=== PATIENT | female | born 1970 | race Two or more races ===

== ENCOUNTER → 2020-07-05 16:08 | Outpatient (BNVA) | payer OTHER, SELFPAY | PROVIDERS: PCP Internal Medicine; Visit Provider Internal Medicine | DX: I82.5Z1 Chronic embolism and thrombosis of unspecified deep veins of right distal lower extremity (principal); Z51.81 Encounter for therapeutic drug level monitoring; Z79.01 Long term (current) use of anticoagulants | CPT/HCPCS: 85610; 99211 ==

== ENCOUNTER 2020-07-12 09:15 | Outpatient (REF) | payer OTHER, SELFPAY ==
[2020-07-12 10:21] LABS: MANUAL DIFF FLAG NO
[2020-07-12 10:45] LABS: Basophils Percent Auto 0.7 % (0-2); Eosinophils Absolute Auto 0.1 X10*3/uL (0.0-0.4); Eosinophils Percent Auto 2.2 % (0-4); Hematocrit 40.8 % (37-47); Hemoglobin 12.6 g/dl (12.0-16.0); Imm Gran Abs Auto 0.02 X10*3/uL (0.00-0.03); Imm Gran Pct Auto 0.4 % (0.0-0.4); Lymphocytes Absolute Auto 1.4 X10*3/uL (1.2-4.9); Lymphocytes Percent Auto 25.9 % (20-40); Mean Corpuscular HGB Conc 30.9 g/dl (31.0-35.0); Mean Corpuscular Hemoglobin 27.6 pg (27.0-33.0); Mean Corpuscular Volume 89.5 fL (80-98); Mean Platelet Volume 11.5 fL (9.4-12.3); Monocytes Absolute Auto 0.4 X10*3/uL (0.1-1.2); Monocytes Percent Auto 7.2 % (2-11); Neutrophils Absolute Auto 3.4 X10*3/uL (2.0-8.3); Neutrophils Percent Auto 63.6 % (45-73); Platelet Count 271 X10*3/uL (160-400); Red Blood Count 4.56 X10*6/uL (4.20-5.50); Red Cell Distribution Width 14.9 % (11.0-16.0); White Blood Count 5.4 X10*3/uL (4.8-10.8)
[2020-07-12 11:23] LABS: Alanine Aminotransferase 45 U/L (0-31); Alkaline Phosphatase 71 U/L (39-117); Anion Gap 13 (12-20); Aspartate Amino Transferase 34 U/L (5-31); Bilirubin Total 0.3 mg/dL (0.0-1.0); Blood Urea Nitrogen 12 mg/dL (9-16); C Reactive Protein 1.51 mg/dL (< or = 0.50); Carbon Dioxide 24 mmol/L (22-29); Chloride 108 mmol/L (96-108); Estimated Glomerular Filt Rate > 60; Glucose Random 86 mg/dL (60-115); Sodium 141 mmol/L (135-145); Total Protein 7.3 g/dL (6.5-8.0)
== END 2020-07-12 09:16 | disposition home or self-care (01) ==
LOC: HO.10HDL 09:15
PROVIDERS: PCP Internal Medicine; Visit Provider Student in an Organized Health Care Education/Training Program
DX: Z79.899 Other long term (current) drug therapy (principal)
CPT/HCPCS: 36415; 80053; 85025; 86140

== ENCOUNTER → 2020-07-18 16:30 | Outpatient (BNVA) | payer OTHER, SELFPAY | PROVIDERS: PCP Internal Medicine; Referring Provider Internal Medicine; Visit Provider Student in an Organized Health Care Education/Training Program | DX: Z76.89 Persons encountering health services in other specified circumstances (principal) ==

== ENCOUNTER → 2020-07-25 13:13 | Outpatient (BNVA) | payer OTHER, SELFPAY | PROVIDERS: PCP Internal Medicine; Referring Provider Internal Medicine; Visit Provider Internal Medicine | DX: I82.501 Chronic embolism and thrombosis of unspecified deep veins of right lower extremity (principal); Z79.01 Long term (current) use of anticoagulants; Z51.81 Encounter for therapeutic drug level monitoring | CPT/HCPCS: 85610 ==

== ENCOUNTER 2020-07-26 08:16 | Outpatient (REF) | payer OTHER, SELFPAY ==
[2020-07-26 11:04] LABS: Free T4 (Free Thyroxine) 1.03 ng/dL (0.71-1.85); Thyroid Stimulating Hormone 1.13 mIU/mL (0.32-4.0)
== END 2020-07-26 08:17 | disposition home or self-care (01) ==
LOC: HO.10HDL 08:16
PROVIDERS: Visit Provider Internal Medicine Endocrinology, Diabetes & Metabolism
DX: E04.2 Nontoxic multinodular goiter (principal)
CPT/HCPCS: 84439; 84443

== ENCOUNTER → 2020-08-16 15:50 | Outpatient (BNVA) | payer OTHER, SELFPAY | PROVIDERS: PCP Internal Medicine; Visit Provider Internal Medicine | DX: I82.501 Chronic embolism and thrombosis of unspecified deep veins of right lower extremity (principal); Z51.81 Encounter for therapeutic drug level monitoring; Z79.01 Long term (current) use of anticoagulants | CPT/HCPCS: 85610; 99211 ==

== ENCOUNTER → 2020-08-21 08:03 | Outpatient (BNVA) | payer OTHER, SELFPAY | PROVIDERS: PCP Internal Medicine; Referring Provider Internal Medicine; Visit Provider Internal Medicine Endocrinology, Diabetes & Metabolism | DX: Z13.89 Encounter for screening for other disorder (principal) ==

== ENCOUNTER 2020-08-30 10:13 | Outpatient (REF) | payer OTHER, SELFPAY ==
--- NOTE | 2020-08-30 10:18 | US_ITS ---
EXAMINATION: US THYROID CLINICAL INFORMATION: Nontoxic multinodular goiter. COMPARISON: Thyroid ultrasound 06/21/2019. TECHNIQUE: Linear transducer patino-scale and color Doppler examination with attention to the region of the thyroid. FINDINGS: SIZE: Measurements of the thyroid lobes and nodules are given in sagittal, anteroposterior and transverse dimensions respectively. Right Thyroid Lobe: 5.2 x 2.0 x 1.8 cm, volume 10 mL. Previously 5.3 x 2.0 x 2.2 cm, volume 12.2 mL. Parenchyma: The gland echotexture is heterogeneous. Thyroid vascularity is normal. Left Thyroid Lobe: 5.1 x 1.4 x 1.9 cm, volume 6.9 mL. Previously 5.1 x 2.1 x 1.9 cm, volume 10.6 mL. Parenchyma: The gland echotexture is heterogeneous. Thyroid vascularity is normal. Isthmus: 0.8 cm in maximum AP dimension. Previously 0.6 cm. RIGHT THYROID LOBE: No nodules. ISTHMUS: No nodules. LEFT THYROID LOBE: There are 3 nodules seen. 1. Location: Lower pole. Size: 1.4 x 0.7 x 1.2 cm. Previous: 1.3 x 0.6 x 1.0 cm. Nodule characteristics: Hypoechoic, smoothly marginated with intranodular flow. 2. Location: Lower pole. Size: 0.4 x 0.3 x 0.3 cm. Previous: 0.4 x 0.3 x 0.4 cm. Nodule characteristics: Hypoechoic, smoothly marginated with no intranodular flow. 3. Location: Lower pole. Size: 0.8 x 0.4 x 0.7 cm. Previous: 0.6 x 0.4 x 0.6 cm. Nodule characteristics: Heterogeneous, smoothly marginated with no intranodular flow. NODES: No lymphadenopathy is seen in the tissue surrounding the thyroid gland. US/US thyroid IMPRESSION: Stable left thyroid nodules. Heterogeneous enlarged left lobe with vascularity appearing normal at this time. Consider one-year followup.
== END 2020-08-30 10:14 | disposition home or self-care (01) ==
LOC: HO.HMGCX 10:13
PROVIDERS: PCP Internal Medicine; Visit Provider Internal Medicine
DX: E04.2 Nontoxic multinodular goiter (principal)
CPT/HCPCS: 76536

== ENCOUNTER → 2020-09-06 16:14 | Outpatient (BNVA) | payer OTHER, SELFPAY | PROVIDERS: PCP Internal Medicine; Visit Provider Internal Medicine | DX: I82.501 Chronic embolism and thrombosis of unspecified deep veins of right lower extremity (principal); Z51.81 Encounter for therapeutic drug level monitoring; Z79.01 Long term (current) use of anticoagulants | CPT/HCPCS: 85610; 99211 ==

== ENCOUNTER 2020-09-11 08:18 | Outpatient (REF) | payer OTHER, SELFPAY ==
[2020-09-11 10:11] LABS: MANUAL DIFF FLAG NO
[2020-09-11 10:12] LABS: Basophils Percent Auto 0.2 % (0-2); Eosinophils Absolute Auto 0.1 X10*3/uL (0.0-0.4); Eosinophils Percent Auto 0.7 % (0-4); Hematocrit 41.1 % (37-47); Imm Gran Abs Auto 0.03 X10*3/uL (0.00-0.03); Imm Gran Pct Auto 0.4 % (0.0-0.4); Lymphocytes Absolute Auto 2.4 X10*3/uL (1.2-4.9); Lymphocytes Percent Auto 28.5 % (20-40); Mean Corpuscular HGB Conc 31.6 g/dl (31.0-35.0); Mean Corpuscular Hemoglobin 28.2 pg (27.0-33.0); Mean Corpuscular Volume 89.2 fL (80-98); Mean Platelet Volume 11.3 fL (9.4-12.3); Monocytes Absolute Auto 0.5 X10*3/uL (0.1-1.2); Monocytes Percent Auto 5.4 % (2-11); Neutrophils Absolute Auto 5.5 X10*3/uL (2.0-8.3); Neutrophils Percent Auto 64.8 % (45-73); Platelet Count 325 X10*3/uL (160-400); Red Blood Count 4.61 X10*6/uL (4.20-5.50); Red Cell Distribution Width 15.9 % (11.0-16.0); White Blood Count 8.5 X10*3/uL (4.8-10.8)
[2020-09-11 10:40] LABS: Alanine Aminotransferase 21 U/L (0-31); Alkaline Phosphatase 69 U/L (39-117); Anion Gap 12 (12-20); Aspartate Amino Transferase 18 U/L (5-31); Bilirubin Total 0.5 mg/dL (0.0-1.0); Blood Urea Nitrogen 20 mg/dL (9-16); C Reactive Protein 0.74 mg/dL (< or = 0.50); Carbon Dioxide 25 mmol/L (22-29); Chloride 109 mmol/L (96-108); Estimated Glomerular Filt Rate 58; Glucose Random 76 mg/dL (60-115); Potassium 3.7 mmol/l (3.3-5.1); Sodium 142 mmol/L (135-145); Total Protein 7.3 g/dL (6.5-8.0)
[2020-09-11 10:54] LABS: Free T4 (Free Thyroxine) 1.18 ng/dL (0.71-1.85); Thyroid Stimulating Hormone 1.55 uIU/mL (0.32-4.0); Vitamin D 25-OH Total 40.7 ng/mL (>30)
[2020-09-11 10:58] LABS: Erythrocyte Sedimentation Rate 12 MM/HR (0-20)
== END 2020-09-11 08:19 | disposition home or self-care (01) ==
LOC: HO.10HDL 08:18
PROVIDERS: Absent Provider Internal Medicine Endocrinology, Diabetes & Metabolism; PCP Internal Medicine; Visit Provider Student in an Organized Health Care Education/Training Program
DX: M05.9 Rheumatoid arthritis with rheumatoid factor, unspecified (principal); E04.2 Nontoxic multinodular goiter; E55.9 Vitamin D deficiency, unspecified; Z79.899 Other long term (current) drug therapy
CPT/HCPCS: 36415; 80053; 82306; 84439; 84443; 85025; 85652; 86140

== ENCOUNTER → 2020-10-05 08:32 | Outpatient (BNVA) | payer OTHER, SELFPAY | PROVIDERS: PCP Internal Medicine; Visit Provider Internal Medicine | DX: I82.501 Chronic embolism and thrombosis of unspecified deep veins of right lower extremity (principal); Z51.81 Encounter for therapeutic drug level monitoring; Z79.01 Long term (current) use of anticoagulants | CPT/HCPCS: 85610; 99211 ==

== ENCOUNTER → 2020-10-18 16:05 | Outpatient (BNVA) | payer OTHER, SELFPAY | PROVIDERS: PCP Internal Medicine; Referring Provider Internal Medicine; Visit Provider Student in an Organized Health Care Education/Training Program | DX: Z76.89 Persons encountering health services in other specified circumstances (principal) ==

== ENCOUNTER → 2020-11-02 15:51 | Outpatient (BNVA) | payer OTHER, SELFPAY | PROVIDERS: Visit Provider Internal Medicine | DX: I82.501 Chronic embolism and thrombosis of unspecified deep veins of right lower extremity (principal); Z51.81 Encounter for therapeutic drug level monitoring; Z79.01 Long term (current) use of anticoagulants | CPT/HCPCS: 85610; 99211 ==

== ENCOUNTER → 2020-11-30 16:08 | Outpatient (BNVA) | payer OTHER, SELFPAY | PROVIDERS: PCP Internal Medicine; Visit Provider Internal Medicine | DX: I82.501 Chronic embolism and thrombosis of unspecified deep veins of right lower extremity (principal); Z51.81 Encounter for therapeutic drug level monitoring; Z79.01 Long term (current) use of anticoagulants | CPT/HCPCS: 85610; 99211 ==

== ENCOUNTER 2020-12-06 16:17 | Outpatient (REF) | payer OTHER, SELFPAY ==
[2020-12-06 18:04] LABS: MANUAL DIFF FLAG NO
[2020-12-06 18:20] LABS: Basophils Absolute Auto 0.1 X10*3/uL (0.0-0.2); Basophils Percent Auto 0.7 % (0-2); Eosinophils Absolute Auto 0.2 X10*3/uL (0.0-0.4); Eosinophils Percent Auto 2.3 % (0-4); Hematocrit 40.8 % (37-47); Hemoglobin 12.8 g/dl (12.0-16.0); Imm Gran Abs Auto 0.05 X10*3/uL (0.00-0.03); Imm Gran Pct Auto 0.7 % (0.0-0.4); Lymphocytes Percent Auto 26.9 % (20-40); Mean Corpuscular HGB Conc 31.4 g/dl (31.0-35.0); Mean Corpuscular Volume 92.5 fL (80-98); Mean Platelet Volume 11.8 fL (9.4-12.3); Monocytes Absolute Auto 0.9 X10*3/uL (0.1-1.2); Monocytes Percent Auto 12.4 % (2-11); Neutrophils Absolute Auto 4.3 X10*3/uL (2.0-8.3); Platelet Count 335 X10*3/uL (160-400); Red Blood Count 4.41 X10*6/uL (4.20-5.50); Red Cell Distribution Width 15.7 % (11.0-16.0); White Blood Count 7.5 X10*3/uL (4.8-10.8)
[2020-12-06 19:06] LABS: Erythrocyte Sedimentation Rate 23 MM/HR (0-20)
[2020-12-06 19:40] LABS: Alanine Aminotransferase 31 U/L (0-31); Albumin Level 4.3 g/dL (3.5-5.0); Alkaline Phosphatase 88 U/L (39-117); Anion Gap 13 (12-20); Aspartate Amino Transferase 30 U/L (5-31); Bilirubin Total 0.3 mg/dL (0.0-1.0); Blood Urea Nitrogen 10 mg/dL (9-16); C Reactive Protein 1.82 mg/dL (< or = 0.50); Carbon Dioxide 26 mmol/L (22-29); Chloride 108 mmol/L (96-108); Cholesterol 212 mg/dL; Estimated Glomerular Filt Rate > 60; Glucose Random 73 mg/dL (60-115); HDL Cholesterol 50 mg/dL; LDL Cholesterol Calculated 136 mg/dl; Potassium 3.9 mmol/L (3.3-5.1); Sodium 143 mmol/L (135-145); Total Protein 7.5 g/dL (6.5-8.0); Triglycerides 131 mg/dL
[2020-12-06 23:05] LABS: Reflex LDLD? No
== END 2020-12-06 16:18 | disposition home or self-care (01) ==
LOC: HO.LAB 16:17
PROVIDERS: PCP Internal Medicine; Visit Provider Student in an Organized Health Care Education/Training Program
DX: M05.9 Rheumatoid arthritis with rheumatoid factor, unspecified (principal); M79.7 Fibromyalgia; Z79.899 Other long term (current) drug therapy
CPT/HCPCS: 36415; 80053; 80061; 85025; 85652; 86140

== ENCOUNTER → 2020-12-28 16:18 | Outpatient (BNVA) | payer OTHER, SELFPAY | PROVIDERS: PCP Internal Medicine; Visit Provider Internal Medicine | DX: I82.5Z1 Chronic embolism and thrombosis of unspecified deep veins of right distal lower extremity (principal); Z79.01 Long term (current) use of anticoagulants; Z51.81 Encounter for therapeutic drug level monitoring | CPT/HCPCS: 85610; 99211 ==

== ENCOUNTER 2021-01-04 13:57 | Outpatient (REF) | payer OTHER, SELFPAY ==
--- NOTE | ~2021-01-04 | US_ITS ---
EXAMINATION: US VENOUS ULTRASOUND WITH DOPPLER LOWER EXTREMITY, RIGHT CLINICAL INFORMATION: Right lower extremity pain. Assess for occult DVT COMPARISON: Right leg venous ultrasound with Doppler 06/25/2018. TECHNIQUE: Ultrasound of the deep veins is performed from the hip to the calf with compression sonography and color and pulse Doppler assessment. Spectral analysis with color-flow imaging is performed. FINDINGS: There is partially occluding thrombus involving the femoral vein beginning just superior to the popliteal vein and extending to the upper thigh just inferior to the common femoral vein. The vein is not dilated and there is echogenicity within the lumen which may suggest combination of chronic DVT upon acute DVT. Findings are new from prior venous ultrasound 06/25/2018. The common femoral vein, popliteal vein, and visualized calf veins are patent. There is no popliteal fossa cyst. Additional imaging of the left common femoral vein is unremarkable. Results are called and discussed with provider PEDRO Dubose at 1509 hours. US/US venous duplex LE RT IMPRESSION: 1. Positive for DVT right lower extremity involving the right femoral vein, beginning just superior to the popliteal vein and extending to the upper thigh. There is echogenicity within the lumen and the vein is not dilated which may suggest combination of chronic DVT upon acute DVT. 2. The popliteal vein and the common femoral vein are patent.
== END 2021-01-04 13:58 | disposition home or self-care (01) ==
LOC: HO.HMGCX 13:57
PROVIDERS: PCP Internal Medicine; Visit Provider Nurse Practitioner Family
DX: M79.651 Pain in right thigh (principal)
CPT/HCPCS: 93971

== ENCOUNTER → 2021-01-10 08:47 | Outpatient (BNVA) | payer OTHER, SELFPAY | PROVIDERS: PCP Internal Medicine; Visit Provider Internal Medicine | DX: I82.5Z1 Chronic embolism and thrombosis of unspecified deep veins of right distal lower extremity (principal); Z79.01 Long term (current) use of anticoagulants; Z51.81 Encounter for therapeutic drug level monitoring | CPT/HCPCS: 85610; 99211 ==

== ENCOUNTER → 2021-01-19 09:23 | Outpatient (BNVA) | payer OTHER, SELFPAY | PROVIDERS: PCP Internal Medicine; Visit Provider Internal Medicine | DX: I82.501 Chronic embolism and thrombosis of unspecified deep veins of right lower extremity (principal); Z51.81 Encounter for therapeutic drug level monitoring; Z79.01 Long term (current) use of anticoagulants | CPT/HCPCS: 85610; 99211 ==

== ENCOUNTER → 2021-01-22 08:15 | Outpatient (BNV) | payer OTHER, SELFPAY | PROVIDERS: PCP Internal Medicine; Referring Provider Internal Medicine; Visit Provider Internal Medicine Medical Oncology | DX: I82.409 Acute embolism and thrombosis of unspecified deep veins of unspecified lower extremity (principal) | CPT/HCPCS: 99204; 99213; 99214 ==

== ENCOUNTER 2021-01-22 11:59 | Outpatient (REF) | payer OTHER, SELFPAY ==
--- NOTE | ~2021-01-22 | US_ITS ---
EXAMINATION: US VENOUS ULTRASOUND WITH DOPPLER LOWER EXTREMITY, RIGHT CLINICAL INFORMATION: Follow-up DVT COMPARISON: Previous exam 01/04/2021 TECHNIQUE: Ultrasound of the deep veins is performed from the hip to the calf with compression sonography and color and pulse Doppler assessment. Spectral analysis with color-flow imaging is performed. FINDINGS: The right common femoral vein is patent. The greater saphenous vein in the upper thigh is patent. There is residual nonocclusive thrombus seen in the mid right superficial femoral vein. The remainder of the right superficial femoral vein is patent. The right popliteal vein is patent. The visualized posterior tibial and peroneal veins are patent. There is no Loyd's cyst. US/US venous duplex LE RT IMPRESSION: Residual nonocclusive thrombus in the right mid femoral vein. Clot burden appears decreased from 01/04/2021 exam.
== END 2021-01-22 12:00 | disposition home or self-care (01) ==
LOC: HO.US 11:59
PROVIDERS: PCP Internal Medicine; Visit Provider Internal Medicine Medical Oncology
DX: I82.401 Acute embolism and thrombosis of unspecified deep veins of right lower extremity (principal)
CPT/HCPCS: 93971

== ENCOUNTER → 2021-01-25 15:50 | Outpatient (BNVA) | payer OTHER, SELFPAY | PROVIDERS: PCP Internal Medicine; Visit Provider Internal Medicine | DX: I82.501 Chronic embolism and thrombosis of unspecified deep veins of right lower extremity (principal); Z79.01 Long term (current) use of anticoagulants; Z51.81 Encounter for therapeutic drug level monitoring | CPT/HCPCS: 85610; 99211 ==

== ENCOUNTER 2021-02-27 16:15 | Outpatient (REF) | payer OTHER, SELFPAY ==
--- NOTE | ~2021-02-27 | US_ITS ---
EXAMINATION: US THYROID CLINICAL INFORMATION: Nontoxic multinodular goiter. COMPARISON: Ultrasound soft tissue head/neck thyroid dated 08/30/2020 and 06/21/2019. TECHNIQUE: Linear transducer grayscale and color Doppler examination with attention to the region of the thyroid. FINDINGS: SIZE: Measurements of the thyroid lobes and nodules are given in sagittal, anteroposterior and transverse dimensions respectively. Right Thyroid Lobe: 5.2 x 1.9 x 1.9 cm, volume 9.8 mL. Previously 5.2 x 2.0 x 1.8 cm, volume 9.9 mL. Parenchyma: The gland echotexture is homogeneous. Thyroid vascularity is normal. Left Thyroid Lobe: 5.2 x 2.0 x 1.5 cm, volume 8.2 mL. Previously 5.1 x 1.4 x 1.9 cm, volume 6.9 mL. Parenchyma: The gland echotexture is homogeneous. Thyroid vascularity is normal. Isthmus: 0.8 cm in maximum AP dimension. Previously 0.8 cm. Estimated total number of nodules greater than or equal to 1 cm: 0. 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 Location: Left superior. Size: 0.7 x 0.4 x 0.6 cm, volume 0.09 mL. Previously: 0.8 x 0.4 x 0.7 cm, volume 0.11 mL. Nodule characteristics: Composition: Solid (2). Echogenicity: Isoechoic (1). Shape: Not taller than wide (0). Margins: Ill-defined (0). Echogenic Foci: None (0). ACR TI-RADS total points: 3 Previous: N/A ACR TI-RADS category: 3 Previous: N/A Significant change in size (>/= 20% in 2 dimensions and minimal increase of 2 mm or 50% or greater increase in volume): None. Change in features: None. Change in ACR TI-RADS risk category: N/A 2. Location: Left inferior. Size: 1.4 x 0.8 x 1.2 cm, volume 0.7 mL. Previously: 1.4 x 0.7 x 1.2 cm, volume 0.6 mL. Nodule characteristics: Composition: Cystic(0). ACR TI-RADS total points: 0 Previous: N/A ACR TI-RADS category: 1 Previous: N/A Significant change in size (>/= 20% in 2 dimensions and minimal increase of 2 mm or 50% or greater increase in volume): None. Change in features: None. Change in ACR TI-RADS risk category: N/A NODES: No lymphadenopathy is seen in the tissue surrounding the thyroid gland. US/US thyroid IMPRESSION: Stable left thyroid nodules. Both thyroid lobes have almost the same volume at this time. Recommend continued followup. ACR TI-RADS RECOMMENDATION REFERENCE: Ultrasound-guided fine-needle aspiration, followup ultrasound, no further follow up. * TR1 (0 point) and TR 2 (2 points): No FNA or follow up * TR3 (3 points): FNA if more than or equal to 2.5 cm in maximum dimension, followup ultrasound in 1, 3 and 5 years if 1.5 to 2.4 cm in maximum dimension. * TR4 (4-6 points): FNA if more than or equal to 1.5 cm in maximum dimension, followup ultrasound in 1, 2, 3 and 5 years if 1 to 1.4 cm in maximum dimension. * TR5 (more than or equal to 7 points): FNA if more than or equal to 1 cm in maximum dimension, followup ultrasound every year for 5 years if 0.5 to 0.9 cm in maximum dimension. * TR3, TR4 or TR5 nodules that are below the size threshold for follow up receive no follow up.
== END 2021-02-27 16:16 | disposition home or self-care (01) ==
LOC: HO.US 16:15
PROVIDERS: Visit Provider Internal Medicine Endocrinology, Diabetes & Metabolism
DX: E04.2 Nontoxic multinodular goiter (principal); E61.1 Iron deficiency
CPT/HCPCS: 76536

== ENCOUNTER 2021-03-09 09:20 | Outpatient (REF) | payer OTHER, SELFPAY ==
[2021-03-09 10:19] LABS: MANUAL DIFF FLAG NO
[2021-03-09 10:29] LABS: Basophils Percent Auto 0.7 % (0-2); Eosinophils Absolute Auto 0.1 X10*3/uL (0.0-0.4); Eosinophils Percent Auto 1.2 % (0-4); Hematocrit 41.8 % (37-47); Hemoglobin 13.1 g/dl (12.0-16.0); Imm Gran Abs Auto 0.03 X10*3/uL (0.00-0.03); Imm Gran Pct Auto 0.5 % (0.0-0.4); Lymphocytes Absolute Auto 1.8 X10*3/uL (1.2-4.9); Lymphocytes Percent Auto 31.1 % (20-40); Mean Corpuscular HGB Conc 31.3 g/dl (31.0-35.0); Mean Corpuscular Hemoglobin 28.1 pg (27.0-33.0); Mean Corpuscular Volume 89.7 fL (80-98); Mean Platelet Volume 11.7 fL (9.4-12.3); Monocytes Absolute Auto 0.3 X10*3/uL (0.1-1.2); Monocytes Percent Auto 5.8 % (2-11); Neutrophils Absolute Auto 3.5 X10*3/uL (2.0-8.3); Neutrophils Percent Auto 60.7 % (45-73); Platelet Count 324 X10*3/uL (160-400); Red Blood Count 4.66 X10*6/uL (4.20-5.50); Red Cell Distribution Width 14.1 % (11.0-16.0); White Blood Count 5.7 X10*3/uL (4.8-10.8)
[2021-03-09 10:52] LABS: Alanine Aminotransferase 24 U/L (0-31); Alkaline Phosphatase 82 U/L (39-117); Anion Gap 15 (12-20); Aspartate Amino Transferase 24 U/L (5-31); Bilirubin Total < 0.2 mg/dL (0.0-1.0); Blood Urea Nitrogen 13 mg/dL (9-16); C Reactive Protein 1.01 mg/dL (< or = 0.50); Calcium 8.9 mg/dL (8.4-10.2); Carbon Dioxide 20 mmol/L (22-29); Chloride 112 mmol/L (96-108); Estimated Glomerular Filt Rate 56; Glucose Random 107 mg/dL (60-115); Potassium 3.8 mmol/L (3.3-5.1); Sodium 143 mmol/L (135-145); Total Protein 7.1 g/dL (6.5-8.0)
[2021-03-09 11:06] LABS: Erythrocyte Sedimentation Rate 8 MM/HR (0-20)
[2021-03-09 13:43] LABS: MANUAL DIFF FLAG NO
== END 2021-03-09 09:21 | disposition home or self-care (01) ==
LOC: HO.10HDL 09:20
PROVIDERS: PCP Internal Medicine; Visit Provider Student in an Organized Health Care Education/Training Program
DX: M05.9 Rheumatoid arthritis with rheumatoid factor, unspecified (principal); Z79.899 Other long term (current) drug therapy
CPT/HCPCS: 36415; 80053; 85025; 85652; 86140

== ENCOUNTER → 2021-03-15 16:03 | Outpatient (BNVA) | payer OTHER, SELFPAY | PROVIDERS: Visit Provider Student in an Organized Health Care Education/Training Program ==

== ENCOUNTER 2021-05-17 08:56 | Outpatient (REF) | payer OTHER, SELFPAY ==
[2021-05-17 09:28] LABS: MANUAL DIFF FLAG NO
[2021-05-17 09:35] LABS: Basophils Absolute Auto 0.1 X10*3/uL (0.0-0.2); Basophils Percent Auto 0.9 % (0-2); Eosinophils Absolute Auto 0.2 X10*3/uL (0.0-0.4); Eosinophils Percent Auto 2.4 % (0-4); Hematocrit 41.2 % (37-47); Hemoglobin 12.8 g/dl (12.0-16.0); Imm Gran Abs Auto 0.02 X10*3/uL (0.00-0.03); Imm Gran Pct Auto 0.3 % (0.0-0.4); Lymphocytes Absolute Auto 2.3 X10*3/uL (1.2-4.9); Lymphocytes Percent Auto 34.6 % (20-40); Mean Corpuscular HGB Conc 31.1 g/dl (31.0-35.0); Mean Corpuscular Hemoglobin 27.2 pg (27.0-33.0); Mean Corpuscular Volume 87.7 fL (80-98); Mean Platelet Volume 11.6 fL (9.4-12.3); Monocytes Absolute Auto 0.4 X10*3/uL (0.1-1.2); Monocytes Percent Auto 6.5 % (2-11); Neutrophils Absolute Auto 3.7 X10*3/uL (2.0-8.3); Neutrophils Percent Auto 55.3 % (45-73); Platelet Count 281 X10*3/uL (160-400); Red Cell Distribution Width 13.6 % (11.0-16.0); White Blood Count 6.7 X10*3/uL (4.8-10.8)
[2021-05-17 09:53] LABS: Alanine Aminotransferase 22 U/L (0-31); Alkaline Phosphatase 73 U/L (39-117); Anion Gap 12 (12-20); Aspartate Amino Transferase 26 U/L (5-31); Bilirubin Total 0.6 mg/dL (0.0-1.0); Blood Urea Nitrogen 12 mg/dL (9-16); C Reactive Protein 1.11 mg/dL (< or = 0.50); Calcium 9.1 mg/dL (8.4-10.2); Carbon Dioxide 23 mmol/L (22-29); Chloride 112 mmol/L (96-108); Cholesterol 170 mg/dL; Estimated Glomerular Filt Rate 58; Glucose Random 96 mg/dL (60-115); HDL Cholesterol 46 mg/dL; LDL Cholesterol Calculated 107 mg/dl; Potassium 3.7 mmol/L (3.3-5.1); Sodium 143 mmol/L (135-145); Total Protein 7.3 g/dL (6.5-8.0); Triglycerides 89 mg/dL
[2021-05-17 10:12] LABS: Erythrocyte Sedimentation Rate 12 MM/HR (0-20)
[2021-05-17 10:26] LABS: Reflex LDLD? No
== END 2021-05-17 08:57 | disposition home or self-care (01) ==
LOC: HO.LAB 08:56
PROVIDERS: PCP Internal Medicine; Visit Provider Student in an Organized Health Care Education/Training Program
DX: M05.9 Rheumatoid arthritis with rheumatoid factor, unspecified (principal)
CPT/HCPCS: 36415; 80053; 80061; 85025; 85652; 86140

== ENCOUNTER → 2021-05-18 12:23 | Outpatient (BNVA) | payer OTHER, SELFPAY | PROVIDERS: PCP Internal Medicine; Visit Provider Student in an Organized Health Care Education/Training Program ==

== ENCOUNTER 2021-05-18 12:47 | Emergency (ER) | payer OTHER, SELFPAY ==
--- NOTE | ~2021-05-18 | CT_ITS ---
EXAMINATION: CT ANGIOGRAM OF THE CHEST WITH AND WITHOUT CONTRAST (CT PULMONARY ANGIOGRAM FOR PE) CLINICAL INFORMATION: Reason for Exam r/o PE, DVT proximal femoral vein COMPARISON: Chest x-ray May 18, 2021. CT of the chest January 23, 2008 TECHNIQUE: Prior to contrast administration, noncontrast localization images were obtained. Subsequently, multidetector volumetric imaging was performed from the thoracic inlet to below the diaphragms following the administration of 69 mL Omnipaque 350 intravenous contrast. No contrast reaction reported Sagittal, coronal, and MIP oblique sagittal reformatted images were obtained on the CT workstation, uploaded to PACS, and reviewed. This CT examination was performed using dose optimization techniques as appropriate, variously including the following: *Automated exposure control *Adjustment of mA and/or kV according to patient size (this includes techniques or standardized protocols for targeted exams where dose is matched to indication/reason for exam; i.e. extremities or head) *Use of iterative reconstruction technique Total exam dose-length product 358 mGy-cm FINDINGS: QUALITY OF STUDY/CONTRAST BOLUS: Satisfactory. PULMONARY ARTERIES: No central or segmental pulmonary emboli. THORACIC AORTA: No aneurysm or dissection. LUNG: No focal consolidation, nodules or masses. PLEURA: No pleural effusion or pneumothorax. MEDIASTINUM: Normal heart size. No pericardial effusion. No hilar or mediastinal lymphadenopathy. No evidence of septal bowing or right heart strain. CHEST WALL/AXILLA: No axillary or internal mammary lymphadenopathy. OSSEOUS STRUCTURES: No acute or suspicious osseous abnormality. UPPER ABDOMEN: Unremarkable. No reflux of contrast into the hepatic veins to suggest elevated right heart pressures. CT/CT angio chest PE protocol IMPRESSION: Normal CT chest. No evidence of pulmonary embolism. VTE: negative
--- NOTE | ~2021-05-18 | US_ITS ---
EXAMINATION: US VENOUS ULTRASOUND WITH DOPPLER LOWER EXTREMITY, RIGHT CLINICAL INFORMATION: History of DVT. Pain. COMPARISON: Previous ultrasound exams, most recent January 2021 TECHNIQUE: Ultrasound of the deep veins is performed from the hip to the calf with compression sonography and color and pulse Doppler assessment. Spectral analysis with color-flow imaging is performed. FINDINGS: The right common femoral, profunda and proximal superficial femoral veins are patent. The right superficial femoral vein is duplicated. There is occlusive thrombus seen in one of the mid and distal right superficial femoral veins. This appears increased from most recent exam January 2021. The popliteal and posterior tibial and peroneal veins are patent. There is no Loyd's cyst. US/US venous duplex LE RT IMPRESSION: Occlusive DVT in the right mid and distal superficial femoral vein. This appears increased from previous exams. Findings were communicated to [place] [facility] by telephone on 05/18/2021 at 4:34 PM.
--- NOTE | ~2021-05-18 | XR_ITS ---
EXAMINATION: XR CHEST CLINICAL INFORMATION: Cough COMPARISON: 06/05/2016 TECHNIQUE: 2 views of the chest were obtained. FINDINGS: No significant abnormality is noted involving the heart, lungs, mediastinum, bony thorax or soft tissues. XR/XR chest 2V IMPRESSION: No acute pulmonary disease.
[2021-05-18 13:50] VITALS: BP 143/86; PULSE 75; RESP 18; TEMP 36.7; O2SAT 97; BMI 33.6
--- NOTE | 2021-05-18 14:30 | ED.GENADULT ---
HPI - General Adult General Chief complaint: General Medical Stated complaint: rule out dvt Time Seen by Provider: 05/18/21 14:11 Source: patient Mode of arrival: wheelchair Limitations: no limitations History of Present Illness HPI narrative: 50-year-old female with a past medical history of DVT while being anticoagulated presents for right thigh pain from her primary care provider's office. Patient states she developed right thigh pain for 1 day, the pain is located in her right posterior thigh and runs down her right lateral thigh. This is the same pain she had with her last DVT which was also in her upper thigh, and which happened in December, while patient was on warfarin. Patient has been on Xarelto since December. Patient states her pain is 10/10 with walking, or any movement, even coughing. If she is not moving, there is no pain. Patient states she has a clotting disorder but does not know what it is. She is on 20 mg of Xarelto. She has no back pain, no chest pain, no shortness of breath. History of rheumatoid arthritis, fibromyalgia, obesity Onset (ago): day(s) (1) Location: lower extremity Radiation: non-radiation Severity: severe Severity scale (1-10): 10 Quality: aching Relieving factors: immobilization Exacerbating factors: movement Associated symptoms: denies other symptoms Treatments prior to arrival: none Related Data Home Medications Medication Instructions Recorded Confirmed erenumab-aooe 140 mg/mL 140 mg SUBCUT ONCE 07/18/20 05/18/21 subcutaneous auto-injector (Aimovig Autoinjector) frovatriptan 2.5 mg tablet See Rx Instructions PO .COMPLEX 07/18/20 05/18/21 topiramate 100 mg tablet 100 mg PO BEDTIME 07/18/20 05/18/21 famotidine 20 mg tablet 20 mg PO BID 08/21/20 05/18/21 omeprazole 20 mg capsule,delayed 20 mg PO DAILY 01/04/21 05/18/21 release topiramate 50 mg tablet 50 mg PO BID 01/25/21 05/18/21 Previous Rx's Medication Instructions Recorded cholecalciferol (vitamin D3) 50 50 mcg PO DAILY #30 cap 02/20/21 mcg (2,000 unit) capsule miscellaneous medical supply 1 ea MISCELLANEOUS DAILY #1 ea 03/15/21 certolizumab pegol (Cimzia Starter 400 mg SUBCUT Q2W #3 ea 03/20/21 Kit) certolizumab pegol (Cimzia) 400 mg SUBCUT Q4W #1 ea 03/20/21 amitriptyline 25 mg tablet 25 mg PO TID #270 tab 04/10/21 rivaroxaban 20 mg tablet (Xarelto) 20 mg PO DAILY #90 tab 04/26/21 enoxaparin 80 mg/0.8 mL 80 mg SUBCUT Q12H 5 Days #8 ml 05/18/21 subcutaneous syringe Allergies Allergy/AdvReac Type Severity Reaction Status Date / Time No Known Allergies Allergy Verified 05/18/21 12:29 [No Known Allergies*] Review of Systems Constitutional: Constitutional: Denies body ache(s), Denies chills, Denies fatigue, Denies fever(s), Denies headache(s) and Denies lethargy Eyes: Eyes: Denies change in vision ENT: Denies otalgia, Denies headache(s) and Denies sore throat Cardiovascular: Cardiovascular: Denies chest pain, Denies Epigastric Pain, Denies irregular heart rhythm, Denies leg ulcers, Denies leg edema, Denies lightheadedness, Denies radiating jaw, neck or arm pain, Denies dyspnea and Denies dyspnea on exertion Respiratory: Respiratory: Denies chest congestion, Denies cough, Denies pain on inspiration, Denies dyspnea and Denies dyspnea on exertion Gastrointestinal: Gastrointestinal: Denies abdominal pain, Denies constipation, Denies diarrhea, Denies nausea and Denies vomiting Genitourinary: Genitourinary: Reports no additional female genitourinary complaints Musculoskeletal: Musculoskeletal: Denies numbness and Denies tingling Comments: Right thigh pain Integumentary/Breasts: Skin/Breast: Denies erythema and Denies skin swelling Neurologic: Denies headache(s), Denies numbness, Denies Sensory deficit (Neuro), Denies tingling and Denies paresthesias Endocrine: Endocrine: Denies fatigue Hematologic/Lymphatic: Comments: History of clotting disorder [facility] Past Medical History Medical History History of fibromyalgia History of vitamin D deficiency Hx of carpal tunnel syndrome Hx of obesity Hx of rheumatoid arthritis Hx of thyroid nodule Non-toxic multinodular goiter Obesity Vitamin D deficiency Family History Family History Mother Fibromyalgia Osteoarthritis Diabetes Social History Social History Household Members: Spouse and Children Housing: House Alcohol intake: current Alcohol intake frequency: holidays/special occasions only Patient Tobacco Use Status: Never used Tobacco Advance Directives: No Advance Directives Information Provided: Yes Patient : No Physical Exam Vital Signs: Vital Signs: Last Vital Signs Temp 98.0 F 05/18/21 13:50 Pulse 75 05/18/21 13:50 Resp 18 05/18/21 13:50 BP 143/86 H 05/18/21 13:50 Pulse Ox 97 05/18/21 13:50 Body Mass Index 33.6 Const: General: cooperative, no acute distress, well developed, alert and awake Nutritional Appearance: well nourished Orientation/consciousness: patient oriented x3 Limitations: no limitations Eyes: Conjunctivae: conjunctivae normal Pupils: Equal, round and reactive pupils present EOM: EOMs intact bilaterally Neck: Neck: Yes full ROM, Yes no lymphadenopathy and Yes supple Resp: Effort & Inspection: normal respiratory effort and able to speak in complete sentences Auscultation: clear to auscultation bilaterally, no crackles, no rales, no rhonchi and no wheezes Cardio: Rate: regular rate Rhythm: regular rhythm Heart sounds: S1 normal heart sound present and S2 normal heart sound present Skin: Other: Lateral right thigh warm to touch, no increased redness or swelling General skin exam: no rashes or lesions noted Neuro: General: patient oriented x3, tone normal and moves all extremities Cranial nerves: Yes Equal, round and reactive pupils present Sensory Exam: No Sensory deficit (Neuro) Extrem: Right lower extremity: normal to inspection, full ROM, normal capillary refill, hip/thigh Details: tenderness Location: of the proximal upper leg Location: laterally, normal ROM and warmth (Lateral thigh); Negative for no swelling and lower leg Details: tenderness Location: of the posterior calf (Mild tenderness to palpation); No no edema Psych: Appearance: grossly normal Affect: normal affect Attitude: cooperative Thought process: Normal thought process present Course Course Course Narrative: 50-year-old female presents for right thigh pain that started yesterday. Patient has a history of DVTs. No chest pain or shortness of breath. Patient has pain with movement. On exam, patient has stable vitals, her right posterior calf is mildly tender to palpation, no right calf swelling or warmth. Her right lateral thigh is warm, but not red or swollen, exquisitely tender to palpation lateral thigh and anterior mid thigh. Will get coags, basic labs, ultrasound for DVT rule out. US right LE: Occlusive DVT in the right mid and distal superficial femoral vein. This appears increased from previous exams Patient had previous ultrasounds in December and January. Kaia JACK, from heme-onc, discussed case with me. Says she suggested we get a CTA to rule out PE. Suggested that of PE is negative, patient can be treated with Lovenox, 1 milligram/kilogram b.i.d. and to stop Xarelto. Repeat ultrasound in 1 month, follow up with her in 1 week. Kaia states from bone lytics are not an option due to patient's chronic anticoagulation. Patient states she started getting DVTs 20 years ago, and today this is her 5th blood clot CTA is negative for pulmonary embolism. Outpatient Lovenox comes in 80 and [address] syringes. [address]. Shavon Espinosa's if we could prescribe 80, patient needs 86 Lovenox at 1 milligram/kilogram. Dr. James said 80 Lovenox b.i.d. would be okay. Counseled patient to start her next Lovenox dose tomorrow morning, and to call Dr. Martins on Friday to be seen this week. Told patient to stop serosa Medical Decision Making Lab Data Result diagrams: 05/18/21 14:56 05/18/21 14:56 Labs: Lab Results 05/18/21 05/18/21 05/18/21 Range/Units 14:56 14:56 14:56 WBC 7.2 (4.8-10.8) X10*3/uL RBC 4.81 (4.20-5.50) X10*6/uL Hgb 13.3 (12.0-16.0) g/dl Hct 42.1 (37-47) % MCV 87.5 (80-98) fL MCH 27.7 (27.0-33.0) pg MCHC 31.6 (31.0-35.0) g/dl RDW 13.7 (11.0-16.0) % Plt Count 281 (160-400) X10*3/uL MPV 11.1 (9.4-12.3) fL Immature Gran % (Auto) 0.3 (0.0-0.4) % Neut % (Auto) 55.1 (45-73) % Lymph % (Auto) 34.3 (20-40) % [place] % (Auto) 6.9 (2-11) % Eos % (Auto) 2.6 (0-4) % Baso % (Auto) 0.8 (0-2) % Lymph # (Auto) 2.5 (1.2-4.9) X10*3/uL [place] # (Auto) 0.5 (0.1-1.2) X10*3/uL Eos # (Auto) 0.2 (0.0-0.4) X10*3/uL Baso # (Auto) 0.1 (0.0-0.2) X10*3/uL Abs Immat Gran (auto) 0.02 (0.00-0.03) X10*3/uL Absolute Neuts (auto) 4.0 (2.0-8.3) X10*3/uL Absolute Nucleated RBC 0.000 (0.0-0.012) X10*3/uL Nucleated RBC % (auto) 0.0 (0.0-0.2) /100WBC PT 14.5 H (9.9-13.0) SEC INR 1.3 H (0.9-1.1) APTT 49.7 H (24.1-38.0) SEC Sodium 142 (135-145) mmol/L Potassium 3.6 (3.3-5.1) mmol/L Chloride 112 H (96-108) mmol/L Carbon Dioxide 20 L (22-29) mmol/L Anion Gap 14 (12-20) BUN 11 (9-16) mg/dL Creatinine 0.89 (0.5-1.4) mg/dL Estim Creat Clear Calc 77.8 Estimated GFR > 60 Random Glucose 80 (60-115) mg/dL Calcium 9.0 (8.4-10.2) mg/dL Total Bilirubin 0.2 (0.0-1.0) mg/dL AST 25 (5-31) U/L ALT 23 (0-31) U/L Alkaline Phosphatase 80 (39-117) U/L Total Protein 7.9 (6.5-8.0) g/dL Albumin 4.2 (3.5-5.0) g/dL Discharge Plan Discharge Clinical Impression: Right leg DVT Qualifiers: Affected thrombotic vein of extremity: femoral Chronicity: acute Qualified Code(s): I82.411 - Acute embolism and thrombosis of right femoral vein Patient Disposition: Home, Self-Care Instructions: Deep Vein Thrombosis (ED), Deep Vein Thrombosis Prevention (ED) Additional Instructions: STOP XERALTO. PLease call Dr Martins for a follow up appointment on Friday, . You need to be seen by her before you run out of Lovenox Please to not work until you are seen by . Please fill your prescription for Lovenox. You need to get this shot twice a day. Please return to ER if you have shortness of breath, chest pain, worsening leg pain, or any other new or concerning symptoms Prescriptions: New enoxaparin 80 mg/0.8 mL syringe 80 mg subcut Q12H 5 Days Qty: 8 RF: 0 No Action cholecalciferol (vitamin D3) 50 mcg (2,000 unit) capsule 50 mcg PO DAILY Qty: 30 RF: 2 amitriptyline 25 mg tablet 25 mg PO TID Qty: 270 RF: 1 Xarelto 20 mg tablet 20 mg PO DAILY Qty: 90 RF: 4 omeprazole 20 mg capsule,delayed release(DR/EC) 20 mg PO DAILY RF: 0 topiramate 100 mg tablet 100 mg PO BEDTIME RF: 0 Aimovig Autoinjector 140 mg/mL auto-injector 140 mg subcut ONCE RF: 0 frovatriptan 2.5 mg tablet See Rx Instructions PO .COMPLEX RF: 0 miscellaneous medical supply Misc 1 ea miscellaneous DAILY Qty: 1 RF: 0 Cimzia Starter Kit 400 mg/2 mL (200 mg/mL x 2) syringe kit 400 mg subcut Q2W Qty: 3 RF: 0 Cimzia 400 mg/2 mL (200 mg/mL x 2) syringe kit 400 mg subcut Q4W Qty: 1 RF: 3 topiramate 50 mg tablet 50 mg PO BID RF: 0 famotidine 20 mg tablet 20 mg PO BID RF: 0 Referrals: Julisa Marti MD [Physician] - 2 days (DVT on anti-coagulation) Stand Alone Forms: Work/School Release
[2021-05-18 15:01] LABS: MANUAL DIFF FLAG NO
[2021-05-18 15:02] LABS: Basophils Absolute Auto 0.1 X10*3/uL (0.0-0.2); Basophils Percent Auto 0.8 % (0-2); Eosinophils Absolute Auto 0.2 X10*3/uL (0.0-0.4); Eosinophils Percent Auto 2.6 % (0-4); Hematocrit 42.1 % (37-47); Hemoglobin 13.3 g/dl (12.0-16.0); Imm Gran Abs Auto 0.02 X10*3/uL (0.00-0.03); Imm Gran Pct Auto 0.3 % (0.0-0.4); Lymphocytes Absolute Auto 2.5 X10*3/uL (1.2-4.9); Lymphocytes Percent Auto 34.3 % (20-40); Mean Corpuscular HGB Conc 31.6 g/dl (31.0-35.0); Mean Corpuscular Hemoglobin 27.7 pg (27.0-33.0); Mean Corpuscular Volume 87.5 fL (80-98); Mean Platelet Volume 11.1 fL (9.4-12.3); Monocytes Absolute Auto 0.5 X10*3/uL (0.1-1.2); Monocytes Percent Auto 6.9 % (2-11); Neutrophils Percent Auto 55.1 % (45-73); Platelet Count 281 X10*3/uL (160-400); Red Blood Count 4.81 X10*6/uL (4.20-5.50); Red Cell Distribution Width 13.7 % (11.0-16.0); White Blood Count 7.2 X10*3/uL (4.8-10.8)
[2021-05-18 15:12] LABS: INTERNATIONAL NORM RATIO 1.3 (0.9-1.1); Prothrombin Time 14.5 SEC (9.9-13.0)
[2021-05-18 15:15] LABS: Partial Thromboplastin Time 49.7 SEC (24.1-38.0)
[2021-05-18 15:29] LABS: Alanine Aminotransferase 23 U/L (0-31); Albumin Level 4.2 g/dL (3.5-5.0); Alkaline Phosphatase 80 U/L (39-117); Anion Gap 14 (12-20); Aspartate Amino Transferase 25 U/L (5-31); Bilirubin Total 0.2 mg/dL (0.0-1.0); Blood Urea Nitrogen 11 mg/dL (9-16); Carbon Dioxide 20 mmol/L (22-29); Chloride 112 mmol/L (96-108); Creatinine Clr Calc Pharmacy 77.8; Estimated Glomerular Filt Rate > 60; Glucose Random 80 mg/dL (60-115); Potassium 3.6 mmol/L (3.3-5.1); Sodium 142 mmol/L (135-145); Total Protein 7.9 g/dL (6.5-8.0)
[2021-05-18] MEDS: oxyCODONE HCl Immed Release 5 MG TABLET PO (15:31)
--- NOTE | 2021-05-18 17:47 | PC.NURSE ---
patient to CT at this time.
[2021-05-18] MEDS: iohexoL 350 MG/ML 100 ML INFUS..BTL IV (17:55)
[2021-05-18] MEDS: 0.9 % Sodium Chloride 1,000 ML 999 ML IV (18:26)
[2021-05-18 19:04] VITALS: BP 122/66; PULSE 60; RESP 16; O2SAT 98
[2021-05-18] MEDS: Enoxaparin Sodium 100 MG/ML SYRINGE 85 MG SUBCUT (19:04)
--- NOTE | 2021-05-18 19:16 | PC.NURSE ---
right lower extremity with positive csm, pedal pulse palpable
== END 2021-05-18 19:17 | disposition home or self-care (01) ==
PROVIDERS: Physician Assistant; Emergency Provider Emergency Medicine; PCP Internal Medicine
DX: I82.411 Acute embolism and thrombosis of right femoral vein (principal); M79.651 Pain in right thigh; Z86.718 Personal history of other venous thrombosis and embolism; Z79.01 Long term (current) use of anticoagulants
CPT/HCPCS: 36415; 71046; 71275; 80053; 85025; 85610; 85730; 93971; 96360; 99284; J1650; Q9967

== ENCOUNTER 2021-06-01 08:00 | Outpatient (RCR) | payer OTHER, SELFPAY ==
--- NOTE | 2021-03-22 08:49 | MHC.OT.OEV ---
[address] [phone] F: [phone] Occupational Therapy Evaluation Diagnosis: Right Wrist Pain Date of Onset: 03/22/21 Attending Provider: Dr Rodriguez Prescribed Treatment: Eval and Treat History of Current Condition: Pt reports right hand and wrist pain for a long time worsens with repetitive tasks and heavy use. She sees Dr Rodriguez for RA management and is now referred to OT for further assessment of hand and wrist pain. 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, computer, hand writing, phones (has head set) Enjoys baking Living Situation, Family and/or Social Support: Lives w/ and three children (21, 22 and 24) Current Level of Function and Occupation Self Care, Employment, Leisure: Pain w/ typing, writing for longer period of times Difficulty w/ hair drying, carrying heavy items (large water bottle) Sleep: Does not sleep well in general Driving: No issues Vision: Balance: Pain Assessment Pain Score: 6 Pain Scale Used: Numeric (0 - 10) Pain Location and Description: Tenderness to palpate right volar wrist over carpal tunnel and at thenar eminance, volar D3 MCP Pain/tenderness to palpate mid dorsal carpus and tenderness and shooting pain over radial wrist w/ deviation Pt reports triggering in right middle finger w/ heavy or sustained gripping, able to actively correct Aggravating Factors: Repetitive tasks, heavy carrying Alleviating Factors: none known to this point Skin and Soft Tissue Assessment Skin and Soft Tissue: Swelling Comments: Right palm edema Nerve assessment Ulnar Nerve: WFL Median Nerve: WFL Radial Nerve: WFL Comments: Sensory Assessment Temperature: Light Touch: WNL Proprioception: Vibration: Comments: [place] Rand 2.83 throughout Edema Assessment Upper Extremity: Lower Extremity: Comments: Figure 8 42 cm both hand, both has for visual focal edema in right palm/thenar area Dexterity Assessment Dexterity: Comments: Difficulty due to long nails Special Tests Comments: (+) Finklestein's right (-) Phalen's (-) Park's AROM(PROM) Strength Cervical Cervical Flexion: Cervical Extension: Cervical Lateral Flexion: Cervical Rotation: Comments: WFL Shoulder Flexion: Extension: Abduction: Internal Rotation: External Rotation: Comments: End range stiffness Flexion: Extension: Abduction: Internal Rotation: External Rotation: Comments: Elbow Flexion: Extension: Pronation: Supination: Comments: WFL Flexion: Extension: Pronation: Supination: Comments: Wrist Flexion: Extension: Ulnar Deviation: Radial Deviation: Comments: WFL Flexion: Extension: Ulnar Deviation: Radial Deviation: Comments: Thumb Thumb CMC Flexion: Thumb MCP Flexion: Thumb IP Flexion: Radial Abduction: Palmar Abduction: [place] (Kapandji 0-10): Comments: WFL Digits Index MCP: PIP: DIP: Long MCP: PIP: DIP: Ring MCP: PIP: DIP: Small MCP: PIP: DIP: Comments: Limited full composite flexion due to long nails Pt w/ swan neck deformities all digits Gross Grasp: R 40lb L 53lb Lateral Pinch: Two-Point Pinch: Three-Jaw Eduard: Comments: Patient Education Primary Language: Georgian Advice Clerk Required: No Current Knowledge: Understands information with skills for self-management Teaching Method: Demonstration Handouts Verbal Education Needs Identified on Evaluation: ADL's Disease Information Equipment Use Exercise Pain Safety How did patient/family demonstrate learning? Patient demonstrates Patient verbalizes Barriers to Learning: None Readiness for Learning: Accepting Who was educated? Patient Comments: Joint Protection Plan of Care Assessment: 50 yo right hand dominant female w/ hx of fibromyalgia and rheumatoid arthritis, presents w/ persistant pain in right hand and wrist, worsening w/ heavy use. She has signs and symptoms consistent with De Quervain's tendinitis and grade 2 MF trigger finger. She will benefit from cont'd therapy services for progression of therapy w/ focus on joint protection and activity modification. STG Duration: 2 weeks Short Term Goals: Pt to report trigger free since initiating use of Oval 8 PIP block to MF Pt to demo good joint protection of right wrist w/ daily activities 3/10 resting pain right wrist and hand LTG Duration: 4 weeks Retirement Goals: Pain free radial wrist w/ moderate daily activities Right gross grasp 50lb Good follow through w/ self management of pain through heat/cold modalities Frequency and Duration: The patient will be seen 2x/wk for 4 weeks Treatment Plan: Therapeutic Exercise Therapeutic Activity Home Exercise Program Splinting Patient Education Desensitization/Sensory Re-ed Edema Control ADL Training Ultrasound Iontophoresis Paraffin Fluidotherapy MHP Cold Packs Soft Tissue Mobilization Kinesiotaping Electronically Signed By: Leyda Grijalva OTR/L Reviewed/agree with student documentation: N/A Therapist: Please sign and return to therapist, Thank you for your referral.
--- NOTE | 2021-07-18 15:05 | MHC.OT.DC ---
[address] [phone] F: [phone] Occupational Therapy Discharge Note Provider: Dr Rodriguez Diagnosis: Right Wrist Pain Date of Surgery: Date of Evaluation: 03/22/21 Date of Discharge: 07/18/21 Treatments to Date: 10 Cancellations to Date: No Shows to Date: Discharge Status: Patient Elected to Stop Discharge Summary: Zeynep was seen in OT for right wrist pain, symptoms consistent w/ De Quervain's tendinitis. Over the course of therapy, she reported no significant change, still w/ moderate pain in wrist, exacerbated w/ activity and use of dominant right hand. She has not been seen in OT for over a month, we will be discharging at this time. Electronically Signed By: Leyda Grijalva OTR/L Reviewed/agree with student documentation: N/A Therapist: Please Sign and return to therapist, thank you for your referral.
== END 2021-07-18 15:05 | disposition home or self-care (01) ==
LOC: HO.OT 08:00
PROVIDERS: PCP Internal Medicine; Visit Provider Student in an Organized Health Care Education/Training Program
DX: M65.4 Radial styloid tenosynovitis [de Quervain] (principal)
CPT/HCPCS: 29125; 97033; 97035; 97110; 97140; 97166; 97760

== ENCOUNTER 2021-06-04 07:38 | Emergency (ER) | payer OTHER, SELFPAY ==
--- NOTE | 2021-06-04 | ECG_ITS ---
Test Reason : CP Blood Pressure : / mmHG Vent. Rate : 083 BPM Atrial Rate : 083 BPM P-R Int : 152 ms QRS Dur : 076 ms QT Int : 376 ms P-R-T Axes : 047 005 038 degrees QTc Int : 441 ms Normal sinus rhythm Normal ECG When compared with ECG of 05-JUN-2016 10:32, No significant change was found Referred By: Shavon James Electronically Signed By:VICKI BUSH
--- NOTE | ~2021-06-04 | XR_ITS ---
EXAMINATION: XR CHEST CLINICAL INFORMATION: Chest pain COMPARISON: None TECHNIQUE: Frontal view of the chest was obtained. FINDINGS: No significant abnormality is noted involving the heart, lungs, mediastinum, bony thorax or soft tissues. XR/XR chest 1V IMPRESSION: Unremarkable chest examination.
[2021-06-04 08:59] VITALS: BP 134/86; PULSE 90; RESP 18; TEMP 36.6; O2SAT 95; BMI 33.6
[2021-06-04 14:21] LABS: MANUAL DIFF FLAG NO
[2021-06-04 14:24] LABS: Basophils Absolute Auto 0.1 X10*3/uL (0.0-0.2); Basophils Percent Auto 0.7 % (0-2); Eosinophils Absolute Auto 0.2 X10*3/uL (0.0-0.4); Eosinophils Percent Auto 3.1 % (0-4); Hematocrit 44.4 % (37-47); Hemoglobin 13.9 g/dl (12.0-16.0); Imm Gran Abs Auto 0.05 X10*3/uL (0.00-0.03); Imm Gran Pct Auto 0.7 % (0.0-0.4); Lymphocytes Absolute Auto 3.2 X10*3/uL (1.2-4.9); Lymphocytes Percent Auto 43.4 % (20-40); Mean Corpuscular HGB Conc 31.3 g/dl (31.0-35.0); Mean Corpuscular Hemoglobin 27.5 pg (27.0-33.0); Mean Corpuscular Volume 87.9 fL (80-98); Mean Platelet Volume 11.3 fL (9.4-12.3); Monocytes Absolute Auto 0.5 X10*3/uL (0.1-1.2); Monocytes Percent Auto 6.9 % (2-11); Neutrophils Absolute Auto 3.3 X10*3/uL (2.0-8.3); Neutrophils Percent Auto 45.2 % (45-73); Platelet Count 301 X10*3/uL (160-400); Red Blood Count 5.05 X10*6/uL (4.20-5.50); Red Cell Distribution Width 13.6 % (11.0-16.0); White Blood Count 7.4 X10*3/uL (4.8-10.8)
[2021-06-04 14:38] LABS: Anion Gap 12 (12-20); Blood Urea Nitrogen 14 mg/dL (9-16); Calcium 10.1 mg/dL (8.4-10.2); Carbon Dioxide 25 mmol/L (22-29); Chloride 109 mmol/L (96-108); Creatinine Clr Calc Pharmacy 69.9; Estimated Glomerular Filt Rate 59; Glucose Random 126 mg/dL (60-115); Sodium 142 mmol/L (135-145)
[2021-06-04 14:44] LABS: Troponin-I High Sensitivity < 3.5 ng/L (<3.5-17.0)
[2021-06-04 15:24] LABS: Prothrombin Time 11.5 SEC (9.9-13.0)
--- NOTE | 2021-06-04 16:22 | ED.CHESTPAIN ---
HPI - Chest Pain General Chief Complaint: Chest Pain Stated Complaint: CHEST PAIN Time Seen by Provider: 06/04/21 14:16 Source: patient Mode of arrival: ambulatory Limitations: no limitations History of Present Illness HPI narrative: Pt presented c/o chest pain since Friday continue no radiation t the back arm no diaphoresis complaint: chest pain Onset (ago): day(s) (2) Timing of current episode: constant Prior episodes: No Onset: during rest Pain location: substernal Pain radiation: none Severity: mild Quality: aching Relieving factors: nothing Risk Factors Coronary artery disease risk factors: none Thoracic aortic dissection risk factors: none Related Data Home Medications Medication Instructions Recorded Confirmed erenumab-aooe 140 mg/mL 140 mg SUBCUT ONCE 07/18/20 05/31/21 subcutaneous auto-injector (Aimovig Autoinjector) frovatriptan 2.5 mg tablet See Rx Instructions PO .COMPLEX 07/18/20 05/31/21 topiramate 100 mg tablet 100 mg PO BEDTIME 07/18/20 05/31/21 famotidine 20 mg tablet 20 mg PO BID 08/21/20 05/31/21 omeprazole 20 mg capsule,delayed 20 mg PO DAILY 01/04/21 05/31/21 release topiramate 50 mg tablet 50 mg PO BID 01/25/21 05/31/21 Previous Rx's Medication Instructions Recorded cholecalciferol (vitamin D3) 50 50 mcg PO DAILY #30 cap 02/20/21 mcg (2,000 unit) capsule miscellaneous medical supply 1 ea MISCELLANEOUS DAILY #1 ea 03/15/21 certolizumab pegol (Cimzia) 400 mg SUBCUT Q4W #1 ea 03/20/21 amitriptyline 25 mg tablet 25 mg PO TID #270 tab 04/10/21 rivaroxaban 20 mg tablet (Xarelto) 20 mg PO DAILY #90 tab 04/26/21 enoxaparin 100 mg/mL subcutaneous 90 mg SUBCUT Q12H #60 ml 05/21/21 syringe (Lovenox) Allergies Allergy/AdvReac Type Severity Reaction Status Date / Time No Known Allergies Allergy Verified 05/23/21 15:59 [No Known Allergies*] Review of Systems Review of Systems: Yes all other systems are reviewed and are negative Constitutional: Constitutional: Reports no additional constitutional complaints Cardiovascular: Cardiovascular: Reports no additional cardiovascular complaints Respiratory: Respiratory: Denies cough, Denies hemoptysis, Denies excessive phlegm production and Denies pain on inspiration Gastrointestinal: Gastrointestinal: Denies no additional gastrointestinal complaints Genitourinary: Genitourinary: Reports no additional female genitourinary complaints Musculoskeletal: Musculoskeletal: Reports no additional musculoskeletal complaints Neurologic: Reports system reviewed and no additional complaints, except as documented [facility] Past Medical History Medical History History of fibromyalgia History of vitamin D deficiency Hx of carpal tunnel syndrome Hx of obesity Hx of rheumatoid arthritis Hx of thyroid nodule Non-toxic multinodular goiter Obesity Vitamin D deficiency Family History Family History Mother Fibromyalgia Osteoarthritis Diabetes Social History Social History Household Members: Spouse and Children Housing: House Alcohol intake: current Alcohol intake frequency: holidays/special occasions only Patient Tobacco Use Status: Never used Tobacco Advance Directives: Yes Advance Directives Information Provided: No Advance Directives on File: No Patient : No Physical Exam Vital Signs: Vital Signs: Last Vital Signs Temp 97.9 F 06/04/21 08:59 Pulse 78 06/04/21 16:53 Resp 18 06/04/21 16:53 BP 136/80 06/04/21 16:53 Pulse Ox 97 06/04/21 16:53 Body Mass Index 33.6 Const: General: cooperative, healthy appearing, comfortable, no acute distress, well developed, alert, awake and Physically active Orientation/consciousness: oriented to person, oriented to place, oriented to time and patient oriented x3 HENMT: Head: Yes normal to inspection and Yes No palpable skull fracture present Face and sinus: Yes normal facial exam Mouth: Normal oral and palatal mucosa present Neck: Neck: Yes normal visual inspection and Yes full ROM Chest: Chest palpation & inspection: normal inspection of the chest and normal palpation of entire chest wall Resp: Effort & Inspection: normal respiratory effort and able to speak in complete sentences Auscultation: clear to auscultation bilaterally Cardio: Jugular venous distension: no JVD Rate: regular rate Rhythm: regular rhythm GI: Inspection: Yes normal to inspection Palpation (GI): Soft to palpation, not firm and nontender Skin: General skin exam: no rashes or lesions noted, elasticity normal and turgor normal Lesions: no lesions Rashes: no rashes Neuro: General: oriented to person, oriented to place, oriented to time, patient oriented x3 and gait normal Cranial nerves: Yes CN's II-XII intact bilaterally MDM - Chest Pain MDM Narrative Medical decision making narrative: 50 yo comes with continue pain X 2 days high sensitivity tropi negative,pt does not need a second tropi because continue pain X 2 days, I do not think she has PE she is on lovenox no tachycardia,Oxygenating well,no SOB,bed side echo nl rt ventricle. I performed bed side echo Normal venricle no pericardial effusion,normal rt ventricle,good EF no wall motion abnormalities. Blood pressur normal both arms unlikely dissection Lab Data Result diagrams: 06/04/21 14:11 06/04/21 14:11 Labs: Lab Results 06/04/21 06/04/21 06/04/21 Range/Units 14:11 14:11 14:11 WBC 7.4 (4.8-10.8) X10*3/uL RBC 5.05 (4.20-5.50) X10*6/uL Hgb 13.9 (12.0-16.0) g/dl Hct 44.4 (37-47) % MCV 87.9 (80-98) fL MCH 27.5 (27.0-33.0) pg MCHC 31.3 (31.0-35.0) g/dl RDW 13.6 (11.0-16.0) % Plt Count 301 (160-400) X10*3/uL MPV 11.3 (9.4-12.3) fL Immature Gran % (Auto) 0.7 H (0.0-0.4) % Neut % (Auto) 45.2 (45-73) % Lymph % (Auto) 43.4 H (20-40) % [place] % (Auto) 6.9 (2-11) % Eos % (Auto) 3.1 (0-4) % Baso % (Auto) 0.7 (0-2) % Lymph # (Auto) 3.2 (1.2-4.9) X10*3/uL [place] # (Auto) 0.5 (0.1-1.2) X10*3/uL Eos # (Auto) 0.2 (0.0-0.4) X10*3/uL Baso # (Auto) 0.1 (0.0-0.2) X10*3/uL Abs Immat Gran (auto) 0.05 H (0.00-0.03) X10*3/uL Absolute Neuts (auto) 3.3 (2.0-8.3) X10*3/uL Absolute Nucleated RBC 0.000 (0.0-0.012) X10*3/uL Nucleated RBC % (auto) 0.0 (0.0-0.2) /100WBC PT (9.9-13.0) SEC INR (0.9-1.1) Sodium 142 (135-145) mmol/L Potassium 4.0 (3.3-5.1) mmol/L Chloride 109 H (96-108) mmol/L Carbon Dioxide 25 (22-29) mmol/L Anion Gap 12 (12-20) BUN 14 (9-16) mg/dL Creatinine 0.99 (0.5-1.4) mg/dL Estim Creat Clear Calc 69.9 Estimated GFR 59 Random Glucose 126 H (60-115) mg/dL Calcium 10.1 D (8.4-10.2) mg/dL Troponin I High Sens < 3.5 (<3.5-17.0) ng/L 06/04/21 Range/Units 15:11 WBC (4.8-10.8) X10*3/uL RBC (4.20-5.50) X10*6/uL Hgb (12.0-16.0) g/dl Hct (37-47) % MCV (80-98) fL MCH (27.0-33.0) pg MCHC (31.0-35.0) g/dl RDW (11.0-16.0) % Plt Count (160-400) X10*3/uL MPV (9.4-12.3) fL Immature Gran % (Auto) (0.0-0.4) % Neut % (Auto) (45-73) % Lymph % (Auto) (20-40) % [place] % (Auto) (2-11) % Eos % (Auto) (0-4) % Baso % (Auto) (0-2) % Lymph # (Auto) (1.2-4.9) X10*3/uL [place] # (Auto) (0.1-1.2) X10*3/uL Eos # (Auto) (0.0-0.4) X10*3/uL Baso # (Auto) (0.0-0.2) X10*3/uL Abs Immat Gran (auto) (0.00-0.03) X10*3/uL Absolute Neuts (auto) (2.0-8.3) X10*3/uL Absolute Nucleated RBC (0.0-0.012) X10*3/uL Nucleated RBC % (auto) (0.0-0.2) /100WBC PT 11.5 D (9.9-13.0) SEC INR 1.0 (0.9-1.1) Sodium (135-145) mmol/L Potassium (3.3-5.1) mmol/L Chloride (96-108) mmol/L Carbon Dioxide (22-29) mmol/L Anion Gap (12-20) BUN (9-16) mg/dL Creatinine (0.5-1.4) mg/dL Estim Creat Clear Calc Estimated GFR Random Glucose (60-115) mg/dL Calcium (8.4-10.2) mg/dL Troponin I High Sens (<3.5-17.0) ng/L Imaging Data Chest x-ray: Radiologist's impression: NOrmal ECG Data ECG #1: Attestation: I personally reviewed and interpreted this ECG as follows: ECG interpretation date: 06/04/21 Pacemaker model: NSR [address]-t changes no ischemia Discharge Plan Discharge Clinical Impression: Chest pain Patient Disposition: Home, Self-Care Instructions: Chest Pain (ED) Additional Instructions: follow up with Primary Care Doctor in [place] return if worse,any concern Prescriptions: No Action cholecalciferol (vitamin D3) 50 mcg (2,000 unit) capsule 50 mcg PO DAILY Qty: 30 RF: 2 amitriptyline 25 mg tablet 25 mg PO TID Qty: 270 RF: 1 Xarelto 20 mg tablet 20 mg PO DAILY Qty: 90 RF: 4 enoxaparin [Lovenox] 100 mg/mL Syringe 90 mg SUBCUT Q12H Qty: 60 RF: 5 omeprazole 20 mg capsule,delayed release(DR/EC) 20 mg PO DAILY RF: 0 topiramate 100 mg tablet 100 mg PO BEDTIME RF: 0 Aimovig Autoinjector 140 mg/mL auto-injector 140 mg subcut ONCE RF: 0 frovatriptan 2.5 mg tablet See Rx Instructions PO .COMPLEX RF: 0 miscellaneous medical supply Misc 1 ea miscellaneous DAILY Qty: 1 RF: 0 Cimzia 400 mg/2 mL (200 mg/mL x 2) syringe kit 400 mg subcut Q4W Qty: 1 RF: 3 topiramate 50 mg tablet 50 mg PO BID RF: 0 famotidine 20 mg tablet 20 mg PO BID RF: 0 Referrals: Priscilla Gonsalves MD [Primary Care Provider] - 2 days Interventions: ED Discharge Assessment Last Done: 06/04/21 16:53 Discharge Date/Time: 06/04/21 16:55
[2021-06-04 16:53] VITALS: BP 136/80; PULSE 78; RESP 18; O2SAT 97
[2021-06-04 16:56] VITALS: BP 135/72
== END 2021-06-04 16:55 | disposition home or self-care (01) ==
PROVIDERS: Physician Assistant Medical; Emergency Provider Emergency Medicine; PCP Internal Medicine
DX: R07.9 Chest pain, unspecified (principal); Z79.899 Other long term (current) drug therapy
CPT/HCPCS: 36415; 71045; 80048; 84484; 85025; 85610; 93005; 99283

== ENCOUNTER 2021-06-13 09:20 | Outpatient (REF) | payer OTHER, SELFPAY ==
--- NOTE | ~2021-06-13 | US_ITS ---
EXAMINATION: US VENOUS ULTRASOUND WITH DOPPLER LOWER EXTREMITY, RIGHT CLINICAL INFORMATION: Pain right leg. COMPARISON: Ultrasound right lower leg 05/18/2021, 02/08/2021 TECHNIQUE: Ultrasound of the deep veins is performed from the hip to the calf with compression sonography and color and pulse Doppler assessment. Spectral analysis with color-flow imaging is performed. FINDINGS: There is thrombus visualized in the mid and distal femur noncompressible with no color or spectral flow. Patient has a known chronic clot since 01/04/2021 and has been on Lovenox. The right common femoral, greater saphenous and proximal superficial femoral vein is patent. The popliteal vein is patent as well. The calf veins are patent as well. US/US venous duplex LE RT IMPRESSION: There is known thrombus seen in the mid and distal superficial femoral vein and is occlusive. It was visualized on previous ultrasound exam 01/04/2021 and 02/08/2021.
== END 2021-06-13 09:21 | disposition home or self-care (01) ==
LOC: HO.US 09:20
PROVIDERS: PCP Internal Medicine; Visit Provider Internal Medicine
DX: I82.401 Acute embolism and thrombosis of unspecified deep veins of right lower extremity (principal); M79.604 Pain in right leg
CPT/HCPCS: 93971

== ENCOUNTER 2021-07-04 11:27 | Outpatient (REF) | payer OTHER, SELFPAY ==
--- NOTE | ~2021-07-04 | XR_ITS ---
EXAMINATION: XR HAND, RIGHT CLINICAL INFORMATION: Rheumatoid arthritis. COMPARISON: None TECHNIQUE: PA, lateral, and oblique views of the right hand. FINDINGS: The bones and soft tissues are normal. No fracture. Alignment is anatomic. Joint spaces are maintained. No erosions or soft tissue calcifications. XR/XR hand RT min 3V IMPRESSION: Unremarkable right hand.
--- NOTE | ~2021-07-04 | XR_ITS ---
EXAMINATION: XR LUMBOSACRAL SPINE CLINICAL INFORMATION: Low back pain. COMPARISON: None TECHNIQUE: Three views of the lumbosacral spine. FINDINGS: The vertebral bodies and posterior elements are normal. The disc spaces are preserved and the vertebral alignment is normal. The paraspinal soft tissues are normal. XR/XR lumbar spine 2-3V IMPRESSION: Unremarkable examination.
[2021-07-04 12:46] LABS: MANUAL DIFF FLAG NO
[2021-07-04 13:04] LABS: Basophils Absolute Auto 0.1 X10*3/uL (0.0-0.2); Basophils Percent Auto 0.9 % (0-2); Eosinophils Absolute Auto 0.2 X10*3/uL (0.0-0.4); Eosinophils Percent Auto 2.1 % (0-4); Hematocrit 41.7 % (37-47); Hemoglobin 13.3 g/dl (12.0-16.0); Imm Gran Abs Auto 0.05 X10*3/uL (0.00-0.03); Imm Gran Pct Auto 0.7 % (0.0-0.4); Lymphocytes Absolute Auto 2.3 X10*3/uL (1.2-4.9); Lymphocytes Percent Auto 30.8 % (20-40); Mean Corpuscular HGB Conc 31.9 g/dl (31.0-35.0); Mean Corpuscular Hemoglobin 27.5 pg (27.0-33.0); Mean Corpuscular Volume 86.2 fL (80-98); Mean Platelet Volume 11.4 fL (9.4-12.3); Monocytes Absolute Auto 0.6 X10*3/uL (0.1-1.2); Neutrophils Absolute Auto 4.3 X10*3/uL (2.0-8.3); Neutrophils Percent Auto 57.5 % (45-73); Platelet Count 310 X10*3/uL (160-400); Red Blood Count 4.84 X10*6/uL (4.20-5.50); Red Cell Distribution Width 13.3 % (11.0-16.0); White Blood Count 7.5 X10*3/uL (4.8-10.8)
[2021-07-04 13:28] LABS: Alanine Aminotransferase 31 U/L (0-31); Alkaline Phosphatase 80 U/L (39-117); Anion Gap 12 (12-20); Aspartate Amino Transferase 31 U/L (5-31); Bilirubin Total 0.2 mg/dL (0.0-1.0); Blood Urea Nitrogen 10 mg/dL (9-16); C Reactive Protein 1.52 mg/dL (< or = 0.50); Calcium 9.8 mg/dL (8.4-10.2); Carbon Dioxide 25 mmol/L (22-29); Chloride 107 mmol/L (96-108); Estimated Glomerular Filt Rate > 60; Glucose Random 78 mg/dL (60-115); Potassium 4.3 mmol/L (3.3-5.1); Sodium 140 mmol/L (135-145); Total Protein 7.3 g/dL (6.5-8.0)
[2021-07-04 13:55] LABS: Erythrocyte Sedimentation Rate 12 MM/HR (0-20)
== END 2021-07-04 11:28 | disposition home or self-care (01) ==
LOC: HO.LAB 11:27
PROVIDERS: Absent Provider Student in an Organized Health Care Education/Training Program; PCP Internal Medicine; Visit Provider Nurse Practitioner Family
DX: M05.9 Rheumatoid arthritis with rheumatoid factor, unspecified (principal); M54.50 Low back pain, unspecified; M79.7 Fibromyalgia
CPT/HCPCS: 36415; 72100; 73130; 80053; 85025; 85652; 86140

== ENCOUNTER 2021-07-06 08:17 | Outpatient (REF) | payer OTHER, SELFPAY ==
[2021-07-06 10:59] LABS: HBS Num1 118.65 mIU/mL (0-7.99); HBsAGNum1 0.21 S/CO (0.00-0.99); Hepatitis B Surface Antigen Negative (Negative); ~HepC Num1 0.11 S/CO (0.00-0.79); ~Hepatitis B Surface Antibody REACTIVE (Nonreactive); ~Hepatitis C Antibody Nonreactive (Nonreactive)
[2021-07-06 11:23] LABS: HBc Num1 0.08 S/CO (0.00-0.79); Hepatitis A Antibody IgM 0.13 Index (0-0.79); Hepatitis B Core Antibody Nonreactive (Nonreactive); ~Hepatitis A Antibody IgM Nonreactive (Nonreactive)
== END 2021-07-06 08:18 | disposition home or self-care (01) ==
LOC: HO.10HDL 08:17
PROVIDERS: Visit Provider Nurse Practitioner Family
DX: M05.9 Rheumatoid arthritis with rheumatoid factor, unspecified (principal)
CPT/HCPCS: 36415; 86481; 86704; 86706; 86709; 86803; 87340

== ENCOUNTER 2021-07-11 08:44 | Outpatient (REF) | payer OTHER, SELFPAY ==
[2021-07-14 13:20] LABS: TS Negative Control Passed; TS Panel A 0; TS Panel B 0; TS Positive Control Passed; TSpotTB Negative (SeeBelow)
== END 2021-07-11 08:45 | disposition home or self-care (01) ==
LOC: HO.LAB 08:44
PROVIDERS: PCP Internal Medicine; Visit Provider Nurse Practitioner Family
DX: M05.9 Rheumatoid arthritis with rheumatoid factor, unspecified (principal)
CPT/HCPCS: 36415; 86481

== ENCOUNTER 2021-08-08 12:34 | Inpatient (IN) | payer OTHER, SELFPAY ==
--- NOTE | 2021-08-08 | ECG_ITS ---
Test Reason : DIZZINESS Blood Pressure : / mmHG Vent. Rate : 071 BPM Atrial Rate : 071 BPM P-R Int : 158 ms QRS Dur : 074 ms QT Int : 404 ms P-R-T Axes : 029 003 018 degrees QTc Int : 439 ms Normal sinus rhythm with sinus arrhythmia Normal ECG When compared with ECG of 04-JUN-2021 07:44, ST less depressed in Lateral leads Referred By: Francisco Mcwilliams Electronically Signed By:EMI CARLISLE MD
--- NOTE | ~2021-08-08 | CT_ITS ---
EXAMINATION: CT HEAD WITHOUT CONTRAST (STROKE PROTOCOL) CLINICAL INFORMATION: Stroke protocol. Left-sided weakness. COMPARISON: None TECHNIQUE: Contiguous axial imaging was performed from the skull base to vertex without intravenous administration of contrast. This CT examination was performed using dose optimization techniques as appropriate, variously including the following: *Automated exposure control *Adjustment of mA and/or kV according to patient size (this includes techniques or standardized protocols for targeted exams where dose is matched to indication/reason for exam; i.e. extremities or head) *Use of iterative reconstruction technique DLP: 623 mGy-cm FINDINGS: There is no intracranial hemorrhage, hematoma, or extra-axial fluid collection. The ventricles are normal in size. There is no hydrocephalus, edema, or mass effect. The patino-white matter differentiation appears symmetric. There is hypodensity in the left inferior frontal lobe suspicious for acute infarction in evolution. There is no hemorrhage in this region. The calvarium appears intact. There is no pneumocephalus or orbital emphysema. The visualized sinuses and middle ears and mastoid air cells show no significant mucosal thickening. There are no air-fluid levels. CT/CT head for stroke IMPRESSION: Suspect acute infarct left inferior occipital lobe. There is no evidence of hemorrhage. This critical result was discussed with Dr. Mcwilliams at 2:20 PM on 08/08/2021. It was ascertained that the content and urgency of the report was understood at the time of direct communication.
--- NOTE | ~2021-08-08 | CT_ITS ---
EXAMINATION: CT angio head neck stroke CLINICAL INFORMATION: Left upper extremity numbness. Prothrombin clotting disorder. COMPARISON: CT scan of the head 08/08/2021. TECHNIQUE: Beveling Machine Operator images were obtained. A CT angiogram of the head and neck was performed in the arterial phase after the intravenous administration of 70 mL Omnipaque 350. Pre and delayed postcontrast images of the head were also obtained. MIP reconstructions were generated in multiple orientations at the acquisition workstation. Multiple three-dimensional surface rendered images and maximum intensity projection images were generated on a dedicated 3-D lab workstation. Arterial stenoses are measured in accordance with NASCET criteria or similar method if applicable. This CT examination was performed using dose optimization techniques as appropriate, including one or more of the following: Automated exposure control, iterative reconstruction, and adjustment of technique factors (mA and/or kVp) according to patient size (this includes techniques or standardized protocols for targeted exams where dose is matched to indication/reason for exam). Total exam dose-length product 623 mGy-cm FINDINGS: Head: Delayed postcontrast images reveal no abnormal mass or enhancement within the intracranial compartment. No intracranial mass effect or midline shift. Lateral and third ventricles are normal. No hydrocephalus. Eduardo-white matter differentiation is preserved and there is no evidence of acute territorial infarct. The calvarium and skull base are intact. Mastoid air cells and middle ear cavities are well-aerated. No active paranasal sinus disease. CT angiogram neck: The aortic arch apex is normal. Origins of the major aortic branches are widely patent. Common carotid arteries and carotid bifurcations are normal. No stenosis of the extracranial internal carotid arteries. The V1 and proximal V2 segments of the left vertebral artery are obscured by high density intravenous contrast material refluxing into the vertebral venous plexus. Vertebral arteries are otherwise patent. CT angiogram head: Intracranial internal carotid arteries are patent. The intradural vertebral artery segments and basilar artery are patent. Anterior, middle, and posterior cerebral artery complexes are normal. No intracranial large vessel occlusion. The timing of the contrast injection provides adequate opacification of the dural venous sinuses which are patent. Other: Soft tissues of the neck including the thyroid gland are normal. Grossly no pathologically enlarged cervical lymph nodes. Visualized lung apices are clear. There is no acute osseous finding. Specifically no worrisome lytic or blastic osseous lesion. CT/CT angio head neck stroke IMPRESSION: Unremarkable CT angiogram of the head and neck. No stenosis of the cervical carotid or vertebral arteries. No intracranial large vessel occlusion. Postcontrast images reveal no abnormal mass or enhancement within the intracranial compartment. Grossly no evidence of acute territorial infarct or hemorrhage. This critical result was discussed with Francisco Mcwilliams at 2:40 PM on 08/08/2021 and it was ascertained that the content and urgency of the report was understood at the time of direct communication.
--- NOTE | ~2021-08-08 | MR_ITS ---
MRI OF THE BRAIN WITHOUT IV CONTRAST INDICATION: Evaluate for possible stroke. Left arm numbness described on prior CT studies. COMPARISON: Head CT and CTA head and neck 08/08/2021 TECHNIQUE: Multiplanar multisequence MR imaging of the brain was obtained without IV contrast. FINDINGS: There is no hydrocephalus, extra-axial surface collection, or herniation. There is mild chronic microangiopathy. The major flow voids at the skull base are preserved. There is no acute infarct on diffusion-weighted imaging. There is no intracranial hemorrhage on the gradient recalled echo acquisition. The midline structures are normal. The cerebellar tonsils are normally positioned. The cerebellum and brainstem are normal. The craniocervical junction is normal. Osseous marrow signal intensity is homogenous. The visualized soft tissues are unremarkable. MR/MR head/brain wo con IMPRESSION: There are no acute intracranial findings. There are no acute infarcts. Mild chronic microangiopathy.
--- NOTE | ~2021-08-08 | XR_ITS ---
EXAMINATION: XR CHEST CLINICAL INFORMATION: Shortness of breath COMPARISON: Chest radiographs 06/04/2021, 05/18/2021 TECHNIQUE: Portable upright AP view of the chest was obtained. FINDINGS: There is some mild coarsening of the bronchiolar markings which may related to asthma/bronchitis. There is no overt hyperinflation. Lungs are clear and there is no airspace consolidation or groundglass opacity or effusion. The heart is normal in size. The vascularity is normal. The hilar and mediastinal contours and visualized bony structures are unremarkable. XR/XR chest 1V IMPRESSION: Mild coarsening bronchiolar markings. Otherwise lungs clear. No hyperinflation, infiltrate, or effusion.
[2021-08-08 13:02] VITALS: BP 142/66; PULSE 83; RESP 20; TEMP 36.9; O2SAT 98; BMI 34.7
--- NOTE | 2021-08-08 13:46 | ED_ITS ---
HPI - Dizziness General Chief Complaint: Dizziness Stated Complaint: dizziness Time Seen by Provider: 08/08/21 13:46 Source: patient Mode of arrival: ambulatory Limitations: no limitations History of Present Illness HPI Narrative: symptoms started at 11:30. Patient initially had dizziness followed by numbness to head and left arm. Patient had vertigo many years ago, this felt different. Patient still has the symptoms. Patient states she has a history of migraines. Patient currently on fondaparinux for DVT in right thigh and history of prothrombin clotting disorder MD elicited complaint: dizziness Onset (ago): hour(s) Timing: sudden onset Severity: mild Description: lightheadedness Associated neuro symptoms: limb numbness Related Data Home Medications Medication Instructions Recorded Confirmed frovatriptan 2.5 mg tablet See Rx Instructions PO .COMPLEX 07/18/20 08/08/21 omeprazole 20 mg capsule,delayed 20 mg PO BEDTIME 01/04/21 08/08/21 release topiramate 50 mg tablet 50 mg PO BID 01/25/21 08/08/21 cholecalciferol (vitamin D3) 50 50 mcg PO BEDTIME 08/08/21 08/08/21 mcg (2,000 unit) capsule folic acid 1 mg tablet 1 tab PO BEDTIME 08/08/21 08/08/21 Previous Rx's Medication Instructions Recorded amitriptyline 25 mg tablet 25 mg PO TID #270 tab 04/10/21 fondaparinux 7.5 mg/0.6 mL 7.5 mg (0.6 mL) SUBCUT Q24H #90 ml 06/14/21 subcutaneous solution syringe Allergies Allergy/AdvReac Type Severity Reaction Status Date / Time No Known Allergies Allergy Verified 07/04/21 11:33 [No Known Allergies*] Review of Systems Constitutional: Constitutional: Reports no additional constitutional compl aints Eyes: Eyes: Reports no additional eye complaints ENT: Denies dizziness Cardiovascular: Cardiovascular: Reports no additional cardiovascular complaints Respiratory: Respiratory: Reports as per HPI Gastrointestinal: Gastrointestinal: Reports no additional gastrointestinal complaints Genitourinary: Genitourinary: Reports no additional female genitourinary complaints Musculoskeletal: Musculoskeletal: Reports no additional musculoskeletal co mplaints Integumentary/Breasts: Skin/Breast: Denies rash Neurologic: Reports system reviewed and no additional complaints, except as documented, Denies dizziness and Denies Sensory deficit (Neuro) Psychiatric: Psychiatric: Denies anxiety PMFSH Past Medical History Medical History History of fibromyalgia History of vitamin D deficiency Hx of carpal tunnel syndrome Hx of obesity Hx of rheumatoid arthritis Hx of thyroid nodule Non-toxic multinodular goiter Obesity Vitamin D deficiency Family History Family History Mother Fibromyalgia Osteoarthritis Diabetes Social History Social History Household Members: Spouse and Children Housing: House Alcohol intake: current Alcohol intake frequency: holidays/special occasions only Patient Tobacco Use Status: Never used Tobacco Advance Directives: No Advance Directives Information Provided: Yes Physical Exam Vital Signs: Vital Signs: Last Vital Signs Temp 98.4 F 08/08/21 13:02 Pulse 83 08/08/21 13:02 Resp 20 08/08/21 13:02 BP 142/66 H 08/08/21 13:02 Pulse Ox 98 08/08/21 13:02 Body Mass Index 34.7 Const: General: healthy appearing Nutritional Appearance: average body padgett bitus Orientation/consciousness: oriented to person and patient oriented x3 Limitations: no limitations HENMT: Head: Yes normal to inspection Ears: external ears normal General nose exam: Normal external nose present Mouth: Normal oral and palatal mucosa present and oropharynx normal Throat: Yes posterior oropharynx normal Eyes: General: appearance normal, both eyes and all related structures Neck: Other: supple Neck: Yes normal visual inspection Chest: Chest palpation & inspection: normal inspection of the chest Resp: Auscultation: clear to auscultation bilaterally Cardio: Jugular venous distension: no JVD Rate: regular rate Rhythm: regular rhythm Heart sounds: S1 normal heart sound present and S2 normal heart sound present GI: Inspection: Yes normal to inspection Palpation (GI): Soft to palpation, nontender and No hepatosplenomegaly present Auscultation: normal bowel sounds : General: Yes no CVA tenderness Back/Spine/Pelvis: Back: no CVA tenderness Skin: General skin exam: no rashes or lesions noted Neuro: General: oriented to person and patient oriented x3 Cranial nerves: Yes CN's II-XII intact bilaterally Motor exam (neuro): 5/5 motor strength present throughout Sensory Exam: No Sensory deficit (Neuro) Extrem: General: Yes normal to inspection Psych: Appearance: grossly normal NIH Stroke Scale Time: 13:50 Level of Consciousness: Alert Level of Consciousness Questions: Answers both questions correctly Level of Consciousness Commands: Performs both tasks correctly Best Gaze: Normal Visual: No visual loss Facial Palsy: Normal Motor Arm (Right): No drift Motor Arm (Left): No drift Motor Leg (Right): No drift Motor Leg (Left): No drift Limb Ataxia: Absent Sensory: Normal Best Language: No aphasia Dysarthia: Normal Extinction and Inattention: No abnormality Score: 0 Course Reevaluation(s) Reevaluation #1: Patient with hypercoagulation disorder with clot in her leg and question of paradoxical clot. She continues with left arm numbness. CT shows question of occipital stroke although CT angio is negative. Will admit to [facility] and the hospitalist Time: 14:59 MDM - Dizziness Lab Data Result diagrams: 08/08/21 14:05 08/08/21 14:05 Labs: Lab Results 08/08/21 08/08/21 08/08/21 Range/Units 14:05 14:05 14:05 WBC 6.4 (4.8-10.8) X10*3/uL RBC 4.96 (4.20-5.50) X10*6/uL Hgb 13.4 (12.0-16.0) g/dl Hct 42.6 (37.0-47.0) % MCV 85.9 (80.0-98.0) fL MCH 27.0 (27.0-33.0) pg MCHC 31.5 (31.0-35.0) g/dl RDW 13.7 (11.0-16.0) % Plt Count 294 (160-400) X10*3/uL MPV 11.3 (9.4-12.3) fL Immature Gran % (Auto) 0.3 (0.0-0.4) % Neut % (Auto) 50.2 (45-73) % Lymph % (Auto) 36.0 (20-40) % [place] % (Auto) 9.6 (2-11) % Eos % (Auto) 3.1 (0-4) % Baso % (Auto) 0.8 (0-2) % Lymph # (Auto) 2.3 (1.2-4.9) X10*3/uL [place] # (Auto) 0.6 (0.1-1.2) X10*3/uL Eos # (Auto) 0.2 (0.0-0.4) X10*3/uL Baso # (Auto) 0.1 (0.0-0.2) X10*3/uL Abs Immat Gran (auto) 0.02 (0.00-0.03) X10*3/uL Absolute Neuts (auto) 3.2 (2.0-8.3) x10*3/uL Absolute Nucleated RBC 0.000 (0.0-0.012) X10*3/uL Nucleated RBC % (auto) 0.0 (0.0-0.2) /100WBC PT 11.9 (9.9-13.0) SEC Whole Blood PT (11.1-13.5) sec INR 1.0 (0.9-1.1) Whole Blood INR (0.9-1.1) Sodium 140 (135-145) mmol/L Potassium 4.0 (3.3-5.1) mmol/L Chloride 109 H (96-108) mmol/L Carbon Dioxide 24 (22-29) mmol/L Anion Gap 11 L (12-20) BUN 12 (9-16) mg/dL Creatinine 0.95 (0.5-1.4) mg/dL Estim Creat Clear Calc 71.3 Estimated GFR > 60 Random Glucose 93 (60-115) mg/dL Calcium 9.1 (8.4-10.2) mg/dL Troponin I High Sens (<3.5-17.0) ng/L Hold Red Top 08/08/21 08/08/21 08/08/21 Range/Units 14:05 14:05 14:12 WBC (4.8-10.8) X10*3/uL RBC (4.20-5.50) X10*6/uL Hgb (12.0-16.0) g/dl Hct (37.0-47.0) % MCV (80.0-98.0) fL MCH (27.0-33.0) pg MCHC (31.0-35.0) g/dl RDW (11.0-16.0) % Plt Count (160-400) X10*3/uL MPV (9.4-12.3) fL Immature Gran % (Auto) (0.0-0.4) % Neut % (Auto) (45-73) % Lymph % (Auto) (20-40) % [place] % (Auto) (2-11) % Eos % (Auto) (0-4) % Baso % (Auto) (0-2) % Lymph # (Auto) (1.2-4.9) X10*3/uL [place] # (Auto) (0.1-1.2) X10*3/uL Eos # (Auto) (0.0-0.4) X10*3/uL Baso # (Auto) (0.0-0.2) X10*3/uL Abs Immat Gran (auto) (0.00-0.03) X10*3/uL Absolute Neuts (auto) (2.0-8.3) x10*3/uL Absolute Nucleated RBC (0.0-0.012) X10*3/uL Nucleated RBC % (auto) (0.0-0.2) /100WBC PT (9.9-13.0) SEC Whole Blood PT 12.1 (11.1-13.5) sec INR (0.9-1.1) Whole Blood INR 1.0 (0.9-1.1) Sodium (135-145) mmol/L Potassium (3.3-5.1) mmol/L Chloride (96-108) mmol/L Carbon Dioxide (22-29) mmol/L Anion Gap (12-20) BUN (9-16) mg/dL Creatinine (0.5-1.4) mg/dL Estim Creat Clear Calc Estimated GFR Random Glucose (60-115) mg/dL Calcium (8.4-10.2) mg/dL Troponin I High Sens < 3.5 (<3.5-17.0) ng/L Hold Red Top See Note ECG Data Attestation: I personally reviewed and interpreted this ECG as follows: Interpretation: sinus rate 70, no st or twave changes Critical Care Time Critical Care Time Attestation: I spent 40 minutes of critical care, with interventions, assessments, speaking to patient, consultants, and family. Discharge Plan Discharge Clinical Impression: Transient ischemic attack (TIA) Patient Disposition: Admitted As Inpatient Prescriptions: No Action amitriptyline 25 mg tablet 25 mg PO TID Qty: 270 RF: 1 fondaparinux 7.5 mg/0.6 mL Syringe 7.5 mg SUBCUT Q24H Qty: 90 RF: 4 folic acid 1 mg tablet 1 tab PO BEDTIME RF: 0 cholecalciferol (vitamin D3) 50 mcg (2,000 unit) capsule 50 mcg PO BEDTIME RF: 0 omeprazole 20 mg capsule,delayed release(DR/EC) 20 mg PO BEDTIME RF: 0 frovatriptan 2.5 mg tablet See Rx Instructions PO .COMPLEX RF: 0 topiramate 50 mg tablet 50 mg PO BID RF: 0
[2021-08-08 14:15] LABS: Basophils Absolute Auto 0.1 X10*3/uL (0.0-0.2); Basophils Percent Auto 0.8 % (0-2); Eosinophils Absolute Auto 0.2 X10*3/uL (0.0-0.4); Eosinophils Percent Auto 3.1 % (0-4); Hematocrit 42.6 % (37.0-47.0); Hemoglobin 13.4 g/dl (12.0-16.0); Imm Gran Abs Auto 0.02 X10*3/uL (0.00-0.03); Imm Gran Pct Auto 0.3 % (0.0-0.4); Lymphocytes Absolute Auto 2.3 X10*3/uL (1.2-4.9); MANUAL DIFF FLAG NO; Mean Corpuscular HGB Conc 31.5 g/dl (31.0-35.0); Mean Corpuscular Volume 85.9 fL (80.0-98.0); Mean Platelet Volume 11.3 fL (9.4-12.3); Monocytes Absolute Auto 0.6 X10*3/uL (0.1-1.2); Monocytes Percent Auto 9.6 % (2-11); Neutrophils Absolute Auto 3.2 x10*3/uL (2.0-8.3); Neutrophils Percent Auto 50.2 % (45-73); Platelet Count 294 X10*3/uL (160-400); Red Blood Count 4.96 X10*6/uL (4.20-5.50); Red Cell Distribution Width 13.7 % (11.0-16.0); White Blood Count 6.4 X10*3/uL (4.8-10.8)
[2021-08-08 14:17] LABS: Prothrombin Time Whole Bld POC 12.1 sec (11.1-13.5)
[2021-08-08 14:27] LABS: Prothrombin Time 11.9 SEC (9.9-13.0); Stroke Lab Use COMPLETE
[2021-08-08 14:28] LABS: Anion Gap 11 (12-20); Blood Urea Nitrogen 12 mg/dL (9-16); Calcium 9.1 mg/dL (8.4-10.2); Carbon Dioxide 24 mmol/L (22-29); Chloride 109 mmol/L (96-108); Creatinine Clr Calc Pharmacy 71.3; Estimated Glomerular Filt Rate > 60; Glucose Random 93 mg/dL (60-115); Sodium 140 mmol/L (135-145)
[2021-08-08 14:34] LABS: Troponin-I High Sensitivity < 3.5 ng/L (<3.5-17.0)
[2021-08-08] MEDS: iohexoL 350 MG/ML 100 ML INFUS..BTL IV (14:40)
--- NOTE | 2021-08-08 14:43 | PHA.MEDREC ---
Pharmacy Consult ? Medication Reconciliation Pharmacy has completed the medication reconciliation. There are no remarkable issues. Patient is on fondaparinux prescribed by Dr. Larsen. She has previously been on lovenox (possible allergy), warfarin and xarelto. Waleska Franklin, PharmD
--- NOTE | 2021-08-08 15:42 | MHC.STROKE ---
Addendum entered by Valentine Danielle RN 08/09/21 14:52: I MET WITH THE PATIENT AND HER DAUGHTER, WE REVIEWED THE MRI RESULT AFTER SPEAKING WITH DR ARELLANO. I ANSWERED HER QUESTIONS. PATIENT WILL BE DISCHARGED. I DID RELAY THIS TO THE RN RUSTY. Original Note: [address] APONTE THAT HE WAS ACTIVATING THE STROKE PROTOCOL, STAT CTH AND CTA H/N DONE FOR C/O DIZZINESS, NUMBNESS OF LEFT ARM AND LEANING TO THE LEFT WHEN WALKING THAT BEGAN AT 1130 WHILE WORKING. SHE WORKS AT [employer] [facility] [place] [facility] [place] [facility]. THE CT HAD A ?HYPODENSITY LEFT OCCIPITAL LOBE WHICH DOES NOT CORRELATE WITH HER SYMPTOMS. I DID EXAMINE HER AND THERE WAS NO VISUAL FIELD CUT ON EITHER SIDE. I ALSO WALKED HER AND HER GAIT WAS STEADY ALTHOUGH SHE SAID SHE DOES NOT FEEL LIKE HERSELF. SHE IS ON AN ANTICOAGULANT FONDAPARINUX (ARIXTRA) 7.5 SQ DAILY FOR RECURRENT DVT, SHE INJECTS THAT HERSELF. SHE SEES DR BAÑUELOS FOR HYPERCOAGULABLE ISSUES. SHE HAS HAD MULTIPLE DVT'S AND TRIED MANY ANTICOAGULANTS INCLUDING PILL FORM AND STILL DEVELOPS DVT'S. SHE HAS NOT HAD AN ECHO WITH BUBBLE AND THAT IS A RECOMMENDATION BUT CAN BE DONE AN OUTPATIENT. SHE DOES NOT HAVE ANY PALPITATIONS, SHE HAS A HISTORY OF MIGRAINES AND SEES [facility] FOR THAT. SHE HAS NOT EVER HAD AN MRI. DR ARELLANO WAS NOTIFIED OF THE STROKE PROTOCOL AND HE WAS RECOMMENDING A MRI W/O CONTRAST, THAT COULD BE DONE ONCE SHE WAS ADMITTED. SHE PASSED THE SWALLOW SCREEN. PATIENT WAS UPDATED ON THE RESULTS OF HER SCANS.
--- NOTE | 2021-08-08 15:56 | P.HPHOSP_ITS ---
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 The patient denied having any headache, double vision but reported that was she was walking near the hospital she felt unsteady turning to her left side with feeling of left upper extremity heaviness and numbness but she was able to move it still. In the emergency a CT scan of the head was concerning for possible stroke but CTA was negative. The patient's symptoms improved during waiting in the emergency. Evaluated by stroke team who recommended no intervention needed. The patient was admitted for further evaluation and treatment. Review of Systems Review of Systems: No fever, chills or weakness No chest pain, palpitation No shortness of breath or coughing No abdominal pain, nausea or vomiting No urinary symptoms No any rash or wounds Left upper extremity heaviness and mild numbness PMFSH Medical History History of fibromyalgia History of vitamin D deficiency Hx of carpal tunnel syndrome Hx of obesity Hx of rheumatoid arthritis Hx of thyroid nodule Non-toxic multinodular goiter Obesity Vitamin D deficiency Family History Mother Fibromyalgia Osteoarthritis Diabetes Social History Household Members: Spouse and Children Housing: House Alcohol intake: current Alcohol intake frequency: holidays/special occasions only Patient Tobacco Use Status: Never used Tobacco Advance Directives: No Advance Directives Information Provided: Yes Meds Allergies Allergy/AdvReac Type Severity Reaction Status Date / Time No Known Allergies Allergy Verified 07/04/21 11:33 [No Known Allergies*] Home Medications Medication Instructions Recorded Confirmed Last Taken Type frovatriptan 2.5 mg tablet See Rx Instructions PO .COMPLEX 07/18/20 08/08/21 Unknown History omeprazole 20 mg capsule,delayed 20 mg PO BEDTIME 01/04/21 08/08/21 08/07/21 History release topiramate 50 mg tablet 50 mg PO BID 01/25/21 08/08/21 08/07/21 History cholecalciferol (vitamin D3) 50 50 mcg PO BEDTIME 08/08/21 08/08/21 08/07/21 History mcg (2,000 unit) capsule folic acid 1 mg tablet 1 tab PO BEDTIME 08/08/21 08/08/21 08/07/21 History Physical Exam Vital Signs and Narrative: Vital Signs: Last Vital Signs Temp 98.4 F 08/08/21 13:02 Pulse 83 08/08/21 13:02 Resp 20 08/08/21 13:02 BP 142/66 H 08/08/21 13:02 Pulse Ox 98 08/08/21 13:02 Body Mass Index 34.7 Const: Other: Constitutional : Alert, oriented, not in distress Neck : Normal inspection, Supple Cardiovascular : RRR, S1 S2, no lower extremity edema Respiratory : Good bilateral air entry, no crackles, wheezes or rhonchi Gastrointestinal: soft, lax, Normal bowel sounds, Non tender Skin : Warm, Dry Neurological : Alert & oriented x3, No focal deficit, left upper extremity mild numbness around triceps, cranial nerves within normal Results Labs CBC and Chem 7: 08/08/21 14:05 08/08/21 14:05 Labs: Laboratory Results - last 24 hr 08/08/21 08/08/21 08/08/21 14:05 14:05 14:05 MCV 85.9 MCH 27.0 MCHC 31.5 RDW 13.7 Plt Count 294 MPV 11.3 Immature Gran % (Auto) 0.3 Neut % (Auto) 50.2 Lymph % (Auto) 36.0 [place] % (Auto) 9.6 Eos % (Auto) 3.1 Baso % (Auto) 0.8 Lymph # (Auto) 2.3 [place] # (Auto) 0.6 Eos # (Auto) 0.2 Baso # (Auto) 0.1 Abs Immat Gran (auto) 0.02 Absolute Neuts (auto) 3.2 Absolute Nucleated RBC 0.000 Nucleated RBC % (auto) 0.0 PT 11.9 Whole Blood PT INR 1.0 Whole Blood INR Anion Gap 11 L Estim Creat Clear Calc 71.3 Estimated GFR > 60 Random Glucose 93 Calcium 9.1 Troponin I High Sens Hold Red Top 08/08/21 08/08/21 08/08/21 14:05 14:05 14:12 MCV MCH MCHC RDW Plt Count MPV Immature Gran % (Auto) Neut % (Auto) Lymph % (Auto) [place] % (Auto) Eos % (Auto) Baso % (Auto) Lymph # (Auto) [place] # (Auto) Eos # (Auto) Baso # (Auto) Abs Immat Gran (auto) Absolute Neuts (auto) Absolute Nucleated RBC Nucleated RBC % (auto) PT Whole Blood PT 12.1 INR Whole Blood INR 1.0 Anion Gap Estim Creat Clear Calc Estimated GFR Random Glucose Calcium Troponin I High Sens < 3.5 Hold Red Top See Note Imaging Radiologist's Impressions: Impressions Chest X-Ray 08/08/21 13:53 IMPRESSION: Mild coarsening bronchiolar markings. Otherwise lungs clear. No hyperinflation, infiltrate, or effusion. Head CT 08/08/21 13:53 IMPRESSION: Suspect acute infarct left inferior occipital lobe. There is no evidence of hemorrhage. This critical result was discussed with Dr. Mcwilliams at 2:20 PM on 08/08/2021. It was ascertained that the content and urgency of the report was understood at the time of direct communication. Head/Neck CTA 08/08/21 13:56 IMPRESSION: Unremarkable CT angiogram of the head and neck. No stenosis of the cervical carotid or vertebral arteries. No intracranial large vessel occlusion. Postcontrast images reveal no abnormal mass or enhancement within the intracranial compartment. Grossly no evidence of acute territorial infarct or hemorrhage. This critical result was discussed with Francisco Mcwilliams at 2:40 PM on 08/08/2021 and it was ascertained that the content and urgency of the report was understood at the time of direct communication. 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 Dizziness Heaviness of upper extremity Suspected TIA picture CT head suspicious for acute left inferior occipital lobe infarct CTA done showing of acute infarct Neurochecks To get neuro evaluation for further need of possible MRI Thrombophilia Continue fondaparinux DVT PPX Fondaparinux Quality Stroke Does the patient have a stroke diagnosis?: No VTE Prior VTE?: Yes VTE Risk Level:: Medical - moderate - high VTE Device Contraindication: Treatment Not Indicated VTE Drug Contraindication: N/A - Med Ordered
[2021-08-08 17:16] VITALS: BP 129/78; PULSE 76; RESP 16; O2SAT 97
[2021-08-08 18:58] LABS: COVID-19 Test Negative (Negative); IDNOW Serial# 9DD0AD1C
--- NOTE | 2021-08-08 19:26 | MHC.CM.PN ---
CM met with admitted patient with bed assignment pending. A&Ox3. DYER reviewed and signed per protocol 08/08/2021@1900. No HCP on file. HCP reviewed, completed and signed. Copies given and uploaded into [facility] and [facility] [employer]. HCP/Immanuel Pantoja ([phone]). Fully vaccinated with Pfizer and the booster. [employer] [facility] [employer] employee. Lives with and family. Uses no DME or services. D/C plan is home without services. to provide transportation home. CM to follow for d/c needs.
[2021-08-08 19:48] VITALS: BP 120/52; PULSE 74; RESP 18; O2SAT 97
[2021-08-08 20:09] VITALS: BP 126/68; PULSE 74; RESP 18; TEMP 36.6; O2SAT 95
[2021-08-08] MEDS: Amitriptyline HCl 25 MG TABLET PO (20:42)
[2021-08-08] MEDS: Topiramate 25 MG TABLET 50 MG PO (20:42)
[2021-08-08] MEDS: Folic Acid 1 MG TABLET PO (20:42)
[2021-08-08] MEDS: Omeprazole 20 MG CAPSULE.DR PO (20:42)
[2021-08-08] MEDS: Cholecalciferol (Vitamin D3) 25 MCG TABLET 50 MCG PO (20:42)
[2021-08-08] MEDS: Acetaminophen 325 MG TABLET 650 MG PO (20:43)
[2021-08-08] MEDS: 0.9 % Sodium Chloride Flush 3 ML SYRINGE IVFLUSH (20:43)
[2021-08-08 23:12] VITALS: BP 111/56; PULSE 75; RESP 17; TEMP 36.7; O2SAT 93
[2021-08-09 03:30] VITALS: BP 108/59; PULSE 67; RESP 18; TEMP 36.4; O2SAT 92
[2021-08-09 07:13] LABS: Anion Gap 12 (12-20); Blood Urea Nitrogen 11 mg/dL (9-16); Calcium 9.2 mg/dL (8.4-10.2); Carbon Dioxide 23 mmol/L (22-29); Chloride 110 mmol/L (96-108); Cholesterol 165 mg/dL; Creatinine Clr Calc Pharmacy 76.2; Estimated Glomerular Filt Rate > 60; Glucose Random 83 mg/dL (60-115); HDL Cholesterol 39 mg/dL; LDL Cholesterol Calculated 108 mg/dl; Potassium 3.9 mmol/L (3.3-5.1); Sodium 141 mmol/L (135-145); Triglycerides 91 mg/dL
[2021-08-09 07:27] VITALS: BP 122/68; PULSE 76; RESP 18; TEMP 36.7; O2SAT 95
--- NOTE | 2021-08-09 08:59 | PC.NURSE ---
Skin assessment completed today. At this time, patient has no skin issues or open areas.
[2021-08-09] MEDS: Topiramate 25 MG TABLET 50 MG PO (09:11)
[2021-08-09] MEDS: Amitriptyline HCl 25 MG TABLET PO ×2 (09:11→15:02)
[2021-08-09] MEDS: Fondaparinux Sodium 7.5 MG/0.6 ML SYRINGE SUBCUT (09:12)
[2021-08-09] MEDS: 0.9 % Sodium Chloride Flush 3 ML SYRINGE IVFLUSH (09:14)
[2021-08-09 11:28] VITALS: BP 122/60; PULSE 86; RESP 18; TEMP 36.7; O2SAT 99
--- NOTE | 2021-08-09 11:50 | P.CNNE_ITS ---
History of Present Illness Data of Consult Service Date: 08/09/21 Primary Care Provider: Priscilla Gonsalves MD HPI Reason for consult: Possible stroke 50 years old woman with underlying history of DVT probably related to some hypercoagulable dysfunction maintained on anticoagulation and migraine headaches. I used to see her until few years ago and now she was seeing [facility] Neurology. She used to have couple of headaches in a month each 1 lasting for few days. She has been taking Aimovig for couple of years and headaches have declined to about 2 a month or for 2 days in a month. This time she was in usual state of health when she noted that she was leaning to 1 side when walking. She also complained of being were 10 Amy and seeing double and having mild headache. In emergency room she was considered to have possible ischemic infarct but her initial imaging was negative and she was on anticoagulation and with that information and lack of any large vessel disease she was not acutely treated. Review of Systems Review of Systems: No recent cold or flu-like illness. [facility] Past Medical History Medical History History of fibromyalgia History of vitamin D deficiency Hx of carpal tunnel syndrome Hx of obesity Hx of rheumatoid arthritis Hx of thyroid nodule Non-toxic multinodular goiter Obesity Vitamin D deficiency Family History Family History Mother Fibromyalgia Osteoarthritis Diabetes Social History Social History Household Members: Spouse and Children Housing: House Alcohol intake: current Alcohol intake frequency: holidays/special occasions only Patient Tobacco Use Status: Never used Tobacco Advance Directives: No Advance Directives Information Provided: Yes service: No Current occupational status: employed Meds Allergies Allergy/AdvReac Type Severity Reaction Status Date / Time No Known Allergies Allergy Verified 07/04/21 11:33 [No Known Allergies*] Active Medications: Current Medications Acetaminophen (Acetaminophen 325 Mg Tablet) 650 mg PO Q6H PRN PRN Reason: Pain, Mild (Pain Scale 1-3) Last Admin: 08/08/21 20:43 Dose: 650 mg Documented by: Amitriptyline HCl (Amitriptyline Hcl 25 Mg Tablet) 25 mg PO TID [facility] Last Admin: 08/09/21 09:11 Dose: 25 mg Documented by: Folic Acid (Folic Acid 1 Mg Tablet) 1 mg PO BEDTIME [facility] Last Admin: 08/08/21 20:42 Dose: 1 mg Documented by: Fondaparinux (Fondaparinux Sodium 7.5 Mg/0.6 Ml Syringe) 7.5 mg SUBCUT Q24H [facility] Last Admin: 08/09/21 09:12 Dose: 7.5 mg Documented by: Omeprazole (Omeprazole 20 Mg Capsule.) 20 mg PO BEDTIME [facility] Last Admin: 08/08/21 20:42 Dose: 20 mg Documented by: Ondansetron HCl (Ondansetron Hcl 4 Mg/2 Ml Vial) 4 mg IVPUSH Q8H PRN PRN Reason: Nausea and Vomiting Sodium Chloride (0.9 % Sodium Chloride Flush 3 Ml Syringe) 3 ml IVFLUSH QSHIFT [facility] Last Admin: 08/09/21 09:14 Dose: 3 ml Documented by: Topiramate (Topiramate 25 Mg Tablet) 50 mg PO BID [facility] Last Admin: 08/09/21 09:11 Dose: 50 mg Documented by: Vitamin D (Cholecalciferol (Vitamin D3) 25 Mcg Tablet) 50 mcg PO BEDTIME [facility] Last Admin: 08/08/21 20:42 Dose: 50 mcg Documented by: Home Medications Medication Instructions Recorded Confirmed Last Taken Type frovatriptan 2.5 mg tablet See Rx Instructions PO .COMPLEX 07/18/20 08/08/21 Unknown History omeprazole 20 mg capsule,delayed 20 mg PO BEDTIME 01/04/21 08/08/21 08/07/21 History release topiramate 50 mg tablet 50 mg PO BID 01/25/21 08/08/21 08/07/21 History cholecalciferol (vitamin D3) 50 50 mcg PO BEDTIME 08/08/21 08/08/21 08/07/21 History mcg (2,000 unit) capsule folic acid 1 mg tablet 1 tab PO BEDTIME 08/08/21 08/08/21 08/07/21 History Physical Exam Vital Signs: Vital Signs: Last Vital Signs Temp 98.1 F 08/09/21 11:28 Pulse 86 08/09/21 11:28 Resp 18 08/09/21 11:28 BP 122/60 08/09/21 11:28 Pulse Ox 99 08/09/21 11:28 Body Mass Index 34.7 Neuro: Other: She was alert and awake with normal spontaneity of speech fluency comprehension and affect. Pupils were round reactive to light. Face was symmetrical. There was no pronator drift. Deep tendon reflexes were trace to absent with flexor plantars. Results Labs CBC & Chem 7: 08/08/21 14:05 08/09/21 05:43 Labs: Short CBC 08/08/21 Range/Units 14:05 WBC 6.4 (4.8-10.8) X10*3/uL Hgb 13.4 (12.0-16.0) g/dl Hct 42.6 (37.0-47.0) % Plt Count 294 (160-400) X10*3/uL BMP 08/08/21 08/09/21 14:05 05:43 Sodium 140 141 Potassium 4.0 3.9 Chloride 109 H 110 H Carbon Dioxide 24 23 BUN 12 11 Creatinine 0.95 0.89 Calcium 9.1 9[address] and CTA of brain and neck did not reveal any significant pathology. Assessment and Plan (1) Transient ischemic attack (TIA): Status: Acute 50 years old woman with complex underlying history including tendency for blood clots and migraine headaches treated Aimovig. She came to emergency room with new onset of unsteadiness of gait, vertigo and double vision with mild headache. At this time she felt better. Initial head CT did not reveal any significant abnormality. Differential diagnosis included migraine or brainstem migraine but she never had similar episode before and the presence of double vision and vertigo implied that we should consider a fixed stroke. I would recommend obtaining an MRI of brain without contrast to help it. Otherwise her baseline medicines with continue. Procedures Date of Service Date of Service: 08/09/21
--- NOTE | 2021-08-09 14:39 | PM.DS ---
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 The patient denied having any headache, double vision but reported that was she was walking near the hospital she felt unsteady turning to her left side with feeling of left upper extremity heaviness and numbness but she was able to move it still. In the emergency a CT scan of the head was concerning for possible stroke but CTA was negative.? The patient's symptoms improved during waiting in the emergency.? Evaluated by stroke team who recommended no intervention needed. The patient was admitted for further evaluation and treatment. Hospital course The patient was admitted to the hospital for evaluation of dizziness and arm heaviness. Images in the emergency including CT scan was suspicious for possible stroke while CTA was negative for any acute findings. The patient was monitored with no abnormality noted or recurrent of dizziness episodes. She was evaluated by Neurology team who recommended MRI image which came back negative for any acute findings. Plan to discharge home to continue her current medication and to follow-up as outpatient with PCP. Time Spent with Patient Time attestation: Total time spent providing and/or coordinating discharge services: Discharge coordination time: Greater than 30 minutes Quality: Stroke Does the patient have a stroke diagnosis?: No Physical Exam Vital Signs: Vital Signs: Last Vital Signs Temp 98.1 F 08/09/21 11:28 Pulse 86 08/09/21 11:28 Resp 18 08/09/21 11:28 BP 122/60 08/09/21 11:28 Pulse Ox 99 08/09/21 11:28 Body Mass Index 34.7 Const: Other: Constitutional : Alert, oriented, not in distress Neck : Normal inspection, Supple Cardiovascular : RRR, S1 S2, no lower extremity edema Respiratory : Good bilateral air entry, no crackles, wheezes or rhonchi Gastrointestinal: soft, lax, Normal bowel sounds, Non tender Skin : Warm, Dry Neurological : Alert & oriented x3, No focal deficit DS: Data Data Completed and Pending Labs on day of discharge: Laboratory Results - last 24 hr 08/08/21 08/09/21 18:27 05:43 Sodium 141 Potassium 3.9 Chloride 110 H Carbon Dioxide 23 Anion Gap 12 BUN 11 Creatinine 0.89 Estim Creat Clear Calc 76.2 Estimated GFR > 60 Random Glucose 83 Calcium 9.2 Triglycerides 91 Cholesterol 165 LDL Cholesterol, Calc 108 HDL Cholesterol 39 COVID-19 (BUDDY) Negative COVID-19 Clin Com See Note Discharge Plan Discharge Patient Disposition: Home, Self-Care Discharge Diagnosis: Dizziness Arm heaviness Referrals: Priscilla Gonsalves MD [Primary Care Provider] - 1 Week Discharge Medications: Continued amitriptyline 25 mg tablet 25 mg PO TID Qty: 270 RF: 1 fondaparinux 7.5 mg/0.6 mL Syringe 7.5 mg SUBCUT Q24H Qty: 90 RF: 4 folic acid 1 mg tablet 1 tab PO BEDTIME RF: 0 cholecalciferol (vitamin D3) 50 mcg (2,000 unit) capsule 50 mcg PO BEDTIME RF: 0 omeprazole 20 mg capsule,delayed release(DR/EC) 20 mg PO BEDTIME RF: 0 frovatriptan 2.5 mg tablet See Rx Instructions PO .COMPLEX RF: 0 topiramate 50 mg tablet 50 mg PO BID RF: 0 Discharge Orders: Discharge Order (Routine); Ordered 08/09/21 Ordered By: Maxi Pandey Diet: advance to usual diet Activity on Discharge: As tolerated Stand Alone Forms: Patient Portal Discharge page Care Plan Goals: Read below Health Concerns: Read below Plan of Treatment: Read below Assessment: You were admitted to the hospital for evaluation of episode of dizziness and left arm heaviness. Images for your brain including CT scan and MRI were negative for any acute stroke. You were evaluated by neurologist who recommended MRI image. To be discharged home on your home medications and to follow-up with your PCP as scheduled.
== END 2021-08-09 15:30 | disposition home or self-care (01) | DRG 47 ==
LOC: HO.ED 15:00 → HO.EDOVER 16:24 → HO.IMC 19:22
PROVIDERS: Admitting Provider Student in an Organized Health Care Education/Training Program; Emergency Provider Emergency Medicine; PCP Internal Medicine; Visit Provider Student in an Organized Health Care Education/Training Program
DX: G45.9 Transient cerebral ischemic attack, unspecified (principal); G43.909 Migraine, unspecified, not intractable, without status migrainosus; M06.9 Rheumatoid arthritis, unspecified; Z20.822 Contact with and (suspected) exposure to COVID-19; Z86.718 Personal history of other venous thrombosis and embolism; Z79.899 Other long term (current) drug therapy
CPT/HCPCS: 36415; 70450; 70496; 70498; 70551; 71045; 80048; 80061; 84484; 85025; 85610; 87635; 93005; 99285; J1652; Q9967

== ENCOUNTER 2021-09-03 12:54 | Outpatient (REF) | payer OTHER, SELFPAY ==
--- NOTE | ~2021-09-03 | XR_ITS ---
EXAMINATION: XR KNEE, LEFT CLINICAL INFORMATION: Left knee pain COMPARISON: None TECHNIQUE: Four views of the left knee. FINDINGS: There is no evidence of acute fracture or dislocation of the left knee. Left knee joint spaces are maintained. No destructive bony lesions identified. XR/XR knee LT 4V IMPRESSION: No bony abnormality of the left knee identified. No left knee effusion.
== END 2021-09-03 12:55 | disposition home or self-care (01) ==
LOC: HO.XRAY 12:54
PROVIDERS: PCP Internal Medicine; Visit Provider Internal Medicine
DX: M25.562 Pain in left knee (principal)
CPT/HCPCS: 73564

== ENCOUNTER 2021-10-01 11:48 | Outpatient (REF) | payer OTHER, SELFPAY ==
[2021-10-01 14:08] LABS: MANUAL DIFF FLAG NO
[2021-10-01 14:14] LABS: Basophils Absolute Auto 0.1 X10*3/uL (0.0-0.2); Basophils Percent Auto 0.8 % (0-2); Eosinophils Absolute Auto 0.1 X10*3/uL (0.0-0.4); Eosinophils Percent Auto 2.1 % (0-4); Hemoglobin 13.4 g/dl (12.0-16.0); Imm Gran Abs Auto 0.03 X10*3/uL (0.00-0.03); Imm Gran Pct Auto 0.5 % (0.0-0.4); Lymphocytes Absolute Auto 2.2 X10*3/uL (1.2-4.9); Lymphocytes Percent Auto 33.3 % (20-40); Mean Corpuscular HGB Conc 31.2 g/dl (31.0-35.0); Mean Corpuscular Hemoglobin 26.3 pg (27.0-33.0); Mean Corpuscular Volume 84.5 fL (80.0-98.0); Mean Platelet Volume 12.2 fL (9.4-12.3); Monocytes Absolute Auto 0.5 X10*3/uL (0.1-1.2); Monocytes Percent Auto 7.4 % (2-11); Neutrophils Absolute Auto 3.7 x10*3/uL (2.0-8.3); Neutrophils Percent Auto 55.9 % (45-73); Platelet Count 291 X10*3/uL (160-400); Red Blood Count 5.09 X10*6/uL (4.20-5.50); Red Cell Distribution Width 13.9 % (11.0-16.0); White Blood Count 6.7 X10*3/uL (4.8-10.8)
[2021-10-01 14:30] LABS: Alanine Aminotransferase 36 U/L (0-31); Albumin Level 3.9 g/dL (3.5-5.0); Alkaline Phosphatase 80 U/L (39-117); Anion Gap 11 (12-20); Aspartate Amino Transferase 32 U/L (5-31); Bilirubin Total 0.2 mg/dL (0.0-1.0); Blood Urea Nitrogen 13 mg/dL (9-16); C Reactive Protein 1.28 mg/dL (< or = 0.50); Calcium 9.6 mg/dL (8.4-10.2); Carbon Dioxide 27 mmol/L (22-29); Chloride 108 mmol/L (96-108); Estimated Glomerular Filt Rate 57; Glucose Random 105 mg/dL (60-115); Potassium 3.9 mmol/L (3.3-5.1); Sodium 142 mmol/L (135-145); Total Protein 7.7 g/dL (6.5-8.0)
[2021-10-01 14:53] LABS: Erythrocyte Sedimentation Rate 11 MM/HR (0-20)
== END 2021-10-01 11:49 | disposition home or self-care (01) ==
LOC: HO.10HDL 11:48
PROVIDERS: Visit Provider Nurse Practitioner Family
DX: M05.9 Rheumatoid arthritis with rheumatoid factor, unspecified (principal)
CPT/HCPCS: 36415; 80053; 85025; 85652; 86140

== ENCOUNTER 2021-10-01 16:32 | Emergency (ER) | payer OTHER, SELFPAY ==
[2021-10-01 16:46] VITALS: BP 135/80; PULSE 102; RESP 20; TEMP 36.1; O2SAT 100; BMI 33.6
[2021-10-01 19:43] LABS: MANUAL DIFF FLAG NO
[2021-10-01 19:44] LABS: Basophils Absolute Auto 0.1 X10*3/uL (0.0-0.2); Basophils Percent Auto 0.6 % (0-2); Eosinophils Absolute Auto 0.2 X10*3/uL (0.0-0.4); Eosinophils Percent Auto 1.9 % (0-4); Hematocrit 43.4 % (37.0-47.0); Hemoglobin 13.7 g/dl (12.0-16.0); Imm Gran Abs Auto 0.03 X10*3/uL (0.00-0.03); Imm Gran Pct Auto 0.4 % (0.0-0.4); Lymphocytes Absolute Auto 2.7 X10*3/uL (1.2-4.9); Lymphocytes Percent Auto 34.3 % (20-40); Mean Corpuscular HGB Conc 31.6 g/dl (31.0-35.0); Mean Corpuscular Hemoglobin 26.9 pg (27.0-33.0); Mean Corpuscular Volume 85.3 fL (80.0-98.0); Mean Platelet Volume 11.1 fL (9.4-12.3); Monocytes Absolute Auto 0.6 X10*3/uL (0.1-1.2); Monocytes Percent Auto 7.4 % (2-11); Neutrophils Absolute Auto 4.3 x10*3/uL (2.0-8.3); Neutrophils Percent Auto 55.4 % (45-73); Platelet Count 289 X10*3/uL (160-400); Red Blood Count 5.09 X10*6/uL (4.20-5.50); Red Cell Distribution Width 14.1 % (11.0-16.0); White Blood Count 7.7 X10*3/uL (4.8-10.8)
[2021-10-01 19:50] LABS: INTERNATIONAL NORM RATIO 1.1 (0.9-1.1); Prothrombin Time 12.3 SEC (9.9-13.0)
[2021-10-01 20:00] LABS: Alanine Aminotransferase 39 U/L (0-31); Albumin Level 4.2 g/dL (3.5-5.0); Alkaline Phosphatase 85 U/L (39-117); Anion Gap 10 (12-20); Aspartate Amino Transferase 33 U/L (5-31); Bilirubin Total 0.2 mg/dL (0.0-1.0); Blood Urea Nitrogen 12 mg/dL (9-16); Calcium 9.7 mg/dL (8.4-10.2); Carbon Dioxide 27 mmol/L (22-29); Chloride 108 mmol/L (96-108); Creatinine Clr Calc Pharmacy 71.3; Estimated Glomerular Filt Rate > 60; Glucose Random 95 mg/dL (60-115); Potassium 3.7 mmol/L (3.3-5.1); Sodium 141 mmol/L (135-145); Total Protein 8.2 g/dL (6.5-8.0)
[2021-10-01] MEDS: Oxymetazoline HCl 0.05 % Nasal 15 ML SPRAY 2 SPRAY NOSTRIL-B (22:48)
[2021-10-01 22:52] VITALS: BP 145/80; PULSE 87; RESP 16; TEMP 36.8
--- NOTE | 2021-10-01 22:56 | ED_ITS ---
HPI - General Adult General Chief complaint: General Medical Stated complaint: nose bleed on blood thinners Time Seen by Provider: 10/01/21 20:29 Source: patient Mode of arrival: ambulatory Limitations: no limitations History of Present Illness HPI narrative: This is a 50-year-old female with a history of DVTs on injectable daily fondaparinux here with left-sided epistaxis since 16:00. No reports of injury or trauma. No previous history of nose bleeds. Related Data Home Medications Medication Instructions Recorded Confirmed frovatriptan 2.5 mg tablet See Rx Instructions PO .COMPLEX 07/18/20 08/08/21 omeprazole 20 mg capsule,delayed 20 mg PO BEDTIME 01/04/21 08/08/21 release topiramate 50 mg tablet 50 mg PO BID 01/25/21 08/08/21 cholecalciferol (vitamin D3) 50 50 mcg PO BEDTIME 08/08/21 08/08/21 mcg (2,000 unit) capsule Previous Rx's Medication Instructions Recorded amitriptyline 25 mg tablet 25 mg PO TID #270 tab 04/10/21 fondaparinux 7.5 mg/0.6 mL 7.5 mg (0.6 mL) SUBCUT Q24H #90 ml 06/14/21 subcutaneous solution syringe diclofenac epolamine 1.3 % 1 patch TRANSDERMAL DAILY #30 ea 09/06/21 transdermal 24 hour patch etanercept 50 mg/mL (1 mL) 50 mg SUBCUT QWEEK #4 ml 09/28/21 subcutaneous pen injector (Enbrel SureClick) Allergies Allergy/AdvReac Type Severity Reaction Status Date / Time adalimumab [From Humira] Allergy hairloss Verified 08/28/21 14:14 Review of Systems Review of Systems: Yes all other systems are reviewed and are negative Constitutional: Constitutional: Reports no additional constitutional complaints, Denies body ache(s), Denies chills, Denies fever(s), Denies headache(s) and Denies weakness Eyes: Eyes: Reports no additional eye complaints and Denies change in vision ENT: Reports system reviewed and no additional complaints, except as documented, Denies dizziness, Denies headache(s), Reports epistaxis, Denies nasal congestion, Denies nasal discharge and Denies neck pain Cardiovascular: Cardiovascular: Reports no additional cardiovascular complaints, Denies chest pain, Denies leg edema and Denies dyspnea Respiratory: Respiratory: Reports no additional respiratory complaints, Denies cough and Denies dyspnea Gastrointestinal: Gastrointestinal: Reports no additional gastrointestinal complaints, Denies abdominal pain, Denies diarrhea, Denies nausea and Denies vomiting Genitourinary: Genitourinary: Reports no additional female genitourinary complaints and Denies urinary incontinence Musculoskeletal: Musculoskeletal: Reports no additional musculoskeletal complaints, Denies back pain, Denies arthralgias, Denies joint swelling, Denies neck pain, Denies numbness and Denies tingling Integumentary/Breasts: Skin/Breast: Reports system reviewed and no additional complaints, except as docu and Denies rash Neurologic: Reports system reviewed and no additional complaints, except as documented, Denies Abnormal speech present, Denies dizziness, Denies headache(s), Denies numbness, Denies tingling and Denies weakness PMFSH Past Medical History Attestation statement: The following information was validated with the patient. Source: old records reviewed and nursing notes reviewed Medical History History of fibromyalgia History of vitamin D deficiency Hx of carpal tunnel syndrome Hx of obesity Hx of rheumatoid arthritis Hx of thyroid nodule Left knee pain Non-toxic multinodular goiter Obesity Vitamin D deficiency Family History Family History Mother Fibromyalgia Osteoarthritis Diabetes Social History Social History Household Members: Spouse and Children Housing: House Alcohol intake: current Alcohol intake frequency: holidays/special occasions only Patient Tobacco Use Status: Never used Tobacco Advance Directives: No Advance Directives Information Provided: Yes service: No Current occupational status: employed Physical Exam Vital Signs: Vital Signs: Last Vital Signs Temp 98.3 F 10/01/21 22:52 Pulse 87 10/01/21 22:52 Resp 16 10/01/21 22:52 BP 145/80 H 10/01/21 22:52 Pulse Ox 100 10/01/21 16:46 BMI result Body Mass Index 33.6 Const: General: cooperative, healthy appearing, comfortable and no acute distress Orientation/consciousness: patient oriented x3 Limitations: no limitations HENMT: Head: Yes normal to inspection Ears: hearing grossly normal bilaterally and TM's normal bilaterally General nose exam: Normal external nose present and Epistaxis present (To the left nare are there is a large blood clot. ) Face and sinus: Yes normal facial exam Mouth: Normal oral and palatal mucosa present Throat: Yes posterior oropharynx normal Eyes: General: appearance normal, both eyes and all related structures Pupils: Equal, round and reactive pupils present Neck: Neck: Yes normal visual inspection Chest: Chest palpation & inspection: normal inspection of the chest Resp: Effort & Inspection: normal respiratory effort Auscultation: clear to auscultation bilaterally Cardio: Rate: regular rate Rhythm: regular rhythm Peripheral pulses: Peripheral pulses 2+ throughout GI: Inspection: Yes normal to inspection Palpation (GI): Soft to palpation and nontender Auscultation: normal bowel sounds Back/Spine/Pelvis: Thoracic/Lumbar Spine: thoracic and lumbar spine normal to inspection Skin: General skin exam: no rashes or lesions noted Neuro: General: patient oriented x3, no focal motor deficits and normal sensation to monofilament Cranial nerves: Yes Equal, round and reactive pupils present Cognition (Neuro): normal cognition Speech: No Abnormal speech present Gait exam (Neuro): Normal gait present Motor exam (neuro): 5/5 motor strength present throughout Extrem: General: Yes normal to inspection Course Course Course Narrative: 50-year-old female with a history of DVTs on anticoagulation here with reports of left epistaxis since 16:00 which did not resolve with direct pressure. On exam the patient has a large blood clot in the left naris that was evacuated with suction and the patient blowing her nose. After this the nasal turbinates were noted to be erythematic and inflamed but I am unable to visualize a direct area of bleeding. The nose was sprayed with 2 sprays of Afrin. Will monitor the patient for 1 hour. 0000-Patient monitored for 1 hr with no additional bleeding. Recommended discussing AC therapy with her senior interior designer Dr Larsen. Reviewed worrisome signs and symptoms of when to return to the emergency department. Comfortable discharge home. Medical Decision Making Medical Records Medical records reviewed: Yes I reviewed the patient's medical records. Lab Data Lab results reviewed: Yes I reviewed the patient's lab results. Result diagrams: 10/01/21 19:39 10/01/21 19:39 Labs: Lab Results 10/01/21 10/01/21 10/01/21 Range/Units 19:39 19:39 19:39 WBC 7.7 (4.8-10.8) X10*3/uL RBC 5.09 (4.20-5.50) X10*6/uL Hgb 13.7 (12.0-16.0) g/dl Hct 43.4 (37.0-47.0) % MCV 85.3 (80.0-98.0) fL MCH 26.9 L (27.0-33.0) pg MCHC 31.6 (31.0-35.0) g/dl RDW 14.1 (11.0-16.0) % Plt Count 289 (160-400) X10*3/uL MPV 11.1 (9.4-12.3) fL Immature Gran % (Auto) 0.4 (0.0-0.4) % Neut % (Auto) 55.4 (45-73) % Lymph % (Auto) 34.3 (20-40) % Pickett % (Auto) 7.4 (2-11) % Eos % (Auto) 1.9 (0-4) % Baso % (Auto) 0.6 (0-2) % Lymph # (Auto) 2.7 (1.2-4.9) X10*3/uL Pickett # (Auto) 0.6 (0.1-1.2) X10*3/uL Eos # (Auto) 0.2 (0.0-0.4) X10*3/uL Baso # (Auto) 0.1 (0.0-0.2) X10*3/uL Abs Immat Gran (auto) 0.03 (0.00-0.03) X10*3/uL Absolute Neuts (auto) 4.3 (2.0-8.3) x10*3/uL Absolute Nucleated RBC 0.000 (0.0-0.012) X10*3/uL Nucleated RBC % (auto) 0.0 (0.0-0.2) /100WBC PT 12.3 (9.9-13.0) SEC INR 1.1 (0.9-1.1) Sodium 141 (135-145) mmol/L Potassium 3.7 (3.3-5.1) mmol/L Chloride 108 (96-108) mmol/L Carbon Dioxide 27 (22-29) mmol/L Anion Gap 10 L (12-20) BUN 12 (9-16) mg/dL Creatinine 0.97 (0.5-1.4) mg/dL Estim Creat Clear Calc 71.3 Estimated GFR > 60 Random Glucose 95 (60-115) mg/dL Calcium 9.7 (8.4-10.2) mg/dL Total Bilirubin 0.2 (0.0-1.0) mg/dL AST 33 H (5-31) U/L ALT 39 H (0-31) U/L Alkaline Phosphatase 85 (39-117) U/L Total Protein 8.2 H (6.5-8.0) g/dL Albumin 4.2 (3.5-5.0) g/dL Discharge Plan Discharge Clinical Impression: Acute anterior epistaxis Patient Disposition: Home, Self-Care Instructions: Nosebleed (ED) Additional Instructions: Your INR was 1.1. Speak to Dr. Larsen tomorrow about your anticoagulation If you have a slight nose bleed he may use 2 sprays of Afrin at home. Do not exceed more than 2 sprays in 24 hours. Return for severe nose bleed as discussed Keep the nose lubricated with Vaseline. Use a humidifier in the bedroom Prescriptions: No Action amitriptyline 25 mg tablet 25 mg PO TID Qty: 270 RF: 1 diclofenac epolamine 1.3 % patch 24 hour 1 patch transdermal DAILY Qty: 30 RF: 0 Enbrel SureClick 50 mg/mL (1 mL) pen injector 50 mg subcut QWEEK Qty: 4 RF: 0 fondaparinux 7.5 mg/0.6 mL Syringe 7.5 mg SUBCUT Q24H Qty: 90 RF: 4 cholecalciferol (vitamin D3) 50 mcg (2,000 unit) capsule 50 mcg PO BEDTIME RF: 0 omeprazole 20 mg capsule,delayed release(DR/EC) 20 mg PO BEDTIME RF: 0 frovatriptan 2.5 mg tablet See Rx Instructions PO .COMPLEX RF: 0 topiramate 50 mg tablet 50 mg PO BID RF: 0 Referrals: Priscilla Gonsalves MD [Primary Care Provider] - 1 week (as needed) Interventions: ED Discharge Assessment Last Done: 10/02/21 00:07
== END 2021-10-02 00:14 | disposition home or self-care (01) ==
PROVIDERS: Emergency Provider Internal Medicine; PCP Internal Medicine
DX: R04.0 Epistaxis (principal); Z86.718 Personal history of other venous thrombosis and embolism; Z79.01 Long term (current) use of anticoagulants
CPT/HCPCS: 30901; 36415; 80053; 85025; 85610; 99283; 99284

== ENCOUNTER → 2021-10-05 10:21 | Outpatient (BNVA) | payer OTHER, SELFPAY | PROVIDERS: PCP Internal Medicine; Visit Provider Nurse Practitioner Family ==

== ENCOUNTER 2021-11-01 12:39 | Outpatient (REF) | payer OTHER, SELFPAY ==
--- NOTE | ~2021-11-01 | US_ITS ---
EXAMINATION: US VENOUS ULTRASOUND WITH DOPPLER LOWER EXTREMITY, LEFT CLINICAL INFORMATION: Left leg pain. Previous right lower extremity DVT. COMPARISON: None TECHNIQUE: Ultrasound of the deep veins is performed from the hip to the calf with compression sonography and color and pulse Doppler assessment. Spectral analysis with color-flow imaging is performed. FINDINGS: There is normal venous compression and respiratory variation and augmented flow. The visualized common femoral vein, superficial femoral vein, profunda femoral vein, popliteal vein, and the trifurcation region shows no evidence of deep venous thrombosis. There is no significant popliteal fossa cyst. No popliteal artery aneurysm. US/US venous duplex LE LT IMPRESSION: No acute DVT demonstrated in the left lower extremity.
== END 2021-11-01 12:40 | disposition home or self-care (01) ==
LOC: HO.US 12:39
PROVIDERS: PCP Internal Medicine; Visit Provider Internal Medicine Medical Oncology
DX: I82.401 Acute embolism and thrombosis of unspecified deep veins of right lower extremity (principal)
CPT/HCPCS: 93971

== ENCOUNTER 2021-11-14 16:35 | Outpatient (REF) | payer OTHER, SELFPAY ==
--- NOTE | ~2021-11-14 | MR_ITS ---
EXAMINATION: MR KNEE WITHOUT CONTRAST, LEFT CLINICAL INFORMATION: Left knee pain. COMPARISON: Left knee radiographs dated 09/03/2021. TECHNIQUE: MRI of the knee without contrast was performed using routine sequences on a high-field scanner. FINDINGS: MENISCI: Medial Meniscus: Mild abnormal intrasubstance signal within the meniscal body without definite articular surface tearing. Lateral Meniscus: Intact LIGAMENTS: Cruciate: Intact Collateral: There is edema adjacent to the medial collateral ligament consistent with a grade 1 sprain. No measurable defect. Intact fibular collateral ligament. EXTENSOR MECHANISM: Intact. ARTICULAR CARTILAGE/BONE: Patellofemoral Compartment: Normal. Medial Compartment: Weightbearing medial femoral condyle articular cartilage signal heterogeneity and surface irregularity. Tiny marginal osteophytes. Marrow edema within the medial aspect of the medial femoral condyle, consistent with an osseous contusion. No associated fracture line. Mild adjacent soft tissue edema. Lateral Compartment: Normal. JOINT FLUID AND BURSAE: Trace joint effusion. MR/MR knee LT wo con IMPRESSION: 1. Grade 1 sprain of the medial collateral ligament. 2. Osseous contusion within the medial aspect of the medial femoral condyle. No associated fracture line. 3. Mild degenerative intrasubstance signal within the medial meniscal body without articular surface meniscal tearing. 4. Mild medial compartment arthrosis. Trace joint effusion.
== END 2021-11-14 16:36 | disposition home or self-care (01) ==
LOC: HO.MRI 16:35
PROVIDERS: PCP Internal Medicine; Visit Provider Nurse Practitioner Family
DX: M25.562 Pain in left knee (principal)
CPT/HCPCS: 73721

== ENCOUNTER → 2021-11-26 13:49 | Outpatient (BNVA) | payer OTHER, SELFPAY | PROVIDERS: PCP Internal Medicine; Visit Provider Physician Assistant ==

== ENCOUNTER 2021-11-30 12:37 | Outpatient (REF) | payer OTHER, SELFPAY ==
[2021-11-30 13:43] LABS: MANUAL DIFF FLAG NO
[2021-11-30 13:52] LABS: Basophils Percent Auto 0.6 % (0-2); Eosinophils Absolute Auto 0.2 X10*3/uL (0.0-0.4); Eosinophils Percent Auto 2.3 % (0-4); Hematocrit 45.2 % (37.0-47.0); Hemoglobin 13.8 g/dl (12.0-16.0); Imm Gran Abs Auto 0.02 X10*3/uL (0.00-0.03); Imm Gran Pct Auto 0.3 % (0.0-0.4); Lymphocytes Absolute Auto 2.1 X10*3/uL (1.2-4.9); Lymphocytes Percent Auto 31.8 % (20-40); Mean Corpuscular HGB Conc 30.5 g/dl (31.0-35.0); Mean Corpuscular Hemoglobin 26.4 pg (27.0-33.0); Mean Corpuscular Volume 86.4 fL (80.0-98.0); Mean Platelet Volume 11.8 fL (9.4-12.3); Monocytes Absolute Auto 0.6 X10*3/uL (0.1-1.2); Monocytes Percent Auto 9.8 % (2-11); Neutrophils Absolute Auto 3.6 x10*3/uL (2.0-8.3); Neutrophils Percent Auto 55.2 % (45-73); Platelet Count 271 X10*3/uL (160-400); Red Blood Count 5.23 X10*6/uL (4.20-5.50); Red Cell Distribution Width 14.7 % (11.0-16.0); White Blood Count 6.4 X10*3/uL (4.8-10.8)
[2021-11-30 14:13] LABS: Cholesterol 204 mg/dL; HDL Cholesterol 46 mg/dL; LDL Cholesterol Calculated 135 mg/dl; Triglycerides 117 mg/dL
[2021-11-30 14:15] LABS: Alanine Aminotransferase 25 U/L (0-31); Albumin Level 4.1 g/dL (3.5-5.0); Alkaline Phosphatase 77 U/L (39-117); Anion Gap 9 (12-20); Aspartate Amino Transferase 23 U/L (5-31); Bilirubin Total 0.3 mg/dL (0.0-1.0); Blood Urea Nitrogen 12 mg/dL (9-16); C Reactive Protein 1.61 mg/dL (< or = 0.50); Calcium 9.4 mg/dL (8.4-10.2); Carbon Dioxide 28 mmol/L (22-29); Chloride 108 mmol/L (96-108); Estimated Glomerular Filt Rate > 60; Glucose Random 69 mg/dL (60-115); Potassium 4.3 mmol/L (3.3-5.1); Sodium 141 mmol/L (135-145); Total Protein 7.6 g/dL (6.5-8.0)
[2021-11-30 14:35] LABS: Erythrocyte Sedimentation Rate 4 MM/HR (0-20)
[2021-11-30 16:25] LABS: Reflex LDLD? No
== END 2021-11-30 12:38 | disposition home or self-care (01) ==
LOC: HO.10HDL 12:37
PROVIDERS: Absent Provider Internal Medicine Medical Oncology; Visit Provider Nurse Practitioner Family
DX: I82.401 Acute embolism and thrombosis of unspecified deep veins of right lower extremity (principal); M05.9 Rheumatoid arthritis with rheumatoid factor, unspecified
CPT/HCPCS: 36415; 80053; 80061; 85025; 85652; 86140

== ENCOUNTER 2021-12-07 09:29 | Day surgery (SDC) | payer OTHER, SELFPAY ==
--- NOTE | 2021-12-05 14:43 | P.CONAN_ITS ---
Documented by User: Rea Mathew NP 12/05/21 14:45 HPI - Anesthesia Eval Consult details Narrative: 51yo F for Upper Endoscopy and Colonoscopy Immunologics for RA PMFSH Active Problems Active Problems: All Active Problems (Updated 11/26/21 @ 15:25 by Tracey Bhardwaj PA-C) Sprain of medial collateral ligament of left knee (Acute) Left knee pain (Acute) Low back pain (Acute) De Quervain's tenosynovitis (Acute) Right leg DVT (Acute) Acute thigh pain (Acute) Obesity (Acute) Vitamin D deficiency (Acute) Non-toxic multinodular goiter (Acute) Seropositive rheumatoid arthritis (Acute) Fibromyalgia (Acute) 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) Current use of anticoagulant therapy (Acute) Past Medical History Medical History History of fibromyalgia History of vitamin D deficiency Hx of carpal tunnel syndrome Hx of obesity Hx of rheumatoid arthritis Hx of thyroid nodule Left knee pain Non-toxic multinodular goiter Obesity Vitamin D deficiency Family History Family History Mother Diabetes Fibromyalgia Osteoarthritis Maternal Grandfather Leukemia Maternal Aunt Breast cancer Social History Social History Household Members: Spouse and Children Housing: House Are you a primary school child care attendant to a significant other at home: No Do you presently have visiting nurse or other home services: No Alcohol intake: current Alcohol intake frequency: does not drink Patient Tobacco Use Status: Never used Tobacco Use of substances other than those prescribed or required for medical reasons: No Are you DNR?: No Advance Directives: No Advance Directives Information Provided: Yes Recently lost weight without trying: No service: No Current occupational status: employed 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 Allergies Allergy/AdvReac Type Severity Reaction Status Date / Time adalimumab [From Humira] Allergy hairloss Verified 11/26/21 13:55 enoxaparin [From Lovenox] Allergy Rash Verified 12/05/21 08:44 etanercept [Enbrel] Allergy Injection Verified 11/26/21 13:55 site reaction sarilumab [From Kevzara] Allergy injection Verified 11/26/21 13:55 site reaction Home Medications Medication Instructions Recorded Confirmed Last Taken Type omeprazole 20 mg capsule,delayed 20 mg PO BEDTIME 01/04/21 11/01/21 08/07/21 History release topiramate 50 mg tablet 50 mg PO BID 01/25/21 11/01/21 08/07/21 History cholecalciferol (vitamin D3) 50 50 mcg PO BEDTIME 08/08/21 11/01/21 08/07/21 History mcg (2,000 unit) capsule erenumab-aooe 140 mg/mL 140 mg SUBCUT QMONTH 11/01/21 11/01/21 Unknown History subcutaneous auto-injector (Aimovig Autoinjector) Exam Exam Date and Time: December 05, 2021 1443 Pertinent Lab Results Pertinent Lab Results: Laboratory Tests 11/30/21 11/30/21 12:40 12:40 WBC 6.4 Hgb 13.8 Hct 45.2 Plt Count 271 Sodium 141 Potassium 4.3 Chloride 108 Carbon Dioxide 28 BUN 12 Creatinine 0.91 Narrative Narrative: EKG 07/2021 Vent. Rate : 071 BPM ? ? Atrial Rate : 071 BPM ?? P-R Int : 158 ms? QRS Dur : 074 ms ? ? QT Int : 404 ms ? ? ? P-R-T Axes : 029 003 018 degrees ?? QTc Int : 439 ms ? Normal sinus rhythm with sinus arrhythmia Normal ECG When compared with ECG of 04-JUN-2021 07:44, ST less depressed in Lateral leads Assessment and Plan Assessment Anesthesia Assessment: Chart Reviewed Documented by User: Rama Chatman MD 12/07/21 10:23 [facility] Past Medical History Medical History History of fibromyalgia History of vitamin D deficiency Hx of carpal tunnel syndrome Hx of obesity Hx of rheumatoid arthritis Hx of thyroid nodule Left knee pain Non-toxic multinodular goiter Obesity Vitamin D deficiency Family History Family History Mother Diabetes Fibromyalgia Osteoarthritis Maternal Grandfather Leukemia Maternal Aunt Breast cancer Family history of problems with anesthesia: No Surgical History History of Problems with Anesthesia: No Social History Social History Household Members: Spouse and Children Housing: House Are you a primary school child care attendant to a significant other at home: No Do you presently have visiting nurse or other home services: No Alcohol intake: current Alcohol intake frequency: does not drink Patient Tobacco Use Status: Never used Tobacco Use of substances other than those prescribed or required for medical reasons: No Are you DNR?: No Advance Directives: No Advance Directives Information Provided: Yes Recently lost weight without trying: No service: No Current occupational status: employed 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-[employer] Meds Allergies Allergy/AdvReac Type Severity Reaction Status Date / Time adalimumab [From Humira] Allergy hairloss Verified 11/26/21 13:55 enoxaparin [From Lovenox] Allergy Rash Verified 12/05/21 08:44 etanercept [Enbrel] Allergy Injection Verified 11/26/21 13:55 site reaction sarilumab [From Kevzara] Allergy injection Verified 11/26/21 13:55 site reaction Home Medications Medication Instructions Recorded Confirmed Last Taken Type omeprazole 20 mg capsule,delayed 20 mg PO BEDTIME 01/04/21 11/01/21 08/07/21 History release topiramate 50 mg tablet 50 mg PO BID 01/25/21 11/01/21 08/07/21 History cholecalciferol (vitamin D3) 50 50 mcg PO BEDTIME 08/08/21 11/01/21 08/07/21 History mcg (2,000 unit) capsule erenumab-aooe 140 mg/mL 140 mg SUBCUT QMONTH 11/01/21 11/01/21 Unknown History subcutaneous auto-injector (Aimovig Autoinjector) Exam Airway Mallampati Class: II TM Dist: >3cm Neck ROM: Full Heart: rrr Lungs: cts Assessment and Plan Assessment Anesthesia Assessment: Anesthesia Plan Discussed and Chart Reviewed Final Anesthetic Review Family History of Problems with Anesthesia: No History of Problems with Anesthesia: No NPO: Yes ASA Class: II Final Preanesthetic Review: No Changes in Pt Med Stat, Meds/Allgs Chart Reviewed and Consent Obtained/Reviewed Patient Risk: Intermediate Procedure Risk: Intermediate Anesthetic Plan Anesthetic Plan: MAC: Disposition: Standard PACU
[2021-12-07 09:35] VITALS: BMI 33.6
[2021-12-07 09:49] VITALS: BP 132/75; PULSE 95; RESP 16; TEMP 37.4; O2SAT 98
[2021-12-07 09:53] LABS: INTERNATIONAL NORM RATIO 1.1 (0.9-1.1)
[2021-12-07] MEDS: Lactated Ringers 1,000 ML 100 ML IVCONT (09:56)
[2021-12-07 11:39] VITALS: BP 103/67; PULSE 94; RESP 16; TEMP 37.3; O2SAT 97
--- NOTE | 2021-12-07 11:47 | P.BOP_ITS ---
Brief Operative Note Date of Service: 12/07/21 Pre-op diagnosis: GERD, Screening Post-op diagnosis: other (Hiatal hernia, Polyps) Procedure: EGD, Colonoscopy to the cecum with hot snare polypectomy and placement of 2 Resolution clips on rectal polyp, and bx/removal of ascending colon polyp Surgeon: Jean Gomez Anesthesia: MAC Was an Guest Relations Receptionist used for this Procedure?: No Estimated blood loss (mL): 2.0 Pathology: other (A. Ascending colon polyp B. Rectal polyp) Condition: stable Disposition: PACU
[2021-12-07 11:54] VITALS: BP 122/63; PULSE 81; RESP 16; TEMP 36.6; O2SAT 99
--- NOTE | 2021-12-07 13:23 | OP_ITS ---
SURGEON: Jean Gomez MD INDICATIONS: The patient presents for evaluation of gastroesophageal reflux and colorectal cancer screening. Full consent was obtained from her for both procedures, including risks of bleeding and perforation. PREOPERATIVE DIAGNOSIS: POSTOPERATIVE DIAGNOSIS: PROCEDURE PERFORMED: Esophagogastroduodenoscopy, and colonoscopy to the cecum with biopsy and removal of polyp, and hot snare polypectomy with placement of 2 Resolution Clips. ESTIMATED BLOOD LOSS: COMPLICATIONS: ANESTHESIA: Monitored anesthesia care. ASSISTANTS: SPECIMENS: PREOPERATIVE DIAGNOSES: Gastroesophageal reflux and colorectal cancer screening. POSTOPERATIVE DIAGNOSES: Gastroesophageal reflux, colorectal cancer screening, hiatal hernia, colon polyps, diverticulosis, and small internal hemorrhoids. DESCRIPTION OF PROCEDURE: The patient was placed in the left lateral decubitus position. The Olympus video gastroscope was passed into the posterior oropharynx and upper esophagus under direct vision. The scope was passed slowly to the distal esophagus. The gastroesophageal junction appeared normal at 34 cm. There was no sign of any esophagitis nor Sun esophagus. The scope entered into the stomach. There was a small to moderate-sized hiatal hernia. The scope was advanced to the pylorus and the duodenum was cannulated to the descending portion. The duodenum including the bulb was carefully inspected and appeared normal without mass or ulceration. The scope was withdrawn back to the stomach. The gastric antrum and body appeared normal with good peristalsis. The scope was retroflexed visualizing the proximal stomach carefully, which appeared normal, without any sign of mass or ulceration. The scope was straightened and withdrawn back to the esophagus. The esophageal mucosa appeared normal. The scope was withdrawn from the patient. She was turned around for colonoscopy. The digital rectal exam revealed no abnormalities. The Olympus video pediatric colonoscope was entered into the rectum and advanced easily to the cecum. Once in the cecum, I did identify normal-appearing cecal pouch with appendiceal orifice and a normal-appearing ileocecal valve. The entire cecum and ileocecal valve appeared normal. There was transillumination of light deep in the right lower quadrant. The scope was slowly withdrawn assessing all mucosal surfaces carefully. Preparation was excellent. In the ascending colon was an approximately 2 or 3 mm polyp, which was biopsied and completely removed with cold biopsy forceps in a single bite . In the proximal rectum was an approximately 5 or 6 mm polyp, which was removed with a hot snare polypectomy and recovered by suction. The polypectomy site appeared clean, without any sign of residual polyp nor bleeding. Two Resolution Clips were applied with good deployment and hemostasis, given that she has to go back on her blood thinner. I did not visualize any other polyps, colitis, or angiodysplasia. There was a mild amount of sigmoid diverticulosis. In the rectum, the scope was retroflexed visualizing some small internal hemorrhoids, but no other pathology. The rectal mucosa appeared normal. The scope was straightened and withdrawn from the patient. She tolerated both procedures well and was returned to the recovery area in stable condition. IMPRESSION: 1. Small to moderate-sized hiatal hernia, otherwise normal upper endoscopy. 2. Small colon polyps. 3. Mild sigmoid diverticulosis. 4. Small internal hemorrhoids. PLAN: The results of the pathology will be checked. If either of the polyps are a tubular adenoma, I would recommend a followup coloscopy in 5 years. If they are only hyperplastic, I would recommend a followup colonoscopy in 10 years. She was advised to continue her daily omeprazole. She was advised to resume her blood thinner tomorrow. She will stay off all aspirin and NSAIDs as well since she is on the blood thinner. She will otherwise see me on a p.r.n. basis. MD PEDRO Mora/MED / [id number] HARRIET
== END 2021-12-07 12:37 | disposition home or self-care (01) ==
PROVIDERS: PCP Internal Medicine; Visit Provider Internal Medicine
PROC: (CPT 45385; principal; 2021-12-07 10:30)
DX: Z12.11 Encounter for screening for malignant neoplasm of colon (principal); D12.2 Benign neoplasm of ascending colon; K62.1 Rectal polyp; K57.30 Diverticulosis of large intestine without perforation or abscess without bleeding; K64.8 Other hemorrhoids; R14.0 Abdominal distension (gaseous); K21.9 Gastro-esophageal reflux disease without esophagitis; K44.9 Diaphragmatic hernia without obstruction or gangrene; M79.7 Fibromyalgia; I82.501 Chronic embolism and thrombosis of unspecified deep veins of right lower extremity; M25.562 Pain in left knee; E55.9 Vitamin D deficiency, unspecified; E04.2 Nontoxic multinodular goiter; E66.9 Obesity, unspecified; Z68.34 Body mass index [BMI] 34.0-34.9, adult; Z79.01 Long term (current) use of anticoagulants; Z79.899 Other long term (current) drug therapy; Z88.8 Allergy status to other drugs, medicaments and biological substances
CPT/HCPCS: 45385; 45380; 43235; 36415; 85610; 88305

== ENCOUNTER 2021-12-17 16:54 | Observation (INO) | payer OTHER, SELFPAY ==
[2021-12-17 17:22] VITALS: BP 150/85; PULSE 90; RESP 18; TEMP 37; O2SAT 95; BMI 33.6
[2021-12-17 18:17] LABS: MANUAL DIFF FLAG NO
[2021-12-17 18:24] LABS: Basophils Absolute Auto 0.1 X10*3/uL (0.0-0.2); Basophils Percent Auto 0.9 % (0-2); Eosinophils Absolute Auto 0.2 X10*3/uL (0.0-0.4); Eosinophils Percent Auto 3.3 % (0-4); Hematocrit 44.8 % (37.0-47.0); Hemoglobin 14.1 g/dl (12.0-16.0); Imm Gran Abs Auto 0.04 X10*3/uL (0.00-0.03); Imm Gran Pct Auto 0.6 % (0.0-0.4); Lymphocytes Absolute Auto 2.6 X10*3/uL (1.2-4.9); Lymphocytes Percent Auto 37.6 % (20-40); Mean Corpuscular HGB Conc 31.5 g/dl (31.0-35.0); Mean Corpuscular Hemoglobin 27.3 pg (27.0-33.0); Mean Corpuscular Volume 86.8 fL (80.0-98.0); Mean Platelet Volume 11.3 fL (9.4-12.3); Monocytes Absolute Auto 0.5 X10*3/uL (0.1-1.2); Monocytes Percent Auto 7.3 % (2-11); Neutrophils Absolute Auto 3.5 x10*3/uL (2.0-8.3); Neutrophils Percent Auto 50.3 % (45-73); Platelet Count 259 X10*3/uL (160-400); Prothrombin Time 11.8 SEC (9.9-13.0); Red Blood Count 5.16 X10*6/uL (4.20-5.50); Red Cell Distribution Width 14.7 % (11.0-16.0)
[2021-12-17 18:34] LABS: Anion Gap 9 (12-20); Blood Urea Nitrogen 13 mg/dL (9-16); Calcium 9.2 mg/dL (8.4-10.2); Carbon Dioxide 27 mmol/L (22-29); Chloride 110 mmol/L (96-108); Creatinine Clr Calc Pharmacy 61.1; Estimated Glomerular Filt Rate 51; Glucose Random 93 mg/dL (60-115); Potassium 3.7 mmol/L (3.3-5.1); Sodium 142 mmol/L (135-145)
[2021-12-17 22:40] VITALS: BP 139/88; PULSE 87; RESP 18; TEMP 36.8; O2SAT 96
--- NOTE | 2021-12-18 02:58 | ED_ITS ---
HPI - General Adult General Chief complaint: General Medical Stated complaint: rectal bleeding colonoscopy on 12/07 Time Seen by Provider: 12/18/21 02:58 Source: patient Mode of arrival: ambulatory Limitations: no limitations History of Present Illness HPI narrative: Patient had a routine colonoscopy on 12/07 with removal of a few polyps. Patient told it was not cancer. Patient had 2 clips placed. Patient is on fondaparinox daily for a long history of DVT. 2 days after colonoscopy patient had a BM with bleeding. The bleeding continued for a few day, she contacted Dr. Gomez. Was told to stop the blood thinner for a day and the bleeding stopped. The bleeding started this afternoon since 4pm and is bleeding with 6 episodes since waiting to be seen. Onset (ago): hour(s) Severity: moderate Exacerbating factors: none Associated symptoms: denies other symptoms Related Data Home Medications Medication Instructions Recorded Confirmed omeprazole 20 mg capsule,delayed 20 mg PO BEDTIME 01/04/21 11/01/21 release topiramate 50 mg tablet 50 mg PO BID 01/25/21 11/01/21 cholecalciferol (vitamin D3) 50 50 mcg PO BEDTIME 08/08/21 11/01/21 mcg (2,000 unit) capsule erenumab-aooe 140 mg/mL 140 mg SUBCUT QMONTH 11/01/21 11/01/21 subcutaneous auto-injector (Aimovig Autoinjector) Previous Rx's Medication Instructions Recorded fondaparinux 7.5 mg/0.6 mL 7.5 mg (0.6 mL) SUBCUT Q24H #90 ml 06/14/21 subcutaneous solution syringe amitriptyline 25 mg tablet 25 mg PO TID #270 tab 11/09/21 tocilizumab 162 mg/0.9 mL 162 mg (0.9 mL) SUBCUT Q2W #1.8 ml 11/20/21 subcutaneous pen injector (Actemra ACTPen) Allergies Allergy/AdvReac Type Severity Reaction Status Date / Time adalimumab [From Humira] Allergy hairloss Verified 11/26/21 13:55 enoxaparin [From Lovenox] Allergy Rash Verified 12/05/21 08:44 etanercept [Enbrel] Allergy Injection Verified 11/26/21 13:55 site reaction sarilumab [From Kevzara] Allergy injection Verified 11/26/21 13:55 site reaction Review of Systems Constitutional: Constitutional: Reports no additional constitutional complaints Eyes: Eyes: Reports no additional eye complaints ENT: Denies dizziness Cardiovascular: Cardiovascular: Reports no additional cardiovascular complaints Respiratory: Respiratory: Reports as per HPI Gastrointestinal: Gastrointestinal: Reports no additional gastrointestinal complaints Genitourinary: Genitourinary: Reports no additional female genitourinary complaints Musculoskeletal: Musculoskeletal: Reports no additional musculoskeletal complaints Integumentary/Breasts: Skin/Breast: Denies rash Neurologic: Reports system reviewed and no additional complaints, except as documented, Denies dizziness and Denies Sensory deficit (Neuro) Psychiatric: Psychiatric: Denies anxiety [facility] Past Medical History Medical History History of fibromyalgia History of vitamin D deficiency Hx of carpal tunnel syndrome Hx of obesity Hx of rheumatoid arthritis Hx of thyroid nodule Left knee pain Non-toxic multinodular goiter Obesity Vitamin D deficiency Family History Family History Mother Diabetes Fibromyalgia Osteoarthritis Maternal Grandfather Leukemia Maternal Aunt Breast cancer Social History Social History Household Members: Spouse and Children Housing: House Are you a primary home care assistant to a significant other at home: No Do you presently have visiting nurse or other home services: No Alcohol intake: current Alcohol intake frequency: does not drink Patient Tobacco Use Status: Never used Tobacco Advance Directives: No Advance Directives Information Provided: No service: No Current occupational status: employed 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[employer] [place] Physical Exam ED Vital Signs: Vital Signs - 24 hr 12/17/21 17:22 12/17/21 22:40 12/18/21 03:09 Temperature 98.6 F 98.3 F Pulse Rate 90 87 69 Respiratory Rate 18 18 14 Blood Pressure 150/85 H 139/88 136/73 Pulse Oximetry 95 96 97 BMI result Body Mass Index 33.6 Const General: healthy appearing Nutritional Appearance: average body habitus Orientation/consciousness: oriented to person and patient oriented x3 Limitations: no limitations HENMT Head: Yes normal to inspection Ears: external ears normal General nose exam: Normal external nose present Mouth: Normal oral and palatal mucosa present and oropharynx normal Throat: Yes posterior oropharynx normal Eyes General: appearance normal, both eyes and all related structures Neck Neck: Yes normal visual inspection Chest Chest palpation & inspection: normal inspection of the chest Resp Auscultation: clear to auscultation bilaterally Cardio Jugular venous distension: no JVD Rate: regular rate Rhythm: regular rhythm Heart sounds: S1 normal heart sound present and S2 normal heart sound present GI Inspection: Yes normal to inspection Palpation (GI): Soft to palpation, nontender and No hepatosplenomegaly present Auscultation: normal bowel sounds Other: rectal with non bleeding hemorrhoids, blood on rectal exam General: Yes no CVA tenderness Back/Spine/Pelvis Back: no CVA tenderness Skin General skin exam: no rashes or lesions noted Neuro General: oriented to person and patient oriented x3 Cranial nerves: Yes CN's II-XII intact bilaterally Motor exam (neuro): 5/5 motor strength present throughout Sensory Exam: No Sensory deficit (Neuro) Extrem General: Yes normal to inspection Psych Appearance: grossly normal Course Reevaluation(s) Reevaluation #1: Discussed with Dr. Pierce, he wants the patient admitted with bowel prep Time: 06:38 Reevaluation #2: spoke to Dr. Pandey who will admit the patient Time: 07:21 Medical Decision Making Lab Data Result diagrams: 12/18/21 04:17 12/17/21 18:13 Labs: Lab Results 12/17/21 12/17/21 12/17/21 Range/Units 18:13 18:13 18:13 WBC 7.0 (4.8-10.8) X10*3/uL RBC 5.16 (4.20-5.50) X10*6/uL Hgb 14.1 (12.0-16.0) g/dl Hct 44.8 (37.0-47.0) % MCV 86.8 (80.0-98.0) fL MCH 27.3 (27.0-33.0) pg MCHC 31.5 (31.0-35.0) g/dl RDW 14.7 (11.0-16.0) % Plt Count 259 (160-400) X10*3/uL MPV 11.3 (9.4-12.3) fL Immature Gran % (Auto) 0.6 H (0.0-0.4) % Neut % (Auto) 50.3 (45-73) % Lymph % (Auto) 37.6 (20-40) % Irwin % (Auto) 7.3 (2-11) % Eos % (Auto) 3.3 (0-4) % Baso % (Auto) 0.9 (0-2) % Lymph # (Auto) 2.6 (1.2-4.9) X10*3/uL Irwin # (Auto) 0.5 (0.1-1.2) X10*3/uL Eos # (Auto) 0.2 (0.0-0.4) X10*3/uL Baso # (Auto) 0.1 (0.0-0.2) X10*3/uL Abs Immat Gran (auto) 0.04 H (0.00-0.03) X10*3/uL Absolute Neuts (auto) 3.5 (2.0-8.3) x10*3/uL Absolute Nucleated RBC 0.000 (0.0-0.012) X10*3/uL Nucleated RBC % (auto) 0.0 (0.0-0.2) /100WBC PT 11.8 (9.9-13.0) SEC INR 1.0 (0.9-1.1) Sodium 142 (135-145) mmol/L Potassium 3.7 (3.3-5.1) mmol/L Chloride 110 H (96-108) mmol/L Carbon Dioxide 27 (22-29) mmol/L Anion Gap 9 L (12-20) BUN 13 (9-16) mg/dL Creatinine 1.12 (0.5-1.4) mg/dL Estim Creat Clear Calc 61.1 Estimated GFR 51 Random Glucose 93 (60-115) mg/dL Calcium 9.2 (8.4-10.2) mg/dL COVID-19 (BUDDY) (Negative) COVID-19 Clin Com 12/18/21 12/18/21 Range/Units 04:17 06:56 WBC 5.7 (4.8-10.8) X10*3/uL RBC 4.69 (4.20-5.50) X10*6/uL Hgb 12.7 (12.0-16.0) g/dl Hct 40.2 (37.0-47.0) % MCV 85.7 (80.0-98.0) fL MCH 27.1 (27.0-33.0) pg MCHC 31.6 (31.0-35.0) g/dl RDW 14.7 (11.0-16.0) % Plt Count 230 (160-400) X10*3/uL MPV 11.4 (9.4-12.3) fL Immature Gran % (Auto) 0.5 H (0.0-0.4) % Neut % (Auto) 44.1 L (45-73) % Lymph % (Auto) 41.9 H (20-40) % Irwin % (Auto) 7.8 (2-11) % Eos % (Auto) 4.8 H (0-4) % Baso % (Auto) 0.9 (0-2) % Lymph # (Auto) 2.4 (1.2-4.9) X10*3/uL Irwin # (Auto) 0.4 (0.1-1.2) X10*3/uL Eos # (Auto) 0.3 (0.0-0.4) X10*3/uL Baso # (Auto) 0.1 (0.0-0.2) X10*3/uL Abs Immat Gran (auto) 0.03 (0.00-0.03) X10*3/uL Absolute Neuts (auto) 2.5 (2.0-8.3) x10*3/uL Absolute Nucleated RBC 0.000 (0.0-0.012) X10*3/uL Nucleated RBC % (auto) 0.0 (0.0-0.2) /100WBC PT (9.9-13.0) SEC INR (0.9-1.1) Sodium (135-145) mmol/L Potassium (3.3-5.1) mmol/L Chloride (96-108) mmol/L Carbon Dioxide (22-29) mmol/L Anion Gap (12-20) BUN (9-16) mg/dL Creatinine (0.5-1.4) mg/dL Estim Creat Clear Calc Estimated GFR Random Glucose (60-115) mg/dL Calcium (8.4-10.2) mg/dL COVID-19 (BUDDY) Negative (Negative) COVID-19 Clin Com See Note Discharge Plan Discharge Clinical Impression: Acute lower GI bleeding Patient Disposition: Admitted As Inpatient
[2021-12-18 03:09] VITALS: BP 136/73; PULSE 69; RESP 14; O2SAT 97
[2021-12-18 04:22] LABS: Basophils Absolute Auto 0.1 X10*3/uL (0.0-0.2); Basophils Percent Auto 0.9 % (0-2); Eosinophils Absolute Auto 0.3 X10*3/uL (0.0-0.4); Eosinophils Percent Auto 4.8 % (0-4); Hematocrit 40.2 % (37.0-47.0); Hemoglobin 12.7 g/dl (12.0-16.0); Imm Gran Abs Auto 0.03 X10*3/uL (0.00-0.03); Imm Gran Pct Auto 0.5 % (0.0-0.4); Lymphocytes Absolute Auto 2.4 X10*3/uL (1.2-4.9); Lymphocytes Percent Auto 41.9 % (20-40); MANUAL DIFF FLAG NO; Mean Corpuscular HGB Conc 31.6 g/dl (31.0-35.0); Mean Corpuscular Hemoglobin 27.1 pg (27.0-33.0); Mean Corpuscular Volume 85.7 fL (80.0-98.0); Mean Platelet Volume 11.4 fL (9.4-12.3); Monocytes Absolute Auto 0.4 X10*3/uL (0.1-1.2); Monocytes Percent Auto 7.8 % (2-11); Neutrophils Absolute Auto 2.5 x10*3/uL (2.0-8.3); Neutrophils Percent Auto 44.1 % (45-73); Platelet Count 230 X10*3/uL (160-400); Red Blood Count 4.69 X10*6/uL (4.20-5.50); Red Cell Distribution Width 14.7 % (11.0-16.0); White Blood Count 5.7 X10*3/uL (4.8-10.8)
[2021-12-18 07:18] LABS: COVID-19 Test Negative (Negative)
[2021-12-18 08:40] VITALS: BP 131/76; PULSE 81; RESP 14; O2SAT 96
--- NOTE | 2021-12-18 08:56 | PM.EVENT ---
Event Note Date of Service: 12/18/21 Event Note: GI Consult-Full note dictated Imp: Rectal bleeding s/p colonoscopy on 12/07/2021 with rectal hot snare polypectom(hyperplastic polyp) with placement of 2 clips and an ascending colon biopsy and removal of a polyp(tubular adenoma). Her last dose of her Fondaparinux was yesterday AM. She does continue to pass red blood but has been hemodynamically stable and blood count has not changed much. Rec: Bowel prep today and then colonoscopy either later today or by tomorrow. Full consent obtained from her for this, including risks of bleeding and perforation. Follow Hgb. Will discuss with Hematology regarding how long she can stay off her blood thinner. D/W patient in detail and she is comfortable with this plan. Thanks
--- NOTE | 2021-12-18 09:07 | PHA.MEDREC ---
Pharmacy Consult ? Medication Reconciliation Pharmacy has completed the medication reconciliation. No remarkable issues. Rosenda Mcintosh, LenoreD
--- NOTE | 2021-12-18 09:10 | MHC.SHP ---
Pre-Procedural Eval Section A Date of Service: 12/18/21 The patient is an INPATIENT: Yes The History & Physical has been completed within 30 days and I have reviewed it.: Yes Section B Chief Complaint: rectal bleeding colonoscopy on 12/07 Allergies: Allergies Allergy/AdvReac Type Severity Reaction Status Date / Time adalimumab [From Humira] Allergy hairloss Verified 11/26/21 13:55 enoxaparin [From Lovenox] Allergy Rash Verified 12/05/21 08:44 etanercept [Enbrel] Allergy Injection Verified 11/26/21 13:55 site reaction sarilumab [From Kevzara] Allergy injection Verified 11/26/21 13:55 site reaction Plan I have reviewed the history and physical and performed a pertinent physical examination on my patient. No changes have occurred unless specified.
--- NOTE | 2021-12-18 09:41 | P.HPHOSP_ITS ---
History of Present Illness Date of Service: 12/18/21 Chief Complaint: rectal bleeding This is a 51 yo F with a PMH of DVT (multiple, first one diagnosed in her 30s) on fondaparinux, RA, Migranes who underwent screening colonoscopy with snare polypectomy with placement of 2 clips in the rectum, and 1 polyp removal in the ascending colon on 12/07/21 who presents to the hospital with a 1 day duration of frequent bright red blood per rectum. The patient reports that she is on fondaparinux for her known DVT. This was discontinued 2 days before and day of her original scope. She restarted it the day after and had some bleeding which stopped after holding her anticoagulation for 1 day. SHe resumed her anticaogulation and her bleeding restarted on the day prior to arrival. She reports dizziness but denies sob or cp. She denies abdominal pain, nausea, vomiting. She denies decreased oral intake. She denies any fevers or chills. In the ED, her h/h and vitals were stable. She continues to have active lower GI bleeding. She has been evaluated by GI and will be started on bowel prep, with plans to scope her today vs tomorrow. Review of Systems Review of Systems: negative except HPI [facility] Medical History History of fibromyalgia History of vitamin D deficiency Hx of carpal tunnel syndrome Hx of obesity Hx of rheumatoid arthritis Hx of thyroid nodule Left knee pain Non-toxic multinodular goiter Obesity Vitamin D deficiency Family History Mother Diabetes Fibromyalgia Osteoarthritis Maternal Grandfather Leukemia Maternal Aunt Breast cancer Surgical History (Updated 12/18/21 @ 09:45 by Dennis Bennett MD) S/P colonoscopic polypectomy Social History Household Members: Spouse and Children Housing: House Are you a primary primary care nurse practitioner to a significant other at home: No Do you presently have visiting nurse or other home services: No Alcohol intake: current Alcohol intake frequency: does not drink Patient Tobacco Use Status: Never used Tobacco Advance Directives: No Advance Directives Information Provided: No service: No Current occupational status: employed 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[employer] Meds Allergies Allergy/AdvReac Type Severity Reaction Status Date / Time adalimumab [From Humira] Allergy hairloss Verified 11/26/21 13:55 enoxaparin [From Lovenox] Allergy Rash Verified 12/05/21 08:44 etanercept [Enbrel] Allergy Injection Verified 11/26/21 13:55 site reaction sarilumab [From Kevzara] Allergy injection Verified 11/26/21 13:55 site reaction Active Medications: Current Medications Acetaminophen (Acetaminophen 325 Mg Tablet) 650 mg PO Q6H PRN PRN Reason: Pain, Mild (Pain Scale 1-3) Sodium Chloride (Ns) 1,000 mls @ 125 mls/hr IVCONT .Q8H [facility] Last Admin: 12/18/21 04:25 Dose: Not Given Documented by: Dextrose/Sodium Chloride (D51/2ns) 1,000 mls @ 80 mls/hr IVCONT .[id number] [facility] Stop: 12/18/21 22:14 Ondansetron HCl (Ondansetron Hcl 4 Mg/2 Ml Vial) 4 mg IVPUSH Q8H PRN PRN Reason: Nausea and Vomiting Pharmacy Consult (Consult Rx Perform Med Rec) 1 each MISCELLANE ONCE PRN PRN Reason: Consult order Sodium Chloride (0.9 % Sodium Chloride Flush 3 Ml Syringe) 3 ml IVFLUSH QSHIFT [facility] Home Medications Medication Instructions Recorded Confirmed Last Taken Type omeprazole 20 mg capsule,delayed 20 mg PO BEDTIME 01/04/21 12/18/21 12/16/21 History release topiramate 50 mg tablet 50 mg PO BID 01/25/21 12/18/21 12/16/21 History cholecalciferol (vitamin D3) 50 50 mcg PO BEDTIME 08/08/21 12/18/21 12/16/21 History mcg (2,000 unit) capsule erenumab-aooe 140 mg/mL 140 mg SUBCUT QMONTH 11/01/21 12/18/21 Unknown History subcutaneous auto-injector (Aimovig Autoinjector) multivitamin 1 tab PO DAILY 12/18/21 12/18/21 12/16/21 History Physical Exam Vital Signs and Narrative: Vital Signs: Last Vital Signs Temp 98.3 F 12/17/21 22:40 Pulse 81 12/18/21 08:40 Resp 14 12/18/21 08:40 BP 131/76 12/18/21 08:40 Pulse Ox 96 12/18/21 08:40 BMI result Body Mass Index 33.6 Const: Other: Constitutional - Awake and Alert, No apparent distress Eyes - PERRLA, EOMI Cardiovascular - S1S2, RRR, No edema Respiratory - Normal lung expansion, Normal respiratory effort, No respiratory distress, CTA bilaterally Gastrointestinal - NT / ND; +BS; No rebound or guarding - No CVA tenderness Extremities - no calf tenderness bilaterally, no swelling Musculoskeletal - Normal inspection, normal ROM Skin - Warm/Dry Neurological - Alert & oriented x3, No focal deficit Psychological - Appropriate affect Results Labs CBC and Chem 7: 12/18/21 04:17 12/17/21 18:13 Labs: Laboratory Results - last 24 hr 12/17/21 12/17/21 12/17/21 18:13 18:13 18:13 MCV 86.8 MCH 27.3 MCHC 31.5 RDW 14.7 Plt Count 259 MPV 11.3 Immature Gran % (Auto) 0.6 H Neut % (Auto) 50.3 Lymph % (Auto) 37.6 Roane % (Auto) 7.3 Eos % (Auto) 3.3 Baso % (Auto) 0.9 Lymph # (Auto) 2.6 Roane # (Auto) 0.5 Eos # (Auto) 0.2 Baso # (Auto) 0.1 Abs Immat Gran (auto) 0.04 H Absolute Neuts (auto) 3.5 Absolute Nucleated RBC 0.000 Nucleated RBC % (auto) 0.0 PT 11.8 INR 1.0 Anion Gap 9 L Estim Creat Clear Calc 61.1 Estimated GFR 51 Random Glucose 93 Calcium 9.2 COVID-19 ([facility]DY) COVID-19 Clin Com 12/18/21 12/18/21 04:17 06:56 MCV 85.7 MCH 27.1 MCHC 31.6 RDW 14.7 Plt Count 230 MPV 11.4 Immature Gran % (Auto) 0.5 H Neut % (Auto) 44.1 L Lymph % (Auto) 41.9 H Roane % (Auto) 7.8 Eos % (Auto) 4.8 H Baso % (Auto) 0.9 Lymph # (Auto) 2.4 Roane # (Auto) 0.4 Eos # (Auto) 0.3 Baso # (Auto) 0.1 Abs Immat Gran (auto) 0.03 Absolute Neuts (auto) 2.5 Absolute Nucleated RBC 0.000 Nucleated RBC % (auto) 0.0 PT INR Anion Gap Estim Creat Clear Calc Estimated GFR Random Glucose Calcium COVID-19 ([facility]UDDY) Negative COVID-19 Clin Com See Note Assessment and Plan (1) Acute lower GI bleeding: Status: Acute Plan This is a 51 yo F with a PMH of DVT (multiple, first one diagnosed in her 30s) on fondaparinux, RA, Migranes who underwent screening colonoscopy with snare polypectomy with placement of 2 clips in the rectum, and 1 polyp removal in the ascending colon on 12/07/21 who presents to the hospital with a 1 day duration of frequent bright red blood per rectum. She will be admitted for further management. 1. Acute blood loss (not anemic as of yet) 1a. Suspected acute lower GI bleed -- secondary to recent polypectomy + being on anticoagulation h/h q6 hours; transfuse if symptomatic or below 8 Gi input appreciated -- bowel prep followed by scope Hold anticoagulation obviously 2. 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 can be held monitor h/h as above 3. Chronic RA on biologics as outpatient; continue as appropriate 4. Chronic Migranes continue her outpatient therapy upon discharge Full Code DVT pptx, mechanical Quality Stroke Does the patient have a stroke diagnosis?: No VTE Prior VTE?: No VTE Risk Level:: Medical - moderate - high VTE Device Contraindication: N/A - Device Ordered VTE Drug Contraindication: Treatment Not Indicated
--- NOTE | 2021-12-18 09:43 | PC.NURSE ---
Pt A&Ox4, MEZA of 03/31 at this time, + blood in stool at this time. Plan for colonscopy in the near future, pt last took blood thinner yesterday morning. Call moore within reach. Will continue to monitor.
[2021-12-18 10:08] LABS: Hematocrit 39.1 % (37.0-47.0); Hemoglobin 12.3 g/dl (12.0-16.0)
[2021-12-18] MEDS: Acetaminophen 325 MG TABLET 650 MG PO (11:19)
[2021-12-18] MEDS: Dextrose 5 % and 0.45 % NaCl 1,000 ML 80 ML IVCONT (11:20)
--- NOTE | 2021-12-18 13:56 | PM.HEMONCCN ---
Subjective - Subjective Chief complaint: Bleeding per rectum Patient: known to practice within the last 3 years Consult date: 12/18/21 Requesting Physician: Dr. Gomez Primary Care Provider: Priscilla Gonsalves MD Medical Summary: diagnosis: Recurrent right lower extremity DVT HPI - Consult Narrative Reason for consult: Rectal bleeding, history of recurrent DVT Narrative: Zeynep Edgar is a 51 year old female his admitted for rectal bleeding. She has a history of recurrent right lower extremity DVT and has been on fondaparinux. She underwent colonoscopy and polypectomy on 12/07/2021. She held fondaparinux 2 days before surgery and resumed it the same day as the procedure. She started to have rectal bleeding couple of days later and has been going on and off until she came to the emergency department yesterday. She last took her dose of fondaparinux yesterday morning. No fever, chills, abdominal pain or diarrhea. No nausea or emesis. Review of Systems - Constitutional Reports as per HPI, Reports no additional constitutional complaints - Neurologic Reports no additional neurologic complaints, Denies dizziness, Denies sensory deficit [facility] Medical History: Medical History (Last Reviewed 12/18/21 @ 09:45 by Dennis Bennett MD) History of fibromyalgia History of vitamin D deficiency Hx of carpal tunnel syndrome Hx of obesity Hx of rheumatoid arthritis Hx of thyroid nodule Left knee pain Non-toxic multinodular goiter Obesity Vitamin D deficiency Family History: Family History (Last Reviewed 12/18/21 @ 09:45 by Dennis Bennett MD) Mother Diabetes Fibromyalgia Osteoarthritis Maternal Grandfather Leukemia Maternal Aunt Breast cancer Surgical History: Surgical History (Last Updated 12/18/21 @ 09:45 by Dennis Bennett MD) S/P colonoscopic polypectomy Social History: Social History (Last Reviewed 12/18/21 @ 09:45 by Dennis Bennett MD) Living Situation History: Household Members: Spouse Household Members: Children Housing: House Are you a primary emergency care tech to a significant other at home: No Do you presently have visiting nurse or other home services: No Tobacco History: Patient Tobacco Use Status: Never used Tobacco Advance Directives: Advance Directives: No Advance Directives Information Provided: No Occupation Assessmet: service: No Current occupational status: employed 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[employer] Home Medications and Allergies Current Medications: Current Medications Acetaminophen (Acetaminophen 325 Mg Tablet) 650 mg PO Q6H PRN PRN Reason: Pain, Mild (Pain Scale 1-3) Last Admin: 12/18/21 11:19 Dose: 650 mg Documented by: Amitriptyline HCl (Amitriptyline Hcl 25 Mg Tablet) 25 mg PO TID [facility] Dextrose/Sodium Chloride (D51/2ns) 1,000 mls @ 80 mls/hr IVCONT .[id number] [facility] Stop: 12/18/21 22:14 Last Admin: 12/18/21 11:20 Dose: 80 mls/hr Documented by: Multivitamins/Vitamin C (Multivitamin Tablet) 1 tab PO DAILY [facility] Omeprazole (Omeprazole 20 Mg Capsule.Dr) 20 mg PO BEDTIME [facility] Ondansetron HCl (Ondansetron Hcl 4 Mg/2 Ml Vial) 4 mg IVPUSH Q8H PRN PRN Reason: Nausea and Vomiting Pharmacy Consult (Consult Rx Perform Med Rec) 1 each MISCELLANE ONCE PRN PRN Reason: Consult order Sodium Chloride (0.9 % Sodium Chloride Flush 3 Ml Syringe) 3 ml IVFLUSH QSHIFT [facility] Topiramate (Topiramate 25 Mg Tablet) 50 mg PO BID [facility] Vitamin D (Cholecalciferol (Vitamin D3) 25 Mcg Tablet) 50 mcg PO BEDTIME [facility] Home Medications Medication Instructions Recorded Confirmed Type omeprazole 20 mg capsule,delayed 20 mg PO BEDTIME 01/04/21 12/18/21 History release topiramate 50 mg tablet 50 mg PO BID 01/25/21 12/18/21 History cholecalciferol (vitamin D3) 50 50 mcg PO BEDTIME 08/08/21 12/18/21 History mcg (2,000 unit) capsule erenumab-aooe 140 mg/mL 140 mg SUBCUT QMONTH 11/01/21 12/18/21 History subcutaneous auto-injector (Aimovig Autoinjector) multivitamin 1 tab PO DAILY 12/18/21 12/18/21 History Allergies Allergy/AdvReac Type Severity Reaction Status Date / Time adalimumab [From Humira] Allergy hairloss Verified 11/26/21 13:55 enoxaparin [From Lovenox] Allergy Rash Verified 12/05/21 08:44 etanercept [Enbrel] Allergy Injection Verified 11/26/21 13:55 site reaction sarilumab [From Kevzara] Allergy injection Verified 11/26/21 13:55 site reaction Physical Exam Vital signs: Vital Signs Temp 98.3 F 12/17/21 22:40 Pulse 81 12/18/21 08:40 Resp 14 12/18/21 08:40 BP 131/76 12/18/21 08:40 Pulse Ox 96 12/18/21 08:40 Intake & Output 12/17/21 12/18/21 12/18/21 18:59 06:59 18:59 Other: Weight 86.183 kg Weight 86.183 kg - Constitutional Present: no acute distress - Routine HEENT Exam Head: Present: normal inspection Eye: Present: EOMI - Routine Neck Exam Absent: swelling - Routine Respiratory Exam Absent: accessory muscle use - Routine Cardiovascular Exam Cardiovascular: Present: S1, S2 Hem/Onc Consult Result - Labs CBC & Chem 7: 12/18/21 09:58 12/17/21 18:13 Labs: Short CBC 12/17/21 12/18/21 12/18/21 Range/Units 18:13 04:17 09:58 WBC 7.0 5.7 (4.8-10.8) X10*3/uL Hgb 14.1 12.7 12.3 (12.0-16.0) g/dl Hct 44.8 40.2 39.1 (37.0-47.0) % Plt Count 259 230 (160-400) X10*3/uL BMP 12/17/21 18:13 Sodium 142 Potassium 3.7 Chloride 110 H Carbon Dioxide 27 BUN 13 Creatinine 1.12 Calcium 9.2 Assessment and Plan Patient Active problem list reviewed?: Yes (1) Right leg DVT Status: Chronic Assessment and plan: 1. This is a 51-year-old woman with heterozygous positivity for prothrombin gene mutation and recurrent chronic right lower extremity DVT. She has been on fondaparinux since May 2021. Before that she was on Lovenox and warfarin. She underwent colonoscopy on 12/07/21, had polypectomy with placement of 2 clips and ascending colon biopsy and removal of polyp, tubular adenoma. She stopped fondaparinux 48 hours before procedure and resumed it the same day as procedure. It is possible that she did not heal from the surgical intervention /polypectomies and she started to bleed soon after she started fondaparinux postoperatively. She continued taking the anticoagulant and remained on it until yesterday. She called the hematology office and was asked to discontinue fondaparinux and go to the emergency department. I recommend holding fondaparinux for 48 hours before repeat surgical intervention. There is a slight drop in H&H but it is stable. She is hemodynamically stable. She may have to hold anticoagulation for a few days after procedure until bleeding stops completely. I thank you for this consultation. - Time Spent With Patient Time Spent with Patient (in minutes): 15
[2021-12-18] MEDS: PEG 3350/Na Sulf,Bicarb,Cl/KCL 4,000 ML SOLN.RECON 4000 ML PO (15:07)
[2021-12-18] MEDS: Amitriptyline HCl 25 MG TABLET PO ×2 (15:15→21:04)
--- NOTE | 2021-12-18 15:40 | PC.NURSE ---
Pt unable to tolerate PO bowel prep, Dr. Gomez made aware and will order miralax prep for later today, plan for colonoscopy tomorrow. Call moore within reach, awaiting bed assignment. Will continue to monitor.
[2021-12-18 15:41] LABS: MANUAL DIFF FLAG NO
[2021-12-18 16:08] LABS: Basophils Absolute Auto 0.1 X10*3/uL (0.0-0.2); Basophils Percent Auto 1.1 % (0-2); Eosinophils Absolute Auto 0.2 X10*3/uL (0.0-0.4); Hematocrit 36.5 % (37.0-47.0); Hemoglobin 11.5 g/dl (12.0-16.0); Imm Gran Abs Auto 0.02 X10*3/uL (0.00-0.03); Imm Gran Pct Auto 0.4 % (0.0-0.4); Lymphocytes Absolute Auto 1.5 X10*3/uL (1.2-4.9); Mean Corpuscular HGB Conc 31.5 g/dl (31.0-35.0); Mean Corpuscular Hemoglobin 27.2 pg (27.0-33.0); Mean Corpuscular Volume 86.3 fL (80.0-98.0); Mean Platelet Volume 11.7 fL (9.4-12.3); Monocytes Absolute Auto 0.3 X10*3/uL (0.1-1.2); Monocytes Percent Auto 7.2 % (2-11); Neutrophils Absolute Auto 2.6 x10*3/uL (2.0-8.3); Neutrophils Percent Auto 55.3 % (45-73); Platelet Count 231 X10*3/uL (160-400); Red Blood Count 4.23 X10*6/uL (4.20-5.50); Red Cell Distribution Width 14.7 % (11.0-16.0); White Blood Count 4.8 X10*3/uL (4.8-10.8)
[2021-12-18 16:50] VITALS: BP 122/64; PULSE 88; RESP 16; TEMP 36.7; O2SAT 97
[2021-12-18] MEDS: polyethylene glycoL 3350 17 GM POWD.PACK PO ×14 (19:11→21:31)
[2021-12-18 19:18] LABS: Hematocrit 38.1 % (37.0-47.0)
[2021-12-18 20:05] VITALS: BP 112/77; PULSE 91; RESP 16; O2SAT 100
--- NOTE | 2021-12-18 20:31 | CONS_ITS ---
DATE OF SERVICE: 12/18/2021 REASON FOR CONSULTATION: Rectal bleeding. HISTORY OF PRESENT ILLNESS: The patient is a 51-year-old female, well known to me, who underwent a recent colonoscopy on December 07 for evaluation of colorectal cancer screening. She also had an upper endoscopy on the same day for evaluation of reflux. The upper endoscopy revealed only a hiatal hernia, but no evidence of any esophagitis nor Sun esophagus. Her colonoscopy revealed 2 polyps. One was a 2 or 3 mm polyp in the ascending colon, which was removed by a cold biopsy forceps and shown to be a tubular adenoma. The other polyp was an approximately 5 or 6 mm polyp in the proximal rectum, which was removed with a hot snare polypectomy. Two Resolution Clips were applied at that time with good hemostasis as she had to go back on her blood thinner. She was advised to resume her injectable blood thinner, the fondaparinux, on the following day after the procedure. I spoke to her on December 12 as she developed the onset of some rectal bleeding earlier that same day. At that time, she felt well and the plan had been to hold her blood thinner for 24 hours and she then resumed on December 14. However, she developed recurrent bleeding on December 17 and subsequently came to the ER. She does continue to put out what appears to be fresh blood from the rectum, but without blood clots nor any sign of melena. She has had no nausea nor vomiting. She has had no abdominal pain. She does not use any NSAIDs nor aspirin. Over the course the day in the ER she has continued to put out fresh blood per rectum. Her hemoglobin has gone from the level of 13.8 on November 30, to 14.1 last evening, to 12.7 this morning and 11.5 this afternoon. Her platelet count and PT with INR have been normal. She was seen by Dr. Marti from hematology, who recommended waiting a complete 48 hours off the blood thinner before attempting colonoscopy for any therapeutic treatment of the bleeding area. Her last use of the blood thinner was yesterday morning. There is no readily available medication to reverse the blood thinner that she uses, the fondaparinux, and any attempts at reversing it might also lead to some hypercoagulability and increase her risk for another blood clot. CURRENT MEDICATIONS: Her medications here in the hospital include amitriptyline, vitamin D, vitamins, omeprazole, Zofran, and Topamax. PAST MEDICAL HISTORY: Recurrent DVTs that were refractory to Coumadin and Lovenox. History of fatty liver on imaging studies, although normal LFTs. Rheumatoid arthritis. Migraines. Reflux. PAST SURGICAL HISTORY: She denies any surgeries. SOCIAL HISTORY: She works in the [employer]. She does not smoke. She does not use any alcohol. She is . FAMILY HISTORY: Noncontributory. REVIEW OF SYSTEMS: CONSTITUTIONAL: She has been feeling well with good energy and good appetite. CARDIAC: No chest pain. PULMONARY: No coughing. No hemoptysis. GI: As above. GENITOURINARY: No dysuria. No hematuria. PHYSICAL EXAMINATION: GENERAL: The patient is a pleasant, alert, comfortable-appearing female. SKIN: Warm and dry. Anicteric sclerae. NECK: Supple. ABDOMEN: Soft, nondistended, nontender without mass. EXTREMITIES: Without edema. LABORATORY DATA: As above. Normal electrolytes. BUN 13, creatinine 1.1. IMPRESSION: Given the patient's clinical history, she is obviously having bleeding after her colonoscopy, most likely in relation to the polypectomy site in the rectum. At this point, she appears clinically stable, but does appear to have continued ongoing bleeding. As such, plans will be made for a repeat colonoscopy to attempt to try to stop the bleeding either with further placement of clips or other modalities such as epinephrine, cauterization, or Hemospray. As mentioned above, the plan will be to wait for a full 48 hours after her last dose of the blood thinner to allow for it to hopefully maximally wear off and allow better success at stopping the bleeding. We can certainly proceed earlier if she develops any increased bleeding with hemodynamic compromise. She will have a bowel prep with MiraLAX as she did not tolerate the other prep from the pharmacy earlier today. She will most likely need to stay off the blood thinner for another 48 hours after the procedure to hopefully allow for healing and further minimize risk of recurrent bleeding. Full consent has been obtained from her for the repeat colonoscopy, including risks of bleeding and perforation. This has been discussed with the patient in detail. MD PEDRO Mora/MED / [phone] HARRIET
[2021-12-18] MEDS: Omeprazole 20 MG CAPSULE.DR PO (21:04)
[2021-12-18] MEDS: Cholecalciferol (Vitamin D3) 25 MCG TABLET 50 MCG PO (21:04)
[2021-12-18] MEDS: Topiramate 25 MG TABLET 50 MG PO (21:23)
[2021-12-18 23:05] LABS: Hematocrit 37.1 % (37.0-47.0); Hemoglobin 11.7 g/dl (12.0-16.0)
[2021-12-19] VITALS (10 sets, daily range): BP systolic 91–128; BP diastolic 42–72; PULSE 64–100; RESP 16–20; TEMP 36.4–37.2; O2SAT 95–99
--- NOTE | 2021-12-19 04:18 | PC.NURSE ---
This RN assumed care at 2300. Patient NPO for procedure, kept NPO and slept throughout the night. Will continue to monitor
[2021-12-19 06:45] LABS: MANUAL DIFF FLAG NO
[2021-12-19 06:50] LABS: Basophils Percent Auto 0.7 % (0-2); Eosinophils Absolute Auto 0.3 X10*3/uL (0.0-0.4); Eosinophils Percent Auto 4.4 % (0-4); Hematocrit 37.9 % (37.0-47.0); Imm Gran Abs Auto 0.03 X10*3/uL (0.00-0.03); Imm Gran Pct Auto 0.5 % (0.0-0.4); Lymphocytes Absolute Auto 2.9 X10*3/uL (1.2-4.9); Lymphocytes Percent Auto 46.6 % (20-40); Mean Corpuscular HGB Conc 31.7 g/dl (31.0-35.0); Mean Corpuscular Hemoglobin 27.5 pg (27.0-33.0); Mean Corpuscular Volume 86.9 fL (80.0-98.0); Mean Platelet Volume 11.7 fL (9.4-12.3); Monocytes Absolute Auto 0.4 X10*3/uL (0.1-1.2); Monocytes Percent Auto 6.7 % (2-11); Neutrophils Absolute Auto 2.5 x10*3/uL (2.0-8.3); Neutrophils Percent Auto 41.1 % (45-73); Platelet Count 243 X10*3/uL (160-400); Red Blood Count 4.36 X10*6/uL (4.20-5.50); Red Cell Distribution Width 14.7 % (11.0-16.0); White Blood Count 6.1 X10*3/uL (4.8-10.8)
[2021-12-19 07:02] LABS: Anion Gap 11 (12-20); Blood Urea Nitrogen 9 mg/dL (9-16); Calcium 9.2 mg/dL (8.4-10.2); Carbon Dioxide 24 mmol/L (22-29); Chloride 108 mmol/L (96-108); Creatinine Clr Calc Pharmacy 72.8; Estimated Glomerular Filt Rate > 60; Glucose Fasting 113 mg/dL (60-99); Potassium 3.9 mmol/L (3.3-5.1); Sodium 139 mmol/L (135-145)
--- NOTE | 2021-12-19 08:36 | MHC.CM.PN ---
PT LIVES AT HOME WITH HER S/O AND IS FULLY INDEPENDENT WITH CARE PT HAS NO SERVICES AND NO DME PRODUCTION FLOATER: GRZEGORZ ESPANA COVID-19 VACCINATION STATUS: PFIZER X 3 HCP: ON FILE (NAIF LARA [phone]) OBSERVATION NOTICE DELIVERED, COPY SENT TO [facility] CURRENT DC PLAN, HOME NO SERVICES PT TO ARRANGE TRANSPORT
[2021-12-19] MEDS: Amitriptyline HCl 25 MG TABLET PO ×3 (09:14→20:19)
[2021-12-19] MEDS: Multivitamin TABLET 1 TAB PO (09:14)
[2021-12-19] MEDS: Topiramate 25 MG TABLET 50 MG PO ×2 (09:14→20:19)
--- NOTE | 2021-12-19 11:32 | PC.NURSE ---
Pt resting in hospital bed. Pt is a/o and independent in the unit. Pt medicated per nov. OKay per Maya Lozano. Report given to sameday RN. pt to head down to get scoped around 1130 this AM. Awaiting transport at this time. Call moore within reach. pt offering no other complaints at this time
--- NOTE | 2021-12-19 12:09 | HO.PM.IMPN ---
Subjective Subjective Date of Service: 12/19/21 Review of Systems Follow up GI Bleed No bleeding at this time no pain sitting up in bed Physical Exam Vital Signs: Vital Signs: Last Vital Signs Temp 99.0 F 12/19/21 12:00 Pulse 96 12/19/21 12:00 Resp 16 12/19/21 12:00 BP 128/65 12/19/21 12:00 Pulse Ox 96 12/19/21 12:00 BMI result Body Mass Index 33.6 Appearing in no acute distress lung sounds are clear to auscultation heart regular rate rhythm, clear S1, S2 positive bowel sounds, abdomen is soft, nontender neuro patient is alert x3, no focal deficits Objective Data Active Medications Acetaminophen (Acetaminophen 325 Mg Tablet) 650 mg PO Q6H PRN PRN Reason: Pain, Mild (Pain Scale 1-3) Last Admin: 12/18/21 11:19 Dose: 650 mg Documented by: CATY Amitriptyline HCl (Amitriptyline Hcl 25 Mg Tablet) 25 mg PO TID [facility] Last Admin: 12/19/21 09:14 Dose: 25 mg Documented by: YANET Multivitamins/Vitamin C (Multivitamin Tablet) 1 tab PO DAILY [facility] Last Admin: 12/19/21 09:14 Dose: 1 tab Documented by: YANET Omeprazole (Omeprazole 20 Mg Capsule.Dr) 20 mg PO BEDTIME [facility] Last Admin: 12/18/21 21:04 Dose: 20 mg Documented by: VERA Ondansetron HCl (Ondansetron Hcl 4 Mg/2 Ml Vial) 4 mg IVPUSH Q8H PRN PRN Reason: Nausea and Vomiting Pharmacy Consult (Consult Rx Perform Med Rec) 1 each MISCELLANE ONCE PRN PRN Reason: Consult order Polyethylene Glycol (Polyethylene Glycol 3350 17 Gm Powd.Pack) 17 gm PO ONCE [facility] Stop: 12/31/21 17:01 Last Admin: 12/18/21 21:31 Dose: 17 gm Documented by: VERA Sodium Chloride (0.9 % Sodium Chloride Flush 3 Ml Syringe) 3 ml IVFLUSH QSHIFT [facility] Last Admin: 12/19/21 09:14 Dose: Not Given Documented by: YANET Non-Admin Reason: Med Not Available Topiramate (Topiramate 25 Mg Tablet) 50 mg PO BID [facility] Last Admin: 12/19/21 09:14 Dose: 50 mg Documented by: YANET Vitamin D (Cholecalciferol (Vitamin D3) 25 Mcg Tablet) 50 mcg PO BEDTIME [facility] Last Admin: 12/18/21 21:04 Dose: 50 mcg Documented by: VERA Labs CBC & Chem 7: 12/19/21 06:12 12/19/21 06:12 Labs: Laboratory Results - last 24 hr 12/18/21 12/19/21 12/19/21 15:22 06:12 06:12 MCV 86.3 86.9 MCH 27.2 27.5 MCHC 31.5 31.7 RDW 14.7 14.7 Plt Count 231 243 MPV 11.7 11.7 Immature Gran % (Auto) 0.4 0.5 H Neut % (Auto) 55.3 41.1 L Lymph % (Auto) 32.0 46.6 H [place] % (Auto) 7.2 6.7 Eos % (Auto) 4.0 4.4 H Baso % (Auto) 1.1 0.7 Lymph # (Auto) 1.5 2.9 [place] # (Auto) 0.3 0.4 Eos # (Auto) 0.2 0.3 Baso # (Auto) 0.1 0.0 Abs Immat Gran (auto) 0.02 0.03 Absolute Neuts (auto) 2.6 2.5 Absolute Nucleated RBC 0.000 0.000 Nucleated RBC % (auto) 0.0 0.0 Anion Gap 11 L Estim Creat Clear Calc 72.8 Estimated GFR > 60 Fasting Glucose 113 H Calcium 9.2 Assessment and Plan (1) Acute lower GI bleeding: Status: Acute Plan This is a 51 yo F with a PMH of DVT (multiple, first one diagnosed in her 30s) on fondaparinux, RA, Migranes who underwent screening colonoscopy with snare polypectomy with placement of 2 clips in the rectum, and 1 polyp removal in the ascending colon on 12/07/21 who presents to the hospital with a 1 day duration of frequent bright red blood per rectum. She will be admitted for further management. 1. Acute blood loss (not anemic as of yet) 1a. Suspected acute lower GI bleed -- secondary to recent polypectomy? + being on anticoagulation Gi input appreciated, colonoscopy today Hold anticoagulation No further bleeding noted 2. 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 can be held monitor h/h as above 3. Chronic RA on biologics as outpatient; continue as appropriate 4. Chronic Migranes continue her outpatient therapy upon discharge Full Code DVT pptx, mechanical Attending Dr. Bennett Patient requires continued hospitalization for colonoscopy today to assess for areas acute bleeding, she also requires frequent monitoring of her hemoglobin and hematocrit. Quality Stroke Does the patient have a stroke diagnosis?: No VTE Prior VTE?: No VTE Risk Level:: Medical - moderate - high VTE Device Contraindication: N/A - Device Ordered VTE Drug Contraindication: Treatment Not Indicated
--- NOTE | 2021-12-19 12:27 | HO.ANESPROP2 ---
[facility] Active Problems Active Problems: All Active Problems (Updated 12/18/21 @ 14:22 by Julisa Marti MD) Acute lower GI bleeding (Acute) Sprain of medial collateral ligament of left knee (Acute) Left knee pain (Acute) Low back pain (Acute) De Quervain's tenosynovitis (Acute) Right leg DVT (Chronic) Acute thigh pain (Acute) Obesity (Acute) Vitamin D deficiency (Acute) Non-toxic multinodular goiter (Acute) Seropositive rheumatoid arthritis (Acute) Fibromyalgia (Acute) prison methotrexate user (Acute) Current use of anticoagulant therapy (Acute) Past Medical History Medical History (Updated 12/18/21 @ 14:22 by Julisa Marti MD) History of fibromyalgia History of vitamin D deficiency Hx of carpal tunnel syndrome Hx of obesity Hx of rheumatoid arthritis Hx of thyroid nodule Left knee pain Non-toxic multinodular goiter Obesity Vitamin D deficiency Family History Family History Mother Diabetes Fibromyalgia Osteoarthritis Maternal Grandfather Leukemia Maternal Aunt Breast cancer Family history of problems with anesthesia: No Surgical History Surgical History (Updated 12/18/21 @ 14:22 by Julisa Marti MD) S/P colonoscopic polypectomy History of Problems with Anesthesia: No Social History Social History Household Members: Spouse and Children Housing: House Are you a primary personal care assistant to a significant other at home: No Do you presently have visiting nurse or other home services: No Alcohol intake: current Alcohol intake frequency: does not drink Patient Tobacco Use Status: Never used Tobacco Use of substances other than those prescribed or required for medical reasons: No Are you DNR?: No Advance Directives: No Advance Directives Information Provided: No service: No Current occupational status: employed 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[employer] Meds Allergies Allergy/AdvReac Type Severity Reaction Status Date / Time adalimumab [From Humira] Allergy hairloss Verified 11/26/21 13:55 enoxaparin [From Lovenox] Allergy Rash Verified 12/05/21 08:44 etanercept [Enbrel] Allergy Injection Verified 11/26/21 13:55 site reaction sarilumab [From Kevzara] Allergy injection Verified 11/26/21 13:55 site reaction Active Medications: Current Medications Acetaminophen (Acetaminophen 325 Mg Tablet) 650 mg PO Q6H PRN PRN Reason: Pain, Mild (Pain Scale 1-3) Last Admin: 12/18/21 11:19 Dose: 650 mg Documented by: Amitriptyline HCl (Amitriptyline Hcl 25 Mg Tablet) 25 mg PO TID [facility] Last Admin: 12/19/21 09:14 Dose: 25 mg Documented by: Multivitamins/Vitamin C (Multivitamin Tablet) 1 tab PO DAILY [facility] Last Admin: 12/19/21 09:14 Dose: 1 tab Documented by: Omeprazole (Omeprazole 20 Mg Capsule.) 20 mg PO BEDTIME [facility] Last Admin: 12/18/21 21:04 Dose: 20 mg Documented by: Ondansetron HCl (Ondansetron Hcl 4 Mg/2 Ml Vial) 4 mg IVPUSH Q8H PRN PRN Reason: Nausea and Vomiting Pharmacy Consult (Consult Rx Perform Med Rec) 1 each MISCELLANE ONCE PRN PRN Reason: Consult order Polyethylene Glycol (Polyethylene Glycol 3350 17 Gm Powd.Pack) 17 gm PO ONCE [facility] Stop: 12/31/21 17:01 Last Admin: 12/18/21 21:31 Dose: 17 gm Documented by: Sodium Chloride (0.9 % Sodium Chloride Flush 3 Ml Syringe) 3 [facility] Last Admin: 12/19/21 09:14 Dose: Not Given Documented by: Topiramate (Topiramate 25 Mg Tablet) 50 mg PO BID [facility] Last Admin: 12/19/21 09:14 Dose: 50 mg Documented by: Vitamin D (Cholecalciferol (Vitamin D3) 25 Mcg Tablet) 50 mcg PO BEDTIME [facility] Last Admin: 12/18/21 21:04 Dose: 50 mcg Documented by: Home Medications Medication Instructions Recorded Confirmed Last Taken Type omeprazole 20 mg capsule,delayed 20 mg PO BEDTIME 01/04/21 12/18/21 12/16/21 History release topiramate 50 mg tablet 50 mg PO BID 01/25/21 12/18/21 12/16/21 History cholecalciferol (vitamin D3) 50 50 mcg PO BEDTIME 08/08/21 12/18/21 12/16/21 History mcg (2,000 unit) capsule erenumab-aooe 140 mg/mL 140 mg SUBCUT QMONTH 11/01/21 12/18/21 Unknown History subcutaneous auto-injector (Aimovig Autoinjector) multivitamin 1 tab PO DAILY 12/18/21 12/18/21 12/16/21 History Exam Exam Date and Time: December 19, 2021 1227 Height,Weight and Vital Signs: Height 5 ft 3 in Weight 86.183 kg Last Vital Signs Temp 99.0 F 12/19/21 12:00 Pulse 96 12/19/21 12:00 Resp 16 12/19/21 12:00 BP 128/65 12/19/21 12:00 Pulse Ox 96 12/19/21 12:00 Pertinent Lab Results Pertinent Lab Results: Laboratory Tests 12/17/21 12/17/21 12/17/21 18:13 18:13 18:13 WBC 7.0 RBC 5.16 Hgb 14.1 Hct 44.8 MCV 86.8 MCH 27.3 MCHC 31.5 RDW 14.7 Plt Count 259 MPV 11.3 Immature Gran % (Auto) 0.6 H Neut % (Auto) 50.3 Lymph % (Auto) 37.6 [place] % (Auto) 7.3 Eos % (Auto) 3.3 Baso % (Auto) 0.9 Lymph # (Auto) 2.6 [place] # (Auto) 0.5 Eos # (Auto) 0.2 Baso # (Auto) 0.1 Abs Immat Gran (auto) 0.04 H Absolute Neuts (auto) 3.5 Absolute Nucleated RBC 0.000 Nucleated RBC % (auto) 0.0 PT 11.8 INR 1.0 Sodium 142 Potassium 3.7 Chloride 110 H Carbon Dioxide 27 Anion Gap 9 L BUN 13 Creatinine 1.12 Estim Creat Clear Calc 61.1 Estimated GFR 51 Random Glucose 93 Fasting Glucose Calcium 9.2 COVID-19 (BUDDY) COVID-19 Clin Com Blood Type Antibody Screen 12/18/21 12/18/21 12/18/21 04:17 06:56 09:58 WBC 5.7 RBC 4.69 Hgb 12.7 12.3 Hct 40.2 39.1 MCV 85.7 MCH 27.1 MCHC 31.6 RDW 14.7 Plt Count 230 MPV 11.4 Immature Gran % (Auto) 0.5 H Neut % (Auto) 44.1 L Lymph % (Auto) 41.9 H [place] % (Auto) 7.8 Eos % (Auto) 4.8 H Baso % (Auto) 0.9 Lymph # (Auto) 2.4 [place] # (Auto) 0.4 Eos # (Auto) 0.3 Baso # (Auto) 0.1 Abs Immat Gran (auto) 0.03 Absolute Neuts (auto) 2.5 Absolute Nucleated RBC 0.000 Nucleated RBC % (auto) 0.0 PT INR Sodium Potassium Chloride Carbon Dioxide Anion Gap BUN Creatinine Estim Creat Clear Calc Estimated GFR Random Glucose Fasting Glucose Calcium COVID-19 (BUDDY) Negative COVID-19 Clin Com See Note Blood Type Antibody Screen 12/18/21 12/18/21 12/18/21 09:58 15:22 19:05 WBC 4.8 RBC 4.23 Hgb 11.5 L 12.0 Hct 36.5 L 38.1 MCV 86.3 MCH 27.2 MCHC 31.5 RDW 14.7 Plt Count 231 MPV 11.7 Immature Gran % (Auto) 0.4 Neut % (Auto) 55.3 Lymph % (Auto) 32.0 [place] % (Auto) 7.2 Eos % (Auto) 4.0 Baso % (Auto) 1.1 Lymph # (Auto) 1.5 [place] # (Auto) 0.3 Eos # (Auto) 0.2 Baso # (Auto) 0.1 Abs Immat Gran (auto) 0.02 Absolute Neuts (auto) 2.6 Absolute Nucleated RBC 0.000 Nucleated RBC % (auto) 0.0 PT INR Sodium Potassium Chloride Carbon Dioxide Anion Gap BUN Creatinine Estim Creat Clear Calc Estimated GFR Random Glucose Fasting Glucose Calcium COVID-19 (BUDDY) COVID-19 Clin Com Blood Type O Positive Antibody Screen NEGATIVE 12/18/21 12/19/21 12/19/21 22:54 06:12 06:12 WBC 6.1 RBC 4.36 Hgb 11.7 L 12.0 Hct 37.1 37.9 MCV 86.9 MCH 27.5 MCHC 31.7 RDW 14.7 Plt Count 243 MPV 11.7 Immature Gran % (Auto) 0.5 H Neut % (Auto) 41.1 L Lymph % (Auto) 46.6 H [place] % (Auto) 6.7 Eos % (Auto) 4.4 H Baso % (Auto) 0.7 Lymph # (Auto) 2.9 [place] # (Auto) 0.4 Eos # (Auto) 0.3 Baso # (Auto) 0.0 Abs Immat Gran (auto) 0.03 Absolute Neuts (auto) 2.5 Absolute Nucleated RBC 0.000 Nucleated RBC % (auto) 0.0 PT INR Sodium 139 Potassium 3.9 Chloride 108 Carbon Dioxide 24 Anion Gap 11 L BUN 9 Creatinine 0.94 Estim Creat Clear Calc 72.8 Estimated GFR > 60 Random Glucose Fasting Glucose 113 H Calcium 9.2 COVID-19 (BUDDY) COVID-19 Clin Com Blood Type Antibody Screen Airway Mallampati Class: II TM Dist: >3cm Neck ROM: Full Assessment and Plan Assessment Anesthesia Assessment: Anesthesia Plan Discussed and Chart Reviewed Final Anesthetic Review Family History of Problems with Anesthesia: No History of Problems with Anesthesia: No NPO: Yes ASA Class: II Final Preanesthetic Review: No Changes in Pt Med Stat, Meds/Allgs Chart Reviewed, Consent Obtained/Reviewed and Anes Risks/Benef Reviewed Patient Risk: Intermediate Procedure Risk: Low Anesthetic Plan Anesthetic Plan: MAC: Disposition: Standard PACU
--- NOTE | 2021-12-19 13:20 | P.BOP_ITS ---
Brief Operative Note Date of Service: 12/19/21 Pre-op diagnosis: Rectal bleeding Post-op diagnosis: other (Postpolypectomy bleed) Procedure: Limited colonoscopy to 15cm with placement of 2 Resolution clips Surgeon: Jean Gomez Anesthesia: MAC Was an Director Of Product Design used for this Procedure?: No Estimated blood loss (mL): 2.0 Pathology: none sent Condition: stable Disposition: PACU
--- NOTE | 2021-12-19 13:22 | PM.EVENT ---
Event Note Date of Service: 12/19/21 Event Note: GI-Limited colonoscopy-Full note dictated Findings: 1. Polypectomy site in proximal rectum with 2 clips still attached. The tissue was a little friable with a minimal area of ulceration and oozing. 2. Two more clips were applied with good deployment and good hemostasis. 3. Attempts at applying Hemospray were unsuccessful 4. Area irrigated and observed---no bleeding noted Rec: Full liquids today. Stool softener. F/U Hgb. If stable, her diet can be advanced to soft diet for the AM and she can be discharged. She can resume her Fondaparinux injections on 12/24/2021. D/W Dr. Marti. Thanks
--- NOTE | 2021-12-19 14:44 | OP_ITS ---
SURGEON: Jean Gomez MD INDICATIONS: The patient presents for evaluation of rectal bleeding, status post colonoscopy on December 07. Full consent has been obtained from her for this, including risks of bleeding and perforation. PREOPERATIVE DIAGNOSIS: Rectal bleeding, status post colonoscopy on December 07. POSTOPERATIVE DIAGNOSIS: PROCEDURE PERFORMED: Limited colonoscopy with deployment of 2 Resolution Clips. ESTIMATED BLOOD LOSS: COMPLICATIONS: ANESTHESIA: Monitored anesthesia care. ASSISTANTS: SPECIMENS: POSTOPERATIVE DIAGNOSES: Rectal bleeding, status post colonoscopy on December 07; bleeding from site of previous polypectomy; status post placement of 2 more Resolution Clips. DESCRIPTION OF PROCEDURE: The patient was placed in the left lateral decubitus position. The digital rectal exam revealed no abnormalities and no blood. The Olympus video pediatric colonoscope was entered into the rectum. In the proximal rectum was the site of the previous polypectomy with the 2 previously placed clips still attached. The mucosa past this area and in the rectum otherwise appeared normal, both in the forward viewing and retroflexed positions. There was no sign of any active bleeding. However, alongside 1 of the areas of the clips was some minimal ulceration, friability, and some oozing. Therefore, 2 more clips were placed on that area with good deployment and good hemostasis. I did not think the area had to be cauterized nor injected with epi. However, I did attempt to apply Hemospray, but this was not successful due to some malfunctioning of the Hemospray application device. However, in any event, the site of the polypectomy appeared to be free of any sign of bleeding. All 4 clips were well attached and there was no sign of any bleeding from the polypectomy site. The area was irrigated and observed for at least 5 minutes. Of note, given her clinical history and today's findings, I opted not to perform a complete colonoscopy and decided not to proceed beyond the very distal sigmoid colon. At that point, the scope was withdrawn from the patient. She tolerated the procedure well and was returned to recovery area in stable condition. IMPRESSION: Bleeding from area of previous polypectomy, status post placement of 2 more Resolution Clips. PLAN: The patient will be observed overnight on a full liquid diet. If stable, her diet could be advanced to a soft diet for the morning. If stable, she could be discharged tomorrow. She will resume her blood thinner, Fondaparinux injections, on October 26. This has been discussed with Dr. Marti in that regard. The patient knows to stay off all aspirin and NSAIDs long-term. She will contact me once she is discharged if problems arise. This has been discussed with her as well. MD PEDRO Mora/MED / [phone] MTDD
[2021-12-19] MEDS: Omeprazole 20 MG CAPSULE.DR PO (20:19)
[2021-12-19] MEDS: Cholecalciferol (Vitamin D3) 25 MCG TABLET 50 MCG PO (20:19)
[2021-12-19] MEDS: Acetaminophen 325 MG TABLET 650 MG PO (20:22)
[2021-12-19] MEDS: 0.9 % Sodium Chloride Flush 3 ML SYRINGE IVFLUSH (20:28)
[2021-12-20 04:25] VITALS: BP 107/57; PULSE 93; RESP 18; TEMP 36.5; O2SAT 98
[2021-12-20 08:08] VITALS: BP 105/55; PULSE 84; RESP 16; O2SAT 96
[2021-12-20] MEDS: 0.9 % Sodium Chloride Flush 3 ML SYRINGE IVFLUSH (08:46)
[2021-12-20] MEDS: Topiramate 25 MG TABLET 50 MG PO (08:46)
[2021-12-20] MEDS: Multivitamin TABLET 1 TAB PO (08:46)
[2021-12-20] MEDS: Amitriptyline HCl 25 MG TABLET PO (08:46)
[2021-12-20 09:30] LABS: Hematocrit 33.1 % (37.0-47.0); Hematocrit 33.5 % (37.0-47.0); Hemoglobin 10.5 g/dl (12.0-16.0); Mean Corpuscular HGB Conc 31.3 g/dl (31.0-35.0); Mean Corpuscular Hemoglobin 27.1 pg (27.0-33.0); Mean Corpuscular Volume 86.3 fL (80.0-98.0); Mean Platelet Volume 11.3 fL (9.4-12.3); Platelet Count 220 X10*3/uL (160-400); Red Blood Count 3.88 X10*6/uL (4.20-5.50); Red Cell Distribution Width 14.8 % (11.0-16.0); White Blood Count 3.9 X10*3/uL (4.8-10.8)
--- NOTE | 2021-12-20 10:07 | P.DS_ITS ---
DS: Providers Provider Date of Service: 12/20/21 Date of admission: 12/18/21 09:38 Date of discharge: 12/20/21 Primary care physician: Priscilla Gonsalves MD Consults: 12/18/21 09:05 Consult to Hematology / Oncology Routine Consulting Provider: Irma Larsen Reason for consultation: Postcolonoscopy rectal bleeding, please advise re: Fondaparinux Has provider been notified: No 12/18/21 09:39 Consult to Gastroenterology Routine Consulting Provider: Jean Gomez Reason for consultation: Gi bleed Has provider been notified: Yes Attending physician on discharge: Dennis Bennett Discharging clinician: Gillian Grant DS: Diagnosis Discharge Diagnosis (1) Acute lower GI bleeding: Status: Acute DS: Summary Hospital Course Hospital Course: From H&P on day of admission This is a 51 yo F with a PMH of DVT (multiple, first one diagnosed in her 30s) on fondaparinux, RA, Migranes who underwent screening colonoscopy with snare polypectomy with placement of 2 clips in the rectum, and 1 polyp removal in the ascending colon on 12/07/21 who presents to the hospital with a 1 day duration of frequent bright red blood per rectum. The patient reports that she is on fondaparinux for her known DVT. This was discontinued 2 days before and day of her original scope. She restarted it the day after and had some bleeding which stopped after holding her anticoagulation for 1 day. SHe resumed her anticaogulation and her bleeding restarted on the day prior to arrival. She reports dizziness but denies sob or cp. She denies abdominal pain, nausea, vomiting. She denies decreased oral intake. She denies any fevers or chills. In the ED, her h/h and vitals were stable. She continues to have active lower GI bleeding. She has been evaluated by GI and will be started on bowel prep, with plans to scope her today vs tomorrow. Acute blood loss anemia secondary to acute GI bleeding. Underwent colonoscopy with polypectomy, ascending colon biopsy and removal of tubular adenoma on 12/07. She presented to the ED with rectal bleeding. Patient was seen in consultation by GI, underwent colonoscopy. Previous polypectomy site had some oozing. Two more clips were applied with good hemostasis. Patient H/H with slight drop overnight. No further bleeding noted. Diet advanced and patient now stable for discharge home. She is encouraged to monitor for any recurrent bleeding. She should resume her Fondaparinux on Friday as long as there is no bleeding. This was discussed with Oncology who was in agreement with this plan. She should follow up with hematology as needed. She is encouraged to return to the emergency department if she has any recurrent rectal bleeding. Time Spent with Patient Time attestation: Total time spent providing and/or coordinating discharge services: Discharge coordination time: Greater than 30 minutes Quality: Stroke Does the patient have a stroke diagnosis?: No Physical Exam Vital Signs: Vital Signs: Last Vital Signs Temp 97.7 F 12/20/21 04:25 Pulse 84 12/20/21 08:08 Resp 16 12/20/21 08:08 BP 105/55 L 12/20/21 08:08 Pulse Ox 96 12/20/21 08:08 BMI result Body Mass Index 33.6 Const: General: cooperative, no acute distress, well developed, alert and awake Nutritional Appearance: average body habitus Orientatio n/consciousness: patient oriented x3 Resp: Effort & Inspection: normal respiratory effort and able to speak in complete sentences Cardio: Rate: regular rate Heart sounds: S1 normal heart sound present and S2 normal heart sound present GI: Inspection: No distended Palpation (GI): nontender Neuro: General: patient oriented x3 Extrem: Other: no leg edema DS: Data Data Completed and Pending Labs on day of discharge: Laboratory Results - last 24 hr 12/20/21 12/20/21 09:17 09:17 WBC 3.9 L RBC 3.88 L Hgb 10.5 L 10.5 L Hct 33.5 L 33.1 L MCV 86.3 MCH 27.1 MCHC 31.3 RDW 14.8 Plt Count 220 MPV 11.3 Absolute Nucleated RBC 0.000 Nucleated RBC % (auto) 0.0 Discharge Plan Discharge Patient Disposition: Home, Self-Care Discharge Diagnosis: GI Bleeding Referrals: Priscilla Gonsalves MD [Primary Care Provider] - 1 Week Discharge Medications: New docusate sodium [Colace] 100 mg capsule 100 mg PO BEDTIME 30 Days Qty: 30 0RF polyethylene glycol 3350 [Miralax] 17 gram/dose powder 17 g PO DAILY 30 Days Qty: 510 0RF Continued amitriptyline 25 mg tablet 25 mg PO TID Qty: 270 1RF Actemra ACTPen 162 mg/0.9 mL pen injector 162 mg subcut Q2W Qty: 1.8 1RF Aimovig Autoinjector 140 mg/mL auto-injector 140 mg subcut QMONTH 0RF cholecalciferol (vitamin D3) 50 mcg (2,000 unit) capsule 50 mcg PO BEDTIME 0RF multivitamin Tablet 1 tab PO DAILY 0RF omeprazole 20 mg capsule,delayed release(DR/EC) 20 mg PO BEDTIME 0RF topiramate 50 mg tablet 50 mg PO BID 0RF Held fondaparinux 7.5 mg/0.6 mL Syringe 7.5 mg SUBCUT Q24H Qty: 90 4RF Hold Instructions: Resume on 12/24/21. Discharge Orders: Discharge Order (Routine); Ordered 12/20/21 Ordered By: Gillian Grant Activity on Discharge: As tolerated Stand Alone Forms: Patient Portal Discharge page Care Plan Goals: see below Health Concerns: GI bleeding Plan of Treatment: Hold blood thinner (fondaparinux) until Sunday 12/24 and then resume if no bleeding. Monitor for signs of bleeding, if any recurrent bleeding return to the ED GI has recommended the use of stool softeners which have been prescribed Call to schedule follow up with hematology as needed Assessment: see discharge summary Discharge Date/Time: 12/20/21 14:51
--- NOTE | 2021-12-20 13:47 | HO.POSTANES ---
Post Anesthesia Evaluation Post Anesthesia Evaluation Vital Signs: Vital Signs Temp Pulse Resp BP Pulse Ox 12/20/21 08:08 84 16 105/55 L 96 12/20/21 04:25 97.7 F 93 18 107/57 L 98 Anesthesia: Monitored Mental Status: Awake Pain Control: Satisfactory Nausea/Vomiting: None Hydration: Adequate Anesthesia-Related Issues: No Anes. Related Issues
--- NOTE | 2021-12-20 14:39 | MHC.CM.PN ---
PT WILL DC HOME TODAY WITH NO SERVICES PT TO ARRANGE TRANSPORT
== END 2021-12-20 14:51 | disposition home or self-care (01) ==
LOC: HO.ED 12-18 06:41 → HO.OBSV 12-18 09:55 → HO.EDOVER 12-18 14:08
PROVIDERS: Internal Medicine; Nurse Practitioner Acute Care; Admitting Provider Family Medicine; Emergency Provider Emergency Medicine; PCP Internal Medicine; Visit Provider Physician Assistant Medical
PROC: 0DJD8ZZ Inspection of Lower Intestinal Tract, Via Natural or Artificial Opening Endoscopic (ICD-10-PCS; CPT 45378; principal; 2021-12-19 12:10)
DX: K92.2 Gastrointestinal hemorrhage, unspecified (principal); K91.840 Postprocedural hemorrhage of a digestive system organ or structure following a digestive system procedure; D62 Acute posthemorrhagic anemia; D12.2 Benign neoplasm of ascending colon; K62.1 Rectal polyp; M06.9 Rheumatoid arthritis, unspecified; M79.7 Fibromyalgia; G43.909 Migraine, unspecified, not intractable, without status migrainosus; E04.2 Nontoxic multinodular goiter; E55.9 Vitamin D deficiency, unspecified; Z86.718 Personal history of other venous thrombosis and embolism; Z20.822 Contact with and (suspected) exposure to COVID-19; Z88.8 Allergy status to other drugs, medicaments and biological substances; Z79.01 Long term (current) use of anticoagulants; Z79.899 Other long term (current) drug therapy
CPT/HCPCS: 45382; 36415; 80048; 85014; 85018; 85025; 85027; 85610; 86850; 86900; 86901; 87635; 96360; 96361; 99218; 99285

== ENCOUNTER 2021-12-27 06:42 | Outpatient (REF) | payer OTHER, SELFPAY | END 2021-12-27 06:43 | disposition home or self-care (01) | LOC: HO.HOSX 06:42 | PROVIDERS: Visit Provider Physician Assistant | DX: Z13.89 Encounter for screening for other disorder (principal) ==

== ENCOUNTER → 2022-01-15 09:06 | Outpatient (BNVA) | payer OTHER, SELFPAY | PROVIDERS: PCP Internal Medicine; Visit Provider Nurse Practitioner Family | DX: Z13.89 Encounter for screening for other disorder (principal) ==

== ENCOUNTER 2022-01-16 08:51 | Outpatient (REF) | payer OTHER, SELFPAY ==
[2022-01-16 10:39] LABS: MANUAL DIFF FLAG NO
[2022-01-16 10:43] LABS: Basophils Absolute Auto 0.1 X10*3/uL (0.0-0.2); Basophils Percent Auto 1.3 % (0-2); Eosinophils Absolute Auto 0.3 X10*3/uL (0.0-0.4); Eosinophils Percent Auto 6.1 % (0-4); Hematocrit 35.1 % (37.0-47.0); Hemoglobin 10.8 g/dl (12.0-16.0); Imm Gran Abs Auto 0.02 X10*3/uL (0.00-0.03); Imm Gran Pct Auto 0.4 % (0.0-0.4); Lymphocytes Absolute Auto 1.7 X10*3/uL (1.2-4.9); Lymphocytes Percent Auto 31.6 % (20-40); Mean Corpuscular HGB Conc 30.8 g/dl (31.0-35.0); Mean Corpuscular Hemoglobin 26.2 pg (27.0-33.0); Mean Platelet Volume 11.9 fL (9.4-12.3); Monocytes Absolute Auto 0.4 X10*3/uL (0.1-1.2); Monocytes Percent Auto 7.1 % (2-11); Neutrophils Absolute Auto 2.9 x10*3/uL (2.0-8.3); Neutrophils Percent Auto 53.5 % (45-73); Platelet Count 336 X10*3/uL (160-400); Red Blood Count 4.13 X10*6/uL (4.20-5.50); Red Cell Distribution Width 14.3 % (11.0-16.0); White Blood Count 5.4 X10*3/uL (4.8-10.8)
[2022-01-16 10:54] LABS: Alanine Aminotransferase 21 U/L (0-31); Alkaline Phosphatase 65 U/L (39-117); Anion Gap 10 (12-20); Aspartate Amino Transferase 22 U/L (5-31); Bilirubin Total 0.2 mg/dL (0.0-1.0); Blood Urea Nitrogen 11 mg/dL (9-16); C Reactive Protein 0.06 mg/dL (< or = 0.50); Calcium 9.2 mg/dL (8.4-10.2); Carbon Dioxide 24 mmol/L (22-29); Chloride 111 mmol/L (96-108); Cholesterol 201 mg/dL; Estimated Glomerular Filt Rate 52; Glucose Random 101 mg/dL (60-115); HDL Cholesterol 52 mg/dL; LDL Cholesterol Calculated 139 mg/dl; Potassium 4.3 mmol/L (3.3-5.1); Sodium 141 mmol/L (135-145); Total Protein 7.2 g/dL (6.5-8.0); Triglycerides 52 mg/dL
[2022-01-16 11:14] LABS: Free T4 (Free Thyroxine) 0.97 ng/dL (0.71-1.85); Thyroid Stimulating Hormone 0.92 uIU/mL (0.32-4.0)
[2022-01-16 11:27] LABS: Erythrocyte Sedimentation Rate 7 MM/HR (0-20)
[2022-01-16 13:52] LABS: Reflex LDLD? No
== END 2022-01-16 08:52 | disposition home or self-care (01) ==
LOC: HO.10HDL 08:51
PROVIDERS: Nurse Practitioner Family; Visit Provider Internal Medicine Endocrinology, Diabetes & Metabolism
DX: E04.2 Nontoxic multinodular goiter (principal); M05.9 Rheumatoid arthritis with rheumatoid factor, unspecified
CPT/HCPCS: 36415; 80053; 80061; 84439; 84443; 85025; 85652; 86140

== ENCOUNTER 2022-02-01 08:00 | Outpatient (RCR) | payer OTHER, SELFPAY ==
--- NOTE | 2022-01-04 08:40 | MHC.PT.EP ---
[facility] [place] Office [place] Office [place] Office [address] [phone] F: [phone] F: [phone] F: [phone] F: [phone] Physical Therapy Plan of Care Date of Evaluation: Date of Surgery: N/A Diagnosis: sprain of medial collateral ligament of left knee Assessment: pt presents to physical therapy w/ MRI evidence of MCL sprain. pt presents to physical therapy with pain, decreased range of motion, decreased strength, impaired functional mobility, impaired postural awareness, and gait deviations. pt is a good candidate for skilled PT due to age, potential remediation of impairments, typical disease/condition progression and prognosis, comorbidities, and motivation. pt would benefit from tailored strengthening and stretching exercise program, functional training, gait training, postural re-training, neuromuscular re-education, modalities as needed for pain, equipment safety demonstration. Frequency and Duration: The patient will be seen 2x/wk for 4 wks Short Term Goals: pt will be I w/ HEP to promote self-management of condition. pt will improve L knee flexion by 10 degrees to promote ease in car/tub transfers. Skilled Nursing Goals: pt will report a statistically significant improvement in self-reported outcome measure, LEFI, to promote return to PLOF. pt will improve L quad strength to 5/5 to promote ease in ascending stairs to access bedroom/bathroom. Treatment Plan: Modalities to reduce pain, spasms and effusion. Manual therapy to restore motion and function. Therapeutic exercise to improve strength and flexibility. Neuromuscular re-education for posture and balance. Therapeutic activities to return to functional activities of daily living. Electronically signed by: Rama Briceño PT, DPT Please sign and return to therapist. Thank you for your referral.
--- NOTE | 2022-02-06 15:00 | MHC.PT.DC ---
[facility] [place] Office [place] Office [place] Office [address] Sujatha Murray 140 [facility] [phone] F: [phone] F: [phone] F: [phone] F: [phone] Physical Therapy Discharge Report Diagnosis: sprain of medial collateral ligament of left knee (RC) Date of Surgery: N/A Date of Evaluation: 01/04/22 Date of Discharge: 02/06/22 Treatments to Date: 5 Cancellations to Date: 0 No Shows to Date: 0 Discharge Status: Improved Function Independent with HEP Patient Elected to Stop Discharge Summary: The patient called to discharge herself from physical therapy as she is feeling better. She is discharged from this physical therapy plan of care per her request. Electronically signed by: Rama Briceño PT, DPT Please sign and return to therapist. Thank you for your referral.
== END 2022-02-06 15:00 | disposition home or self-care (01) ==
LOC: HO.PT 08:00
PROVIDERS: PCP Internal Medicine; Visit Provider Physician Assistant
DX: S83.412D Sprain of medial collateral ligament of left knee, subsequent encounter (principal)
CPT/HCPCS: 97110; 97112; 97161

== ENCOUNTER → 2022-02-07 13:48 | Outpatient (BNVA) | payer OTHER, SELFPAY | PROVIDERS: PCP Internal Medicine; Visit Provider Physician Assistant | DX: Z13.89 Encounter for screening for other disorder (principal) ==

== ENCOUNTER 2022-02-25 08:20 | Outpatient (REF) | payer OTHER, SELFPAY ==
--- NOTE | ~2022-02-25 | US_ITS ---
EXAMINATION: US THYROID CLINICAL INFORMATION: Nontoxic multinodular goiter. COMPARISON: US thyroid 02/27/2021 and 08/30/2020. TECHNIQUE: Linear transducer grayscale and color Doppler examination with attention to the region of the thyroid. FINDINGS: SIZE: Measurements of the thyroid lobes and nodules are given in sagittal, anteroposterior and transverse dimensions respectively. Right Thyroid Lobe: 5.2 x 1.8 x 2.1 cm, volume 10.3 mL. Previously 5.2 x 1.9 x 1.9 cm, volume 9.8 mL. Parenchyma: The gland echotexture is homogeneous. Thyroid vascularity is mildly increased. Left Thyroid Lobe: 5.5 x 2.1 x 1.8 cm, volume 10.9 mL. Previously 5.2 x 2.0 x 1.5 cm, volume 8.2 mL. Parenchyma: The gland echotexture is homogeneous. Thyroid vascularity is increased. Isthmus: 0.6 cm in maximum AP dimension. Previously 0.8 cm. Estimated total number of nodules greater than or equal to 1 cm: 1. Corporate Auditor nodules are described as follows: 1. Location: Left superior. Size: 0.9 x 0.5 x 0.7 cm, volume 0.17 mL. Previously: 0.7 x 0.4 x 0.6 cm, volume 0.09 mL. Nodule characteristics: Composition: Solid (2). Echogenicity: Isoechoic (1). Shape: Not taller than wide (0). Margins: Ill-defined (0). Echogenic Foci: None (0). ACR TI-RADS total points: 3 Previous: 3. ACR TI-RADS category: 3 Previous: 3. Significant change in size (>/= 20% in 2 dimensions and minimal increase of 2 mm or 50% or greater increase in volume): Yes. Change in features: None. Change in ACR TI-RADS risk category: None. 2. Location: Left mid/lateral. Size: 0.5 x 0.4 x 0.4 cm, volume 0.04 mL. Previously: New since the previous study. Nodule characteristics: Composition: Cystic(0). ACR TI-RADS total points: 0. ACR TI-RADS category: 1. 3. Location: Left inferior. Size: 1.6 x 0.8 x 1.5 cm, volume 1.01 mL. Previously: 1.4 x 0.8 x 1.2 cm, volume 0.7 mL. Nodule characteristics: Composition: Mixed cystic and solid (1). Echogenicity: Cannot be determined (1). Shape: Not taller than wide (0). Margins: Smooth (0). Echogenic Foci: None (0). ACR TI-RADS total points: 2 Previous: 0. ACR TI-RADS category: 2 Previous: 1. Significant change in size (>/= 20% in 2 dimensions and minimal increase of 2 mm or 50% or greater increase in volume): None. Change in features: None. Change in ACR TI-RADS risk category: None. NODES: Right level 3 neck lymph node measures 1.7 x 0.5 x 1.7 cm. Level 2 lymph node measures 1.2 x 0.7 x 1.5 cm. Left level 2 lymph node measures 1.7 x 1.4 x 0.7 cm. US/US thyroid IMPRESSION: Small nonsuspicious thyroid nodules. The thyroid gland is otherwise unremarkable. ACR TI-RADS RECOMMENDATION REFERENCE: Ultrasound-guided fine-needle aspiration, followup ultrasound, no further follow up. * TR1 (0 point) and TR 2 (2 points): No FNA or follow up * TR3 (3 points): FNA if more than or equal to 2.5 cm in maximum dimension, followup ultrasound in 1, 3 and 5 years if 1.5 to 2.4 cm in maximum dimension. * TR4 (4-6 points): FNA if more than or equal to 1.5 cm in maximum dimension, followup ultrasound in 1, 2, 3 and 5 years if 1 to 1.4 cm in maximum dimension. * TR5 (more than or equal to 7 points): FNA if more than or equal to 1 cm in maximum dimension, followup ultrasound every year for 5 years if 0.5 to 0.9 cm in maximum dimension. * TR3, TR4 or TR5 nodules that are below the size threshold for follow up receive no follow up.
== END 2022-02-25 08:21 | disposition home or self-care (01) ==
LOC: HO.HMGCX 08:20
PROVIDERS: PCP Internal Medicine; Visit Provider Internal Medicine Endocrinology, Diabetes & Metabolism
DX: E04.2 Nontoxic multinodular goiter (principal)
CPT/HCPCS: 76536

== ENCOUNTER 2022-03-04 08:35 | Outpatient (REF) | payer OTHER, SELFPAY ==
[2022-03-04 11:20] LABS: MANUAL DIFF FLAG NO
[2022-03-04 11:24] LABS: Basophils Absolute Auto 0.1 X10*3/uL (0.0-0.2); Basophils Percent Auto 1.6 % (0-2); Eosinophils Absolute Auto 0.2 X10*3/uL (0.0-0.4); Eosinophils Percent Auto 4.3 % (0-4); Hemoglobin 11.3 g/dl (12.0-16.0); Imm Gran Abs Auto 0.01 X10*3/uL (0.00-0.03); Imm Gran Pct Auto 0.2 % (0.0-0.4); Lymphocytes Absolute Auto 1.7 X10*3/uL (1.2-4.9); Lymphocytes Percent Auto 37.7 % (20-40); Mean Corpuscular HGB Conc 30.5 g/dl (31.0-35.0); Mean Corpuscular Hemoglobin 24.8 pg (27.0-33.0); Mean Corpuscular Volume 81.1 fL (80.0-98.0); Mean Platelet Volume 11.6 fL (9.4-12.3); Monocytes Absolute Auto 0.4 X10*3/uL (0.1-1.2); Monocytes Percent Auto 8.2 % (2-11); Neutrophils Absolute Auto 2.1 x10*3/uL (2.0-8.3); Platelet Count 335 X10*3/uL (160-400); Red Blood Count 4.56 X10*6/uL (4.20-5.50); Red Cell Distribution Width 14.9 % (11.0-16.0); White Blood Count 4.4 X10*3/uL (4.8-10.8)
[2022-03-04 12:02] LABS: Alanine Aminotransferase 24 U/L (0-31); Albumin Level 4.1 g/dL (3.5-5.0); Alkaline Phosphatase 62 U/L (39-117); Anion Gap 9 (12-20); Aspartate Amino Transferase 25 U/L (5-31); Bilirubin Total 0.4 mg/dL (0.0-1.0); Blood Urea Nitrogen 11 mg/dL (9-16); C Reactive Protein 0.06 mg/dL (< or = 0.50); Calcium 9.2 mg/dL (8.4-10.2); Carbon Dioxide 26 mmol/L (22-29); Chloride 111 mmol/L (96-108); Estimated Glomerular Filt Rate 55; Glucose Random 96 mg/dL (60-115); Sodium 142 mmol/L (135-145); Total Protein 7.3 g/dL (6.5-8.0)
== END 2022-03-04 08:36 | disposition home or self-care (01) ==
LOC: HO.10HDL 08:35
PROVIDERS: Visit Provider Nurse Practitioner Family
DX: M05.9 Rheumatoid arthritis with rheumatoid factor, unspecified (principal)
CPT/HCPCS: 36415; 80053; 85025; 86140

== ENCOUNTER 2022-05-09 10:22 | Outpatient (REF) | payer OTHER, SELFPAY ==
--- NOTE | 2022-05-09 11:03 | PM.OP ---
Brief Operative Note Date of Service: 05/09/22 Pre-op diagnosis: Multinodular Thyroid Procedure: EXAMINATION: US THYROID CLINICAL INFORMATION: Multinodular Thyroid COMPARISON: Prior TECHNIQUE: Linear transducer patino-scale and color Doppler examination with attention to the region of the thyroid. FINDINGS: SIZE: Measurements of the thyroid lobes and nodules are given in sagittal, anteroposterior and transverse dimensions respectively. Right Thyroid Lobe: 4.9 x 1.9 x 2.3 cm, volume 11.2 mL. Parenchyma: The gland echotexture is heterogenous. Thyroid vascularity is mildly increased. Left Thyroid Lobe: 4.8 x 1.7 x 2.0 cm, volume 8.5 mL. Parenchyma: The gland echotexture is diffusely heterogenous. Thyroid vascularity is mildly increased. Isthmus: 0.7 cm in maximum AP dimension. RIGHT THYROID LOBE: There are no nodules. LEFT THYROID LOBE: There is 1 nodule. There is a 1.5 x 0.8 x 1.3 cm spongiform nodule. NODES: No lymph nodes were assessed during today's exam. 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 1.5 cm spongiform nodule within the LMP that does not meet indication for FNA biopsy. Surgeon: Susan Orozco, DO Was an Recruiting Operations Consultant used for this Procedure?: No Estimated blood loss (mL): 0
[2022-05-09] MEDS: Lidocaine HCl 1 % MPF 5 ML VIAL SUBCUT (13:56)
== END 2022-05-09 10:23 | disposition home or self-care (01) ==
LOC: HO.US 10:22
PROVIDERS: Visit Provider Internal Medicine Endocrinology, Diabetes & Metabolism
DX: E04.2 Nontoxic multinodular goiter (principal)
CPT/HCPCS: 10005

== ENCOUNTER 2022-05-16 08:37 | Outpatient (REF) | payer OTHER, SELFPAY ==
--- NOTE | 2022-05-16 08:41 | EMG_ITS ---
Bilateral median and ulnar motor and sensory studies were performed, bilateral radial sensory studies were performed, and paraspinal muscles were tested. IMPRESSION: This is an unremarkable study with no evidence of entrapment neuropathy or radiculopathy. MD YULISSA Hassan/MED / [id number]
== END 2022-05-16 08:38 | disposition home or self-care (01) ==
LOC: HO.NEURO 08:37
PROVIDERS: Visit Provider Physician Assistant
DX: G56.03 Carpal tunnel syndrome, bilateral upper limbs (principal)
CPT/HCPCS: 95886; 95911

== ENCOUNTER 2022-06-12 09:56 | Outpatient (REF) | payer OTHER, SELFPAY ==
--- NOTE | ~2022-06-12 | US_ITS ---
EXAMINATION: US VENOUS ULTRASOUND WITH DOPPLER LOWER EXTREMITY, BILATERAL CLINICAL INFORMATION: Bilateral lower extremity pain. Patient on blood thinners. COMPARISON: Ultrasound venous duplex left leg 11/01/2021 TECHNIQUE: Ultrasound of the deep veins is performed from the hip to the calf with compression sonography and color and pulse Doppler assessment. Spectral analysis with color-flow imaging is performed. FINDINGS: RIGHT: There is a chronic echogenic clot in the right superficial mid and distal femoral vein. There is normal flow visualized in right common femoral, right greater saphenous, popliteal, posterior tibial and peroneal veins. The soft tissues are normal. There is no significant popliteal fossa cyst. LEFT: There is normal venous compression and respiratory variation and augmented flow. The visualized common femoral vein, superficial femoral vein, profunda femoral vein, popliteal vein, and the trifurcation region shows no evidence of deep venous thrombosis. There is no significant popliteal fossa cyst. If the patient's symptoms persist, followup ultrasound in 5 days 7 days might be of value to exclude proximal propagation from a non-visualized calf vein. US/US venous duplex LE BI IMPRESSION: No DVT demonstrated in the left lower extremity. There is chronic clot in the right mid and distal superficial femoral veins. Rest of the right lower leg veins are patent.
== END 2022-06-12 09:57 | disposition home or self-care (01) ==
LOC: HO.US 09:56
PROVIDERS: Visit Provider Nurse Practitioner Family
DX: M79.604 Pain in right leg (principal); M79.605 Pain in left leg; Z86.718 Personal history of other venous thrombosis and embolism
CPT/HCPCS: 93970

== ENCOUNTER 2022-06-18 10:58 | Outpatient (REF) | payer OTHER, SELFPAY ==
[2022-06-18 13:42] LABS: MANUAL DIFF FLAG NO
[2022-06-18 13:50] LABS: Basophils Absolute Auto 0.1 X10*3/uL (0.0-0.2); Eosinophils Absolute Auto 0.1 X10*3/uL (0.0-0.4); Eosinophils Percent Auto 2.6 % (0-4); Hemoglobin 13.7 g/dl (12.0-16.0); Imm Gran Abs Auto 0.01 X10*3/uL (0.00-0.03); Imm Gran Pct Auto 0.2 % (0.0-0.4); Lymphocytes Absolute Auto 1.7 X10*3/uL (1.2-4.9); Lymphocytes Percent Auto 33.6 % (20-40); Mean Corpuscular HGB Conc 30.4 g/dl (31.0-35.0); Mean Corpuscular Hemoglobin 25.8 pg (27.0-33.0); Mean Corpuscular Volume 84.9 fL (80.0-98.0); Mean Platelet Volume 11.7 fL (9.4-12.3); Monocytes Absolute Auto 0.3 X10*3/uL (0.1-1.2); Monocytes Percent Auto 5.6 % (2-11); Neutrophils Absolute Auto 2.9 x10*3/uL (2.0-8.3); Platelet Count 282 X10*3/uL (160-400); Red Cell Distribution Width 18.8 % (11.0-16.0)
[2022-06-18 14:07] LABS: Aspartate Amino Transferase 25 U/L (5-31); C Reactive Protein 0.03 mg/dL (< or = 0.50); Estimated Glomerular Filt Rate 52
[2022-06-18 15:12] LABS: Erythrocyte Sedimentation Rate 2 MM/HR (0-20)
== END 2022-06-18 10:59 | disposition home or self-care (01) ==
LOC: HO.10HDL 10:58
PROVIDERS: Visit Provider Nurse Practitioner Family
DX: M05.9 Rheumatoid arthritis with rheumatoid factor, unspecified (principal); Z79.899 Other long term (current) drug therapy
CPT/HCPCS: 36415; 82565; 84450; 85025; 85652; 86140

== ENCOUNTER 2022-07-05 11:39 | Outpatient (REF) | payer OTHER, SELFPAY ==
--- NOTE | ~2022-07-05 | XR_ITS ---
EXAMINATION: XR BILATERAL HIPS WITH AP PELVIS CLINICAL INFORMATION: Spondylosis without myelopathy. COMPARISON: None TECHNIQUE: AP and frog-leg lateral views of each hip and an AP view of the pelvis. FINDINGS: No fracture or dislocation. The hips are well aligned. Joint spaces are maintained. The pelvic rim is intact. The sacroiliac joints and pubic symphysis are intact. An IUD is noted. Normal bowel gas pattern. XR/XR hip BI w PEL1V IMPRESSION: Normal pelvis and hips.
== END 2022-07-05 11:40 | disposition home or self-care (01) ==
LOC: HO.XRAY 11:39
PROVIDERS: PCP Internal Medicine; Visit Provider Nurse Practitioner Family
DX: M47.817 Spondylosis without myelopathy or radiculopathy, lumbosacral region (principal); M79.604 Pain in right leg; M79.605 Pain in left leg
CPT/HCPCS: 73521

== ENCOUNTER 2022-07-31 18:47 | Outpatient (REF) | payer OTHER, SELFPAY ==
--- NOTE | ~2022-07-31 | MR_ITS ---
EXAMINATION: MR LUMBAR SPINE WITHOUT CONTRAST CLINICAL INFORMATION: Spondylosis without myelopathy. Lumbosacral pain. COMPARISON: Lumbar spine radiographs from 07/04/2021. TECHNIQUE: MRI of the lumbar spine was obtained using routine sequences without contrast. FINDINGS: Normal anatomic alignment. Normal, homogeneous marrow signal throughout. The vertebral body heights are maintained. Mild degenerative disc disease from T11-L3 and at L4-L5. The conus medullaris terminates at the level of L1-L2. The distal spinal cord is normal in appearance. No significant abnormalities of the paraspinal musculature. Limited evaluation of the intra-abdominal structures without significant abnormalities. The abdominal aorta is of normal contour and caliber. AXIAL SPINAL LEVELS: L1-L2: Shallow diffuse disc bulge. There is mild bilateral facet joint arthropathy. There is no neural foraminal stenosis. There is no spinal canal stenosis. L2-L3: Shallow diffuse disc bulge. There is mild bilateral facet joint arthropathy. There is no neural foraminal stenosis. There is no spinal canal stenosis. L3-L4: Mild diffuse disc bulge. There is mild bilateral facet joint arthropathy. There is no neural foraminal stenosis. There is no spinal canal stenosis. L4-L5: Mild diffuse disc bulge. There is moderate left and mild right facet joint arthropathy. There is mild bilateral neural foraminal stenosis. There is narrowing of the subarticular zones with no overt spinal canal stenosis centrally. L5-S1: Shallow diffuse disc bulge. There is mild bilateral facet joint arthropathy. There is no neural foraminal stenosis. There is no spinal canal stenosis. MR/MR lumbar spine wo con IMPRESSION: Mild multilevel degenerative spondyloarthropathy of the lumbar spine as described in detail above. There are narrowings of the subarticular zones at L4-L5. No additional overt spinal canal stenosis or nerve root compression.
== END 2022-07-31 18:48 | disposition home or self-care (01) ==
LOC: HO.MRI 18:47
PROVIDERS: Visit Provider Nurse Practitioner Family
DX: M47.817 Spondylosis without myelopathy or radiculopathy, lumbosacral region (principal); M54.16 Radiculopathy, lumbar region; M79.604 Pain in right leg; M79.605 Pain in left leg; M62.838 Other muscle spasm; F40.240 Claustrophobia
CPT/HCPCS: 72148

== ENCOUNTER → 2022-10-17 12:00 | Outpatient (BNVA) | payer OTHER, SELFPAY | PROVIDERS: PCP Internal Medicine; Visit Provider Nurse Practitioner | DX: Z13.89 Encounter for screening for other disorder (principal) ==

== ENCOUNTER → 2022-10-22 13:21 | Outpatient (BNVA) | payer OTHER, SELFPAY | PROVIDERS: PCP Internal Medicine; Visit Provider Nurse Practitioner Family | DX: M05.9 Rheumatoid arthritis with rheumatoid factor, unspecified (principal); M79.7 Fibromyalgia ==

== ENCOUNTER 2022-10-30 11:49 | Outpatient (REF) | payer OTHER, SELFPAY ==
[2022-10-30 13:42] LABS: MANUAL DIFF FLAG NO
[2022-10-30 13:52] LABS: Basophils Percent Auto 0.7 % (0-2); Eosinophils Absolute Auto 0.1 X10*3/uL (0.0-0.4); Eosinophils Percent Auto 1.9 % (0-4); Hematocrit 44.7 % (37.0-47.0); Hemoglobin 14.5 g/dl (12.0-16.0); Imm Gran Abs Auto 0.02 X10*3/uL (0.00-0.03); Imm Gran Pct Auto 0.3 % (0.0-0.4); Lymphocytes Percent Auto 33.6 % (20-40); Mean Corpuscular HGB Conc 32.4 g/dl (31.0-35.0); Mean Corpuscular Hemoglobin 28.3 pg (27.0-33.0); Mean Corpuscular Volume 87.1 fL (80.0-98.0); Monocytes Absolute Auto 0.6 X10*3/uL (0.1-1.2); Monocytes Percent Auto 9.6 % (2-11); Neutrophils Absolute Auto 3.2 x10*3/uL (2.0-8.3); Neutrophils Percent Auto 53.9 % (45-73); Platelet Count 270 X10*3/uL (160-400); Red Blood Count 5.13 X10*6/uL (4.20-5.50); Red Cell Distribution Width 13.2 % (11.0-16.0); White Blood Count 5.9 X10*3/uL (4.8-10.8)
[2022-10-30 14:22] LABS: Alanine Aminotransferase 32 U/L (0-31); Albumin Level 4.3 g/dL (3.5-5.0); Alkaline Phosphatase 62 U/L (39-117); Anion Gap 17 (12-20); Aspartate Amino Transferase 30 U/L (5-31); Bilirubin Total 0.6 mg/dL (0.0-1.0); Blood Urea Nitrogen 13 mg/dL (9-16); Calcium 9.5 mg/dL (8.4-10.2); Carbon Dioxide 24 mmol/L (22-29); Chloride 107 mmol/L (96-108); Estimated Glomerular Filt Rate 54; Glucose Random 82 mg/dL (60-115); Potassium 3.8 mmol/L (3.3-5.1); Sodium 144 mmol/L (135-145); Total Protein 7.4 g/dL (6.5-8.0)
[2022-10-30 14:33] LABS: Erythrocyte Sedimentation Rate 2 MM/HR (0-20)
== END 2022-10-30 11:50 | disposition home or self-care (01) ==
LOC: HO.10HDL 11:49
PROVIDERS: Visit Provider Nurse Practitioner Family
DX: M05.9 Rheumatoid arthritis with rheumatoid factor, unspecified (principal)
CPT/HCPCS: 36415; 80053; 85025; 85652; 86140

== ENCOUNTER 2022-11-14 14:55 | Outpatient (REF) | payer OTHER, SELFPAY ==
--- NOTE | ~2022-11-14 | US_ITS ---
EXAMINATION: US VENOUS ULTRASOUND WITH DOPPLER LOWER EXTREMITY, RIGHT CLINICAL INFORMATION: Right leg DVT. Patient still on anticoagulants. COMPARISON: June 12, 2022 and November 01, 2021 and studies dating back to May 18, 2021 TECHNIQUE: Ultrasound of the deep veins is performed from the hip to the calf with compression sonography and color and pulse Doppler assessment. Spectral analysis with color-flow imaging is performed. FINDINGS: There is still noted to be echogenic occlusive thrombus within the mid and distal superficial femoral vein similar to previous studies. There is no evidence of recanalization. The right and left common femoral veins are patent and compressible. The right popliteal and proximal calf vessels are patent and compressible. There is no significant popliteal fossa cyst. No popliteal artery aneurysm identified. US/US venous duplex LE RT IMPRESSION: Chronic occlusive deep venous thrombosis of the mid and distal superficial femoral vein without evidence of recanalization. No significant change in appearance.
== END 2022-11-14 14:56 | disposition home or self-care (01) ==
LOC: HO.US 14:55
PROVIDERS: PCP Internal Medicine; Visit Provider Internal Medicine Medical Oncology
DX: Z86.718 Personal history of other venous thrombosis and embolism (principal)
CPT/HCPCS: 93971

== ENCOUNTER 2022-11-28 07:42 | Outpatient (REF) | payer OTHER, SELFPAY ==
--- NOTE | ~2022-11-28 | US_ITS ---
EXAMINATION: US ABDOMEN COMPLETE CLINICAL INFORMATION: Gastroesophageal reflux disease without esophagitis. COMPARISON: CT abdomen and pelvis without contrast 01/13/2015. TECHNIQUE: Real-time imaging of the abdominal viscera. FINDINGS: PANCREAS: Normal. ABDOMINAL AORTA: The proximal, mid, and distal segments are normal in caliber. INFERIOR VENA CAVA: Visualized portions are normal. LIVER: The liver is normal in size. The liver contour is normal. There is diffuse increased liver parenchymal echogenicity, consistent with hepatic steatosis. No focal hepatic lesion. There is no intrahepatic biliary duct dilatation seen. GALLBLADDER: Normal. The gallbladder is physiologically distended without evidence of stones, sludge, polyps, wall thickening or pericholecystic fluid. COMMON BILE DUCT: Normal in caliber measuring 0.4 cm in diameter. RIGHT KIDNEY: Normal. No hydronephrosis. No renal calculi or focal parenchymal lesions. The kidney measures 11.7 cm in maximum dimension. LEFT KIDNEY: Normal. No hydronephrosis. No renal calculi or focal parenchymal lesions. The kidney measures 12.1 cm in maximum dimension. SPLEEN: Normal. The spleen measures 9.2 cm in maximum dimension. FREE FLUID: None. US/US abdomen complete IMPRESSION: Hepatic steatosis.
== END 2022-11-28 07:43 | disposition home or self-care (01) ==
LOC: HO.US 07:42
PROVIDERS: Visit Provider Nurse Practitioner
DX: E66.01 Morbid (severe) obesity due to excess calories (principal); K21.9 Gastro-esophageal reflux disease without esophagitis
CPT/HCPCS: 76700

== ENCOUNTER 2022-12-16 08:04 | Outpatient (REF) | payer OTHER, SELFPAY ==
--- NOTE | ~2022-12-16 | FL_ITS ---
PROCEDURE: XR UPPER GI SERIES WITH SMALL BOWEL CLINICAL INFORMATION: Gastroesophageal reflux disease without esophagitis. COMPARISON: None available. TECHNIQUE: Routine upper GI air-contrast study followed by small bowel follow-through was performed. FINDINGS: Nuclear Logging Engineer view of the abdomen reveals moderate gas and stool. No organomegaly. No bony abnormality. Following oral administration of thick barium and effervescent granules there is normal propagation of bolus from the oral cavity through the pharynx, esophagus into stomach without any evidence of obstruction, narrowing or stricture. On placing patient supine and prone the course, caliber and peristalsis of the stomach is normal. There is mild gastroesophageal reflux without hiatal hernia. The mucosal pattern of the stomach and the duodenal bulb is normal. Sequential images obtained of small bowel reveal normal course, caliber and mucosal pattern of the small bowel loops. The small bowel transit time is 30 minutes. Spot images of ileocecal junction reveal normal terminal ileum and cecum. Appendix is not seen. FLUOROSCOPY TIME: 2.9 minutes DOSE AREA PRODUCT: 71.476 uGy-m2 (microgray-meter squared) FL/FL upper GI small bowel IMPRESSION: Mild gastroesophageal reflux without hiatal hernia. Normal small bowel follow-through exam. Appendix is not seen.
== END 2022-12-16 08:05 | disposition home or self-care (01) ==
LOC: HO.XRAY 08:04
PROVIDERS: Visit Provider Nurse Practitioner
DX: K21.9 Gastro-esophageal reflux disease without esophagitis (principal); E66.01 Morbid (severe) obesity due to excess calories
CPT/HCPCS: 74240; 74248

== ENCOUNTER → 2022-12-31 11:42 | Outpatient (BNVA) | payer OTHER, SELFPAY | PROVIDERS: PCP Internal Medicine; Visit Provider Nurse Practitioner | DX: Z13.89 Encounter for screening for other disorder (principal) ==

== ENCOUNTER → 2023-02-13 15:46 | Outpatient (BNVA) | payer OTHER, SELFPAY | PROVIDERS: PCP Internal Medicine; Visit Provider Nurse Practitioner Family ==

== ENCOUNTER 2023-02-20 09:00 | Outpatient (REF) | payer OTHER, SELFPAY ==
[2023-02-20 11:08] LABS: C Reactive Protein < 0.10 mg/dL (< or = 0.50)
[2023-02-20 11:55] LABS: Erythrocyte Sedimentation Rate 2 MM/HR (0-20)
[2023-02-21 03:03] LABS: HBS Num1 56.42 mIU/mL (0-7.99); HBc Num1 0.11 S/CO (0.00-0.79); HBsAGNum1 0.34 S/CO (0.00-0.99); Hepatitis A Antibody IgM 0.27 Index (0-0.79); Hepatitis B Core Antibody Nonreactive (Nonreactive); Hepatitis B Surface Antigen Negative (Negative); ~HepC Num1 0.21 S/CO (0.00-0.79); ~Hepatitis A Antibody IgM Nonreactive (Nonreactive); ~Hepatitis B Surface Antibody REACTIVE (Nonreactive); ~Hepatitis C Antibody Nonreactive (Nonreactive)
[2023-02-22 22:33] LABS: TS Negative Control Passed; TS Panel A 1; TS Panel B 1; TS Positive Control Passed; TSpotTB Negative (Negative)
== END 2023-02-20 09:01 | disposition home or self-care (01) ==
LOC: HO.10HDL 09:00
PROVIDERS: Visit Provider Nurse Practitioner Family
DX: M05.9 Rheumatoid arthritis with rheumatoid factor, unspecified (principal)
CPT/HCPCS: 36415; 85652; 86140; 86481; 86704; 86706; 86709; 86803; 87340

== ENCOUNTER 2023-03-05 12:45 | Outpatient (REF) | payer OTHER, SELFPAY ==
--- NOTE | ~2023-03-05 | XR_ITS ---
EXAMINATION: XR WRIST, RIGHT CLINICAL INFORMATION: Right wrist pain COMPARISON: 07/04/2021 TECHNIQUE: PA, lateral, and oblique views of the right wrist. FINDINGS: The bones and soft tissues are normal. No fracture. Alignment is anatomic with normal joint spaces. No erosions or abnormal soft tissue calcifications. XR/XR wrist RT min 3V IMPRESSION: Normal right wrist.
== END 2023-03-05 12:46 | disposition home or self-care (01) ==
LOC: HO.XRAY 12:45
PROVIDERS: Visit Provider Registered Nurse Emergency
DX: M25.531 Pain in right wrist (principal)
CPT/HCPCS: 73110

== ENCOUNTER 2023-04-04 10:56 | Outpatient (AMB) | payer OTHER, SELFPAY ==
--- NOTE | 2023-04-04 11:06 | A.OFFVIS_ITS ---
Intake Intake Visit Reasons: TPI Allergies adalimumab [From Humira] Allergy (Verified 02/13/23 17:11) hairloss enoxaparin [From Lovenox] Allergy (Verified 02/13/23 17:11) Rash etanercept [Enbrel] Allergy (Verified 02/13/23 17:11) Injection site reaction sarilumab [From Kevzara] Allergy (Verified 02/13/23 17:11) injection site reaction HPI TPI HPI Details 52-year-old female presenting today for trigger point injections. Patient presents for scheduled procedure. Denies any recent cough, cold, infection, fever or other significant changes in medical history since last office visit. [facility] Medical History History of fibromyalgia History of vitamin D deficiency Hx of carpal tunnel syndrome Hx of obesity Hx of rheumatoid arthritis Hx of thyroid nodule Left knee pain Non-toxic multinodular goiter Obesity Right leg DVT Vitamin D deficiency Surgical History H/O colonoscopy History of esophagogastroduodenoscopy (EGD) S/P colonoscopic polypectomy Family History Mother Diabetes Fibromyalgia Osteoarthritis Maternal Grandfather Leukemia Maternal Aunt Breast cancer Unknown Cancer Stomach cancer Social History Household Members: Spouse and Children Housing: House Are you a primary nonfarm animal caretaker to a significant other at home: No Do you presently have visiting nurse or other home services: No Alcohol intake: current Alcohol intake frequency: does not drink Patient Tobacco Use Status: Never used Tobacco service: No Current occupational status: employed 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 Alert and oriented. Mood and affect appropriate. Follows and participates in conversation appropriately. Respiratory effort is unlabored. Able to transition from sit to stand unassisted. Ambulates with bilaterally normal heel strike and toe off. Office Procedures Injection Trigger Point Multi Pre-procedure diagnosis: Myofascial pain Post-procedure diagnosis: Myofascial pain Site and number of trigger points: Occipitalis, bilateral Trapezius, bilateral Solution: Total volume administered 10 ml (lidocaine 0.5% plus bupivacaine 0.25%) The procedure, its benefits, and its risks were explained to the patient and all questions were answered. Prior to the start of the procedure, a ?time out? was performed to confirm correct patient, procedure, and laterality. Trigger points were identified by manual palpation and marked. The skin was cleaned with Chloraprep. A 1.5 inch 25 G needle was used. Each of t he trigger points were approximated and elevated in the direction away from the body. Dry needling then took place for five seconds. Approximately 0.5 ml to 1 ml of injectate was delivered to the trigger point followed by dry needling for five seconds. This process was repeated at each trigger point site. The patient tolerated the procedure well. Post-procedure, breath sounds were equal at both sides of the chest. The patient tolerated the procedure well, without complication. The patient denied any numbness, paresthesias, or weakness. Post-procedure vitals were recorded as part of the nursing discharge note in electronic medical record. Following a period of observation, the patient was discharged in stable condition with written discharge instructions. Trigger Point Multiple: 55824- Trigger point injection =/>3 Results Reviewed Results Reviewed: No imaging is available for review. Assessment & Plan Assessment & Plan (1) Muscle spasm: Code(s): M62.838 - Other muscle spasm (2) Myofascial pain: Code(s): M79.18 - Myalgia, other site Plan Patient is status post trigger point injections today. Patient tolerated procedure well and was discharged home in stable condition with discharge instructions. All questions were answered. We will follow-up to assess response to therapy and repeat as needed. Scribed for Dr. Baltazar by Sam Mancilla, medical clerical assistant, on 04/04/2023. I, Dr. Baltazar, have personally reviewed and agree with the information entered by the scribe. Coding Level of Care Code Procedure Only Diagnoses Muscle spasm M62.838 Myofascial pain M79.18 CPT Codes Details - Trigger Point Multiple: 32128- Trigger point injection =/>3 ([id number])
== END 2023-04-04 11:14 | disposition home or self-care (01) ==
PROVIDERS: PCP Internal Medicine; Visit Provider Internal Medicine
DX: M62.838 Other muscle spasm (principal)
CPT/HCPCS: 20553

== ENCOUNTER → 2023-04-04 10:56 | Outpatient (BNVA) | payer OTHER, SELFPAY | PROVIDERS: PCP Internal Medicine; Visit Provider Internal Medicine | DX: M79.18 Myalgia, other site (principal) | CPT/HCPCS: 20553; J2795 ==

== ENCOUNTER 2023-04-15 12:54 | Outpatient (AMB) | payer OTHER, SELFPAY ==
--- NOTE | 2023-04-15 13:09 | MHC.OFFVIS ---
Intake Vital Signs 04/15/23 13:10 Height 5 ft 3 in Weight 190 lb BMI 33.7 Intake Visit Reasons: ov- right wrist lump Intake Note: Zeynep 52 yr old female presents today for a new problem visit for her right wrist volar lump. States she noticed lump about 2 months. States it has increase in size. This lump limits her ROM and causes pain with flexion of wrist. Denies numbness, tingling or injury. Patient also has noticed about 2 weeks ago she has a lump on her left wrist as well. EMG done. Allergies adalimumab [From Humira] Allergy (Verified 04/15/23 13:14) hairloss enoxaparin [From Lovenox] Allergy (Verified 04/15/23 13:14) Rash etanercept [Enbrel] Allergy (Verified 04/15/23 13:14) Injection site reaction sarilumab [From Kevzara] Allergy (Verified 04/15/23 13:14) injection site reaction HPI ov- right wrist lump HPI Details Zeynep is a 52 year old right hand dominant woman who presents with complaints of a lump on the volar aspect of her right wrist, onset ~2 months ago. She says this lump is on the volar aspect of her wrist, and is limiting the use of her hand. She denies any numbness, or tingling. She says she has some pain with wrist flexion and has been increasing in size She also says she noticed a smaller lump on her left wrist as well, ~2 weeks ago. She has a hx of Fibromyalgia and Rheumatoid arthritis. She is currently taking Actemra for this. She is on Eliquis due to a Hx of DVT. [facility] Medical History History of fibromyalgia History of vitamin D deficiency Hx of carpal tunnel syndrome Hx of obesity Hx of rheumatoid arthritis Hx of thyroid nodule Left knee pain Non-toxic multinodular goiter Obesity Right leg DVT Vitamin D deficiency Surgical History H/O colonoscopy History of esophagogastroduodenoscopy (EGD) S/P colonoscopic polypectomy Family History Mother Diabetes Fibromyalgia Osteoarthritis Maternal Grandfather Leukemia Maternal Aunt Breast cancer Unknown Cancer Stomach cancer Social History Household Members: Spouse and Children Housing: House Are you a primary pharmacy care coordinator to a significant other at home: No Do you presently have visiting nurse or other home services: No Alcohol intake: current Alcohol intake frequency: does not drink Patient Tobacco Use Status: Never used Tobacco service: No Current occupational status: employed 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[employer] [place] Review of Systems Const All systems reviewed & are unremarkable except as noted in HPI and below Physical Exam Vital Signs: BMI result Body Mass Index 33.7 Const General: cooperative, healthy appearing and no acute distress Orientation/consciousness: patient oriented x3 HEENT Head: Yes normocephalic and Yes atraumatic Eyes EOM: EOMs intact bilaterally Resp Effort & Inspection: normal respiratory effort and able to speak in complete sentences Cardio Jugular venous distension: no JVD Skin General skin exam: turgor normal Rashes: no rashes Neuro General: patient oriented x3 Extrem Other: Evaluation of Right Upper Extremity: The patient is alert, oriented, and in no acute distress Neuro: Median, Ulnar, Radial nerves motor and sensory intact and sensation is normal to the tips of all digits Vascular: Cap refill brisk ROM: She can make a fist and extend all her digits Skin: No lacerations or abrasions. General: No Ecchymosis. No Erythema or evidence of infection. Visible volar branch of the radial artery that was passing just below the scaphoid tubercle over the distal wrist crease. This was somewhat visible and a palpable pulse No evidence of a ganglion cyst No evidence of tenosynovitis No swelling or warmth about the wrist Similarly she has a palpable volar branch of the radial artery in the same area of the left wrist. Palpable pulse No evidence of a ganglion cyst or of tenosynovitis Radiographs: 3 views of the right wrist from 03/05/23 were reviewed by me today in clinic. They show no fractures or dislocations Psych Appearance: grossly normal Affect: normal affect Attitude: cooperative Assessment & Plan Assessment & Plan (1) Mass of both wrists: Code(s): R22.33 - Localized swelling, mass and lump, upper limb, bilateral Plan Assessment & Plan: 1. Patient concerned about possible right volar wrist mass No ganglion found Somewhat prominent branch of the volar branch of the radial artery were a passes over the distal wrist crease I educated her anatomy. No operative indications or limitations Follow-up p.r.n. Scribed for Heydi Stanley MD by Immanuel Gupta, medical administrative specialist, on 04/15/23 at 1:55 PM, EST. Coding Level of Care Code New Pt Level 3 (44775) Diagnoses Mass of both wrists R22.33
[2023-04-15 13:10] VITALS: BMI 33.7
== END 2023-04-15 13:53 | disposition home or self-care (01) ==
PROVIDERS: PCP Internal Medicine; Visit Provider Orthopaedic Surgery
DX: R22.31 Localized swelling, mass and lump, right upper limb (principal)
CPT/HCPCS: 99213

== ENCOUNTER → 2023-04-15 12:54 | Outpatient (BNVA) | payer OTHER, SELFPAY | PROVIDERS: PCP Internal Medicine; Visit Provider Orthopaedic Surgery ==

== ENCOUNTER 2023-05-22 10:13 | Outpatient (AMB) | payer OTHER, SELFPAY ==
[2023-05-22 10:17] VITALS: BP 118/64; PULSE 83; TEMP 36.8; O2SAT 96; BMI 33.8
--- NOTE | 2023-05-22 10:17 | MHC.OFFVIS ---
Intake Vital Signs 05/22/23 10:17 Height 5 ft 3 in Weight 190 lb 11.198 oz BMI 33.8 BP 118/64 Blood Pressure Location Rt brachial Position Sitting Pulse 83 Pulse Source Pulse Oximeter Temp 98.2 F Temp Source Skin Pulse Oximetry (%) 96 Intake Visit Reasons: Rheumatoid Arthritis Intake Note: Pt seen today for RA follow up. 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 Accompanied by: Self / Same As Patient Allergies adalimumab [From Humira] Allergy (Verified 05/22/23 10:19) hairloss enoxaparin [From Lovenox] Allergy (Verified 05/22/23 10:19) Rash etanercept [Enbrel] Allergy (Verified 05/22/23 10:19) Injection site reaction sarilumab [From Kevzara] Allergy (Verified 05/22/23 10:19) injection site reaction Medication List - Last Reconciled 05/22/23 by Marya Sung MD amitriptyline 25 mg PO TID apixaban (Eliquis) 5 mg PO BID cholecalciferol (vitamin D3) 50 mcg PO BEDTIME ferrous sulfate 325 mg PO BID frovatriptan 2.5 mg PO Q2-4H PRN galcanezumab-gnlm (Emgality Pen) 120 mg subcut DAILY multivitamin 1 tab PO DAILY pantoprazole (Protonix) 40 mg PO DAILY 30 days riboflavin (vitamin B2) 400 mg PO DAILY 30 days rimegepant (Nurtec ODT) 75 mg PO Q OTHER DAY PRN 30 days tizanidine 4 mg PO Q8H PRN 30 days tocilizumab (Actemra ACTPen) 162 mg (0.9 mL) subcut Q2W topiramate 50 mg PO BID HPI HPI Comments History of Present Illness Details This is a 52-year-old female with seropositive RA returns for follow-up. She was last evaluated by Heydi Alex 01/2023. She is on Actemra every other week well tolerated. Patient states that she is having worsening bilateral hand and wrist pain. She also has diffuse pain everywhere. She has been taking tizanidine nightly which helps her sleep. COUNT INCLUDES THE [facility] Medical History History of fibromyalgia History of vitamin D deficiency Hx of carpal tunnel syndrome Hx of obesity Hx of rheumatoid arthritis Hx of thyroid nodule Left knee pain Non-toxic multinodular goiter Obesity Right leg DVT Vitamin D deficiency Surgical History H/O colonoscopy History of esophagogastroduodenoscopy (EGD) S/P colonoscopic polypectomy Family History Mother Diabetes Fibromyalgia Osteoarthritis Maternal Grandfather Leukemia Maternal Aunt Breast cancer Unknown Cancer Stomach cancer Social History Household Members: Spouse and Children Housing: House Are you a primary critical care rn to a significant other at home: No Do you presently have visiting nurse or other home services: No Alcohol intake: current Alcohol intake frequency: does not drink Patient Tobacco Use Status: Never used Tobacco service: No Current occupational status: employed 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[employer] [place] Review of Systems Const Reports fatigue Musc Reports back pain, Reports myalgias, Reports arthralgias and Reports stiffness Endo Reports fatigue Physical Exam Vital Signs: Last Vital Signs Temp 98.2 F 05/22/23 10:17 Pulse 83 05/22/23 10:17 BP 118/64 05/22/23 10:17 Pulse Ox 96 05/22/23 10:17 BMI result Body Mass Index 33.8 Const General: cooperative, healthy appearing and comfortable Nutritional Appearance: obese Orientation/consciousness: patient oriented x3 Limitations: no limitations HEENT Head: Yes normocephalic and Yes atraumatic Mouth: moist mucous membranes Resp Effort & Inspection: normal respiratory effort and able to speak in complete sentences Auscultation: clear to auscultation bilaterally Cardio Rate: regular rate Rhythm: regular rhythm Heart sounds: S1 normal heart sound present GI Palpation (GI): Soft to palpation Neuro General: patient oriented x3 Extrem Other: Bilateral tender wrists and pain with full flexion and extension without swelling Bilateral diffuse MCP and PIP tenderness Right hand diffuse D IP tenderness without swelling Diffuse fibromyalgia tender points Assessment & Plan Assessment & Plan (1) Seropositive rheumatoid arthritis: Comment: +RF -ve CCP dx around 2018 Methotrexate 05/2019 Enbrel 04/2020 with methotrexate. Patient stop both accidentally. Triple therapy 05/2020-06/2020 ineffective Xeljanz ineffective Cimzia Ineffective DC 06/2021 Methotrexate discontinued 11/2020 due to elevated liver enzymes. Rinvoq 12/2020 -02/2021 ineffective Humira 06/2021-08/2021 discontinued due to hair loss. Enbrel 09/11 stopped 09/2021 due to injection site reaction Kevzara 10/2021 discontinued due to injection site reaction Actemra 11/2021- present effective Code(s): M05.9 - Rheumatoid arthritis with rheumatoid factor, unspecified Plan: This is a 52-year-old female with seropositive RA who presents for follow-up. On Actemra 162 mg subcutaneously every other week. RA well controlled. Patient's pain is likely due to fibromyalgia. Infectious screening : Hepatitis panel and T spot -ve 2022 Labs and hand x-rays before next visit in 4 months (2) Fibromyalgia: Comment: Previously failed Cymbalta, gabapentin, Lyrica (headaches) Code(s): M79.7 - Fibromyalgia Plan: Discussed management of fibromyalgia with patient. Is a noninflammatory, non-autoimmune central afferent processing disorder leading to a diffuse pain syndrome. I suggested that patient try to address her underlying psychiatric issues, anxiety/depression. I suggested evaluation by a therapist and/or a psychiatrist. Per patient, she had a sleep study last year and there was no evidence of obstructive sleep apnea. Try to follow sleep hygiene practices. Patient does Emily exercises for 1 hour 3 times a week advised patient to continue to exercise She is currently on amitriptyline 25 mg daily and takes tizanidine at night. She can continue with this Plan I spent 30 minutes reviewing patient's chart, evaluating patient, ordering diagnostic workup, counseling patient and documenting in the chart Orders: Orders Comprehensive Met. Panel 4 Months M05.9 - Rheumatoid arthritis with rheumatoid factor, unspecified C Reactive Protein 4 Months M05.9 - Rheumatoid arthritis with rheumatoid factor, unspecified Complete Blood Count Auto Diff 4 Months M05.9 - Rheumatoid arthritis with rheumatoid factor, unspecified Erythrocyte Sedimentation Rate 4 Months M05.9 - Rheumatoid arthritis with rheumatoid factor, unspecified Coding Level of Care Code Est Pt Level 4 (90105) Diagnoses Seropositive rheumatoid arthritis M05.9 Fibromyalgia M79.7
== END 2023-05-22 10:49 | disposition home or self-care (01) ==
PROVIDERS: PCP Internal Medicine; Visit Provider Student in an Organized Health Care Education/Training Program
DX: M05.79 Rheumatoid arthritis with rheumatoid factor of multiple sites without organ or systems involvement (principal); M79.7 Fibromyalgia
CPT/HCPCS: 99214

== ENCOUNTER → 2023-05-22 10:13 | Outpatient (BNVA) | payer OTHER, SELFPAY | PROVIDERS: PCP Internal Medicine; Visit Provider Student in an Organized Health Care Education/Training Program ==

== ENCOUNTER 2023-06-23 09:35 | Outpatient (AMB) | payer OTHER, SELFPAY ==
--- NOTE | 2023-06-23 09:34 | A.OFFVIS_ITS ---
Intake Intake Visit Reasons: RIGHT SIDE EAR THROBBING Allergies adalimumab [From Humira] Allergy (Verified 06/23/23 09:34) hairloss enoxaparin [From Lovenox] Allergy (Verified 06/23/23 09:34) Rash etanercept [Enbrel] Allergy (Verified 06/23/23 09:34) Injection site reaction sarilumab [From Kevzara] Allergy (Verified 06/23/23 09:34) injection site reaction Medication List - Last Reconciled 06/23/23 by Mindy Comer LPN amitriptyline 25 mg PO TID apixaban (Eliquis) 5 mg PO BID cholecalciferol (vitamin D3) 50 mcg PO BEDTIME ferrous sulfate 325 mg PO BID frovatriptan 2.5 mg PO Q2-4H PRN galcanezumab-gnlm (Emgality Pen) 120 mg subcut DAILY multivitamin 1 tab PO DAILY pantoprazole (Protonix) 40 mg PO DAILY 30 days riboflavin (vitamin B2) 400 mg PO DAILY 30 days rimegepant (Nurtec ODT) 75 mg PO Q OTHER DAY PRN 30 days tizanidine 4 mg PO Q8H PRN 30 days tocilizumab (Actemra ACTPen) 162 mg (0.9 mL) subcut Q2W topiramate 50 mg PO BID HPI RIGHT SIDE EAR THROBBING HPI Details Patient is a 52-year-old female returning for follow-up for various pain complaints. At this time she is most concerned about a ringing sensation in her right ear that started last week. Her history is notable for blood clots even while being on anticoagulants. She denies any other neurologic symptoms or weakness in her extremities. [facility] Medical History History of fibromyalgia History of vitamin D deficiency Hx of carpal tunnel syndrome Hx of obesity Hx of rheumatoid arthritis Hx of thyroid nodule Left knee pain Non-toxic multinodular goiter Obesity Right leg DVT Vitamin D deficiency Surgical History H/O colonoscopy History of esophagogastroduodenoscopy (EGD) S/P colonoscopic polypectomy Family History Mother Diabetes Fibromyalgia Osteoarthritis Maternal Grandfather Leukemia Maternal Aunt Breast cancer Unknown Cancer Stomach cancer Social History Household Members: Spouse and Children Housing: House Are you a primary childbirth and infant care teacher to a significant other at home: No Do you presently have visiting nurse or other home services: No Alcohol intake: current Alcohol intake frequency: does not drink Patient Tobacco Use Status: Never used Tobacco service: No Current occupational status: employed 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 Alert and oriented. Mood and affect appropriate. Follows and participates in conversation appropriately. Respiratory effort is unlabored. Able to transition from sit to stand unassisted. Ambulates with bilaterally normal heel strike and toe off. Able to stand and walk on toes and heels. Assessment & Plan Assessment & Plan (1) Tinnitus of right ear: Code(s): H93.11 - Tinnitus, right ear Plan 52-year-old female with a past history notable for thrombotic episodes despite being on anticoagulation on returning with 1 week history of right-sided whooshing sounds in her year. I will send her for MR angiography of the head and neck and MRI of the head to rule out thrombus/vascular as well as compressive source of her tinnitus. We can consider referral to Neurology and/or ENT based on the findings. Orders: Orders MR head/brain wo con 06/23/23 H93.11 - Tinnitus, right ear MR angio head wo con 06/23/23 H93.11 - Tinnitus, right ear MR angio neck wo con 06/23/23 H93.11 - Tinnitus, right ear Coding Level of Care Code Est Pt Level 3 (20139) Diagnoses Tinnitus of right ear H93.11
== END 2023-06-23 09:43 | disposition home or self-care (01) ==
LOC: HO.PMC 09:35
PROVIDERS: PCP Internal Medicine; Visit Provider Internal Medicine
DX: H93.11 Tinnitus, right ear (principal)
CPT/HCPCS: 99213

== ENCOUNTER → 2023-06-23 09:35 | Outpatient (BNVA) | payer OTHER, SELFPAY | PROVIDERS: PCP Internal Medicine; Visit Provider Internal Medicine ==

== ENCOUNTER 2023-07-09 09:19 | Outpatient (REF) | payer OTHER, SELFPAY ==
--- NOTE | ~2023-07-09 | MR_ITS ---
EXAMINATION: MR BRAIN WITHOUT AND WITH CONTRAST CLINICAL INFORMATION: Tinnitus, right ear. COMPARISON: MRI scan of the brain 08/09/2021. CTA of the head and neck 08/08/2021. TECHNIQUE: Multiplanar, multisequence MRI of the brain was obtained before and after the intravenous administration of 9 mL Gadavist. FINDINGS: The 7th and 8th cranial nerve complexes are normal in course and caliber. No signal abnormality is seen in the inner ear structures on the precontrast axial T1-weighted sequence. Fluid signal is preserved within the cochleae, semicircular canals, and vestibules on the high-resolution axial FIESTA sequence. No cerebellopontine angle lesion is noted. There is no abnormal labyrinthine or intracanalicular enhancement on postcontrast imaging. No diffusion abnormalities are identified to suggest an acute or subacute infarct. No mass effect or midline shift is seen. The ventricles and sulci are normal in size. There are a few scattered foci of hyperintense FLAIR signal in the periventricular subcortical white matter, which are most consistent with mild chronic microvascular ischemic changes. No extra-axial fluid collections are seen. The brainstem appears normal. On postcontrast imaging, there is no abnormal parenchymal or leptomeningeal enhancement; there is likely a small developmental venous anomaly in the left basal ganglia. No pathologic magnetic susceptibility artifact is identified on the gradient refocused acquisition. The cerebellar tonsils have normal contour and position, and the craniocervical junction appears normal. Marrow signal and midline structures are normal. The major intracranial flow-voids at the level of the [place] are preserved. The dural venous sinus flow-voids are maintained. The mastoid air cells and paranasal sinuses are well-aerated; the frontal sinuses are hypoplastic. MR/MR head/brain wo/w con IMPRESSION: 1. There are no acute bleeds or infarcts. There are no masses or areas of abnormal enhancement. 2. The internal auditory canals and CP angles appear normal bilaterally. 3. There are mild chronic microvascular ischemic changes.
[2023-07-09] MEDS: gadobutroL 10 ML VIAL IVPUSH (10:45)
== END 2023-07-09 09:20 | disposition home or self-care (01) ==
LOC: HO.MRI 09:19
PROVIDERS: PCP Internal Medicine; Visit Provider Internal Medicine
DX: H93.11 Tinnitus, right ear (principal)
CPT/HCPCS: 70553; A9585

== ENCOUNTER 2023-09-04 08:22 | Outpatient (REF) | payer OTHER, SELFPAY ==
[2023-09-04 10:22] LABS: MANUAL DIFF FLAG NO
[2023-09-04 10:26] LABS: Basophils Absolute Auto 0.1 X10*3/uL (0.0-0.2); Basophils Percent Auto 1.2 % (0-2); Eosinophils Absolute Auto 0.1 X10*3/uL (0.0-0.4); Eosinophils Percent Auto 3.1 % (0-4); Hemoglobin 14.3 g/dl (12.0-16.0); Imm Gran Abs Auto 0.01 X10*3/uL (0.00-0.03); Imm Gran Pct Auto 0.2 % (0.0-0.4); Lymphocytes Absolute Auto 1.4 X10*3/uL (1.2-4.9); Lymphocytes Percent Auto 32.5 % (20-40); Mean Corpuscular HGB Conc 31.8 g/dl (31.0-35.0); Mean Corpuscular Hemoglobin 27.5 pg (27.0-33.0); Mean Corpuscular Volume 86.5 fL (80.0-98.0); Mean Platelet Volume 11.3 fL (9.4-12.3); Monocytes Absolute Auto 0.3 X10*3/uL (0.1-1.2); Monocytes Percent Auto 7.3 % (2-11); Neutrophils Absolute Auto 2.4 x10*3/uL (2.0-8.3); Neutrophils Percent Auto 55.7 % (45-73); Platelet Count 234 X10*3/uL (160-400); Red Cell Distribution Width 13.4 % (11.0-16.0); White Blood Count 4.2 X10*3/uL (4.8-10.8)
[2023-09-04 10:38] LABS: Alanine Aminotransferase 28 U/L (0-31); Albumin Level 4.1 g/dL (3.5-5.0); Alkaline Phosphatase 70 U/L (39-117); Anion Gap 13 (12-20); Aspartate Amino Transferase 28 U/L (5-31); Bilirubin Total 0.3 mg/dL (0.0-1.0); Blood Urea Nitrogen 13 mg/dL (9-16); C Reactive Protein < 0.10 mg/dL (< or = 0.50); Calcium 9.3 mg/dL (8.4-10.2); Carbon Dioxide 26 mmol/L (22-29); Chloride 107 mmol/L (96-108); Estimated Glomerular Filt Rate 49; Glucose Random 94 mg/dL (60-115); Potassium 3.6 mmol/L (3.3-5.1); Sodium 142 mmol/L (135-145); Total Protein 7.5 g/dL (6.5-8.0)
[2023-09-04 11:11] LABS: Erythrocyte Sedimentation Rate 2 MM/HR (0-20)
== END 2023-09-04 08:23 | disposition home or self-care (01) ==
LOC: HO.10HDL 08:22
PROVIDERS: Visit Provider Student in an Organized Health Care Education/Training Program
DX: M05.9 Rheumatoid arthritis with rheumatoid factor, unspecified (principal)
CPT/HCPCS: 36415; 80053; 85025; 85652; 86140

== ENCOUNTER 2023-09-18 09:05 | Outpatient (AMB) | payer OTHER, SELFPAY ==
[2023-09-18 09:15] VITALS: BP 114/78; PULSE 88; RESP 15; TEMP 36.9; BMI 35.3
--- NOTE | 2023-09-18 09:15 | A.OFFVIS_ITS ---
Intake Vital Signs 09/18/23 09:15 Height 5 ft 2 in Weight 193 lb 1.999 oz BMI 35.3 BP 114/78 Blood Pressure Location Rt brachial Position Sitting Respiration 15 Pulse 88 Pulse Source Pulse Oximeter Temp 98.4 F Temp Source Tympanic Intake Visit Reasons: RA Allergies adalimumab [From Humira] Allergy (Verified 09/18/23 09:19) hairloss enoxaparin [From Lovenox] Allergy (Verified 09/18/23 09:19) Rash etanercept [Enbrel] Allergy (Verified 09/18/23 09:19) Injection site reaction sarilumab [From Kevzara] Allergy (Verified 09/18/23 09:19) injection site reaction Medication List - Last Reconciled 09/18/23 by Marya Sung MD Actemra ACTPen (tocilizumab) 162 mg (0.9 mL) subcut Q2W NS amitriptyline 25 mg PO TID apixaban (Eliquis) 5 mg PO BID apixaban (Eliquis) 5 mg PO BID cholecalciferol (vitamin D3) 50 mcg PO BEDTIME ferrous sulfate 325 mg PO BID frovatriptan 2.5 mg PO Q2-4H PRN galcanezumab-gnlm (Emgality Pen) 120 mg subcut DAILY multivitamin 1 tab PO DAILY pantoprazole 40 mg PO DAILY riboflavin (vitamin B2) 400 mg PO DAILY 30 days rimegepant (Nurtec ODT) 75 mg PO Q OTHER DAY PRN 30 days tizanidine 4 mg PO Q8H PRN 30 days topiramate 50 mg PO BID HPI HPI Comments History of Present Illness Details This is a 52-year-old female with seropositive RA returns for follow- up. Last seen 04/2023 She is on Actemra every other week well tolerated. Patient states that she feels about the same overall. She continues to have pain in her hands, upper back, neck. Her pain is a little worse as the weather gets colder and before it rains. She also has bilateral lateral hip pain, worse when she lies on her side [facility] Medical History Left knee pain Right leg DVT Obesity Vitamin D deficiency Non-toxic multinodular goiter Hx of rheumatoid arthritis Hx of thyroid nodule History of vitamin D deficiency Hx of obesity Hx of carpal tunnel syndrome History of fibromyalgia Surgical History History of esophagogastroduodenoscopy (EGD) H/O colonoscopy S/P colonoscopic polypectomy Family History Mother Diabetes Fibromyalgia Osteoarthritis Maternal Grandfather Leukemia Maternal Aunt Breast cancer Unknown Cancer Stomach cancer Social History Household Members: Spouse and Children Housing: House Are you a primary human services care specialist to a significant other at home: No Do you presently have visiting nurse or other home services: No Alcohol intake: current Alcohol intake frequency: does not drink Patient Tobacco Use Status: Never used Tobacco service: No Current occupational status: employed 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[employer] [place] Review of Systems Const Reports fatigue Musc Reports back pain, Reports myalgias, Reports arthralgias and Reports stiffness Endo Reports fatigue Physical Exam Vital Signs: Last Vital Signs Temp 98.4 F 09/18/23 09:15 Pulse 88 09/18/23 09:15 Resp 15 09/18/23 09:15 BP 114/78 09/18/23 09:15 BMI result Body Mass Index 35.3 Const General: cooperative, healthy appearing and comfortable Nutritional Appearance: obese Orientation/consciousness: patient oriented x3 Limitations: no limitations HEENT Head: Yes normocephalic and Yes atraumatic Mouth: moist mucous membranes Resp Effort & Inspection: normal respiratory effort and able to speak in complete sentences Auscultation: clear to auscultation bilaterally Cardio Rate: regular rate Rhythm: regular rhythm Heart sounds: S1 normal heart sound present GI Palpation (GI): Soft to palpation Neuro General: patient oriented x3 Extrem Other: Few MCP and PIP tenderness without swelling Right hand diffuse DIP tenderness without swelling Diffuse fibromyalgia tender points Bilateral trochanteric bursa area tenderness with negative Scarlett's test Assessment & Plan Assessment & Plan (1) Seropositive rheumatoid arthritis: Comment: +RF -ve CCP dx around 2019 Methotrexate 05/2019 Enbrel 04/2020 with methotrexate. Patient stop both accidentally. Triple therapy 05/2020-06/2020 ineffective Xeljanz ineffective Cimzia Ineffective DC 06/2021 Methotrexate discontinued 11/2020 due to elevated liver enzymes. Rinvoq 12/2020 -02/2021 ineffective Humira 06/2021-08/2021 discontinued due to hair loss. Enbrel 09/11 stopped 09/2021 due to injection site reaction Kevzara 10/2021 discontinued due to injection site reaction Actemra 11/2021- present effective Code(s): M05.9 - Rheumatoid arthritis with rheumatoid factor, unspecified Plan: This is a 52-year-old female with seropositive RA who presents for follow-up. On Actemra 162 mg subcutaneously every other week. RA well controlled. Patient's pain is likely due to fibromyalgia bilateral hand osteoarthritis. Discussed with patient. Continue with Actemra every other week Infectious screening : Hepatitis panel and T spot -ve 2022 Labs next visit in 4 months (2) Fibromyalgia: Comment: Previously failed Cymbalta, gabapentin, Lyrica (headaches) Code(s): M79.7 - Fibromyalgia Plan: Symptoms stable on amitriptyline. (3) Greater trochanteric pain syndrome of both lower extremities: Code(s): M25.551 - Pain in right hip; M25.552 - Pain in left hip Plan: I provided patient with a print out of home exercises Plan I spent 30 minutes reviewing patient's chart, evaluating patient, ordering diagnostic workup, counseling patient and documenting in the chart Orders: Orders Complete Blood Count Auto Diff 4 Months M05.9 - Rheumatoid arthritis with rheumatoid factor, unspecified C Reactive Protein 4 Months M05.9 - Rheumatoid arthritis with rheumatoid factor, unspecified Erythrocyte Sedimentation Rate 4 Months M05.9 - Rheumatoid arthritis with rheumatoid factor, unspecified Comprehensive Met. Panel 4 Months M05.9 - Rheumatoid arthritis with rheumatoid factor, unspecified Coding Level of Care Code Est Pt Level 4 (25956) Diagnoses Seropositive rheumatoid arthritis M05.9 Fibromyalgia M79.7 Greater trochanteric pain syndrome of both lower extremities M25.551; M25.552
== END 2023-09-18 09:32 | disposition home or self-care (01) ==
PROVIDERS: PCP Internal Medicine; Visit Provider Student in an Organized Health Care Education/Training Program
DX: M05.79 Rheumatoid arthritis with rheumatoid factor of multiple sites without organ or systems involvement (principal); M79.7 Fibromyalgia; M25.551 Pain in right hip; M25.552 Pain in left hip
CPT/HCPCS: 99214

== ENCOUNTER → 2023-09-18 09:05 | Outpatient (BNVA) | payer OTHER, SELFPAY | PROVIDERS: PCP Internal Medicine; Visit Provider Student in an Organized Health Care Education/Training Program ==

== ENCOUNTER 2023-10-16 06:23 | Emergency (ER) | payer OTHER, SELFPAY ==
--- NOTE | ~2023-10-16 | US_ITS ---
EXAMINATION: US ABDOMEN LIMITED CLINICAL INFORMATION: Pain of right upper quadrant. COMPARISON: CT abdomen/pelvis from 10/16/2023 TECHNIQUE: Real-time imaging of the right upper quadrant abdominal viscera. FINDINGS: PANCREAS: Normal. LIVER: Liver is diffusely hyperechoic from steatosis. Small areas of relative spinal fat sparing adjacent to the gallbladder fossa. No suspicious liver lesion or intrahepatic ductal dilatation. GALLBLADDER: Normal. The gallbladder is physiologically distended without evidence of stones, sludge, polyps, wall thickening or pericholecystic fluid. COMMON BILE DUCT: Common duct is not well seen on this ultrasound examination. A structure that might represent the proximal segment of the duct is 0.7 cm diameter. The common duct is more clearly visualized and measures up to 0.5 cm diameter on the recent abdominal CT images from 10/16/2023 RIGHT KIDNEY: A small echogenic stone of 3-4 mm size is present in the lower pole. Otherwise, the kidney is normal. No hydronephrosis. No focal parenchymal lesions. The kidney measures 11.9 cm in maximum dimension. FREE FLUID: None. US/US abdomen limited IMPRESSION: * No acute sonographic abnormalities in the right upper quadrant. * Diffuse hepatic steatosis. * No evidence of cholelithiasis or cholecystitis. * Small nonobstructing stone is present in the lower pole of the right kidney.
--- NOTE | ~2023-10-16 | CT_ITS ---
EXAMINATION: CT ABDOMEN AND PELVIS WITHOUT CONTRAST CLINICAL INFORMATION: Right flank pain. COMPARISON: CT abdomen/pelvis from 01/13/2015. Ultrasound exam from 11/28/2022. TECHNIQUE: Multidetector volumetric imaging was performed from the superior aspect of the liver through the pubic symphysis. Sagittal and coronal reformatted images were obtained on the technologist's workstation. This CT examination was performed using dose optimization techniques as appropriate, variously including the following: *Automated exposure control *Adjustment of mA and/or kV according to patient size (this includes techniques or standardized protocols for targeted exams where dose is matched to indication/reason for exam; i.e. extremities or head) *Use of iterative reconstruction technique DLP: 624 mGy-cm FINDINGS: LUNG BASES: No pulmonary consolidation or pleural effusion. Minimal hazy opacity of atelectasis in lower lobes. HEPATOBILIARY: Liver has normal size and contour. Diffuse hepatic steatosis. Gallbladder has a normal appearance. No radiopaque stones, wall thickening or pericholecystic fluid. No dilated bile ducts. PANCREAS: No edema, pancreatic ductal dilatation or mass. SPLEEN: Normal. ADRENAL GLANDS: Normal. KIDNEYS AND URETERS: Kidneys are normal in size. 0.3 cm calyceal stone in the right lower pole. No large calculi or hydronephrosis. The ureters are unremarkable. No perinephric edema or perinephric fluid collection. BLADDER: Normal. BOWEL AND PERITONEUM: Stomach is unremarkable. No dilated loops of bowel. The appendix is normal. Mild diverticulosis of the colon without evidence of diverticulitis. No overt bowel wall thickening or mesenteric fat stranding. No free fluid or pneumoperitoneum. ABDOMINAL WALL: Unremarkable. VASCULATURE: Unremarkable. LYMPH NODES: No pathologic sized lymph nodes in the abdomen or pelvis. No inguinal lymphadenopathy. PELVIC VISCERA: Unremarkable. No evidence of uterine or adnexal mass. MUSCULOSKELETAL: No acute or suspicious osseous abnormality. There is mild anterior osteophyte formation and degenerative subarticular sclerosis at sacroiliac joints. CT/CT abdomen pelvis wo IV con IMPRESSION: * No acute imaging abnormalities. * Diffuse hepatic steatosis. * Small 0.3 cm stone in the lower pole of the right kidney. No evidence of ureteral stones or hydroureteronephrosis. * Diverticula of the colon without evidence of diverticulitis.
[2023-10-16 06:26] VITALS: BP 131/84; PULSE 95; RESP 16; TEMP 37.1; O2SAT 96; BMI 35.6
[2023-10-16 07:00] LABS: Hematocrit 49.4 % (37.0-47.0); Hemoglobin 15.7 g/dl (12.0-16.0); Mean Corpuscular HGB Conc 31.8 g/dl (31.0-35.0); Mean Corpuscular Hemoglobin 27.5 pg (27.0-33.0); Mean Corpuscular Volume 86.7 fL (80.0-98.0); Mean Platelet Volume 11.1 fL (9.4-12.3); Platelet Count 241 X10*3/uL (160-400); Red Cell Distribution Width 13.8 % (11.0-16.0); White Blood Count 4.7 X10*3/uL (4.8-10.8)
[2023-10-16 07:08] LABS: Alanine Aminotransferase 33 U/L (0-31); Albumin Level 4.4 g/dL (3.5-5.0); Alkaline Phosphatase 76 U/L (39-117); Anion Gap 16 (12-20); Aspartate Amino Transferase 28 U/L (5-31); Bilirubin Total 0.3 mg/dL (0.0-1.0); Blood Urea Nitrogen 10 mg/dL (9-16); Calcium 9.4 mg/dL (8.4-10.2); Carbon Dioxide 23 mmol/L (22-29); Chloride 111 mmol/L (96-108); Creatinine Clr Calc Pharmacy 50.4; Estimated Glomerular Filt Rate 42; Glucose Random 106 mg/dL (60-115); Potassium 3.5 mmol/L (3.3-5.1); Sodium 146 mmol/L (135-145); Total Protein 8.1 g/dL (6.5-8.0)
--- NOTE | 2023-10-16 07:23 | ED.GENADULT ---
HPI - General Adult General Chief complaint: General Medical Stated complaint: back pain Time Seen by Provider: 10/16/23 07:17 Source: patient Mode of arrival: ambulatory Limitations: no limitations History of Present Illness HPI narrative: 52 year female hx of GERD, tubular adenoma of the colon, hx of DVT on eliquis presents w/ complaints of R sided flank pain w/ radiation to RLQ that started last night and since then has been costant and severe 10/10 pain. No hx of kidney stones. Denies urinary sx. Denies cp, sob, nausea, vomiting, headache, vision changes, dizziness, weakness, fevers and chills Related Data Home Medications Medication Instructions Recorded Confirmed topiramate 50 mg tablet 50 mg PO BID 01/25/21 09/18/23 cholecalciferol (vitamin D3) 50 50 mcg PO BEDTIME 08/08/21 09/18/23 mcg (2,000 unit) capsule multivitamin 1 tab PO DAILY 12/18/21 09/18/23 frovatriptan 2.5 mg tablet 2.5 mg PO Q2-4H PRN Headache 01/15/22 09/18/23 galcanezumab-gnlm 120 mg/mL 120 mg subcut DAILY 12/31/22 09/18/23 subcutaneous pen injector (Emgality Pen) Previous Rx's Medication Instructions Recorded ferrous sulfate 325 mg (65 mg 325 mg PO BID #60 tabs 04/25/22 iron) tablet riboflavin (vitamin B2) 400 mg 400 mg PO DAILY migraines 30 days 06/03/22 tablet #30 tabs tizanidine 4 mg tablet 4 mg PO Q8H PRN muscle spasticity 06/28/22 30 days #90 tabs apixaban 5 mg tablet (Eliquis) 5 mg PO BID #120 tabs 06/27/23 pantoprazole 40 mg tablet,delayed 40 mg PO DAILY #90 tabs 07/25/23 release apixaban 5 mg tablet (Eliquis) 5 mg PO BID #120 tabs 08/26/23 amitriptyline 25 mg tablet 25 mg PO TID #270 ea 09/02/23 Actemra ACTPen 162 mg/0.9 mL 162 mg (0.9 mL) subcut Q2W #1.8 ea 09/24/23 subcutaneous pen injector (tocilizumab) rimegepant 75 mg disintegrating 75 mg PO Q OTHER DAY PRN migraine 09/25/23 tablet (Nurtec ODT) headache 30 days #16 tabs cefuroxime axetil 250 mg tablet 250 mg PO BID 7 days #14 tabs 10/16/23 Allergies Allergy/AdvReac Type Severity Reaction Status Date / Time adalimumab [From Humira] Allergy hairloss Verified 10/16/23 06:26 enoxaparin [From Lovenox] Allergy Rash Verified 10/16/23 06:26 etanercept [Enbrel] Allergy Injection Verified 10/16/23 06:26 site reaction sarilumab [From Kevzara] Allergy injection Verified 10/16/23 06:26 site reaction Review of Systems Review of Systems: Yes all other systems are reviewed and are negative [facility] Past Medical History Attestation statement: The following information was validated with the patient. Source: old records reviewed and nursing notes reviewed Medical History Left knee pain Right leg DVT Obesity Vitamin D deficiency Non-toxic multinodular goiter Hx of rheumatoid arthritis Hx of thyroid nodule History of vitamin D deficiency Hx of obesity Hx of carpal tunnel syndrome History of fibromyalgia Surgical History History of esophagogastroduodenoscopy (EGD) H/O colonoscopy S/P colonoscopic polypectomy Family History Family History Mother Diabetes Fibromyalgia Osteoarthritis Maternal Grandfather Leukemia Maternal Aunt Breast cancer Unknown Cancer Stomach cancer Social History Social History Household Members: Spouse and Children Housing: House Are you a primary care director rn to a significant other at home: No Do you presently have visiting nurse or other home services: No Alcohol intake: current Alcohol intake frequency: does not drink Patient Tobacco Use Status: Never used Tobacco Smoked in Last 30 Days: No Use of substances other than those prescribed or required for medical reasons: No Advance Directives: Yes Advance Directives on File: Yes Advance Directives Date on File: 11/21/21 Patient : No service: No Current occupational status: employed 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 Oriented X3.? Appears uncomfortable. Head: Normocephalic, atraumatic, no step-offs or deformities Eyes: Pupils equal, round and reactive to light.? ENT: Pharynx normal.? Neck: Normal inspection.? Neck supple.? CVS: Normal heart rate and rhythm.? Pulses normal.? Respiratory: No respiratory distress.? Breath sounds normal.? Abdomen: Soft and nontender.? Skin: Skin warm and dry.? Normal skin color.? Normal skin turgor.? Extremities: No lower extremity edema.? No calf ttp. 5/5 strength to bilateral upper and lower extremities Back: No midline tenderness, no C-spine tenderness, full range of motion, no CVA tenderness bilaterally Neuro: Oriented X 3.? No motor deficit.? No sensory deficit. CN 2-12 intact Course Reevaluation(s) Reevaluation #1: CBC with baseline leukopenia and elevated white blood cell count. No acute findings and CBC. Chemistry with slightly elevated sodium however no acute findings that require intervention. Lipase normal. UA with moderate leukocyte esterases and 3+ bacteria there is squamous epithelial cells patient is having right-sided flank pain will still however treat for urinary tract infection. Negative test. CT abdomen pelvis no acute imaging abnormalities. Diffuse hepatic steatosis. Small 0.3 cm stone in lower pole of the right kidney unlikely contributing to patient's pain at this time. No evidence of ureteral stone or hydroureteronephrosis. Diverticula of the colon without acute diverticulitis. It is possible that patient has been passing stones. She has no history of kidney stones in the past to her knowledge. Gave morphine for additional pain control. Will re-evaluate. Time: 09:47 Reevaluation #2: Ultrasound abdomen limited no acute sonographic abnormalities in the right upper quadrant diffuse hepatic steatosis. No evidence of cholelithiasis or cholecystitis. Small nonobstructing stone is present in the lower pole the right kidney as seen on CT. Patient to be discharged with treatment for urinary tract infection. Will have her follow-up with PCP. Educated patient on diagnosis and treatment plan, answered all question, patient verbalizes understanding. At this time patient will be discharged home, advised to return with new or worsening symptoms. Educated on worrisome signs and symptoms and when to return. At this time I feel comfortable discharge home. Time: 11:15 Medications Administered Discontinued Medications Generic Name Dose Route Start Last Admin Trade Name Kari PRN Reason Stop Dose Admin Sodium Chloride 1,000 mls @ 999 mls/hr 10/16/23 07:30 10/16/23 08:38 Ns IV 10/16/23 08:30 999 mls/hr .Q1H1M CORAL Administration Ketorolac Tromethamine 30 mg 10/16/23 07:30 10/16/23 08:39 Ketorolac Tromethamine 30 Mg/Ml Vial IVPUSH 10/16/23 07:31 30 mg ONCE ONE Administration Lidocaine 1 patch 10/16/23 09:45 10/16/23 10:12 Lidocaine 4 % Patch Adh..Patch TRANSDERMA 10/16/23 09:46 1 patch ONCE ONE Administration Protocol Morphine Sulfate 4 mg 10/16/23 09:32 10/16/23 09:43 Morphine Sulfate 4 Mg/Ml Cartridge IVPUSH 10/16/23 09:33 4 mg ONCE ONE Administration Protocol Medical Decision Making Medical Decision Making [facility] Narrative: 52-year-old female presents for evaluation of right-sided flank pain with radiation to right lower quadrant started last night. Denies urinary symptoms. Physical exam appears uncomfortable. Concerns kidney stone versus musculoskeletal pain. Based off history and physical exam less likely appendicitis, acute abdomen, pyelonephritis, obstructing uropathy. Will rule out metabolic derangements, UTI and cystitis. Plan at this time labs, imaging, urine. Differential Diagnosis Differential Diagnoses: The differential diagnosis associated with the presentation includes Concerns kidney stone versus musculoskeletal pain. Based off history and physical exam less likely appendicitis, acute abdomen, pyelonephritis, obstructing uropathy. Will rule out metabolic derangements, UTI and cystitis. Admission/Observation Consideration of admission/observation: Escalation of care including admission/observation considered Lab Data [facility] Lab Attestation statement: I reviewed the patient's lab results. 10/16/23 06:44 10/16/23 06:44 Labs: Lab Results 10/16/23 10/16/23 Range/Units 06:44 08:59 WBC 4.7 L (4.8-10.8) X10*3/uL RBC 5.70 H (4.20-5.50) X10*6/uL Hgb 15.7 (12.0-16.0) g/dl Hct 49.4 H (37.0-47.0) % MCV 86.7 (80.0-98.0) fL MCH 27.5 (27.0-33.0) pg MCHC 31.8 (31.0-35.0) g/dl RDW 13.8 (11.0-16.0) % Plt Count 241 (160-400) X10*3/uL MPV 11.1 (9.4-12.3) fL Absolute Nucleated RBC 0.000 (0.0-0.012) X10*3/uL Nucleated RBC % (auto) 0.0 (0.0-0.2) /100WBC Sodium 146 H (135-145) mmol/L Potassium 3.5 (3.3-5.1) mmol/L Chloride 111 H (96-108) mmol/L Carbon Dioxide 23 (22-29) mmol/L Anion Gap 16 (12-20) BUN 10 (9-16) mg/dL Creatinine 1.33 (0.5-1.4) mg/dL Estim Creat Clear Calc 50.4 Estimated GFR 42 Random Glucose 106 (60-115) mg/dL Calcium 9.4 (8.4-10.2) mg/dL Total Bilirubin 0.3 (0.0-1.0) mg/dL AST 28 (5-31) U/L ALT 33 H (0-31) U/L Alkaline Phosphatase 76 (39-117) U/L Total Protein 8.1 H (6.5-8.0) g/dL Albumin 4.4 (3.5-5.0) g/dL Lipase 27 (8-78) U/L Urine Color Yellow Urine Appearance Cloudy Urine pH 6.0 (5.0-9.0) Ur Specific [place] 1.020 (1.005-1.025) Urine Protein Trace (Neg-Trace) mg/dL Urine Glucose (UA) Negative (Negative) mg/dL Urine Ketones Negative (Negative) mg/dL Urine Blood Negative (Negative) Urine Nitrite Negative (Negative) Ur Leukocyte Esterase Moderate (2+) H (Negative) Urine RBC 0-2 (0-2) /HPF Urine WBC 11-20 (0-5) /HPF Ur Squamous Epith Cells 11-20 (0-2) /HPF Urine Bacteria 3+ (None Seen) Hyaline Casts 0-2 (0-2) /LPF Urine Test NEGATIVE (NEGATIVE) Independent Interpretation I performed an independent interpretation of an: Ultrasound (US/US abdomen limited IMPRESSION: * No acute sonographic abnormalities in the right upper quadrant. * Diffuse hepatic steatosis. * No evidence of cholelithiasis or cholecystitis. * Small nonobstructing stone is present in the lower pole of the right kidney.) and CT Scan (CT/CT abdomen pelvis wo IV con IMPRESSION: * No acute imaging abnormalities. * Diffuse hepatic steatosis. * Small 0.3 cm stone in the lower pole of the right kidney. No evidence of ureteral stones or hydroureteronephrosis. * Diverticula of the colon without evidence of diverticulitis. ) Radiology Impression Discussion of test interpretation with radiology: I have reviewed the radiologist's reading. External Record Review External record reviewed: Inpatient record, Office record, Outpatient record, Prior outpatient labs, Prior outpatient radiology, Primary care record and Outside ED record Prescription Management I considered prescription management with: Antibiotic Chronic Conditions Patient?s care impacted by: Other (GERD) Discharge Plan Discharge Clinical Impression: UTI (urinary tract infection), Kidney calculi Patient Disposition: Home, Self-Care Instructions: Urinary Tract Infection in Women (DC), Renal Colic (ED) Additional Instructions: Take your medications as prescribed. If you were prescribed antibiotics today, it is important that you take your medication to their entirety, do not skip any doses, do not finish them early. Follow-up with your primary care provider this week. Return to the emergency department with new or worsening symptoms. Such as fevers, chills, chest pain, shortness of breath, nausea, vomiting, dizziness, headache, vision changes, lethargy In case of emergency call 911 CT/CT abdomen pelvis wo IV con IMPRESSION: * No acute imaging abnormalities. * Diffuse hepatic steatosis. * Small 0.3 cm stone in the lower pole of the right kidney. No evidence of ureteral stones or hydroureteronephrosis. * Diverticula of the colon without evidence of diverticulitis. US/US abdomen limited IMPRESSION: * No acute sonographic abnormalities in the right upper quadrant. * Diffuse hepatic steatosis. * No evidence of cholelithiasis or cholecystitis. * Small nonobstructing stone is present in the lower pole of the right kidney. Prescriptions: New cefuroxime axetil 250 mg tablet 250 mg PO BID 7 Days Qty: 14 0RF No Action riboflavin (vitamin B2) 400 mg tablet 400 mg PO DAILY 30 Days Qty: 30 6RF pantoprazole 40 mg tablet,delayed release (DR/EC) 40 mg PO DAILY Qty: 90 3RF Eliquis 5 mg Tablet 5 mg PO BID Qty: 120 4RF amitriptyline 25 mg tablet 25 mg PO TID Qty: 270 0RF Actemra ACTPen 162 mg/0.9 mL pen injector 162 mg subcut Q2W Qty: 1.8 2RF Nurtec ODT 75 mg tablet,disintegrating 75 mg PO Q OTHER DAY PRN (Reason: migraine headache) 30 Days Qty: 16 3RF ferrous sulfate 325 mg (65 mg iron) Tablet 325 mg PO BID Qty: 60 2RF Eliquis 5 mg Tablet 5 mg PO BID Qty: 120 0RF cholecalciferol (vitamin D3) 50 mcg (2,000 unit) capsule 50 mcg PO BEDTIME multivitamin Tablet 1 tab PO DAILY topiramate 50 mg tablet 50 mg PO BID Emgality Pen 120 mg/mL pen injector 120 mg subcut DAILY frovatriptan 2.5 mg tablet 2.5 mg PO Q2-4H PRN (Reason: Headache) Rx Instructions: do not exceed 3 doses per 24 hrs tizanidine 4 mg tablet 4 mg PO Q8H PRN (Reason: muscle spasticity) 30 Days Qty: 90 0RF Referrals: Priscilla Gonsalves MD [Primary Care Provider] - 2 days Stand Alone Forms: Work/School Release
[2023-10-16 07:51] LABS: Lipase 27 U/L (8-78)
[2023-10-16] MEDS: 0.9 % Sodium Chloride 1,000 ML 999 ML IV (08:38)
[2023-10-16] MEDS: Ketorolac Tromethamine 30 MG/ML VIAL IVPUSH (08:39)
[2023-10-16 09:00] VITALS: BP 130/77; PULSE 84; RESP 14; TEMP 36.9; O2SAT 93
[2023-10-16 09:04] LABS: Appearance Urine Cloudy; Color Urine Yellow; Glucose Urine UA Negative (Negative); Leukocyte Esterase Urine Moderate (2+) (Negative); Nitrite Urine Negative (Negative); UMIC TRIGGER UACC YES; Urine Blood Negative (Negative); Urine Ketones Negative (Negative); Urine Protein Trace mg/dL (Neg-Trace)
[2023-10-16 09:06] LABS: Urine Pregnancy NEGATIVE (NEGATIVE)
[2023-10-16 09:07] LABS: UPreg QC Valid YES
[2023-10-16 09:12] LABS: Bacteria Urine 3+ (None Seen); Hyaline Casts Urine 0-2 /LPF (0-2); RBC Urine 0-2 /HPF (0-2); UACC Culture Trigger YES
[2023-10-16] MEDS: Morphine Sulfate 4 MG/ML CARTRIDGE IVPUSH (09:43)
[2023-10-16 10:10] VITALS: BP 127/70; PULSE 74; RESP 17; TEMP 36.9; O2SAT 97
[2023-10-16] MEDS: Lidocaine 4 % Patch ADH..PATCH 1 PATCH TRANSDERMA (10:12)
== END 2023-10-16 11:29 | disposition home or self-care (01) ==
PROVIDERS: Physician Assistant; Emergency Provider Emergency Medicine; PCP Internal Medicine
DX: N39.0 Urinary tract infection, site not specified (principal); N20.0 Calculus of kidney; R10.31 Right lower quadrant pain; Z86.718 Personal history of other venous thrombosis and embolism; Z79.01 Long term (current) use of anticoagulants; Z79.899 Other long term (current) drug therapy
CPT/HCPCS: 36415; 74176; 76705; 80053; 81001; 81025; 83690; 85027; 87086; 96361; 96374; 96375; 99284; J1885; J2270

== ENCOUNTER 2023-12-18 08:42 | Outpatient (AMB) | payer OTHER, SELFPAY ==
[2023-12-18 09:12] VITALS: BP 130/80; PULSE 82; TEMP 36.2; O2SAT 98; BMI 34.6
--- NOTE | 2023-12-18 09:12 | AM.OFFWIN_ITS ---
Intake Vital Signs 12/18/23 09:12 Height 5 ft 2 in Weight 189 lb BMI 34.6 BP 130/80 Blood Pressure Location Lt brachial Position Sitting Pulse 82 Pulse Source Pulse Oximeter Temp 97.2 F Temp Source Temporal Artery Scan Pulse Oximetry (%) 98 Oxygen Delivery Method Room Air Intake Visit Reasons: EP ?Kidney Stone Intake Note: pt is here today for kidney stones started 1 week ago Patient Tobacco Use Status: Never used Tobacco Allergies adalimumab [From Humira] Allergy (Verified 12/18/23 09:21) hairloss enoxaparin [From Lovenox] Allergy (Verified 12/18/23 09:21) Rash etanercept [Enbrel] Allergy (Verified 12/18/23 09:21) Injection site reaction sarilumab [From Kevzara] Allergy (Verified 12/18/23 09:21) injection site reaction Do you need a note to return to daycare/school/sports/work: Yes HPI HPI Comments History of Present Illness Details 53 y/o female who presents to walk in [facility] with c/o right sided lower back pain for 1 month. Pt has had this pain on/off. She was recently seen at ED and was diagnosed with Right Kidney Stone via U/S and CT-scan. Pt denies nausea or vomiting. Pt denies fevers or chills. PFSH Medical History Left knee pain Right leg DVT Obesity Vitamin D deficiency Non-toxic multinodular goiter Hx of rheumatoid arthritis Hx of thyroid nodule History of vitamin D deficiency Hx of obesity Hx of carpal tunnel syndrome History of fibromyalgia Surgical History History of esophagogastroduodenoscopy (EGD) H/O colonoscopy S/P colonoscopic polypectomy Family History Mother Diabetes Fibromyalgia Osteoarthritis Maternal Grandfather Leukemia Maternal Aunt Breast cancer Unknown Cancer Stomach cancer Social History Household Members: Spouse and Children Housing: House Are you a primary care analyst to a significant other at home: No Do you presently have visiting nurse or other home services: No Alcohol intake: current Alcohol intake frequency: does not drink Patient Tobacco Use Status: Never used Tobacco Advance Directives Date on File: 11/21/21 service: No Current occupational status: employed 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[employer] [place] Review of Systems Const All systems reviewed & are unremarkable except as noted in HPI and below Physical Exam Vital Signs: Last Vital Signs Temp 97.2 F 12/18/23 09:12 Pulse 82 12/18/23 09:12 BP 130/80 12/18/23 09:12 Pulse Ox 98 12/18/23 09:12 Oxygen Delivery Method Room Air 12/18/23 09:12 BMI result Body Mass Index 34.6 Const General: no acute distress; No comfortable Nutritional Appearance: obese Orientation/consciousness: patient oriented x3 General: Yes CVA tenderness (right sided CVA Tenderness) Back/Spine/Pelvis Back: CVA tenderness (right sided CVA Tenderness), No erythema, No warmth and back tenderness Thoracic/Lumbar Spine: thoraco-lumbar ROM normal Neuro General: patient oriented x3, gait normal and moves all extremities Psych Speech and movement: Normal speech and movement present Results AMB Urinalysis, Automated 2 UA Leukoctes 125 Nadine/uL Last Edit by Migel Garcia on 12/18/23 10:01 UA Nitrite Negative Last Edit by Migel Garcia on 12/18/23 10:01 UA Urobilinogen 0.2 mg/dL Last Edit by Migel Garcia on 12/18/23 10:01 UA Protein 15 mg/dL Last Edit by Migel Garcia on 12/18/23 10:01 UA pH 6.0 Last Edit by Migel Garcia on 12/18/23 10:01 UA Blood 0 Jarrell/uL Last Edit by Migel Garcia on 12/18/23 10:01 UA Specific [place] 1.015 Last Edit by Migel Garcia on 12/18/23 10:01 UA Ketone Negative Last Edit by Migel Garcia on 12/18/23 10:01 UA Bilirubin 0 mg/dL Last Edit by Migel Garcia on 12/18/23 10:01 UA Glucose 0 mg/dL Last Edit by Migel Garcia on 12/18/23 10:01 Results Reviewed Results Reviewed: Laboratory Last Values Urine pH (Auto) 6.0 12/18/23 09:59 Specific [place] (Auto) 1.015 12/18/23 09:59 Urine Protein (Auto) 15 mg/dL 12/18/23 09:59 Glucose (UA)(Auto) 0 mg/dL 12/18/23 09:59 Urine Ketones (Auto) Negative 12/18/23 09:59 Urine Blood (Auto) 0 Jarrell/uL 12/18/23 09:59 Urine Nitrite (Auto) Negative 12/18/23 09:59 Urine Bilirubin (Auto) 0 mg/dL 12/18/23 09:59 Urine Urobilinogen (Auto) 0.2 mg/dL 12/18/23 09:59 Leukocyte Esterase (Auto) 125 Nadine/uL 12/18/23 09:59 Assessment & Plan Assessment & Plan (1) Cystitis: Code(s): N30.90 - Cystitis, unspecified without hematuria Plan: - Abx for seven days - Acetaminophen for pain relief. - Hydrate with plenty of water - U/A positive for Leuco Medications: New ciprofloxacin HCl 500 mg PO BID 7 days 14 tabs 0RF N30.90 - Cystitis, unspecified without hematuria Coding Level of Care Code Est Pt Level 3 (21967) Diagnoses Cystitis N30.90 Time Spent (min) 15
== END 2023-12-18 10:08 | disposition home or self-care (01) ==
PROVIDERS: PCP Internal Medicine; Visit Provider Nurse Practitioner Family
DX: N30.90 Cystitis, unspecified without hematuria (principal)
CPT/HCPCS: 99213

== ENCOUNTER 2024-01-19 08:37 | Outpatient (AMB) | payer OTHER, SELFPAY ==
--- NOTE | 2024-01-19 08:43 | A.OFFVIS_ITS ---
Vital Signs 01/19/24 08:44 Height 5 ft 2 in Weight 185 lb 10.067 oz BMI 33.9 BP 122/70 Blood Pressure Location Rt brachial Position Sitting Pulse 90 Pulse Source Pulse Oximeter Oxygen Delivery Method Room Air Intake Visit Reasons: RA Intake Note: Patient last seen 09/18/23 presents today for follow up and test results. 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 Required: No Accompanied by: Self / Same As Patient Allergies adalimumab [From Humira] Allergy (Verified 01/19/24 08:48) hairloss enoxaparin [From Lovenox] Allergy (Verified 01/19/24 08:48) Rash etanercept [Enbrel] Allergy (Verified 01/19/24 08:48) Injection site reaction sarilumab [From Kevzara] Allergy (Verified 01/19/24 08:48) injection site reaction Medication List - Last Reconciled 01/19/24 by Marya Sung MD Actemra ACTPen (tocilizumab) 162 mg (0.9 mL) subcut Q2W NS amitriptyline 25 mg PO TID apixaban (Eliquis) 5 mg PO BID cefuroxime axetil 250 mg PO BID 7 days cholecalciferol (vitamin D3) 50 mcg PO BEDTIME ferrous sulfate 325 mg PO BID fremanezumab-vfrm (Ajovy) mg subcut frovatriptan 2.5 mg PO Q2-4H PRN multivitamin 1 tab PO DAILY pantoprazole 40 mg PO DAILY riboflavin (vitamin B2) 400 mg PO DAILY 30 days rimegepant (Nurtec ODT) 75 mg PO Q OTHER DAY PRN 30 days tizanidine 4 mg PO Q8H PRN 30 days topiramate 50 mg PO BID trazodone 100 mg PO BEDTIME PRN 30 days HPI Comments Details: This is a 52-year-old female with seropositive RA returns for follow-up. Last seen 08/2023 She is on Actemra every other week well tolerated. She states that she has been doing fairly well. For the last 1 week or so she has been having pain radial side of her right wrist, usually worse with activity. Gets intermittent triggering of her fingers. Minimally symptomatic. [facility] Medical History Left knee pain Right leg DVT Obesity Vitamin D deficiency Non-toxic multinodular goiter Hx of rheumatoid arthritis Hx of thyroid nodule History of vitamin D deficiency Hx of obesity Hx of carpal tunnel syndrome History of fibromyalgia Surgical History History of esophagogastroduodenoscopy (EGD) H/O colonoscopy S/P colonoscopic polypectomy Family History Mother Diabetes Fibromyalgia Osteoarthritis Maternal Grandfather Leukemia Maternal Aunt Breast cancer Unknown Cancer Stomach cancer Social History Household Members: Spouse and Children Housing: House Are you a primary critical care rn to a significant other at home: No Do you presently have visiting nurse or other home services: No Alcohol intake: current Alcohol intake frequency: does not drink Patient Tobacco Use Status: Never used Tobacco Advance Directives Date on File: 11/21/21 service: No Current occupational status: employed 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[employer] [place] Review of Systems Musc Reports arthralgias Physical Exam Vital Signs: Last Vital Signs Pulse 90 01/19/24 08:44 BP 122/70 01/19/24 08:44 Oxygen Delivery Method Room Air 01/19/24 08:44 BMI result Body Mass Index 33.9 Const General: cooperative, healthy appearing and comfortable Nutritional Appearance: obese Orientation/consciousness: patient oriented x3 Limitations: no limitations HEENT Head: Yes normocephalic and Yes atraumatic Mouth: moist mucous membranes Resp Effort & Inspection: normal respiratory effort and able to speak in complete sentences Auscultation: clear to auscultation bilaterally Cardio Rate: regular rate Rhythm: regular rhythm Heart sounds: S1 normal heart sound present Neuro General: patient oriented x3 Extrem Other: Few MCP and PIP tenderness without swelling Right 1st CMC joint tenderness Negative Juan A's test Right 5th flexor tendon triggering Multiple fibromyalgia tender points Assessment & Plan Assessment & Plan (1) Seropositive rheumatoid arthritis: Comment: +RF -ve CCP dx around 2019 Methotrexate 05/2019 Enbrel 04/2020 with methotrexate. Patient stop both accidentally. Triple therapy 05/2020-06/2020 ineffective Xeljanz ineffective Cimzia Ineffective DC 06/2021 Methotrexate discontinued 11/2020 due to elevated liver enzymes. Rinvoq 12/2020 -02/2021 ineffective Humira 06/2021-08/2021 discontinued due to hair loss. Enbrel 09/11 stopped 09/2021 due to injection site reaction Kevzara 10/2021 discontinued due to injection site reaction Actemra 11/2021- present effective Code(s): M05.9 - Rheumatoid arthritis with rheumatoid factor, unspecified Category: Medical Plan: This is a 53-year-old female with seropositive RA who presents for follow-up. On Actemra 162 mg subcutaneously every other week. RA well controlled. Patient's pain today is likely due to right 1st CMC joint osteoarthritis Continue with Actemra every other week Infectious screening : Hepatitis panel and T spot -ve 2022 Labs next visit in 4 months (2) Fibromyalgia: Comment: Previously failed Cymbalta, gabapentin, Lyrica (headaches) Code(s): M79.7 - Fibromyalgia Category: Medical Plan: Symptoms stable on amitriptyline. (3) Osteoarthritis of carpometacarpal joint of right thumb: Code(s): M18.11 - Unilateral primary osteoarthritis of first carpometacarpal joint, right hand Category: Medical Qualifiers: Osteoarthritis type: primary Qualified Code(s): M18.11 - Unilateral primary osteoarthritis of first carpometacarpal joint, right hand Plan: Voltaren gel trial. Use as needed. Do not use regularly given concurrent Eliquis use Thumb spica splint prescribed Plan I spent 25 minutes reviewing patient's chart, evaluating patient, ordering diagnostic workup, counseling patient and documenting in the chart Orders: Orders Complete Blood Count Auto Diff 4 Months M05.9 - Rheumatoid arthritis with rheum atoid factor, unspecified Comprehensive Met. Panel 4 Months M05.9 - Rheumatoid arthritis with rheumatoid factor, unspecified C Reactive Protein 4 Months M05.9 - Rheumatoid arthritis with rheumatoid factor, unspecified Erythrocyte Sedimentation Rate 4 Months M05.9 - Rheumatoid arthritis with rheumatoid factor, unspecified Hepatitis A,B,C Profile 4 Months Z11.59 - Encounter for screening for other viral diseases T Spot TB 4 Months Z11.7 - Encounter for testing for latent tuberculosis infection Medications: New [thumb spica] wear nightly & as much as possible throughout the day 1 ea 0RF M18.11 - Unilateral primary osteoarthritis of first carpometacarpal joint, right hand, M65.4 - Radial styloid tenosynovitis [de Quervain] Refilled Actemra ACTPen (tocilizumab) 162 mg (0.9 mL) subcut Q2W 1.8 ea 2RF NS M05.9 - Rheumatoid arthritis with rheumatoid factor, unspecified Coding Level of Care Code Est Pt Level 4 (23441) Diagnoses Seropositive rheumatoid arthritis M05.9 Fibromyalgia M79.7 Primary osteoarthritis of first carpometacarpal joint of right hand M18.11 Osteoarthritis type: primary
[2024-01-19 08:44] VITALS: BP 122/70; PULSE 90; BMI 33.9
== END 2024-01-19 09:08 | disposition home or self-care (01) ==
PROVIDERS: PCP Internal Medicine; Visit Provider Student in an Organized Health Care Education/Training Program
DX: M05.79 Rheumatoid arthritis with rheumatoid factor of multiple sites without organ or systems involvement (principal); M79.7 Fibromyalgia; M18.11 Unilateral primary osteoarthritis of first carpometacarpal joint, right hand
CPT/HCPCS: 99214

== ENCOUNTER → 2024-01-19 08:37 | Outpatient (BNVA) | payer OTHER, SELFPAY | PROVIDERS: PCP Internal Medicine; Visit Provider Student in an Organized Health Care Education/Training Program ==

== ENCOUNTER 2024-03-15 10:29 | Outpatient (AMB) | payer OTHER, SELFPAY ==
[2024-03-15 10:39] VITALS: BP 136/84; PULSE 82; O2SAT 96; BMI 33.6
--- NOTE | 2024-03-15 10:39 | A.OFFPC_ITS ---
Vital Signs 03/15/24 10:39 Height 5 ft 2 in Weight 183 lb 8 oz BMI 33.6 BP 136/84 Blood Pressure Location Rt brachial Position Sitting Pulse 82 Pulse Source Pulse Oximeter Pulse Oximetry (%) 96 Oxygen Delivery Method Room Air Intake Visit Reasons: [employer]ER-requesting PE Allergies adalimumab [From Humira] Allergy (Verified 03/15/24 11:02) hairloss enoxaparin [From Lovenox] Allergy (Verified 03/15/24 11:02) Rash etanercept [Enbrel] Allergy (Verified 03/15/24 11:02) Injection site reaction sarilumab [From Kevzara] Allergy (Verified 03/15/24 11:02) injection site reaction Medication List - Last Reconciled 03/15/24 by PEDRO Kincaid-PADMINI Actemra ACTPen (tocilizumab) 162 mg (0.9 mL) subcut Q2W NS amitriptyline 25 mg PO TID apixaban (Eliquis) 5 mg PO BID fremanezumab-vfrm (Ajovy) mg subcut frovatriptan 2.5 mg PO Q2-4H PRN pantoprazole 40 mg PO DAILY rimegepant (Nurtec ODT) 75 mg PO Q OTHER DAY PRN 30 days [thumb spica wear nightly & as much as possible throughout the day] tizanidine 4 mg PO Q8H PRN 30 days topiramate 100 mg PO BID trazodone 100 mg PO BEDTIME PRN 30 days Tobacco use date assessed: 03/15/24 Dental Screening Dental Screen Date: 03/15/24 Did you have a dental visit in the last 12 months?: Yes Did you have a dental problem in the last 6 months where you did not have access to dental care?: No Was dental information given to patient?: Patient has dentist HPI HPI Comments History of Present Illness Details 53-year-old female with obesity, GERD, m igraine, chronic joint pain, vitamin-D deficiency, nontoxic multinodular goiter, seropositive RA, fibromyalgia, DVT ((multiple, first one diagnosed in her 30s), mild chronic microangiopathy (mri brain 2020 & 2022), 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 Colon 11/2021 Dr. Gomez positive tubular adenoma ? Mammo reports UTD, done @ [facility] ? DEXA n/a just entered menopause < 1 year ? PAP @ [facility] reports UTD ? 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 She is up-to-date on her health maintenance with the exception of Tdap. She will get the next office visit as she just received her Actemra injection this morning. She is complaining of ear congestion and a dry cough that started on Friday. Has used [id number] medications without relief. MDD/SRUTHI -positive PHQ in GED. Has never been on medications or been to counseling. She is open to counseling and medications. SDOH + financial barriers to care, food insecurity. Nurse navigation referral placed. Routine follow up by her specialists for chronic conditions. All current medications are prescribed by specialists and not primary care. [facility] Medical History Acute lower GI bleeding Lumbar back pain with radiculopathy affecting right lower extremity Mass of both wrists Osteoarthritis of carpometacarpal joint of right thumb Left knee pain Right leg DVT Obesity Vitamin D deficiency Non-toxic multinodular goiter Hx of rheumatoid arthritis Hx of thyroid nodule History of vitamin D deficiency Hx of obesity Hx of carpal tunnel syndrome History of fibromyalgia Surgical History History of esophagogastroduodenoscopy (EGD) H/O colonoscopy S/P colonoscopic polypectomy Family History Mother Diabetes Fibromyalgia Osteoarthritis Maternal Grandfather Leukemia Maternal Aunt Breast cancer Unknown Cancer Stomach cancer Social History Household Members: Spouse and Children Housing: House Are you a primary health care technician to a significant other at home: No Do you presently have visiting nurse or other home services: No Alcohol intake: current Alcohol intake frequency: does not drink Patient Tobacco Use Status: Never used Tobacco e-Cigarette/Vaping Use: Never Used Advance Directives Date on File: 11/21/21 service: No Current occupational status: employed 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 1. Little interest or pleasure in doing things: nearly every day 2. Feeling down, depressed, or hopeless: nearly every day 3. Trouble falling or staying asleep, or sleeping too much: nearly every day 4. Feeling tired or having little energy: nearly every day 5. Poor appetite or overeating: more than half the days 6. Feeling bad about yourself - or that you are a failure or have let yourself or your family down: nearly every day 7. Trouble concentrating on things, such as reading the newspaper or watching television: not at all 8. Moving or speaking so slowly that other people could have noticed. Or the opposite - being so fidgety or restless that you have been moving around a lot more than usual: not at all 9. Thoughts that you would be better off or of hurting yourself in some way: not at all Total score: 17 Depression Screening Interpretation: Positive Depression Screening Follow-up: Existing condition and Community Mental Health Worker F/U Depression Screening Done: Yes 43864 - PHQ-9 Billing: Yes Source: Developed by Drs. Jean Figueroa, Maribell Nascimento, Mookie Armendariz and colleagues, with an educational leigh ann from [employer]. Thrive Questionnaire Date Thrive assessed: 03/15/24 I am a: Patient What is your living situation today?: I have a steady place to live Within the past 12 months, did the food you bought not last and you didn't have the money to get more?: Sometimes True Within the past 12 months, did you worry whether your food would run out before you got money to buy more?: Sometimes True Do you have trouble paying for medicines?: No Do you have trouble getting transportation to medical appointments?: No Do you have trouble paying your heating and electricity bill?: Yes Do you have trouble taking care of your child, family member or friend?: No Do you have trouble with day-to-day activities such as bathing, preparing meals, shopping, managing finances, etc.?: No Are you currently unemployed and looking for a job?: No Are you interested in more education?: No Please select the resources that you would like help with: Food and Utilities Currently or been in a relationship where the following occur: no concerns reported THRIVE Score: 3 AUDIT C Alcohol Use Questionnaire (AUDIT-C) 1. How often do you have a drink containing alcohol?: Never 3. How often do you have six or more drinks on one occasion?: Never Total Score: 0 Score Reviewed/Action Taken: Yes SRUTHI-7 AMB Questionnaire SRUTHI-7 Date SRUTHI - 7 assessed: 03/15/24 Feeling nervous, anxious, or on edge: 2 = More than half the days Not being able to stop or control worryin = Nearly every day Worrying too much about different things: 3 = Nearly every day Trouble relaxin = Nearly every day Being so restless that it is hard to sit still: 3 = Nearly every day Becoming easily annoyed or irritable: 3 = Nearly every day Feeling afraid as if something awful might happen: 3 = Nearly every day Total SRUTHI-7 score (0-4 normal; 5-9 mild; 10-14 moderate; 15-21 severe): 20 Source: Developed by Drs. Jean Figueroa, Maribell Nascimento, Mookie Armendariz and colleagues, with an educational leigh ann from [employer]. SRUTHI-7 Assessment Billing SRUTHI-7 Assessment Tool: SRUTHI-7 Assessment 59302 Review of Systems Const Details: Constitutional: Denies fever. Skin: Denies rash. Eye: Denies eye pain. ENMT: Denies sore throat and nasal congestion. Respiratory: Denies shortness of breath Gastrointestinal: Denies nausea, vomiting or abdominal pain. Cardiovascular: Denies chest pain and syncope. Genitourinary: Denies dysuria. Musculoskeletal: Denies back pain and extremity pain. Neurologic: Denies headaches, confusion, and weakness. Psychiatric: Denies suicidal thoughts and substance abuse. Allergy/ Immunologic: Denies impaired immunity. Physical exam (Primary Care) Vital Signs: Last Vital Signs Pulse 82 03/15/24 10:39 BP 136/84 03/15/24 10:39 Pulse Ox 96 03/15/24 10:39 Oxygen Delivery Method Room Air 03/15/24 10:39 BMI result Body Mass Index 33.6 BMI Assessment/Plan discussion: High BMI High, discussed plan: lifestyle Tobacco/Smoking Status: Tobacco use Status Tobacco use date assessed 03/15/24 03/15/24 10:48 Patient Tobacco Use Status Never used Tobacco 03/15/24 10:48 e-Cigarette/Vaping Use Never Used 03/15/24 10:48 PHQ-9: PHQ-9 Score PHQ-9: Total score 17 03/15/24 13:24 Depression Screening Interpretation: Positive Depression Screening Follow-up: Existing condition and Community Mental Health Worker F/U Thrive Assessment: Date of Thrive Assessment Date Thrive assessed 03/15/24 03/15/24 10:48 Currently or been in a relationship where the following occur: no concerns reported Const Other: General: Well developed, well nourished, in no acute distress. Appears stated age. Head: Normocephalic, atraumatic. Eyes: Pupils are equal, round and reactive to light and accommodation. Conjunctivae are clear. Vision grossly normal. Ears: TMs AU with congestion EACS WNL Nose: Patent, clear nasal drainage, turbinates erythematous and edematous Mouth: There are no ulcers or lesions noted. No inflammation, no post nasal drip, no plaques nor exudates. Neck: Supple, no adenopathy or thyromegaly. Lungs: Clear to auscultation bilaterally. No rales, rhonchi or wheeze noted. Diminished throughout Heart: Regular rate and rhythm. No murmurs, click, rubs or gallops are noted. Abdomen: Bowel sounds present in all quadrants. The abdomen is soft, nontender, with no masses or organomegaly noted. No hernias are noted. Musculoskeletal: Joints are without swelling, redness, or effusions. Range of motion is observed to be normal. Pulses: Peripheral pulses are equal and palpable bilaterally. Extremities: No clubbing, cyanosis nor edema is noted. Neurologic: Gait and station normal. Cranial Nerves 2-12 intact. Motor strength grossly symmetrical and intact. No sensory loss. Balance normal. Skin: No rashes, ulcers, or lesions noted. Turgor is good. Skin color is good. Hair and nails are without abnormalities. Psych: Normal eye contact, affect and mood appropriate, and normal interactions. Patient is alert and appropriate to context. Assessment and Plan Assessment & Plan (1) Encounter for general adult medical examination with abnormal findings: Code(s): Z00.01 - Encounter for general adult medical examination with abnormal findings (2) MDD (major depressive disorder): Comment: Refer to counseling and start meds discussed with dry finisher, rec to start lexapro 10mg po QD Code(s): F32.9 - Major depressive disorder, single episode, unspecified Qualifiers: Active/Remission status: currently active Major depression episode severity: moderate Major depression recurrence: recurrent Qualified Code(s): F33.1 - Major depressive disorder, recurrent, moderate (3) Encounter for screening involving social determinants of health (SDoH): Code(s): Z13.9 - Encounter for screening, unspecified (4) Secondary hypercoagulable state: Comment: Due to factor V lieden on Eliquis, managed by Hematology Code(s): D68.69 - Other thrombophilia (5) Chronic deep vein thrombosis (DVT) of right lower extremity: Comment: DVT in the right lower extremity present for greater than 1 year on Eliquis Code(s): I82.501 - Chronic embolism and thrombosis of unspecified deep veins of right lower extremity Qualifiers: Affected thrombotic vein of extremity: iliac Qualified Code(s): I82.521 - Chronic embolism and thrombosis of right iliac vein (6) Morbid obesity: Comment: BMI greater than 33 Code(s): E66.01 - Morbid (severe) obesity due to excess calories (7) Migraine headache with aura: Comment: Managed by Neurology Code(s): G43.109 - Migraine with aura, not intractable, without status migrainosus Qualifiers: Intractability: not intractable Status migrainosus presence: without status migrainosus Qualified Code(s): G43.109 - Migraine with aura, not intractable, without status migrainosus (8) Vitamin D deficiency: Comment: Not currently on supplementation. We will check vitamin-D level Code(s): E55.9 - Vitamin D deficiency, unspecified (9) Non-toxic multinodular goiter: Comment: Was managed by endocrinology in the past. Cleared from further follow up. Check TSH and T4 today. Code(s): E04.2 - Nontoxic multinodular goiter (10) Factor V Leiden mutation: Comment: Followed by hematology. Code(s): D68.51 - Activated protein C resistance (11) SRUTHI (generalized anxiety disorder): Comment: See MDD care plan Code(s): F41.1 - Generalized anxiety disorder (12) Allergic rhinitis: Comment: Start Zyrtec and Flonase. Code(s): J30.9 - Allergic rhinitis, unspecified Qualifiers: Allergic rhinitis seasonality: seasonal Allergic rhinitis trigger: pollen Qualified Code(s): J30.1 - Allergic rhinitis due to pollen Plan . An additional 20 was spent addressing the problem(s) noted at todays visit. This includes time spent before the visit reviewing the chart, time spent during the visit, and time spent after the visit on documentation Orders: Orders Hemoglobin A1c Today D68.51 - Activated protein C resistance, D68.69 - Other thrombophilia, E55.9 - Vitamin D deficiency, unspecified, Z00.01 - Encounter for general adult medical examination with abnormal findings Microalbumin, Random (w Creat) Today D68.51 - Activated protein C resistance, D68.69 - Other thrombophilia, E55.9 - Vitamin D deficiency, unspecified, Z00.01 - Encounter for general adult medical examination with abnormal findings Vitamin B12 and Folate Today D68.51 - Activated protein C resistance, D68.69 - Other thrombophilia, E55.9 - Vitamin D deficiency, unspecified, Z00.01 - Encounter for general adult medical examination with abnormal findings Vitamin D 25-OH Total Today D68.51 - Activated protein C resistance, D68.69 - Other thrombophilia, E55.9 - Vitamin D deficiency, unspecified, Z00.01 - Encounter for general adult medical examination with abnormal findings Comprehensive [place]. Panel Fast Today D68.51 - Activated protein C resistance, D68.69 - Other thrombophilia, E55.9 - Vitamin D deficiency, unspecified, Z00.01 - Encounter for general adult medical examination with abnormal findings TSH reflex Free T4 Today D68.51 - Activated protein C resistance, D68.69 - Other thrombophilia, E55.9 - Vitamin D deficiency, unspecified, Z00.01 - En counter for general adult medical examination with abnormal findings Lipid Panel Today D68.51 - Activated protein C resistance, D68.69 - Other thrombophilia, E55.9 - Vitamin D deficiency, unspecified, Z00.01 - Encounter for general adult medical examination with abnormal findings Complete Blood Count no Diff Today D68.51 - Activated protein C resistance, D68.69 - Other thrombophilia, E55.9 - Vitamin D deficiency, unspecified, Z00.01 - Encounter for general adult medical examination with abnormal findings IRON PROFILE Today D68.51 - Activated protein C resistance, D68.69 - Other thrombophilia, E55.9 - Vitamin D deficiency, unspecified, Z00.01 - Encounter for general adult medical examination with abnormal findings Referrals Counseling Referral F32.9 - Major depressive disorder, single episode, unspecified Nurse Navigator Referral Z13.9 - Encounter for screening, unspecified Medications: New fluticasone propionate 50 mcg/actuation (Flonase Allergy Relief) administer into each nostril 1 spray intranasal Q12H 16 grams 0RF escitalopram oxalate (Lexapro) 10 mg PO DAILY 30 tabs 1RF cetirizine (Zyrtec) 10 mg PO DAILY 90 tabs 0RF Coding Level of Care Code New Pt Level 2 (41714) New Pt Prev Care 40-64y(83081) Diagnoses Encounter for general adult medical examination with abnormal findings Z00.01 Moderate episode of recurrent major depressive disorder F33.1 Active/Remission status: currently active Major depression episode severity: moderate Major depression recurrence: recurrent Encounter for screening involving social determinants of health (SDoH) Z13.9 Secondary hypercoagulable state D68.69 Chronic deep vein thrombosis (DVT) of right iliac vein I82.521 Affected thrombotic vein of extremity: iliac Morbid obesity E66.01 Migraine with aura and without status migrainosus, not intractable G43.109 Intractability: not intractable Status migrainosus presence: without status migrainosus Vitamin D deficiency E55.9 Non-toxic multinodular goiter E04.2 Factor V Leiden mutation D68.51 SRUTHI (generalized anxiety disorder) F41.1 Seasonal allergic rhinitis due to pollen J30.1 Allergic rhinitis seasonality: seasonal Allergic rhinitis trigger: pollen Additional Codes SRUTHI-7 Assessment Billing - SRUTHI-7 Assessment Tool: SRUTHI-7 Assessment 49932 ([id number])
== END 2024-03-15 11:35 | disposition home or self-care (01) ==
PROVIDERS: PCP Internal Medicine; Visit Provider Nurse Practitioner Family
DX: Z00.01 Encounter for general adult medical examination with abnormal findings (principal); F33.1 Major depressive disorder, recurrent, moderate; E66.01 Morbid (severe) obesity due to excess calories; D68.69 Other thrombophilia; Z68.33 Body mass index [BMI] 33.0-33.9, adult; I82.521 Chronic embolism and thrombosis of right iliac vein; D68.51 Activated protein C resistance; G43.109 Migraine with aura, not intractable, without status migrainosus; E55.9 Vitamin D deficiency, unspecified; E04.2 Nontoxic multinodular goiter; F41.1 Generalized anxiety disorder; J30.1 Allergic rhinitis due to pollen
CPT/HCPCS: 99202; 99386

== ENCOUNTER 2024-03-15 11:26 | Outpatient (REF) | payer OTHER, SELFPAY ==
[2024-03-15 14:42] LABS: MANUAL DIFF FLAG NO
[2024-03-15 14:44] LABS: Basophils Absolute Auto 0.1 X10*3/uL (0.0-0.2); Basophils Percent Auto 1.2 % (0-2); Eosinophils Absolute Auto 0.2 X10*3/uL (0.0-0.4); Eosinophils Percent Auto 4.1 % (0-4); Hematocrit 43.4 % (37.0-47.0); Imm Gran Abs Auto 0.02 X10*3/uL (0.00-0.03); Imm Gran Pct Auto 0.5 % (0.0-0.4); Lymphocytes Absolute Auto 1.2 X10*3/uL (1.2-4.9); Lymphocytes Percent Auto 29.3 % (20-40); Mean Corpuscular HGB Conc 32.3 g/dl (31.0-35.0); Mean Corpuscular Hemoglobin 28.2 pg (27.0-33.0); Mean Corpuscular Volume 87.5 fL (80.0-98.0); Mean Platelet Volume 11.8 fL (9.4-12.3); Monocytes Absolute Auto 0.5 X10*3/uL (0.1-1.2); Monocytes Percent Auto 11.3 % (2-11); Neutrophils Absolute Auto 2.2 x10*3/uL (2.0-8.3); Neutrophils Percent Auto 53.6 % (45-73); Platelet Count 220 X10*3/uL (160-400); Red Blood Count 4.96 X10*6/uL (4.20-5.50); Red Cell Distribution Width 13.4 % (11.0-16.0); White Blood Count 4.2 X10*3/uL (4.8-10.8)
[2024-03-15 14:57] LABS: Estimated Average Glucose 114 mg/dL; Hemoglobin A1c % 5.6 % (<6.0)
[2024-03-15 15:07] LABS: Alanine Aminotransferase 27 U/L (0-31); Albumin Level 4.1 g/dL (3.5-5.0); Alkaline Phosphatase 63 U/L (39-117); Anion Gap 9 (12-20); Aspartate Amino Transferase 32 U/L (5-31); Blood Urea Nitrogen 11 mg/dL (9-16); C Reactive Protein < 0.10 mg/dL (< or = 0.50); Calcium 9.4 mg/dL (8.4-10.2); Carbon Dioxide 27 mmol/L (22-29); Chloride 110 mmol/L (96-108); Cholesterol 210 mg/dL (<200); Estimated Glomerular Filt Rate > 60; Glucose Fasting 83 mg/dL (60-99); Glucose Random 83 mg/dL (60-115); HDL Cholesterol 47 mg/dL (>40); Iron 125 mcg/dL (30-160); LDL Cholesterol Calculated 143 mg/dL (<100); Percent Iron Saturation 36 % (15-50); Potassium 3.5 mmol/L (3.3-5.1); Sodium 142 mmol/L (135-145); Total Iron Binding Capacity 346 mcg/dL (228-428); Total Protein 7.2 g/dL (6.5-8.0); Triglycerides 104 mg/dL (<150); Unsaturated Iron Binding 221 ug/dL
[2024-03-15 15:12] LABS: Creatinine Urine 145.31 mg/dL; Microalbum/Creatinine Ratio Ur 8.2 ug/mg cr (<30)
[2024-03-15 15:15] LABS: Bilirubin Total 0.4 mg/dL (0.0-1.0)
[2024-03-15 15:23] LABS: Erythrocyte Sedimentation Rate 2 MM/HR (0-20)
[2024-03-15 15:24] LABS: TSH reflex Free T4 0.98 uIU/mL (0.32-4.0); Vitamin D 25-OH Total 30.3 ng/mL (>30)
[2024-03-15 15:37] LABS: Folate 8.2 ng/mL (> or = 4.0); Vitamin B12 280 pg/mL (200-900)
== END 2024-03-15 11:27 | disposition home or self-care (01) ==
LOC: HO.WFDLDS 11:26
PROVIDERS: Student in an Organized Health Care Education/Training Program; Visit Provider Nurse Practitioner Family
DX: Z00.01 Encounter for general adult medical examination with abnormal findings (principal); M05.9 Rheumatoid arthritis with rheumatoid factor, unspecified; D68.51 Activated protein C resistance; D68.69 Other thrombophilia; E55.9 Vitamin D deficiency, unspecified; Z13.1 Encounter for screening for diabetes mellitus
CPT/HCPCS: 36415; 80053; 80061; 82043; 82306; 82570; 82607; 82746; 83036; 83540; 84443; 85025; 85027; 85652; 86140

== ENCOUNTER 2024-04-09 13:38 | Outpatient (AMB) | payer OTHER, SELFPAY ==
--- NOTE | 2024-04-09 13:39 | MHC.OFFWIV ---
Intake Vital Signs 04/09/24 13:40 Height 5 ft 2 in Weight 181 lb BMI 33.1 BP 118/68 Blood Pressure Location Lt brachial Position Sitting Pulse 79 Pulse Source Pulse Oximeter Temp 98.4 F Temp Source Oral Pulse Oximetry (%) 98 Oxygen Delivery Method Room Air Intake Visit Reasons: EP Sore throat Intake Note: pt is here c/o sore throat, dry cough. Started 2 weeks ago, Hurts to swallow. Patient Tobacco Use Status: Never used Tobacco Allergies adalimumab [From Humira] Allergy (Verified 04/09/24 13:40) hairloss enoxaparin [From Lovenox] Allergy (Verified 04/09/24 13:40) Rash etanercept [Enbrel] Allergy (Verified 04/09/24 13:40) Injection site reaction sarilumab [From Kevzara] Allergy (Verified 04/09/24 13:40) injection site reaction Do you need a note to return to daycare/school/sports/work: No HPI HPI Comments History of Present Illness Details Patient is a 53-year-old female complaining of 2 weeks of a sore throat, a dry cough, head congestion and pain with swallowing. She denies any fevers, shortness of breath, wheezing or chest pain. She denies a history of asthma or COPD. She states she has tried several things including DayQuil, NyQuil, Zyrtec and cough drops with minimal relief. 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 [facility] Medical History Acute lower GI bleeding Lumbar back pain with radiculopathy affecting right lower extremity Mass of both wrists Osteoarthritis of carpometacarpal joint of right thumb Left knee pain Right leg DVT Obesity Vitamin D deficiency Non-toxic multinodular goiter Hx of rheumatoid arthritis Hx of thyroid nodule History of vitamin D deficiency Hx of obesity Hx of carpal tunnel syndrome History of fibromyalgia Surgical History History of esophagogastroduodenoscopy (EGD) H/O colonoscopy S/P colonoscopic polypectomy Family History Mother Diabetes Fibromyalgia Osteoarthritis Maternal Grandfather Leukemia Maternal Aunt Breast cancer Unknown Cancer Stomach cancer Social History Household Members: Spouse and Children Housing: House Are you a primary home care associate to a significant other at home: No Do you presently have visiting nurse or other home services: No Alcohol intake: current Alcohol intake frequency: does not drink Patient Tobacco Use Status: Never used Tobacco e-Cigarette/Vaping Use: Never Used Advance Directives Date on File: 11/21/21 service: No Current occupational status: 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[place] [place] Cognitive needs: No Hearing needs: No Vision needs: No Physical Exam Vital Signs: Last Vital Signs Temp 98.4 F 04/09/24 13:40 Pulse 79 04/09/24 13:40 BP 118/68 04/09/24 13:40 Pulse Ox 98 04/09/24 13:40 Oxygen Delivery Method Room Air 04/09/24 13:40 BMI result Body Mass Index 33.1 Const General: cooperative, healthy appearing, comfortable and no acute distress Orientation/consciousness: patient oriented x3 Limitations: no limitations HEENT Head: Yes normal to inspection Ears: hearing grossly normal bilaterally and external ears normal General nose exam: Normal external nose present, Normal nares present and No nasal discharge present Face and sinus: Yes normal facial exam and Yes sinuses nontender Mouth: Normal oral and palatal mucosa present and moist mucous membranes Throat: Yes tonsils normal, Yes uvula midline and Yes posterior oropharynx abnormal (Erythema) Eyes General: appearance normal, both eyes and all related structures Neck Neck: Yes normal visual inspection Resp Effort & Inspection: normal respiratory effort, able to speak in complete sentences, not tachypneic and no use of accessory muscles Skin General skin exam: no rashes or lesions noted Neuro General: patient oriented x3 Extrem General: Yes normal to inspection and Yes no clubbing, cyanosis or edema Results AMB Rapid Strep AMB Rapid Strep Positive Last Edit by Farhan Bateman CMA on 04/09/24 13:53 Results Reviewed Results Reviewed: Rapid strep positive Assessment & Plan Assessment & Plan (1) Acute streptococcal pharyngitis: Code(s): J02.0 - Streptococcal pharyngitis Plan: Rapid strep positive. Sent amoxicillin to pharmacy, wrote a work note for 2 days. Gave red flag warning signs and when to go to the emergency department. Plan See above Orders: Orders AMB Rapid Strep Screen Today Z13.9 - Encounter for screening, unspecified Medications: New amoxicillin 500 mg PO BID 20 tabs 0RF Coding Level of Care Code Est Pt Level 3 (97523) Diagnoses Acute streptococcal pharyngitis J02.0
[2024-04-09 13:40] VITALS: BP 118/68; PULSE 79; TEMP 36.9; O2SAT 98; BMI 33.1
== END 2024-04-09 13:58 | disposition home or self-care (01) ==
PROVIDERS: PCP Nurse Practitioner Family; Visit Provider Physician Assistant
DX: J02.0 Streptococcal pharyngitis (principal); Z13.9 Encounter for screening, unspecified
CPT/HCPCS: 87880; 99213

== ENCOUNTER → 2024-05-19 15:39 | Outpatient (AMB) | payer OTHER, SELFPAY ==
--- NOTE | 2024-05-19 15:40 | MHC.PC.OV ---
Intake Visit Reasons: review labs Intake Note: Patient is here to follow up on lab results from 03/15/24, complaint of numbness and tinging in both heels for three weeks. Piano Regulator Required: No Customer Success Director: Not Required per policy Accompanied by: Self / Same As Patient Allergies adalimumab [From Humira] Allergy (Verified 05/19/24 15:41) hairloss enoxaparin [From Lovenox] Allergy (Verified 05/19/24 15:41) Rash etanercept [Enbrel] Allergy (Verified 05/19/24 15:41) Injection site reaction sarilumab [From Kevzara] Allergy (Verified 05/19/24 15:41) injection site reaction Medication List - Last Reconciled 05/19/24 by Jeri Narayanan CHEMISTRY LABORATORY TECHNICIAN- Actemra ACTPen (tocilizumab) 162 mg (0.9 mL) subcut Q2W NS amitriptyline TAKE 1 TABLET BY MOUTH 3 TIMES A DAY apixaban (Eliquis) 5 mg PO BID cetirizine (Zyrtec) 10 mg PO DAILY escitalopram oxalate (Lexapro) 10 mg PO DAILY fluticasone propionate 50 mcg/actuation (Flonase Allergy Relief) 1 spray intranasal Q12H fremanezumab-vfrm (Ajovy) mg subcut frovatriptan 2.5 mg PO Q2-4H PRN pantoprazole 40 mg PO DAILY rimegepant (Nurtec ODT) 75 mg PO Q OTHER DAY PRN 30 days [thumb spica wear nightly & as much as possible throughout the day] tizanidine 4 mg PO Q8H PRN 30 days topiramate 100 mg PO BID trazodone 100 mg PO BEDTIME PRN 30 days Tobacco use date assessed: 05/19/24 Dental Screening Dental Screen Date: 03/15/24 HPI HPI Comments History of Present Illness Details 53-year-old female with obesity, GERD, migraine, chronic joint pain, vitamin-D deficiency, nontoxic multinodular goiter, seropositive RA, fibromyalgia, DVT ((multiple, first one diagnosed in her 30s), mild chronic microangiopathy (mri brain 2020 & 2022), 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 Patient wishes to do watch and wait method at this time. In regards to her generalized anxiety disorder she reports that the Lexapro is working well for her at the current dose. Would like to continue. Refill sent in today. Office a new complaint numbness and tingling in bilat heels that started a few weeks ago. She reports that after sitting or standing for long periods of time this sensation starts. She also reports that her right cheek becomes numb. She denies any fever, chills, injury, loss of function. She already is maintained on Eliquis. Plan: Watch and wait, dietary and lifestyle changes repeat Lipids in August, telehealth office visit to discuss Continue Lexapro at current dose. Check MRI of spine given reports listed above, schedule OV to f/u on results. Has anxiety w MRI asked she send me message on the portal w the date of her MRI and i will RX an anxiolytic. Edu on reasons to seek ED level of care. [facility] Medical History Acute lower GI bleeding Lumbar back pain with radiculopathy affecting right lower extremity Mass of both wrists Osteoarthritis of carpometacarpal joint of right thumb Left knee pain Right leg DVT Obesity Vitamin D deficiency Non-toxic multinodular goiter Hx of rheumatoid arthritis Hx of thyroid nodule History of vitamin D deficiency Hx of obesity Hx of carpal tunnel syndrome History of fibromyalgia Surgical History History of esophagogastroduodenoscopy (EGD) H/O colonoscopy S/P colonoscopic polypectomy Family History (Updated 05/19/24 @ 15:43 by NELLY Maravilla) Mother Diabetes Fibromyalgia Osteoarthritis Maternal Grandfather Leukemia Maternal Aunt Breast cancer Unknown Cancer Stomach cancer Social History Household Members: Spouse and Children Housing: House Are you a primary career resource specialist to a significant other at home: No Do you presently have visiting nurse or other home services: No Alcohol intake: current Alcohol intake frequency: does not drink Patient Tobacco Use Status: Never used Tobacco e-Cigarette/Vaping Use: Never Used Second Hand Smoke Exposure: No Advance Directives Date on File: 11/21/21 service: No Current occupational status: employed 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 Jean Figueroa, Maribell Nascimento, Mookie Armendariz and colleagues, with an educational leigh ann from [employer]. Physical exam (Primary Care) Tobacco/Smoking Status: Tobacco use Status Tobacco use date assessed 05/19/24 05/19/24 15:43 Patient Tobacco Use Status Never used Tobacco 05/19/24 15:43 e-Cigarette/Vaping Use Never Used 05/19/24 15:43 Thrive Assessment: Date of Thrive Assessment Date Thrive assessed 03/15/24 05/19/24 15:43 Telehealth Telehealth Telehealth Platform: Telephone Location of provider rendering services: practice address Location of patient: address on file Patient Identification confirmed using: Name, : Yes Telehealth method: voice only Patient verbally consented to treatment: Yes Patient verbally consented to billing insurance company: Yes Patient informed of any privacy concerns related to visit: Yes Minutes spent on Phone/Video with Pt.: 12 Assessment and Plan Assessment & Plan (1) Hyperlipemia: Code(s): E78.5 - Hyperlipidemia, unspecified Qualifiers: Hyperlipidemia type: moderate mixed hyperlipidemia not requiring statin therapy Qualified Code(s): E78.2 - Mixed hyperlipidemia (2) SRUTHI (generalized anxiety disorder): Comment: See MDD care plan Code(s): F41.1 - Generalized anxiety disorder (3) MDD (major depressive disorder): Comment: Refer to counseling Code(s): F32.9 - Major depressive disorder, single episode, unspecified Qualifiers: Major depression recurrence: recurrent Active/Remission status: currently active Major depression episode severity: moderate Qualified Code(s): F33.1 - Major depressive disorder, recurrent, moderate (4) Bilateral leg paresthesia: Code(s): R20.2 - Paresthesia of skin Orders: Orders MR lumbar spine wo con Today R20.2 - Paresthesia of skin Lipid Panel 08/22/24 E78.5 - Hyperlipidemia, unspecified Medications: Refilled escitalopram oxalate (Lexapro) 10 mg PO DAILY 90 tabs 1RF Coding Level of Care Code Tele Est Pt Level 2 (43635) Diagnoses Moderate mixed hyperlipidemia not requiring statin therapy E78.2 Hyperlipidemia type: moderate mixed hyperlipidemia not requiring statin therapy SRUTHI (generalized anxiety disorder) F41.1 Moderate episode of recurrent major depressive disorder F33.1 Major depression recurrence: recurrent Active/Remission status: currently active Major depression episode severity: moderate Bilateral leg paresthesia R20.2
== END ==
LOC: HO.HMGFM 15:39
PROVIDERS: PCP Nurse Practitioner Family; Visit Provider Nurse Practitioner Family
DX: E78.2 Mixed hyperlipidemia (principal); F41.1 Generalized anxiety disorder; F33.1 Major depressive disorder, recurrent, moderate; R20.2 Paresthesia of skin
CPT/HCPCS: 99212

== ENCOUNTER 2024-05-20 07:51 | Outpatient (AMB) | payer OTHER, SELFPAY ==
[2024-05-20 08:05] VITALS: BP 120/70; PULSE 81; O2SAT 98; BMI 33.2
--- NOTE | 2024-05-20 08:05 | A.OFFVIS_ITS ---
Vital Signs 05/20/24 08:05 Height 5 ft 2 in Weight 181 lb 7.047 oz BMI 33.2 BP 120/70 Blood Pressure Location Lt brachial Position Sitting Pulse 81 Pulse Source Pulse Oximeter Pulse Oximetry (%) 98 Oxygen Delivery Method Room Air Intake Visit Reasons: RA Intake Note: Patient presents today for follow up on RA and labs review. Allergies adalimumab [From Humira] Allergy (Verified 05/20/24 08:07) hairloss enoxaparin [From Lovenox] Allergy (Verified 05/20/24 08:07) Rash etanercept [Enbrel] Allergy (Verified 05/20/24 08:07) Injection site reaction sarilumab [From Kevzara] Allergy (Verified 05/20/24 08:07) injection site reaction Medication List - Last Reconciled 05/20/24 by Marya Sung MD Actemra ACTPen (tocilizumab) 162 mg (0.9 mL) subcut Q2W NS amitriptyline TAKE 1 TABLET BY MOUTH 3 TIMES A DAY apixaban (Eliquis) 5 mg PO BID cetirizine (Zyrtec) 10 mg PO DAILY escitalopram oxalate (Lexapro) 10 mg PO DAILY fluticasone propionate 50 mcg/actuation (Flonase Allergy Relief) 1 spray intranasal Q12H fremanezumab-vfrm (Ajovy) mg subcut frovatriptan 2.5 mg PO Q2-4H PRN methylprednisolone (Medrol (Arthur)) PO PER PKG DIR for 6 days pantoprazole 40 mg PO DAILY rimegepant (Nurtec ODT) 75 mg PO Q OTHER DAY PRN 30 days [thumb spica wear nightly & as much as possible throughout the day] tizanidine 4 mg PO Q8H PRN 30 days topiramate 100 mg PO BID trazodone 100 mg PO BEDTIME PRN 30 days HPI Comments Details: This is a 53-year-old female with seropositive RA returns for follow-up. Last seen 12/2023 She is on Actemra every other week well tolerated. 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 She is off of work this week. She has been wearing a splint [facility] Medical History Acute lower GI bleeding Lumbar back pain with radiculopathy affecting right lower extremity Mass of both wrists Osteoarthritis of carpometacarpal joint of right thumb Left knee pain Right leg DVT Obesity Vitamin D deficiency Non-toxic multinodular goiter Hx of rheumatoid arthritis Hx of thyroid nodule History of vitamin D deficiency Hx of obesity Hx of carpal tunnel syndrome History of fibromyalgia Surgical History History of esophagogastroduodenoscopy (EGD) H/O colonoscopy S/P colonoscopic polypectomy Family History Mother Diabetes Fibromyalgia Osteoarthritis Maternal Grandfather Leukemia Maternal Aunt Breast cancer Unknown Cancer Stomach cancer Social History Household Members: Spouse and Children Housing: House Are you a primary palliative care coordinator to a significant other at home: No Do you presently have visiting nurse or other home services: No Alcohol intake: current Alcohol intake frequency: does not drink Patient Tobacco Use Status: Never used Tobacco e-Cigarette/Vaping Use: Never Used Second Hand Smoke Exposure: No Advance Directives Date on File: 11/21/21 service: No Current occupational status: employed 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[employer] [place] Cognitive needs: No Hearing needs: No Vision needs: No Review of Systems Musc Reports arthralgias Physical Exam Vital Signs: Last Vital Signs Pulse 81 05/20/24 08:05 BP 120/70 05/20/24 08:05 Pulse Ox 98 05/20/24 08:05 Oxygen Delivery Method Room Air 05/20/24 08:05 BMI result Body Mass Index 33.2 Const General: cooperative, healthy appearing and comfortable Nutritional Appearance: obese Orientation/consciousness: patient oriented x3 Limitations: no limitations HEENT Head: Yes normocephalic and Yes atraumatic Mouth: moist mucous membranes Resp Effort & Inspection: normal respiratory effort and able to speak in complete sentences Auscultation: clear to auscultation bilaterally Cardio Rate: regular rate Rhythm: regular rhythm Heart sounds: S1 normal heart sound present Neuro General: patient oriented x3 Extrem Other: Few MCP and PIP tenderness without swelling Positive Juan A's test on the right Few fibromyalgia tender points Assessment & Plan Assessment & Plan (1) Seropositive rheumatoid arthritis: Comment: +RF -ve CCP dx around 2018 Methotrexate 05/2019 Enbrel 04/2020 with methotrexate. Patient stop both accidentally. Triple therapy 05/2020-06/2020 ineffective Xeljanz ineffective Cimzia Ineffective DC 06/2021 Methotrexate discontinued 11/2020 due to elevated liver enzymes. Rinvoq 12/2020 -02/2021 ineffective Humira 06/2021-08/2021 discontinued due to hair loss. Enbrel 09/11 stopped 09/2021 due to injection site reaction Kevzara 10/2021 discontinued due to injection site reaction Actemra 11/2021- present effective Code(s): M05.9 - Rheumatoid arthritis with rheumatoid factor, unspecified Category: Medical Plan: This is a 53-year-old female with seropositive RA who presents for follow-up. On Actemra 162 mg subcutaneously every other week. RA well controlled. Continue with Actemra every other week Infectious screening : Hepatitis panel and T spot -ve 2022 Labs next visit in 4 months (2) Fibromyalgia: Comment: Previously failed Cymbalta, gabapentin, Lyrica (headaches) Code(s): M79.7 - Fibromyalgia Category: Medical Plan: Symptoms stable on amitriptyline. (3) De Quervain's tenosynovitis, right: Code(s): M65.4 - Radial styloid tenosynovitis [de Quervain] Category: Medical Plan: Discussed the nature of de Quervain tenosynovitis which is an overuse tendonitis. 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 Patient is off of work this week and will rest her hand. She can not use NSAIDs as she is on Eliquis. Will prescribe a Medrol Dosepak Plan I spent 25 minutes reviewing patient's chart, evaluating patient, ordering diagnostic workup, counseling patient and documenting in the chart Orders: Orders Complete Blood Count Auto Diff 4 Months M05.9 - Rheumatoid arthritis with rheumatoid factor, unspecified Comprehensive Met. Panel 4 Months M05.9 - Rheumatoid arthritis with rheumatoid factor, unspecified C Reactive Protein 4 Months M05.9 - Rheumatoid arthritis with rheumatoid factor, unspecified Erythrocyte Sedimentation Rate 4 Months M05.9 - Rheumatoid arthritis with rheumatoid factor, unspecified Medications: New methylprednisolone (Medrol (Arthur)) PO PER PKG DIR for 6 days 21 ea 0RF Coding Level of Care Code Est Pt Level 4 (84076) Diagnoses Seropositive rheumatoid arthritis M05.9 Fibromyalgia M79.7 De Quervain's tenosynovitis, right M65.4
== END 2024-05-20 08:28 | disposition home or self-care (01) ==
PROVIDERS: PCP Internal Medicine; Visit Provider Student in an Organized Health Care Education/Training Program
DX: M05.79 Rheumatoid arthritis with rheumatoid factor of multiple sites without organ or systems involvement (principal); M79.7 Fibromyalgia; M65.4 Radial styloid tenosynovitis [de Quervain]
CPT/HCPCS: 99214

== ENCOUNTER → 2024-05-20 07:51 | Outpatient (BNVA) | payer OTHER, SELFPAY | PROVIDERS: PCP Internal Medicine; Visit Provider Student in an Organized Health Care Education/Training Program ==

== ENCOUNTER 2024-06-06 18:23 | Outpatient (REF) | payer OTHER, SELFPAY ==
--- NOTE | ~2024-06-06 | MR_ITS ---
EXAMINATION: MR LUMBAR SPINE WITHOUT CONTRAST CLINICAL INFORMATION: Paresthesia of skin. COMPARISON: 07/31/2022 MR lumbar. TECHNIQUE: Multiplanar multisequence MR imaging of the lumbar spine was done without IV contrast. Examination performed on a 1.5 Orin Siemens magnet. FINDINGS: CORONAL ALIGNMENT: Trace levoconvex scoliosis. SAGITTAL ALIGNMENT: Normal lordosis and alignment without subluxations. LUMBOSACRAL JUNCTION: Normal. There are 5 [id number] lumbar-type vertebral bodies. VERTEBRAL BODIES/BONE MARROW: -There is no compression deformity. -There is no bone marrow edema or abnormal infiltrative bone marrow signal identified. -There is no abnormal T1 signal. DISCS: -Mild loss of disc height and signal L4-5. -Minimal loss of disc signal L1-2. SPINAL CANAL: No congenital narrowing. Early termination of the thecal sac at superior S1 level. CONUS MEDULLARIS: Terminates at L1. Morphology and signal is normal. INTRADURAL NERVE ROOTS: -No masses. No clumping. Normal distribution. Axial Disc Space Images: T12-L1: Mild left facet hypertrophic degeneration. No central canal or neural foraminal narrowing. No change. L1-L2: Mild bilateral hypertrophic facet changes. Mild loss of this signal. No disc bulge. No central canal or neural foraminal narrowing. No change. L2-L3: Mild bilateral hypertrophic facet changes. No disc pathology. No central canal or neural foraminal narrowing. No change. L3-L4: No disc pathology. [id number] hypertrophic degenerative facet changes bilaterally with mild posterior ligamentous infolding. Minimal central canal narrowing. No subarticular recess narrowing. Minimal bilateral neural foraminal narrowing. No change. L4-L5: There is a minimal concentric disc bulge extending into both foraminal zones with mild disc degeneration. There are moderate hypertrophic facet changes bilaterally with mild posterior ligamentous infolding/thickening. There is mild central canal narrowing, mild bilateral subarticular recess narrowing, and mild bilateral neural foraminal narrowing. No evidence of nerve root contact or impingement. No change. L5-S1: Small central disc protrusion is present superimposed on a shallow diffusely bulging disc. This does not contact nerve roots. Mild hypertrophic degenerative facet changes bilaterally, however no significant central canal, or subarticular recess narrowing. There is minimal left neural foraminal narrowing. No change. IMAGED SI JOINTS: Moderate arthritis right greater than left with periarticular sclerosis and ventral inferior osteophytic spurring. PARAVERTEBRAL AND INCLUDED EXTRASPINAL SOFT TISSUES: The paravertebral and paraspinous musculature is normal. The imaged kidneys are normal bilaterally. Normal appendix visualized. Aorta is partially obscured by a saturation band but is normal in caliber otherwise. No retroperitoneal adenopathy noted. MR/MR lumbar spine wo con IMPRESSION: 1. Mild multilevel degenerative spondylosis of the lumbar spine as described above, without significant interval change from the prior examination. No significant central canal, subarticular recess, or neural foraminal stenosis or evidence of nerve root impingement. 2. Mild disc degeneration L4-5, and minimal degeneration L1-2. 3. Significant right greater than left SI joint arthropathy. Electronically signed by: Arturo Dewey MD 06/16/2024 03:29 PM EDT
== END 2024-06-06 18:24 | disposition home or self-care (01) ==
LOC: HO.MRI 18:23
PROVIDERS: PCP Nurse Practitioner Family; Visit Provider Nurse Practitioner Family
DX: R20.2 Paresthesia of skin (principal)
CPT/HCPCS: 72148

== ENCOUNTER → 2024-06-06 18:23 | Outpatient (BNV) | payer OTHER, SELFPAY | PROVIDERS: PCP Nurse Practitioner Family; Visit Provider Radiology Diagnostic Radiology | DX: R20.2 Paresthesia of skin (principal) | CPT/HCPCS: 72148 ==

== ENCOUNTER 2024-06-09 08:05 | Outpatient (REF) | payer OTHER, SELFPAY ==
[2024-06-09 10:59] LABS: MANUAL DIFF FLAG NO
[2024-06-09 11:05] LABS: Basophils Percent Auto 0.6 % (0-2); Eosinophils Absolute Auto 0.2 X10*3/uL (0.0-0.4); Eosinophils Percent Auto 2.5 % (0-4); Hematocrit 42.9 % (37.0-47.0); Hemoglobin 13.7 g/dl (12.0-16.0); Imm Gran Abs Auto 0.03 X10*3/uL (0.00-0.03); Imm Gran Pct Auto 0.4 % (0.0-0.4); Lymphocytes Absolute Auto 1.5 X10*3/uL (1.2-4.9); Lymphocytes Percent Auto 20.7 % (20-40); Mean Corpuscular HGB Conc 31.9 g/dl (31.0-35.0); Mean Corpuscular Hemoglobin 27.7 pg (27.0-33.0); Mean Corpuscular Volume 86.8 fL (80.0-98.0); Mean Platelet Volume 11.3 fL (9.4-12.3); Monocytes Absolute Auto 0.5 X10*3/uL (0.1-1.2); Monocytes Percent Auto 7.6 % (2-11); Neutrophils Absolute Auto 4.8 x10*3/uL (2.0-8.3); Neutrophils Percent Auto 68.2 % (45-73); Platelet Count 284 X10*3/uL (160-400); Red Blood Count 4.94 X10*6/uL (4.20-5.50); Red Cell Distribution Width 13.8 % (11.0-16.0); White Blood Count 7.1 X10*3/uL (4.8-10.8)
[2024-06-09 11:45] LABS: Erythrocyte Sedimentation Rate 7 MM/HR (0-20)
[2024-06-09 11:52] LABS: HBc Num1 0.19 S/CO (0.00-0.79); Hepatitis A Antibody IgM 0.14 Index (0-0.79); Hepatitis B Core Antibody Nonreactive (Nonreactive); Hepatitis B Surface Antigen Negative (Negative); ~HepC Num1 0.17 S/CO (0.00-0.79); ~Hepatitis A Antibody IgM Nonreactive (Nonreactive); ~Hepatitis B Surface Antibody REACTIVE (Nonreactive); ~Hepatitis C Antibody Nonreactive (Nonreactive)
[2024-06-09 11:59] LABS: Alanine Aminotransferase 22 U/L (0-31); Alkaline Phosphatase 73 U/L (39-117); Anion Gap 12 (12-20); Aspartate Amino Transferase 22 U/L (5-31); Bilirubin Total 0.4 mg/dL (0.0-1.0); Blood Urea Nitrogen 9 mg/dL (9-16); C Reactive Protein 1.22 mg/dL (< or = 0.50); Calcium 9.8 mg/dL (8.4-10.2); Carbon Dioxide 23 mmol/L (22-29); Chloride 111 mmol/L (96-108); Estimated Glomerular Filt Rate > 60; Glucose Random 96 mg/dL (60-115); Potassium 3.4 mmol/L (3.3-5.1); Sodium 143 mmol/L (135-145); Total Protein 7.6 g/dL (6.5-8.0)
[2024-06-12 16:18] LABS: TS Negative Control Passed; TS Panel A 0; TS Panel B 0; TS Positive Control Passed; TSpotTB Negative (Negative)
== END 2024-06-09 08:06 | disposition home or self-care (01) ==
LOC: HO.10HDL 08:05
PROVIDERS: Visit Provider Student in an Organized Health Care Education/Training Program
DX: Z11.7 Encounter for testing for latent tuberculosis infection (principal); Z11.59 Encounter for screening for other viral diseases; M05.9 Rheumatoid arthritis with rheumatoid factor, unspecified; Z72.89 Other problems related to lifestyle
CPT/HCPCS: 36415; 80053; 85025; 85652; 86140; 86481; 86704; 86706; 86709; 86803; 87340

== ENCOUNTER 2024-06-18 16:36 | Outpatient (AMB) | payer OTHER, SELFPAY ==
--- NOTE | 2024-06-18 07:29 | A.OFFPC_ITS ---
Intake Visit Reasons: mri results/ [phone] Allergies adalimumab [From Humira] Allergy (Verified 06/18/24 16:37) hairloss enoxaparin [From Lovenox] Allergy (Verified 06/18/24 16:37) Rash etanercept [Enbrel] Allergy (Verified 06/18/24 16:37) Injection site reaction sarilumab [From Kevzara] Allergy (Verified 06/18/24 16:37) injection site reaction Medication List - Last Reconciled 06/18/24 by Jeri Narayanan, [facility] Actemra ACTPen (tocilizumab) 162 mg (0.9 mL) subcut Q2W NS amitriptyline TAKE 1 TABLET BY MOUTH 3 TIMES A DAY apixaban (Eliquis) 5 mg PO BID cetirizine (Zyrtec) 10 mg PO DAILY escitalopram oxalate (Lexapro) 10 mg PO DAILY fluticasone propionate 50 mcg/actuation (Flonase Allergy Relief) 1 spray intranasal Q12H fremanezumab-vfrm (Ajovy) mg subcut frovatriptan 2.5 mg PO Q2-4H PRN lorazepam 1 mg PO DAILY PRN pantoprazole 40 mg PO DAILY rimegepant (Nurtec ODT) 75 mg PO Q OTHER DAY PRN 30 days [thumb spica wear nightly & as much as possible throughout the day] tizanidine 4 mg PO Q8H PRN 30 days topiramate 100 mg PO BID trazodone 100 mg PO BEDTIME PRN 30 days Tobacco use date assessed: 05/19/24 Dental Screening Dental Screen Date: 03/15/24 HPI HPI Comments History of Present Illness Details 53-year-old female with obesity, GERD, m igraine, chronic joint pain, vitamin-D deficiency, nontoxic multinodular goiter, seropositive RA, fibromyalgia, DVT (multiple, first one diagnosed in her 30s), mild chronic microangiopathy (mri brain 2020 & 2022), 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 She reports that after sitting or standing for long periods of time this sensation starts. She also reports that her right cheek becomes numb. She denies any fever, chills, injury, loss of function. She already is maintained on Eliquis. Since her last office visit, she reports at the numbness and tingling is the same. No better no worse. Taking Tylenol without effect. MRI reviewed w her today. Nothing acute. See below Discussed the results with her today. I am not sure what is causing the pain in her heels. She has a routine follow up with Rheumatology next month. She states that she can follow up with them sooner if needed. Advised for her to try ljvb-flr-ynpapcf magnesium no more than 250 mg daily and/or complex B vitamin to see if this helps. In regards to the magnesium advised that this can cause GI upset or diarrhea and if this occurs to discontinue. Both of these are available vonh-kbr-zerhoom and may provide some relief. Asked her to follow up with me if I could be of any assistance, otherwise I will see her in August as scheduled for routine follow up. This note is constructed using voice recognition software. While every effort has been made to ensure accuracy in clinical veterinarian, still errors may have been included Sometimes, these errors may affect the content or meaning of the given sentence . Total time spent caring for the patient today was 20 minutes. This includes time spent before the visit reviewing the chart, time spent during the visit, and time spent after the visit on documentation [facility] Medical History Acute lower GI bleeding Lumbar back pain with radiculopathy affecting right lower extremity Mass of both wrists Osteoarthritis of carpometacarpal joint of right thumb Left knee pain Right leg DVT Obesity Vitamin D deficiency Non-toxic multinodular goiter Hx of rheumatoid arthritis Hx of thyroid nodule History of vitamin D deficiency Hx of obesity Hx of carpal tunnel syndrome History of fibromyalgia Surgical History History of esophagogastroduodenoscopy (EGD) H/O colonoscopy S/P colonoscopic polypectomy Family History Mother Diabetes Fibromyalgia Osteoarthritis Maternal Grandfather Leukemia Maternal Aunt Breast cancer Unknown Cancer Stomach cancer Social History Household Members: Spouse and Children Housing: House Are you a primary nurse wound care to a significant other at home: No Do you presently have visiting nurse or other home services: No Alcohol intake: current Alcohol intake frequency: does not drink Patient Tobacco Use Status: Never used Tobacco e-Cigarette/Vaping Use: Never Used Second Hand Smoke Exposure: No Advance Directives Date on File: 11/21/21 service: No 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 Jean Figueroa, Maribell Nascimento, Mookie Armendariz and colleagues, with an educational leigh ann from [employer]. Physical exam (Primary Care) Tobacco/Smoking Status: Tobacco use Status Tobacco use date assessed 05/19/24 06/18/24 07:30 Patient Tobacco Use Status Never used Tobacco 06/18/24 07:30 e-Cigarette/Vaping Use Never Used 06/18/24 07:30 Thrive Assessment: Date of Thrive Assessment Date Thrive assessed 03/15/24 06/18/24 07:30 Telehealth Telehealth Telehealth Platform: Telephone Location of provider rendering services: practice address Location of patient: address on file Patient Identification confirmed using: Name, : Yes Telehealth method: voice only Patient verbally consented to treatment: Yes Patient verbally consented to billing insurance company: Yes Patient informed of any privacy concerns related to visit: Yes Minutes spent on Phone/Video with Pt.: 5 Results Reviewed Results Reviewed: [address] [address] Magnetic Resonance Report Signed Patient: Zeynep Edgar MR#: [id number] : 1970 Acct:[id number] Age/Sex: 53 / F ADM Date: 06/06/24 Loc: HO.MRI Attending Dr: Jeri ROJO Ordering Physician: Jeri Narayanan Date of Service: 06/06/24 Procedure(s): MR lumbar spine wo con Accession Number(s): [id number] cc: Jeri Narayanan STAVE INSPECTOR-BC~ EXAMINATION: MR LUMBAR SPINE WITHOUT CONTRAST CLINICAL INFORMATION: Paresthesia of skin. COMPARISON: 07/31/2022 MR lumbar. TECHNIQUE: Multiplanar multisequence MR imaging of the lumbar spine was done without IV contrast. Examination performed on a 1.5 Orin Siemens magnet. FINDINGS: CORONAL ALIGNMENT: Trace levoconvex scoliosis. SAGITTAL ALIGNMENT: Normal lordosis and alignment without subluxations. LUMBOSACRAL JUNCTION: Normal. There are 5 slp-wrc-[id number] lumbar-type vertebral bodies. VERTEBRAL BODIES/BONE MARROW: -There is no compression deformity. -There is no bone marrow edema or abnormal infiltrative bone marrow signal identified. -There is no abnormal T1 signal. DISCS: -Mild loss of disc height and signal L4-5. -Minimal loss of disc signal L1-2. SPINAL CANAL: No congenital narrowing. Early termination of the thecal sac at superior S1 level. CONUS MEDULLARIS: Terminates at L1. Morphology and signal is normal. INTRADURAL NERVE ROOTS: -No masses. No clumping. Normal distribution. Axial Disc Space Images: T12-L1: Mild left facet hypertrophic degeneration. No central canal or neural foraminal narrowing. No change. L1-L2: Mild bilateral hypertrophic facet changes. Mild loss of this signal. No disc bulge. No central canal or neural foraminal narrowing. No change. L2-L3: Mild bilateral hypertrophic facet changes. No disc pathology. No central canal or neural foraminal narrowing. No change. L3-L4: No disc pathology. Ihvi-zw-sxwttvjj hypertrophic degenerative facet changes bilaterally with mild posterior ligamentous infolding. Minimal central canal narrowing. No subarticular recess narrowing. Minimal bilateral neural foraminal narrowing. No change. L4-L5: There is a minimal concentric disc bulge extending into both foraminal zones with mild disc degeneration. There are moderate hypertrophic facet changes bilaterally with mild posterior ligamentous infolding/thickening. There is mild central canal narrowing, mild bilateral subarticular recess narrowing, and mild bilateral neural foraminal narrowing. No evidence of nerve root contact or impingement. No change. L5-S1: Small central disc protrusion is present superimposed on a shallow diffusely bulging disc. This does not contact nerve roots. Mild hypertrophic degenerative facet changes bilaterally, however no significant central canal, or subarticular recess narrowing. There is minimal left neural foraminal narrowing. No change. IMAGED SI JOINTS: Moderate arthritis right greater than left with periarticular sclerosis and ventral inferior osteophytic spurring. PARAVERTEBRAL AND INCLUDED EXTRASPINAL SOFT TISSUES: The paravertebral and paraspinous musculature is normal. The imaged kidneys are normal bilaterally. Normal appendix visualized. Aorta is partially obscured by a saturation band but is normal in caliber otherwise. No retroperitoneal adenopathy noted. MR/MR lumbar spine wo con IMPRESSION: 1. Mild multilevel degenerative spondylosis of the lumbar spine as described above, without significant interval change from the prior examination. No significant central canal, subarticular recess, or neural foraminal stenosis or evidence of nerve root impingement. 2. Mild disc degeneration L4-5, and minimal degeneration L1-2. 3. Significant right greater than left SI joint arthropathy. Electronically signed by: Arturo Dewey MD 06/16/2024 03:29 PM EDT RP Dictated By: Arturo Dewey MD Signed By: <Electronically signed by Arturo Dewey MD in OV> 06/16/24 1529 DD/ 1836 TD/TT: 06/06/24 1849 Construction Recruiter: Assessment and Plan Assessment & Plan (1) Bilateral leg paresthesia: Code(s): R20.2 - Paresthesia of skin Coding Level of Care Code Tele Est Pt Level 2 (27073) Complex EM visit Add On G2211 Diagnoses Bilateral leg paresthesia R20.2
== END 2024-06-18 16:44 | disposition home or self-care (01) ==
LOC: HO.HMCFM 16:36
PROVIDERS: PCP Nurse Practitioner Family; Visit Provider Nurse Practitioner Family
DX: R20.2 Paresthesia of skin (principal)

== ENCOUNTER → 2024-06-18 16:36 | Outpatient (BNVA) | payer OTHER, SELFPAY | PROVIDERS: PCP Nurse Practitioner Family; Visit Provider Nurse Practitioner Family ==

== ENCOUNTER 2024-07-02 15:38 | Outpatient (AMB) | payer OTHER, SELFPAY ==
[2024-07-02 15:39] VITALS: BP 129/64; PULSE 73; BMI 34.0
--- NOTE | 2024-07-02 15:39 | MHC.OFFVIS ---
Vital Signs 07/02/24 15:39 Height 5 ft 2 in Weight 186 lb BMI 34.0 BP 129/64 Blood Pressure Location Lt brachial Position Sitting Pulse 73 Intake Visit Reasons: Follow up medication Intake Note: Patient in office today in follow up of GERD. CC: Allergies adalimumab [From Humira] Allergy (Verified 07/02/24 15:48) hairloss enoxaparin [From Lovenox] Allergy (Verified 07/02/24 15:48) Rash etanercept [Enbrel] Allergy (Verified 07/02/24 15:48) Injection site reaction sarilumab [From Kevzara] Allergy (Verified 07/02/24 15:48) injection site reaction HPI HPI Follow up medication: Details: Assessment & Plan (1) GERD (gastroesophageal reflux disease): ?Code(s): K21.9 - Gastro-esophageal reflux disease without esophagitis ?Plan: She is having more dysphagia if solid foods like bread, nuts, twizzlers, apples. This is slowly getting worse after her improvement from her dilation in 2021. She rates the difficulty at about 2/10, so will get EGD ordered. She feels that her GERD medications are working, but she admits to cheating lately with acidic foods and sauces. ROV 6 mos. ? Transgender (2) Tubular adenoma of colon: ?Comment: 2021 Patricia figueroa= 1 hyperplastic polyp and 1 tubular adenoma ?Code(s): D12.6 - Benign neoplasm of colon, unspecified (3) Morbid obesity: ?Code(s): E66.01 - Morbid (severe) obesity due to excess calories ? ? ? Medications: Refilled pantoprazole (Protonix) 40 mg? PO DAILY 30 days 30 tabs 6RF ? ? TODAY'S VISIT She continues to do very well with her pantoprazole 40mg qd. Her last colonoscopy was with Dr. Gomez, but for her next she would prefer to do it with our service. She would be due in 2026 ROV 1 year. [facility] Medical History Non-toxic multinodular goiter Sprain of medial collateral ligament of left knee History of DVT of lower extremity Secondary hypercoagulable state Encounter for screening involving social determinants of health (SDoH) Encounter for general adult medical examination with abnormal findings Acute lower GI bleeding Lumbar back pain with radiculopathy affecting right lower extremity Mass of both wrists Osteoarthritis of carpometacarpal joint of right thumb Left knee pain Right leg DVT Obesity Vitamin D deficiency Hx of rheumatoid arthritis Hx of thyroid nodule History of vitamin D deficiency Hx of obesity Hx of carpal tunnel syndrome History of fibromyalgia Surgical History History of esophagogastroduodenoscopy (EGD) H/O colonoscopy S/P colonoscopic polypectomy Family History Mother Diabetes Fibromyalgia Osteoarthritis Maternal Grandfather Leukemia Maternal Aunt Breast cancer Unknown Cancer Stomach cancer Social History Household Members: Spouse and Children Housing: House Are you a primary senior care manager to a significant other at home: No Do you presently have visiting nurse or other home services: No Alcohol intake: current Alcohol intake frequency: does not drink Patient Tobacco Use Status: Never used Tobacco e-Cigarette/Vaping Use: Never Used Second Hand Smoke Exposure: No Advance Directives Date on File: 11/21/21 service: No Current occupational status: employed 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[employer] [place] Cognitive needs: No Hearing needs: No Vision needs: No Review of Systems Const Denies fatigue, Denies fever(s), Denies night sweats, Denies poor appetite and Denies weight loss ENT Reports Normal hearing present, Denies dental pain, Denies dysphagia, Denies hearing loss, Denies mouth pain, Denies odynophagia, Denies throat swelling, Denies tongue swelling and Reports other (Dentition adequate) Card Reports no additional complaints Resp Reports no additional complaints GI Details: Denies abdominal pain, Denies melena, Denies bloating, Denies hematochezia, Denies constipation, Denies GI cramping, Denies dysphagia, Denies excessive flatus, Denies early satiety, Reports heartburn, Denies diarrhea, Denies nausea, Denies odynophagia, Denies vomiting and Denies hematemesis Skin/Breast Denies pruritus, Denies lesions, Denies rash and Denies jaundice Neuro Reports Normal hearing present and Denies Abnormal speech present Endo Denies fatigue Aller/Immun Denies throat swelling and Denies tongue swelling Physical Exam Vital Signs: Last Vital Signs Pulse 73 07/02/24 15:39 BP 129/64 07/02/24 15:39 BMI result Body Mass Index 34.0 Const General: cooperative, no acute distress, well developed and well groomed Nutritional Appearance: well nourished and obese Orientation/consciousness: oriented to person, oriented to place and oriented to time Limitations: No language barrier HEENT Head: Yes normocephalic and Yes atraumatic Eyes General: appearance normal, both eyes and all related structures Pupils: Equal, round and reactive pupils present Neck Neck: Yes normal visual inspection Resp Effort & Inspection: normal respiratory effort and able to speak in complete sentences Skin General skin exam: no rashes or lesions noted, turgor normal, skin not dry, no jaundice, No spider nevi and no striae Rashes: no rashes Nails: normal Neuro General: oriented to person, oriented to place and oriented to time Cranial nerves: Yes Equal, round and reactive pupils present and Yes Normal hearing present Speech: No Abnormal speech present Extrem General: Yes normal to inspection, No clubbing, No cyanosis and No edema Psych Appearance: grossly normal and well kempt Mental Status: mental status grossly normal Speech and movement: Normal speech and movement present Affect: normal affect Attitude: cooperative Thought process: Normal thought process present and not confabulating Thought content: Normal thought content present Insight: Good insight present (Psych) Judgement: Good judgement present (Psych) Assessment & Plan Assessment & Plan (1) GERD (gastroesophageal reflux disease): Code(s): K21.9 - Gastro-esophageal reflux disease without esophagitis Category: Medical Plan She continues to do very well with her pantoprazole 40mg qd. Her last colonoscopy was with Dr. Gomez, but for her next she would prefer to do it with our service. She would be due in 2026 ROV 1 year. Medications: Refilled pantoprazole 40 mg PO DAILY 90 tabs 3RF Coding Level of Care Code Est Pt Level 3 (31503) Diagnoses GERD (gastroesophageal reflux disease) K21.9
== END 2024-07-02 16:18 | disposition home or self-care (01) ==
PROVIDERS: PCP Nurse Practitioner Family; Visit Provider Nurse Practitioner
DX: K21.9 Gastro-esophageal reflux disease without esophagitis (principal)
CPT/HCPCS: 99213

== ENCOUNTER → 2024-07-02 15:38 | Outpatient (BNVA) | payer OTHER, SELFPAY | PROVIDERS: PCP Nurse Practitioner Family; Visit Provider Nurse Practitioner ==

== ENCOUNTER → 2024-07-23 09:30 | Outpatient (BNV) | payer OTHER, SELFPAY | PROVIDERS: Emergency Provider Emergency Medicine Emergency Medical Services; PCP Nurse Practitioner Family; Visit Provider Internal Medicine | DX: R07.9 Chest pain, unspecified (principal) | CPT/HCPCS: 93010 ==

== ENCOUNTER 2024-07-23 09:33 | Emergency (ER) | payer OTHER, SELFPAY ==
[2024-07-23] VITALS (8 sets, daily range): BP systolic 122–132; BP diastolic 43–74; PULSE 75–91; RESP 16–20; TEMP 36–36.8; O2SAT 95–98; BMI 31.9
--- NOTE | 2024-07-23 | ECG_ITS ---
Test Reason : chest pain Blood Pressure : / mmHG Vent. Rate : 073 BPM Atrial Rate : 073 BPM P-R Int : 168 ms QRS Dur : 076 ms QT Int : 384 ms P-R-T Axes : 006 002 020 degrees QTc Int : 423 ms Normal sinus rhythm Normal ECG When compared with ECG of 08-AUG-2021 14:00, No significant change was found Referred By: Generic ED Physician Electronically Signed By:ANGELLA MALONE
--- NOTE | ~2024-07-23 | CT_ITS ---
EXAMINATION: CT HEAD WITHOUT CONTRAST CLINICAL INFORMATION: Blurry vision COMPARISON: Brain on 07/09/2023 TECHNIQUE: Contiguous axial imaging was performed from the skull base to vertex without intravenous administration of contrast. This CT examination was performed using dose optimization techniques as appropriate, variously including the following: *Automated exposure control *Adjustment of mA and/or kV according to patient size (this includes techniques or standardized protocols for targeted exams where dose is matched to indication/reason for exam; i.e. extremities or head) *Use of iterative reconstruction technique DLP: 623 mGy-cm RESULTS: There is no evidence of acute intracranial hemorrhage, acute large vessel infarct, midline shift or mass effect. The patino-white differentiation is preserved. The ventricles and sulci are within normal limits in size and configuration. There is no evidence of hydrocephalus. There are no extraaxial collections. Osseous structures are intact. Paranasal sinuses and mastoid air cells are well aerated. CT/CT head/brain wo IV con IMPRESSION: Unremarkable non-contrast CT of the brain. Electronically signed by: Meseret Giordano MD 07/23/2024 03:48 PM EDT
--- NOTE | ~2024-07-23 | XR_ITS ---
EXAMINATION: XR CHEST CLINICAL INFORMATION: CP COMPARISON: X-ray dated August 08, 2021 TECHNIQUE: Frontal view of the chest was obtained. FINDINGS: No consolidation, pleural effusion or pneumothorax. Cardiomediastinal silhouette is normal in size. Multilevel thoracic spondylosis. S-shaped curvature of the thoracolumbar spine. XR/XR chest 1V IMPRESSION: No acute airspace disease. Electronically signed by: Bunny Reddy MD 07/23/2024 10:15 AM EDT
[2024-07-23 09:45] LABS: MANUAL DIFF FLAG NO
[2024-07-23 09:47] LABS: Basophils Absolute Auto 0.1 X10*3/uL (0.0-0.2); Eosinophils Absolute Auto 0.2 X10*3/uL (0.0-0.4); Eosinophils Percent Auto 3.2 % (0-4); Hematocrit 43.4 % (37.0-47.0); Hemoglobin 13.9 g/dl (12.0-16.0); Imm Gran Abs Auto 0.02 X10*3/uL (0.00-0.03); Imm Gran Pct Auto 0.3 % (0.0-0.4); Lymphocytes Absolute Auto 1.9 X10*3/uL (1.2-4.9); Lymphocytes Percent Auto 31.3 % (20-40); Mean Corpuscular Hemoglobin 27.6 pg (27.0-33.0); Mean Corpuscular Volume 86.3 fL (80.0-98.0); Monocytes Absolute Auto 0.5 X10*3/uL (0.1-1.2); Neutrophils Absolute Auto 3.4 x10*3/uL (2.0-8.3); Neutrophils Percent Auto 56.2 % (45-73); Platelet Count 246 X10*3/uL (160-400); Red Blood Count 5.03 X10*6/uL (4.20-5.50); Red Cell Distribution Width 13.9 % (11.0-16.0)
[2024-07-23 09:52] LABS: INTERNATIONAL NORM RATIO 1.1 (0.9-1.1)
[2024-07-23 10:03] LABS: Alanine Aminotransferase 27 U/L (0-31); Albumin Level 4.1 g/dL (3.5-5.0); Alkaline Phosphatase 75 U/L (39-117); Anion Gap 12 (12-20); Aspartate Amino Transferase 40 U/L (5-31); Bilirubin Total 0.3 mg/dL (0.0-1.0); Blood Urea Nitrogen 11 mg/dL (9-16); Calcium 9.9 mg/dL (8.4-10.2); Carbon Dioxide 24 mmol/L (22-29); Chloride 114 mmol/L (96-108); Estimated Glomerular Filt Rate > 60; Glucose Random 102 mg/dL (60-115); Magnesium 2.1 mg/dL (1.6-2.6); Potassium 3.6 mmol/L (3.3-5.1); Sodium 146 mmol/L (135-145); Total Protein 7.8 g/dL (6.5-8.0)
[2024-07-23 10:13] LABS: Troponin-I High Sensitivity < 2.7 ng/L (<3.5-17.0)
--- NOTE | 2024-07-23 10:59 | ED_ITS ---
HPI - Chest Pain General Chief Complaint: Chest Pain Stated Complaint: CP Time Seen by Provider: 07/23/24 10:59 Source: patient, RN notes reviewed and old records reviewed Mode of arrival: ambulatory History of Present Illness ED Provider: Kinza Grigsby PA-C HPI narrative: 53-year-old female with a past medical history of DVT on Eliquis, factor 5 Leiden, obesity, rheumatoid arthritis, fibromyalgia, presenting to the ED complaining of sharp substernal chest pain since yesterday morning with radiation to left neck. Also reports mild SOB and feeling off balance/dizzy. States dizziness/off balance has been x weeks, worse with position changes/movement. Denies headache, vision change or loss, nausea/vomiting, numbness/tingling, weakness, abdominal pain Related Data Home Medications ?Medication ?Instructions ?Recorded ?Confirmed frovatriptan 2.5 mg tablet 2.5 mg PO Q2-4H PRN Headache 01/15/22 06/18/24 topiramate 100 mg tablet 100 mg PO BID 03/15/24 06/18/24 fremanezumab-vfrm 225 mg/1.5 mL 225 mg subcut .every 28 days 07/02/24 subcutaneous auto-injector (Ajovy) Previous Rx's ?Medication ?Instructions ?Recorded tizanidine 4 mg tablet 4 mg PO Q8H PRN muscle spasticity 06/28/22 30 days #90 tabs rimegepant 75 mg disintegrating 75 mg PO Q OTHER DAY PRN migraine 09/25/23 tablet (Nurtec ODT) headache 30 days #16 tabs trazodone 100 mg tablet 100 mg PO BEDTIME PRN insomnia 30 11/19/23 days #30 tabs thumb spica #1 ea 01/19/24 Actemra ACTPen 162 mg/0.9 mL 162 mg (0.9 mL) subcut Q2W #1.8 ea 03/11/24 subcutaneous pen injector (tocilizumab) cetirizine 10 mg tablet (Zyrtec) 10 mg PO DAILY #90 tabs 03/15/24 fluticasone propionate 50 1 spray intranasal Q12H #16 grams 03/15/24 mcg/actuation nasal spray,suspension (Flonase Allergy Relief) amitriptyline 25 mg tablet See Rx Instructions .Route 04/26/24 .COMPLEX #270 ea escitalopram oxalate 10 mg tablet 10 mg PO DAILY #90 tabs 05/19/24 (Lexapro) apixaban 5 mg tablet (Eliquis) 5 mg PO BID #120 tabs 06/03/24 pantoprazole 40 mg tablet,delayed 40 mg PO DAILY #90 tabs 07/02/24 release meclizine 25 mg tablet 25 mg PO TID PRN dizziness #14 tabs 07/23/24 Allergies Allergy/AdvReac Type Severity Reaction Status Date / Time adalimumab [From Humira] Allergy hairloss Verified 07/23/24 10:04 enoxaparin [From Lovenox] Allergy Rash Verified 07/23/24 10:04 etanercept [Enbrel] Allergy Injection Verified 07/23/24 10:04 site reaction sarilumab [From Kevzara] Allergy injection Verified 07/23/24 10:04 site reaction Review of Systems 2 Review of Systems: Yes all other systems are reviewed and are negative Constitutional: Constitutional: Reports as per HPI Neurologic: Denies Abnormal speech present [facility] Past Medical History Attestation statement: The following information was validated with the patient. Source: old records reviewed Medical History Non-toxic multinodular goiter Sprain of medial collateral ligament of left knee History of DVT of lower extremity Secondary hypercoagulable state Encounter for screening involving social determinants of health (SDoH) Encounter for general adult medical examination with abnormal findings Acute lower GI bleeding Lumbar back pain with radiculopathy affecting right lower extremity Mass of both wrists Osteoarthritis of carpometacarpal joint of right thumb Left knee pain Right leg DVT Obesity Vitamin D deficiency Hx of rheumatoid arthritis Hx of thyroid nodule History of vitamin D deficiency Hx of obesity Hx of carpal tunnel syndrome History of fibromyalgia Surgical History History of esophagogastroduodenoscopy (EGD) H/O colonoscopy S/P colonoscopic polypectomy Family History Family History Mother Diabetes Fibromyalgia Osteoarthritis Maternal Grandfather Leukemia Maternal Aunt Breast cancer Unknown Cancer Stomach cancer Social History Social History Household Members: Spouse and Children Housing: House Are you a primary lpn care manager to a significant other at home: No Do you presently have visiting nurse or other home services: No Alcohol intake: current Alcohol intake frequency: does not drink Patient Tobacco Use Status: Never used Tobacco Smoked in Last 30 Days: No e-Cigarette/Vaping Use: Never Used Second Hand Smoke Exposure: No Use of substances other than those prescribed or required for medical reasons: No Advance Directives: Yes Advance Directives on File: Yes Advance Directives Date on File: 11/21/21 Do you have a plan to hurt others: No Plan Patient : No service: No Current occupational status: employed 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[place] [place] Cognitive needs: No Hearing needs: No Vision needs: No Physical Exam 2 Vital Signs: Vital Signs: Last Vital Signs Temp 97.8 F 07/23/24 16:01 Pulse 81 07/23/24 16:01 Resp 18 07/23/24 16:01 BP 127/74 07/23/24 16:01 Pulse Ox 98 07/23/24 16:01 O2 Del Method Room Air 07/23/24 16:01 BMI result Body Mass Index 31.9 Const: General: cooperative, healthy appearing and no acute distress O rientation/consciousness: patient oriented x3 Limitations: no limitations HEENT: Head: Yes normal to inspection and Yes atraumatic Ears: hearing grossly normal bilaterally and external ears normal General nose exam: Normal external nose present Face and sinus: Yes normal facial exam Mouth: Normal oral and palatal mucosa present and no drooling Throat: Yes posterior oropharynx normal, Yes tonsils normal, Yes uvula midline, No peritonsillar mass, No uvula laterally displaced and No uvular edema Eyes: General: appearance normal, both eyes and all related structures P upils: Equal, round and reactive pupils present EOM: EOMs intact bilaterally Neck: Neck: Yes normal visual inspection, Yes no meningeal signs and No anterior neck swelling Resp: Effort & Inspection: normal respiratory effort and no respiratory distress Auscultation: clear to auscultation bilaterally, no crackles and no wheezes Cardio: Rate: regular rate Heart sounds: S1 normal heart sound present and S2 normal heart sound present GI: Inspection: Yes normal to inspection Palpation (GI): Soft to palpation, nontender, no guarding and not rigid Skin: Rashes: no rashes Wounds: no wounds Neuro: General: patient oriented x3, gait normal, tone normal, moves all extremities, no meningeal signs, no focal motor deficits and CN's II-XI intact bilaterally Cranial nerves: Yes CN's II-XII intact bilaterally, Yes Equal, round and reactive pupils present and Yes Bilaterally intact EOM present C ognition (Neuro): normal cognition Speech: No Abnormal speech present Gait exam (Neuro): Normal gait present Motor exam (neuro): 5/5 motor strength present throughout, Pronator motor function not present and no tremor noted Extrem: General: Yes normal to inspection Course Course Course Narrative: -1257--labs reassuring including negative troponin XR chest 1V IMPRESSION: No acute airspace disease. -orthostatic vital signs negative CT head/brain wo IV con IMPRESSION: Unremarkable non-contrast CT of the brain. > patient is ambulating in the ED with steady gait. No ataxia. Reports symptomatic improvement, feels comfortable for discharge home at this time. Results discussed with patient including worrisome signs and symptoms and strict return precautions, and when to return to the emergency department. They verbalized understanding and feel safe for discharge at this time. Medications Administered Discontinued Medications Generic Name Dose Route Start Last Admin Trade Name Freq PRN Reason Stop Dose Admin Meclizine HCl 25 mg 07/23/24 11:11 07/23/24 11:54 Meclizine Hcl 25 Mg Tablet PO 07/23/24 11:12 25 mg ONCE ONE Administration Ondansetron HCl 4 mg 07/23/24 11:11 07/23/24 11:55 Ondansetron Odt 4 Mg Tab.Rapdis TRANSLINGU 07/23/24 11:12 4 mg ONCE ONE Administration Medical Decision Making Medical Decision Making [facility] Narrative: 53-year-old female with a past medical history of DVT on Eliquis, factor 5 Leiden, obesity, rheumatoid arthritis, fibromyalgia, presenting to the ED complaining of sharp substernal chest pain since yesterday morning with radiation to left neck. Also reports mild SOB and feeling off balance/dizzy. On exam vital signs stable, NAD, nontoxic appearing, lungs CTA, abdomen soft/nontender, no focal neuro deficits, no nystagmus. Concern for ACS vs viral illness vs pneumonia or bronchitis. Concern for BPPV. Subacute CVA on differential however lower Plan: EKG, labs, UA, CXR, head CT, symptomatic remedies, re-evaluate Please refer to course for remaining clinical decision making, interpretation of labs/imaging results, and discussions with consultants and/or family members. Differential Diagnosis Differential Diagnoses: The differential diagnosis associated with the presentation includes As above Admission/Observation Consideration of admission/observation: Escalation of care including admission/observation considered Lab Data MDM Lab Attestation statement: I reviewed the patient's lab results. 07/23/24 09:41 07/23/24 09:41 Labs: Lab Results 07/23/24 07/23/24 Range/Units 09:41 16:09 WBC 6.0 (4.8-10.8) X10*3/uL RBC 5.03 (4.20-5.50) X10*6/uL Hgb 13.9 (12.0-16.0) g/dl Hct 43.4 (37.0-47.0) % MCV 86.3 (80.0-98.0) fL MCH 27.6 (27.0-33.0) pg MCHC 32.0 (31.0-35.0) g/dl RDW 13.9 (11.0-16.0) % Plt Count 246 (160-400) X10*3/uL MPV 11.0 (9.4-12.3) fL Immature Gran % (Auto) 0.3 (0.0-0.4) % Neut % (Auto) 56.2 (45-73) % Lymph % (Auto) 31.3 (20-40) % [place] % (Auto) 8.0 (2-11) % Eos % (Auto) 3.2 (0-4) % Baso % (Auto) 1.0 (0-2) % Lymph # (Auto) 1.9 (1.2-4.9) X10*3/uL [place] # (Auto) 0.5 (0.1-1.2) X10*3/uL Eos # (Auto) 0.2 (0.0-0.4) X10*3/uL Baso # (Auto) 0.1 (0.0-0.2) X10*3/uL Abs Immat Gran (auto) 0.02 (0.00-0.03) X10*3/uL Absolute Neuts (auto) 3.4 (2.0-8.3) x10*3/uL Absolute Nucleated RBC 0.000 (0.0-0.012) X10*3/uL Nucleated RBC % (auto) 0.0 (0.0-0.2) /100WBC PT 13.0 H (10.9-12.4) SEC INR 1.1 (0.9-1.1) Sodium 146 H (135-145) mmol/L Potassium 3.6 (3.3-5.1) mmol/L Chloride 114 H (96-108) mmol/L Carbon Dioxide 24 (22-29) mmol/L Anion Gap 12 (12-20) BUN 11 (9-16) mg/dL Creatinine 0.94 (0.5-1.4) mg/dL Estim Creat Clear Calc TNP Estimated GFR > 60 Random Glucose 102 (60-115) mg/dL Calcium 9.9 (8.4-10.2) mg/dL Magnesium 2.1 (1.6-2.6) mg/dL Total Bilirubin 0.3 (0.0-1.0) mg/dL AST 40 H (5-31) U/L ALT 27 (0-31) U/L Alkaline Phosphatase 75 (39-117) U/L Troponin I High Sens < 2.7 (<3.5-17.0) ng/L Total Protein 7.8 (6.5-8.0) g/dL Albumin 4.1 (3.5-5.0) g/dL Urine Color Yellow Urine Appearance Clear Urine pH 6.5 (5.0-9.0) Ur Specific [place] 1.020 (1.005-1.025) Urine Protein Negative (Neg-Trace) mg/dL Urine Glucose (UA) Negative (Negative) mg/dL Urine Ketones Negative (Negative) mg/dL Urine Blood Negative (Negative) Urine Nitrite Negative (Negative) Ur Leukocyte Esterase Moderate (2+) H (Negative) Independent Interpretation I performed an independent interpretation of an: EKG (My interpretation EKG normal sinus rhythm rate of 73. NH interval 168. QTC 423. No significant change when compared to prior), Plain X-Ray and CT Scan Radiology Impression Discussion of test interpretation with radiology: I have reviewed the radiologist's reading. External Record Review External record reviewed: Inpatient record, Office record, Outpatient record, Prior outpatient labs, Prior outpatient radiology, Primary care record and Outside ED record Tests considered The following testing was considered but not selected: As above Prescription Management I considered prescription management with: Pain Medication Chronic Conditions Patient?s care impacted by: Other Social Determinants Patient?s care significantly limited by Social Determinants of Health including: Other Social Determinant of Health Discharge Plan Discharge Clinical Impression: Atypical chest pain, Benign paroxysmal positional vertigo Patient Disposition: Home, Self-Care Instructions: Vertigo (DC), Noncardiac Chest Pain (ED) Additional Instructions: Your blood work & CT scan are reassuring Meclizine is for dizziness, take as needed Please follow-up with your doctor You may also follow up with Cardiology If her symptoms persist or worsen return to the emergency department Prescriptions: New meclizine 25 mg tablet 25 mg PO TID PRN (Reason: dizziness) Qty: 14 0RF No Action Nurtec ODT 75 mg tablet,disintegrating 75 mg PO Q OTHER DAY PRN (Reason: migraine headache) 30 Days Qty: 16 3RF trazodone 100 mg tablet 100 mg PO BEDTIME PRN (Reason: insomnia) 30 Days Qty: 30 8RF Actemra ACTPen 162 mg/0.9 mL pen injector 162 mg subcut Q2W Qty: 1.8 2RF amitriptyline 25 mg tablet See Rx Instructions .ROUTE .COMPLEX Qty: 270 0RF Dose Instruction: TAKE 1 TABLET BY MOUTH 3 TIMES A DAY Rx Instructions: TAKE 1 TABLET BY MOUTH 3 TIMES A DAY Eliquis 5 mg Tablet 5 mg PO BID Qty: 120 4RF topiramate 100 mg tablet 100 mg PO BID fluticasone propionate [Flonase Allergy Relief] 50 mcg/actuation spray,suspension 1 spray intranasal Q12H Qty: 16 0RF Rx Instructions: administer into each nostril cetirizine [Zyrtec] 10 mg tablet 10 mg PO DAILY Qty: 90 0RF escitalopram oxalate [Lexapro] 10 mg tablet 10 mg PO DAILY Qty: 90 1RF frovatriptan 2.5 mg tablet 2.5 mg PO Q2-4H PRN (Reason: Headache) Rx Instructions: do not exceed 3 doses per 24 hrs tizanidine 4 mg tablet 4 mg PO Q8H PRN (Reason: muscle spasticity) 30 Days Qty: 90 0RF (DME) thumb spica See Rx Instructions .Route .MEDSUPPLY Qty: 1 0RF Rx Instructions: wear nightly & as much as possible throughout the day Ajovy Autoinjector 225 mg/1.5 mL auto-injector 225 mg subcut .every 28 days pantoprazole 40 mg tablet,delayed release (DR/EC) 40 mg PO DAILY Qty: 90 3RF [place] [facility] [place] [facility] [Provider Group] Jeri Narayanan, [employer] [Primary Care Provider] - Print Language: Belarusian
[2024-07-23] MEDS: Meclizine HCl 25 MG TABLET PO (11:54)
[2024-07-23] MEDS: Ondansetron ODT 4 MG TAB.RAPDIS TRANSLINGU (11:55)
[2024-07-23 16:14] LABS: Appearance Urine Clear; Color Urine Yellow; Glucose Urine UA Negative (Negative); Leukocyte Esterase Urine Moderate (2+) (Negative); Nitrite Urine Negative (Negative); PH 6.5 (5.0-9.0); UMIC TRIGGER UACC YES; Urine Blood Negative (Negative); Urine Ketones Negative (Negative); Urine Protein Negative (Neg-Trace)
[2024-07-23 18:57] LABS: Bacteria Urine None Seen (None Seen); Hyaline Casts Urine 0-2 /LPF (0-2); UACC Culture Trigger YES
== END 2024-07-23 16:33 | disposition home or self-care (01) ==
PROVIDERS: Physician Assistant; Emergency Provider Emergency Medicine Emergency Medical Services; PCP Nurse Practitioner Family
DX: H81.13 Benign paroxysmal vertigo, bilateral (principal); R07.89 Other chest pain; M54.2 Cervicalgia; R06.02 Shortness of breath; Z86.718 Personal history of other venous thrombosis and embolism; Z79.899 Other long term (current) drug therapy; Z79.01 Long term (current) use of anticoagulants
CPT/HCPCS: 36415; 70450; 71045; 80053; 81001; 83735; 84484; 85025; 85610; 87086; 87088; 87186; 93005; 99284; 99285

== ENCOUNTER → 2024-07-23 09:50 | Outpatient (BNV) | payer OTHER, SELFPAY | PROVIDERS: PCP Nurse Practitioner Family; Visit Provider Radiology Diagnostic Radiology | DX: R07.9 Chest pain, unspecified (principal) | CPT/HCPCS: 71045 ==

== ENCOUNTER 2024-07-28 09:56 | Outpatient (AMB) | payer OTHER, SELFPAY ==
--- NOTE | 2024-07-28 09:35 | A.OFFPC_ITS ---
Intake Visit Reasons: Labs Results Allergies adalimumab [From Humira] Allergy (Verified 07/28/24 09:35) hairloss enoxaparin [From Lovenox] Allergy (Verified 07/28/24 09:35) Rash etanercept [Enbrel] Allergy (Verified 07/28/24 09:35) Injection site reaction sarilumab [From Kevzara] Allergy (Verified 07/28/24 09:35) injection site reaction Medication List - Last Reconciled 07/28/24 by Jeri Narayanan [facility] Actemra ACTPen (tocilizumab) 162 mg (0.9 mL) subcut Q2W NS amitriptyline TAKE 1 TABLET BY MOUTH 3 TIMES A DAY apixaban (Eliquis) 5 mg PO BID cefuroxime axetil 250 mg PO BID 7 days cetirizine (Zyrtec) 10 mg PO DAILY escitalopram oxalate (Lexapro) 10 mg PO DAILY fluticasone propionate 50 mcg/actuation (Flonase Allergy Relief) 1 spray intranasal Q12H fremanezumab-vfrm (Ajovy) 225 mg subcut .every 28 days frovatriptan 2.5 mg PO Q2-4H PRN meclizine 25 mg PO TID PRN pantoprazole 40 mg PO DAILY rimegepant (Nurtec ODT) 75 mg PO Q OTHER DAY PRN 30 days [thumb spica wear nightly & as much as possible throughout the day] tizanidine 4 mg PO Q8H PRN 30 days topiramate 100 mg PO BID trazodone 100 mg PO BEDTIME PRN 30 days Tobacco use date assessed: 05/19/24 Dental Screening Dental Screen Date: 03/15/24 HPI HPI Comments History of Present Illness Details Telehealth visit today for this 53-year-old female who was seen at the emergency room at [facility] 07/23/2024. Hospital discharge summary and workup have been reviewed. Upon speaking with the patient today she reports that she is no longer having any chest pain. She does continue to feel like she has a ?drunk and head but without dizziness. She has been taking meclizine once per day with positive effect. She was noted to have a UTI and was prescribed an antibiotic of what she started yesterday. She denies any overt urinary symptoms however she does endorse low back pain. She is taking antibiotics as directed and continues to deny any urinary symptoms. I reviewed with her the recommendation to consult Cardiology, she does not feel like this is required at this time. Also reviewed that meclizine 25 mg can be taken 3 times per day as needed. She states that she is not sure if the symptoms that she is having are related to psychosocial stressors as she reports that she is having a lot of family issues at the current time or if this is some sort of migraine as she does have a history of migraines. In regards to her stressors, she was referred to counseling and has been trying to make contact with the office to schedule but has not heard anything yet. While she contacts for safety she does wish to pursue counseling. Plan Complete antibiotics as directed. If low back pain continues or worsens or develop any fever, chills, abdominal pain, nausea or vomiting advised to seek medical care. I have sent a message to the social worker about the counseling referral to see if she can aid in getting this patient an appointment with counseling. Asked if there is anything else that I can do to assist, she denied at this time. As she is no longer having any chest pain, no need for cardiology consult at this time. Reeducated about the use of meclizine 25 mg PO TID prn especially if this seems to be providing some benefit. I have asked the patient to reach out should she need anything, otherwise I will see her as routinely scheduled. Crisis Hotlines Suicide prevention, domestic violence, and other crisis hotlines for youth, young adults, and their friends and families. Node Managementline: The [employer] Safeline helps youth who have run away, are thinking about running away, or who already ran away but are ready to come home. Parents and guardians can also contact the hotline if they are worried about their child running away or if their child has already left home. The hotline is available 24 hours a day, seven days a week. Youth, parents, and guardians can also use the online chat feature on the [employer]'s website to ask for help and get support, [place] [address]. [place] [facility] National Suicide Prevention Lifeline: The National Suicide Prevention Lifeline is a network of local crisis centers that are available 14/04 to provide support for youth and adults who are in any kind of emotional crisis. In addition to the main hotline number listed above, there are several other numbers to call depending on your needs: Bengali Language: Deaf and Hard of Hearin1-123.521.4199 Veterans: Disaster Distress: Anyone can also use their online chat feature on their website. National Suicide Prevention Lifeline [facility] Helpline: The [facility] Helpline is available to anyone in [place] who is need of emotional support. Anyone can call or text the helpline to receive help from specially trained volunteers. [place] high school and college students can also get online support through the IMHear_ program. For high school students, volunteers ages 15-18 are available Friday- from 6-9PM. For college students, IMHear_ is available Friday-Friday from 5-9PM. The Justice Project - The Justice Project is a 14/04 crisis intervention and suicide prevention hotline for LGBTQ youth. Youth can also text Justice to for support, or use the online chat feature on the Justice Project's website. TrevorText is available Friday-Friday between 3-10PM. TrevorChat is available seven days a week between 3-10PM. SafeLink: SafeLink is for anyone who is being affected by domestic violence or dating violence. Volunteers at [employer] speak Maori and Bengali, and [employer] also has a service that can provide translation in more than 130 languages. TTY: This note is constructed using voice recognition software. While every effort has been made to ensure accuracy in microbiology laboratory manager, still errors may have been included Sometimes, these errors may affect the content or meaning of the given sentence . Total time spent caring for the patient today was 21 minutes. This includes time spent before the visit reviewing the chart, time spent during the visit, and time spent after the visit on documentation [facility] Medical History Non-toxic multinodular goiter Sprain of medial collateral ligament of left knee History of DVT of lower extremity Secondary hypercoagulable state Encounter for screening involving social determinants of health (SDoH) Encounter for general adult medical examination with abnormal findings Acute lower GI bleeding Lumbar back pain with radiculopathy affecting right lower extremity Mass of both wrists Osteoarthritis of carpometacarpal joint of right thumb Left knee pain Right leg DVT Obesity Vitamin D deficiency Hx of rheumatoid arthritis Hx of thyroid nodule History of vitamin D deficiency Hx of obesity Hx of carpal tunnel syndrome History of fibromyalgia Surgical History History of esophagogastroduodenoscopy (EGD) H/O colonoscopy S/P colonoscopic polypectomy Family History Mother Diabetes Fibromyalgia Osteoarthritis Maternal Grandfather Leukemia Maternal Aunt Breast cancer Unknown Cancer Stomach cancer Social History Household Members: Spouse and Children Housing: House Are you a primary resident care director to a significant other at home: No Do you presently have visiting nurse or other home services: No Alcohol intake: current Alcohol intake frequency: does not drink Patient Tobacco Use Status: Never used Tobacco e-Cigarette/Vaping Use: Never Used Second Hand Smoke Exposure: No Advance Directives Date on File: 11/21/21 service: No Current occupational status: employed 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 Jean Figueroa, Maribell Nascimento, Mookie gonzalez nd colleagues, with an educational leigh ann from [employer]. Physical exam (Primary Care) Tobacco/Smoking Status: Tobacco use Status Tobacco use date assessed 05/19/24 07/28/24 09:35 Patient Tobacco Use Status Never used Tobacco 07/28/24 09:35 e-Cigarette/Vaping Use Never Used 07/28/24 09:35 Thrive Assessment: Date of Thrive Assessment Date Thrive assessed 03/15/24 07/28/24 09:35 Telehealth Telehealth Telehealth [facility] Location of provider rendering services: practice address Location of patient: address on file Patient Identification confirmed using: Name, : Yes Telehealth method: voice only Patient verbally consented to treatment: Yes Patient verbally consented to billing insurance company: Yes Patient informed of any privacy concerns related to visit: Yes Coding Level of Care Code Est Pt Level 2 (68619) Complex EM visit Add On G2211 Diagnoses Hospital discharge follow-up Z09 Acute cystitis without hematuria N30.00 Urinary tract infection type: acute cystitis Hematuria presence: without hematuria Atypical chest pain R07.89 Psychosocial stressors Z65.8 Assessment & Plan Assessment & Plan (1) Hospital discharge follow-up: Code(s): Z09 - Encounter for follow-up examination after completed treatment for conditions other than malignant neoplasm Plan: . (2) UTI (urinary tract infection): Code(s): N39.0 - Urinary tract infection, site not specified Qualifiers: Urinary tract infection type: acute cystitis Hematuria presence: without hematuria Qualified Code(s): N30.00 - Acute cystitis without hematuria Plan: . (3) Atypical chest pain: Code(s): R07.89 - Other chest pain Plan: resolved. (4) Psychosocial stressors: Code(s): Z65.8 - Other specified problems related to psychosocial circumstances Plan: .
== END 2024-07-28 16:57 | disposition home or self-care (01) ==
LOC: HO.HMCFM 09:56
PROVIDERS: PCP Nurse Practitioner Family; Visit Provider Nurse Practitioner Family
DX: Z09 Encounter for follow-up examination after completed treatment for conditions other than malignant neoplasm (principal); N30.00 Acute cystitis without hematuria; R07.89 Other chest pain; Z65.8 Other specified problems related to psychosocial circumstances

== ENCOUNTER → 2024-07-28 09:56 | Outpatient (BNVA) | payer OTHER, SELFPAY | PROVIDERS: PCP Nurse Practitioner Family; Visit Provider Nurse Practitioner Family ==

== ENCOUNTER 2024-08-10 08:19 | Outpatient (AMB) | payer OTHER, SELFPAY ==
[2024-08-10 09:01] VITALS: BP 130/100; PULSE 82; TEMP 36.6; O2SAT 94
--- NOTE | 2024-08-10 09:01 | MHC.OFFWIV ---
Intake Vital Signs 08/10/24 09:01 Weight 183 lb BP 130/100 H Blood Pressure Location Rt brachial Position Sitting Pulse 82 Pulse Source Pulse Oximeter Temp 97.9 F Temp Source Oral Pulse Oximetry (%) 94 Oxygen Delivery Method Room Air Intake Visit Reasons: EP Sore throat, Intake Note: Patient here for sore throat and congestion that has been present for about 2-3 days. Patient Tobacco Use Status: Never used Tobacco Allergies adalimumab [From Humira] Allergy (Verified 08/10/24 09:08) hairloss enoxaparin [From Lovenox] Allergy (Verified 08/10/24 09:08) Rash etanercept [Enbrel] Allergy (Verified 08/10/24 09:08) Injection site reaction sarilumab [From Kevzara] Allergy (Verified 08/10/24 09:08) injection site reaction Do you need a note to return to daycare/school/sports/work: No HPI HPI Comments History of Present Illness Details This is a 53-year-old female with a past medical history of migraine headaches, rheumatoid arthritis and DVT currently maintained on Eliquis presenting for evaluation of a sore throat and sinus congestion that she has had for the past 2 days. Patient reports having chills but denies having any fevers, otalgia, difficulty swallowing, cough or shortness for breath. Patient has not taken any medication for treatment of her symptoms and denies any recent sick contacts. [facility] Medical History Non-toxic multinodular goiter Sprain of medial collateral ligament of left knee History of DVT of lower extremity Secondary hypercoagulable state Encounter for screening involving social determinants of health (SDoH) Encounter for general adult medical examination with abnormal findings Acute lower GI bleeding Lumbar back pain with radiculopathy affecting right lower extremity Mass of both wrists Osteoarthritis of carpometacarpal joint of right thumb Left knee pain Right leg DVT Obesity Vitamin D deficiency Hx of rheumatoid arthritis Hx of thyroid nodule History of vitamin D deficiency Hx of obesity Hx of carpal tunnel syndrome History of fibromyalgia Surgical History History of esophagogastroduodenoscopy (EGD) H/O colonoscopy S/P colonoscopic polypectomy Family History Mother Diabetes Fibromyalgia Osteoarthritis Maternal Grandfather Leukemia Maternal Aunt Breast cancer Unknown Cancer Stomach cancer Social History Household Members: Spouse and Children Housing: House Are you a primary medicare sales representative to a significant other at home: No Do you presently have visiting nurse or other home services: No Alcohol intake: current Alcohol intake frequency: does not drink Patient Tobacco Use Status: Never used Tobacco e-Cigarette/Vaping Use: Never Used Second Hand Smoke Exposure: No Advance Directives Date on File: 11/21/21 service: No Current occupational status: employed 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-[employer] Cognitive needs: No Hearing needs: No Vision needs: No Review of Systems Const All systems reviewed & are unremarkable except as noted in HPI and below Reports chills, Denies fatigue, Denies fever(s) and Denies headache(s) Eyes Reports no additional complaints ENT Reports no additional complaints, Denies otalgia, Denies facial pain, Denies headache(s), Reports nasal congestion and Reports sore throat Card Reports no additional complaints, Denies chest pain and Denies dyspnea Resp Reports no additional complaints, Denies cough, Denies hemoptysis, Denies dyspnea and Denies wheezing GI Reports no additional complaints Reports no additional complaints Musc Reports no additional complaints Skin/Breast Reports system reviewed and no additional complaints, except as documented Neuro Reports no additional complaints and Denies headache(s) Psych Reports no additional complaints Endo Denies fatigue Phil/Lymph Reports no additional complaints Aller/Immun Reports no additional complaints and Denies wheezing Physical Exam Vital Signs: Last Vital Signs Temp 97.9 F 08/10/24 09:01 Pulse 82 08/10/24 09:01 BP 130/100 H 08/10/24 09:01 Pulse Ox 94 08/10/24 09:01 Oxygen Delivery Method Room Air 08/10/24 09:01 Repeat blood pressure 134/96; patient is afebrile. Const General: cooperative, healthy appearing, comfortable and no acute distress Nutritional Appearance: average body habitus Orientation/consciousness: patient oriented x3 Limitations: no limitations HEENT Head: Yes normal to inspection Ears: hearing grossly normal bilaterally, external ears normal, TM's normal bilaterally and EAC's normal General nose exam: Normal external nose present and Normal nasal mucous membranes and turbinates present Face and sinus: Yes normal facial exam Mouth: Normal oral and palatal mucosa present Teeth and gingiva: dentition normal Throat: Yes posterior oropharynx normal and No postnasal drainage Eyes General: appearance normal, both eyes and all related structures Neck Lymphatic: no lymphadenopathy noted Resp Effort & Inspection: normal respiratory effort, able to speak in complete sentences, no audible wheezes, no cough, no respiratory distress and not tachypneic Auscultation: clear to auscultation bilaterally Cardio Rate: regular rate Rhythm: regular rhythm Skin General skin exam: no rashes or lesions noted Neuro General: patient oriented x3 Psych Appearance: grossly normal Mental Status: mental status grossly normal Thought content: Normal thought content present Insight: Good insight present (Psych) Judgement: Good judgement present (Psych) Results Reviewed Results Reviewed: Rapid strep is negative. Assessment & Plan Assessment & Plan (1) Acute pharyngitis: Comment: Rapid strep test is negative. Code(s): J02.9 - Acute pharyngitis, unspecified Qualifiers: Pharyngitis/tonsillitis etiology: unspecified etiology Qualified Code(s): J02.9 - Acute pharyngitis, unspecified Plan: Tylenol OTC as needed, increase fluids daily, follow up with primary care in 5-7 days if symptoms have not resolved. Coding Level of Care Code Est Pt Level 3 (12535) Diagnoses Acute pharyngitis, unspecified etiology J02.9 Pharyngitis/tonsillitis etiology: unspecified etiology Time Spent (min) 20
== END 2024-08-10 09:59 | disposition home or self-care (01) ==
PROVIDERS: PCP Nurse Practitioner Family; Visit Provider Physician Assistant
DX: Z13.9 Encounter for screening, unspecified (principal); J02.9 Acute pharyngitis, unspecified

== ENCOUNTER → 2024-08-10 08:19 | Outpatient (BNVA) | payer OTHER, SELFPAY | PROVIDERS: PCP Nurse Practitioner Family; Visit Provider Physician Assistant | DX: J02.9 Acute pharyngitis, unspecified (principal) | CPT/HCPCS: 87880 ==

== ENCOUNTER 2024-08-25 08:45 | Outpatient (AMB) | payer OTHER, SELFPAY ==
--- NOTE | 2024-08-25 08:54 | A.OFFVIS_ITS ---
Intake Visit Reasons: LEFT WRIST PAIN Allergies adalimumab [From Humira] Allergy (Verified 08/10/24 09:08) hairloss enoxaparin [From Lovenox] Allergy (Verified 08/10/24 09:08) Rash etanercept [Enbrel] Allergy (Verified 08/10/24 09:08) Injection site reaction sarilumab [From Kevzara] Allergy (Verified 08/10/24 09:08) injection site reaction HPI Comments Details: The patient today is in my office with complains on pain in the left wrist. The pain is severe. Tenderness on palpation in the projection of the radial nerve on the left. [facility] Medical History Non-toxic multinodular goiter Sprain of medial collateral ligament of left knee History of DVT of lower extremity Secondary hypercoagulable state Encounter for screening involving social determinants of health (SDoH) Encounter for general adult medical examination with abnormal findings Acute lower GI bleeding Lumbar back pain with radiculopathy affecting right lower extremity Mass of both wrists Osteoarthritis of carpometacarpal joint of right thumb Left knee pain Right leg DVT Obesity Vitamin D deficiency Hx of rheumatoid arthritis Hx of thyroid nodule History of vitamin D deficiency Hx of obesity Hx of carpal tunnel syndrome History of fibromyalgia Surgical History History of esophagogastroduodenoscopy (EGD) H/O colonoscopy S/P colonoscopic polypectomy Family History Mother Diabetes Fibromyalgia Osteoarthritis Maternal Grandfather Leukemia Maternal Aunt Breast cancer Unknown Cancer Stomach cancer Social History Household Members: Spouse and Children Housing: House Are you a primary transitional care manager to a significant other at home: No Do you presently have visiting nurse or other home services: No Alcohol intake: current Alcohol intake frequency: does not drink Patient Tobacco Use Status: Never used Tobacco e-Cigarette/Vaping Use: Never Used Second Hand Smoke Exposure: No Advance Directives Date on File: 11/21/21 service: No Current occupational status: employed 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[employer] Cognitive needs: No Hearing needs: No Vision needs: No Review of Systems Const All systems reviewed & are unremarkable except as noted in HPI and below ENT Reports Normal hearing present Neuro Reports Normal hearing present, Denies Abnormal speech present, Denies confusion and Denies Sensory deficit (Neuro) Psych Denies confusion Physical Exam Const General: no acute distress; No confusion Orientation/consciousness: patient oriented x3 and No confusion Eyes General: appearance normal, both eyes and all related structures Pupils: Equal, round and reactive pupils present EOM: EOMs intact bilaterally Neck Neck: Yes full ROM Chest Chest palpation & inspection: normal inspection of the chest Resp Effort & Inspection: normal respiratory effort, able to speak in complete sentences, normal respiratory pattern, no audible wheezes and no cough Cardio Jugular venous distension: no JVD GI Inspection: Yes normal to inspection Neuro General: patient oriented x3, gait normal and No confusion Cranial nerves: Yes CN's II-XII intact bilaterally, Yes Equal, round and reactive pupils present, Yes Normal hearing present and Yes Ability to bilaterally elevate shoulders present Speech: No Abnormal speech present Gait exam (Neuro): Normal gait present Motor exam (neuro): 5/5 motor strength present throughout Sensory Exam: No Sensory deficit (Neuro) Extrem Other: Severe tenderness on palpation in the projection of the left radial area. Sli ght edema is observed in the area of the radial bone radial nerve. Psych Speech and movement: Normal speech and movement present Affect: normal affect Attitude: cooperative Thought process: Normal thought process present Thought content: Normal thought content present Insight: Good insight present (Psych) Judgement: Good judgement present (Psych) Assessment & Plan Assessment & Plan (1) Right wrist pain: Code(s): M25.531 - Pain in right wrist Category: Medical Plan I will refer the patient to a hand surgeon, Dr. Margot Stanley, I will prescribe her short cours of tramadol PRN Medications: New tramadol 50 mg PO Q6H 25 days PRN 100 tabs 1RF pain Discontinued amitriptyline Discontinued Reason: Doctor's Order 25 mg PO TID 270 ea 0RF F33.1 - Major depressive disorder, recurrent, moderate, M79.7 - Fibromyalgia Coding Level of Care Code Est Pt Level 3 (58755) Diagnoses Right wrist pain M25.531
== END 2024-08-25 09:28 | disposition home or self-care (01) ==
LOC: HO.PMC 08:45
PROVIDERS: PCP Nurse Practitioner Family; Visit Provider Anesthesiology
DX: M25.531 Pain in right wrist (principal)
CPT/HCPCS: 99213

== ENCOUNTER 2024-08-25 08:55 | Outpatient (REF) | payer OTHER, SELFPAY ==
[2024-08-25 10:51] LABS: MANUAL DIFF FLAG NO
[2024-08-25 11:02] LABS: Basophils Percent Auto 0.6 % (0-2); Eosinophils Absolute Auto 0.2 X10*3/uL (0.0-0.4); Eosinophils Percent Auto 2.9 % (0-4); Hematocrit 43.1 % (37.0-47.0); Hemoglobin 13.6 g/dl (12.0-16.0); Imm Gran Abs Auto 0.02 X10*3/uL (0.00-0.03); Imm Gran Pct Auto 0.3 % (0.0-0.4); Lymphocytes Absolute Auto 1.4 X10*3/uL (1.2-4.9); Lymphocytes Percent Auto 21.4 % (20-40); Mean Corpuscular HGB Conc 31.6 g/dl (31.0-35.0); Mean Corpuscular Hemoglobin 27.4 pg (27.0-33.0); Mean Corpuscular Volume 86.9 fL (80.0-98.0); Mean Platelet Volume 11.3 fL (9.4-12.3); Monocytes Absolute Auto 0.5 X10*3/uL (0.1-1.2); Monocytes Percent Auto 6.8 % (2-11); Neutrophils Absolute Auto 4.5 x10*3/uL (2.0-8.3); Platelet Count 252 X10*3/uL (160-400); Red Blood Count 4.96 X10*6/uL (4.20-5.50); Red Cell Distribution Width 13.6 % (11.0-16.0); White Blood Count 6.7 X10*3/uL (4.8-10.8)
[2024-08-25 11:08] LABS: Alanine Aminotransferase 25 U/L (0-31); Albumin Level 3.8 g/dL (3.5-5.0); Alkaline Phosphatase 88 U/L (39-117); Anion Gap 12 (12-20); Aspartate Amino Transferase 35 U/L (5-31); Bilirubin Total 0.3 mg/dL (0.0-1.0); Blood Urea Nitrogen 9 mg/dL (9-16); C Reactive Protein 2.36 mg/dL (< or = 0.50); Calcium 9.2 mg/dL (8.4-10.2); Carbon Dioxide 26 mmol/L (22-29); Chloride 111 mmol/L (96-108); Cholesterol 188 mg/dL (<200); Estimated Glomerular Filt Rate > 60; Glucose Random 106 mg/dL (60-115); HDL Cholesterol 43 mg/dL (>40); LDL Cholesterol Calculated 128 mg/dL (<100); Potassium 3.5 mmol/L (3.3-5.1); Sodium 145 mmol/L (135-145); Total Protein 7.5 g/dL (6.5-8.0); Triglycerides 85 mg/dL (<150)
[2024-08-25 11:51] LABS: Erythrocyte Sedimentation Rate 13 MM/HR (0-20)
== END 2024-08-25 08:56 | disposition home or self-care (01) ==
LOC: HO.10HDL 08:55
PROVIDERS: Visit Provider Student in an Organized Health Care Education/Training Program
DX: M05.9 Rheumatoid arthritis with rheumatoid factor, unspecified (principal); E78.5 Hyperlipidemia, unspecified; M25.531 Pain in right wrist
CPT/HCPCS: 36415; 80053; 80061; 85025; 85652; 86140

== ENCOUNTER 2024-08-31 11:24 | Outpatient (REF) | payer OTHER, SELFPAY ==
--- NOTE | ~2024-08-31 | XR_ITS ---
EXAMINATION: XR KNEE, RIGHT CLINICAL INFORMATION: M25.561 - Pain in right knee COMPARISON: None available. TECHNIQUE: Four views of the right knee. FINDINGS: No evidence of acute fracture or dislocation.. Possible small suprapatellar joint fluid. Alignment is anatomic. Joint spaces are maintained. Small marginal patellar spurs. No abnormal soft tissue calcification. XR/XR knee RT 3V IMPRESSION: No evidence of acute osseous abnormality Electronically signed by: Michael Farr MD 08/31/2024 04:14 PM DARRELL LOZA
== END 2024-08-31 11:25 | disposition home or self-care (01) ==
LOC: HO.XRAY 11:24
PROVIDERS: PCP Nurse Practitioner Family; Visit Provider Anesthesiology
DX: M25.561 Pain in right knee (principal)
CPT/HCPCS: 73562

== ENCOUNTER 2024-09-01 08:21 | Outpatient (AMB) | payer OTHER, SELFPAY ==
--- NOTE | 2024-09-01 08:41 | A.OFFVIS_ITS ---
Vital Signs 09/01/24 08:45 Height 5 ft 3 in Weight 162 lb 4.163 oz BMI 28.7 BP 124/9 L Blood Pressure Location Rt brachial Position Sitting Pulse 76 Pulse Source Pulse Oximeter Pulse Oximetry (%) 96 Oxygen Delivery Method Room Air Intake Visit Reasons: RA/cm Intake Note: Patient presents for RA. Allergies adalimumab [From Humira] Allergy (Verified 09/01/24 08:44) hairloss enoxaparin [From Lovenox] Allergy (Verified 09/01/24 08:44) Rash etanercept [Enbrel] Allergy (Verified 09/01/24 08:44) Injection site reaction sarilumab [From Kevzara] Allergy (Verified 09/01/24 08:44) injection site reaction Medication List - Last Reconciled 09/01/24 by Marya Sung MD Actemra ACTPen (tocilizumab) 162 mg (0.9 mL) subcut Q2W NS apixaban (Eliquis) 5 mg PO BID cephalexin 500 mg PO TID 7 days escitalopram oxalate (Lexapro) 10 mg PO DAILY fluticasone propionate 50 mcg/actuation (Flonase Allergy Relief) 1 spray intranasal Q12H fremanezumab-vfrm (Ajovy) 225 mg subcut .every 28 days frovatriptan 2.5 mg PO Q2-4H PRN meclizine 25 mg PO TID PRN pantoprazole 40 mg PO DAILY rimegepant (Nurtec ODT) 75 mg sublingual Q OTHER DAY PRN [thumb spica wear nightly & as much as possible throughout the day] [thumb spica wear nightly and as much as possible throughout the day] tizanidine 4 mg PO Q8H PRN 30 days topiramate 100 mg PO BID tramadol 50 mg PO Q6H PRN 25 days trazodone 100 mg PO BEDTIME PRN 30 days HPI Comments Details: This is a 53-year-old female with seropositive RA returns for follow-up. Last seen 04/2024 Has not been doing well. She has been having pain in her left wrist. She has been using a wrist splint. She was evaluated by pain management and referred to hand surgery. Also she has been having right knee pain. Apparently she has been doing the Actemra injection every 28 days. She gets the refills as requested [facility]LY [facility], [facility] Medical History Non-toxic multinodular goiter Sprain of medial collateral ligament of left knee History of DVT of lower extremity Secondary hypercoagulable state Encounter for screening involving social determinants of health (SDoH) Encounter for general adult medical examination with abnormal findings Acute lower GI bleeding Lumbar back pain with radiculopathy affecting right lower extremity Mass of both wrists Osteoarthritis of carpometacarpal joint of right thumb Left knee pain Right leg DVT Obesity Vitamin D deficiency Hx of rheumatoid arthritis Hx of thyroid nodule History of vitamin D deficiency Hx of obesity Hx of carpal tunnel syndrome History of fibromyalgia Surgical History History of esophagogastroduodenoscopy (EGD) H/O colonoscopy S/P colonoscopic polypectomy Family History Mother Diabetes Fibromyalgia Osteoarthritis Maternal Grandfather Leukemia Maternal Aunt Breast cancer Unknown Cancer Stomach cancer Social History Household Members: Spouse and Children Housing: House Are you a primary md do resident urgent care to a significant other at home: No Do you presently have visiting nurse or other home services: No Alcohol intake: current Alcohol intake frequency: does not drink Patient Tobacco Use Status: Never used Tobacco e-Cigarette/Vaping Use: Never Used Second Hand Smoke Exposure: No Advance Directives Date on File: 11/21/21 service: No Current occupational status: employed 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-[employer] Cognitive needs: No Hearing needs: No Vision needs: No Review of Systems Musc Reports arthralgias Physical Exam Vital Signs: Last Vital Signs Pulse 76 09/01/24 08:45 BP 124/9 L 09/01/24 08:45 Pulse Ox 96 09/01/24 08:45 Oxygen Delivery Method Room Air 09/01/24 08:45 BMI result Body Mass Index 28.7 Const General: cooperative, healthy appearing and comfortable Nutritional Appearance: obese Orientation/consciousness: patient oriented x3 Limitations: no limitations HEENT Head: Yes normocephalic and Yes atraumatic Mouth: moist mucous membranes Resp Effort & Inspection: normal respiratory effort and able to speak in complete sen tences Cardio Rate: regular rate Rhythm: regular rhythm Neuro General: patient oriented x3 Extrem Other: Minimally positive Juan A's test on the right Mild swelling over the left wrist radial area and positive Juan A's test Right knee pain with flexion-extension but no significant warmth or swelling Office Procedures AMB Joint Injection/Aspiration Joint Injection/Aspiration Primary Site: right knee Prep: site was prepped using sterile technique and ethochloride spray was applied Injected: 40 mg of, Kenalog, with 1 mL of, 1% plain lidocaine and in the joint Approach Used: medial parapatellar Procedure: The patient tolerated the procedure well Coding Details: With the patient's consent the right knee was prepped with ChloraPrep and alcohol. The skin was anesthetized with 2 cc of 1% lidocaine. The knee was then injected with 40 mg of triamcinolone and 1 cc of I % lidocaine. The patient tolerated the procedure with no immediate adverse effects. - Large joint Procedure code (CPT) selection complete Office Meds Kenalog 40 mg/mL suspension for injection Performing Provider: Marya Sung MD Performing Location: [facility] [place] Rheumatology Administered by: Marya Sung MD on 09/01/24 09:19 Dose Route Admin Location Dispensed Lot Number Expiration Date [facility] [employer] 40 mg intra-articular Right knee 1 mL [id number] 03/22/26 [address]-5 [employer] lidocaine (PF) 10 mg/mL (1 %) injection solution Performing Provider: Marya Sung MD Performing Location: [facility] [place] Rheumatology Administered by: Marya Sung MD on 09/01/24 09:19 Dose Route Admin Location Dispensed Lot Number Expiration Date [facility] [employer] 20 mg Infiltration Right knee 2 mL [id number] 12/21/26 28805-242-90 [facility] Assessment & Plan Assessment & Plan (1) Seropositive rheumatoid arthritis: Comment: +RF -ve CCP dx around 2018 Methotrexate 05/2019 Enbrel 04/2020 with methotrexate. Patient stop both accidentally. Triple therapy 05/2020-06/2020 ineffective Xeljanz ineffective Cimzia Ineffective DC 06/2021 Methotrexate discontinued 11/2020 due to elevated liver enzymes. Rinvoq 12/2020 -02/2021 ineffective Humira 06/2021-08/2021 discontinued due to hair loss. Enbrel 09/11 stopped 09/2021 due to injection site reaction Kevzara 10/2021 discontinued due to injection site reaction Actemra 11/2021- present effective Code(s): M05.9 - Rheumatoid arthritis with rheumatoid factor, unspecified Category: Medical Plan: This is a 53-year-old female with seropositive RA who presents for follow-up. She is having a flare-up. Apparently patient has been doing the Actemra injection every 28 days. Advised patient to do the Actemra injection every 14 days. She is having a flare-up with bilateral de Quervain tenosynovitis, more prominent on the left as well as right knee synovitis. With patient's consent right knee was injected with Kenalog. She has an appointment with hand surgery next month Continue with Actemra Labs before next visit in 3 months (2) Fibromyalgia: Comment: Previously failed Cymbalta, gabapentin, Lyrica (headaches) Code(s): M79.7 - Fibromyalgia Category: Medical Plan: Symptoms stable on amitriptyline. (3) High risk medication use: Code(s): Z79.899 - Other custodial (current) drug therapy Category: Medical Plan: Side effects of Actemra were discussed with the patient in detail including increased risk of infection, demyelinating disease, reactivation of latent TB, possible increased risk of solid and skin tumors. Patient fully aware. Advised patient to seek medical care [facility] if patient has an infection and advised patient to stop the medication until the infection is resolved. Plan I spent 25 minutes reviewing patient's chart, evaluating patient, ordering diagnostic workup, counseling patient and documenting in the chart Orders: Orders C Reactive Protein 3 Months M05.9 - Rheumatoid arthritis with rheumatoid factor, unspecified Erythrocyte Sedimentation Rate 3 Months M05.9 - Rheumatoid arthritis with rheumatoid factor, unspecified AMB Joint Injection/Aspiration Today M05.9 - Rheumatoid arthritis with rheumatoid factor, unspecified Complete Blood Count Auto Diff 3 Months M05.9 - Rheumatoid arthritis with r heumatoid factor, unspecified Comprehensive Met. Panel 3 Months M05.9 - Rheumatoid arthritis with rheumatoid factor, unspecified Medications: New [thumb spica] wear nightly and as much as possible throughout the day 1 ea 0RF M65.4 - Radial styloid tenosynovitis [de Quervain] Kenalog (triamcinolone acetonide) 40 mg intra-articular ONCE 1 mL 0RF NS M05.9 - Rheumatoid arthritis with rheumatoid factor, unspecified lidocaine (PF) 20 mg (2 mL) Infiltration ONCE 2 mL 0RF M05.9 - Rheumatoid arthritis with rheumatoid factor, unspecified Coding Level of Care Code Est Pt Level 4 (33123) Diagnoses Seropositive rheumatoid arthritis M05.9 Fibromyalgia M79.7 High risk medication use Z79.899 CPT Codes Coding - 20013 Large joint: 22433 - Large joint ([id number])
[2024-09-01 08:45] VITALS: BP 124/9; PULSE 76; O2SAT 96; BMI 28.7
== END 2024-09-01 10:06 | disposition home or self-care (01) ==
PROVIDERS: PCP Nurse Practitioner Family; Visit Provider Student in an Organized Health Care Education/Training Program
DX: M05.79 Rheumatoid arthritis with rheumatoid factor of multiple sites without organ or systems involvement (principal); M79.7 Fibromyalgia; Z79.899 Other long term (current) drug therapy; M65.161 Other infective (teno)synovitis, right knee
CPT/HCPCS: 20610; 99214

== ENCOUNTER → 2024-09-01 08:21 | Outpatient (BNVA) | payer OTHER, SELFPAY | PROVIDERS: PCP Nurse Practitioner Family; Visit Provider Student in an Organized Health Care Education/Training Program | DX: M05.9 Rheumatoid arthritis with rheumatoid factor, unspecified (principal); M79.7 Fibromyalgia; Z79.899 Other long term (current) drug therapy | CPT/HCPCS: 20610; J2003; J3300 ==

== ENCOUNTER 2024-09-06 08:58 | Outpatient (AMB) | payer OTHER, SELFPAY ==
--- NOTE | 2024-09-06 09:02 | MHC.OFFVIS ---
Intake Visit Reasons: right knee inj Allergies adalimumab [From Humira] Allergy (Verified 09/06/24 09:02) hairloss enoxaparin [From Lovenox] Allergy (Verified 09/06/24 09:02) Rash etanercept [Enbrel] Allergy (Verified 09/06/24 09:02) Injection site reaction sarilumab [From Kevzara] Allergy (Verified 09/06/24 09:02) injection site reaction Medication List - Last Reconciled 09/06/24 by Mindy Comer LPN Actemra ACTPen (tocilizumab) 162 mg (0.9 mL) subcut Q2W NS apixaban (Eliquis) 5 mg PO BID cephalexin 500 mg PO TID 7 days escitalopram oxalate (Lexapro) 10 mg PO DAILY fluticasone propionate 50 mcg/actuation (Flonase Allergy Relief) 1 spray intranasal Q12H fremanezumab-vfrm (Ajovy) 225 mg subcut .every 28 days frovatriptan 2.5 mg PO Q2-4H PRN meclizine 25 mg PO TID PRN pantoprazole 40 mg PO DAILY rimegepant (Nurtec ODT) 75 mg sublingual Q OTHER DAY PRN [thumb spica wear nightly & as much as possible throughout the day] [thumb spica wear nightly and as much as possible throughout the day] tizanidine 4 mg PO Q8H PRN 30 days topiramate 100 mg PO BID tramadol 50 mg PO Q6H PRN 25 days trazodone 100 mg PO BEDTIME PRN 30 days HPI HPI right knee inj: Details: 53-year-old female who presents today to the office for a right knee injection. Denies any recent cough, cold, infection, fever or other significant changes in medical history since last office visit.? Past procedures 04/04/2023: Trigger point injection. [facility] Medical History Non-toxic multinodular goiter Sprain of medial collateral ligament of left knee History of DVT of lower extremity Secondary hypercoagulable state Encounter for screening involving social determinants of health (SDoH) Encounter for general adult medical examination with abnormal findings Acute lower GI bleeding Lumbar back pain with radiculopathy affecting right lower extremity Mass of both wrists Osteoarthritis of carpometacarpal joint of right thumb Left knee pain Right leg DVT Obesity Vitamin D deficiency Hx of rheumatoid arthritis Hx of thyroid nodule History of vitamin D deficiency Hx of obesity Hx of carpal tunnel syndrome History of fibromyalgia Surgical History History of esophagogastroduodenoscopy (EGD) H/O colonoscopy S/P colonoscopic polypectomy Family History Mother Diabetes Fibromyalgia Osteoarthritis Maternal Grandfather Leukemia Maternal Aunt Breast cancer Unknown Cancer Stomach cancer Social History Household Members: Spouse and Children Housing: House Are you a primary progressive care unit registered nurse to a significant other at home: No Do you presently have visiting nurse or other home services: No Alcohol intake: current Alcohol intake frequency: does not drink Patient Tobacco Use Status: Never used Tobacco e-Cigarette/Vaping Use: Never Used Second Hand Smoke Exposure: No Advance Directives Date on File: 11/21/21 service: No Current occupational status: employed 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 Alert and oriented. Mood and affect appropriate. Follows and participates in conversation appropriately. Respiratory effort is unlabored. Able to transition from sit to stand unassisted. Ambulates with bilaterally normal heel strike and toe off. Office Procedures AMB Joint Injection/Aspiration Joint Injection/Aspiration Details: Right knee injection, US guided. Primary Site: right knee Prep: site was prepped using sterile technique Injected: 20 mg of, Kenalog and with 1 mL of (0.5 % ropivacaine ) Approach Used: anteromedial (Ultrasound-guided) Procedure: The patient tolerated the procedure well Coding Details: An ultrasound image of the injection was taken and stored in the permanent record. - Large joint (Right, US guided) Procedure code (CPT) selection complete Results Reviewed Results Reviewed: No imaging is available for review. Assessment & Plan Assessment & Plan (1) Right medial knee pain: Code(s): M25.561 - Pain in right knee Category: Medical Plan Patient is status post right knee injection, US guided. Exquisite tenderness noted overlying the medial collateral ligament insertion on the tibia. Patient tolerated procedure well and was discharged home in stable condition with discharge instructions.? All questions were answered. Follow-up for PRP injection as needed. Scribed for Dr. Baltazar by Sam Mancilla, medical office receptionist, on 09/06/2024. I, Dr. Baltazar, have personally reviewed and agree with the information entered by the scribe. Coding Level of Care Code Procedure Only Diagnoses Right medial knee pain M25.561 CPT Codes Coding - 88617 Large joint: 35751 - Large joint ([id number])
== END 2024-09-06 08:59 | disposition home or self-care (01) ==
PROVIDERS: PCP Nurse Practitioner Family; Visit Provider Internal Medicine
DX: M25.561 Pain in right knee (principal)
CPT/HCPCS: 20611

== ENCOUNTER 2024-09-07 09:05 | Outpatient (REF) | payer OTHER, SELFPAY | END 2024-09-07 09:06 | disposition home or self-care (01) | LOC: HO.HOSX 09:05 | PROVIDERS: Visit Provider Physician Assistant | DX: M25.561 Pain in right knee (principal) | CPT/HCPCS: 73565 ==

== ENCOUNTER 2024-09-07 12:53 | Outpatient (AMB) | payer OTHER, SELFPAY ==
--- NOTE | 2024-09-07 13:01 | MHC.OFFVIS ---
Intake Visit Reasons: New Problem - Rt knee pain Intake Note: Zeynep is a 53 year old female who presents today for a evaluation of her right knee pain. Allergies adalimumab [From Humira] Allergy (Verified 09/06/24 09:02) hairloss enoxaparin [From Lovenox] Allergy (Verified 09/06/24 09:02) Rash etanercept [Enbrel] Allergy (Verified 09/06/24 09:02) Injection site reaction sarilumab [From Kevzara] Allergy (Verified 09/06/24 09:02) injection site reaction HPI HPI New Problem - Rt knee pain: Details: 53-year-old female who presents in the office today for an evaluation of right knee pain. The patient was seen by Dr. Pineda Malhotra, Rheumatology on 09/01/24 for right knee pain and received a kenalog injection in the right knee. She returned to Dr. Pineda Malhotra?s clinic on 09/06/24 and again received a Kenalog injection under ultrasound guidance in the right knee. While in the office today, the patient reports her recent cortisone injection in the right knee did not provide any relief. She was also following up with Pain Management and has received cortisone injection with them as well. She has a significant medical history of rheumatoid arthritis. [facility] Medical History Non-toxic multinodular goiter Sprain of medial collateral ligament of left knee History of DVT of lower extremity Secondary hypercoagulable state Encounter for screening involving social determinants of health (SDoH) Encounter for general adult medical examination with abnormal findings Acute lower GI bleeding Lumbar back pain with radiculopathy affecting right lower extremity Mass of both wrists Osteoarthritis of carpometacarpal joint of right thumb Left knee pain Right leg DVT Obesity Vitamin D deficiency Hx of rheumatoid arthritis Hx of thyroid nodule History of vitamin D deficiency Hx of obesity Hx of carpal tunnel syndrome History of fibromyalgia Surgical History History of esophagogastroduodenoscopy (EGD) H/O colonoscopy S/P colonoscopic polypectomy Family History Mother Diabetes Fibromyalgia Osteoarthritis Maternal Grandfather Leukemia Maternal Aunt Breast cancer Unknown Cancer Stomach cancer Social History Household Members: Spouse and Children Housing: House Are you a primary child day care provider to a significant other at home: No Do you presently have visiting nurse or other home services: No Alcohol intake: current Alcohol intake frequency: does not drink Patient Tobacco Use Status: Never used Tobacco e-Cigarette/Vaping Use: Never Used Second Hand Smoke Exposure: No Advance Directives Date on File: 11/21/21 service: No Current occupational status: employed 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 Tenderness to palpation both medial and lateral joint lines. Able to perform full range of motion 0 to 120 degrees. Unable to assess Pat's or anterior drawer to the patient guarding and pain. NVI. Assessment & Plan Assessment & Plan (1) Internal derangement of right knee: Code(s): M23.91 - Unspecified internal derangement of right knee Category: Medical Plan Ms. Edgar is a 53-year-old female who presents in the office today for an evaluation of right knee pain. The patient was seen by Dr. Pineda Malhotra, Rheumatology on 09/01/24 for right knee pain and received a kenalog injection in the right knee. She returned to Dr. Pineda Malhotra?s clinic on 09/06/24 and again received a Kenalog injection under ultrasound guidance in the right knee. While in the office today, the patient reports her recent cortisone injection in the right knee did not provide any relief. She was also following up with Pain Management and has received cortisone injection with them as well. She received two cortisone injections from Dr. Sung, Rheumatology as well as Dr. Rodriguez, Pain Management. I informed the patient that it is too soon to repeat any cortisone injection at this time. She reports that the injection has not provided her any relief recently. I would like to proceed with ordering an MRI of the right knee to further evaluate the integrity of the knee and surrounding structures. The patient informed She is going away next week from Friday until Friday. Therefore, I have provided her with a genumed knee brace, off the shelf. Follow-up will be after MRI is obtained, or sooner if needed. Orders: Orders XR knee standing BI Today M25.561 - Pain in right knee MR knee RT wo con Today M23.91 - Unspecified internal derangement of right knee Patient Instructions: Scribed by Akilah Chinchilla, medical health researcher, for Tracey Bhardwaj PA-C on 09/07/24 at 1:46 pm EST. Coding Level of Care Code Est Pt Level 3 (12664) Diagnoses Internal derangement of right knee M23.91
== END 2024-09-07 13:37 | disposition home or self-care (01) ==
PROVIDERS: PCP Nurse Practitioner Family; Visit Provider Physician Assistant
DX: M23.91 Unspecified internal derangement of right knee (principal)
CPT/HCPCS: 99213

== ENCOUNTER 2024-09-09 08:03 | Outpatient (REF) | payer OTHER, SELFPAY ==
--- NOTE | ~2024-09-09 | MR_ITS ---
EXAMINATION: MR KNEE WITHOUT CONTRAST RIGHT CLINICAL INFORMATION: Unspecified internal derangement of right knee M23.91. Swelling and knee pain. COMPARISON: XR Bilateral knee 09/07/2024 TECHNIQUE: MRI of the knee without contrast was performed using routine sequences on a high-field scanner. FINDINGS: MENISCI: Medial Meniscus: Intact Lateral Meniscus: Intact LIGAMENTS: Cruciate: Intact Collateral: Intact EXTENSOR MECHANISM: Intact ARTICULAR CARTILAGE/BONE: Patellofemoral Compartment: Normal Medial Compartment: Subchondral bone marrow edema along the posterior medial weightbearing portion of the medial femoral condyle. No discrete fracture line. Overlying articular cartilage appears intact. Findings have the appearance of the bone contusion. Lateral Compartment: Mild cartilage heterogeneity in the weightbearing tibial articular cartilage. Femoral cartilage normal. Overall minimal arthrosis. JOINT FLUID AND BURSAE: There is a mild joint effusion and small Loyd's cyst. There is a 4 mm cyst present just caudal to the transverse meniscal ligament MR/MR knee RT wo con IMPRESSION: 1. Bone contusion along the posterior medial weightbearing portion of the medial femoral condyle. 2. Minimal arthrosis of the lateral compartment. 3. Mild joint effusion and small Loyd's cyst. Electronically signed by: Arsh Larios MD 09/12/2024 08:26 AM [facility]
== END 2024-09-09 08:04 | disposition home or self-care (01) ==
LOC: HO.MRI 08:03
PROVIDERS: PCP Nurse Practitioner Family; Visit Provider Physician Assistant
DX: M23.91 Unspecified internal derangement of right knee (principal)
CPT/HCPCS: 73721

== ENCOUNTER 2024-10-07 13:03 | Outpatient (AMB) | payer OTHER, SELFPAY ==
--- NOTE | 2024-10-07 13:05 | MHC.OFFVIS ---
Vital Signs 10/07/24 13:07 Height 5 ft 3 in Weight 162 lb BMI 28.7 Intake Visit Reasons: Tel-Right Knee MRI review Intake Note: Zeynep is a 53 year old female who presents today via telephone for a MRI review of her right knee. Patient reports no changes to her pain. Allergies adalimumab [From Humira] Allergy (Verified 10/07/24 13:06) hairloss enoxaparin [From Lovenox] Allergy (Verified 10/07/24 13:06) Rash etanercept [Enbrel] Allergy (Verified 10/07/24 13:06) Injection site reaction sarilumab [From Kevzara] Allergy (Verified 10/07/24 13:06) injection site reaction HPI HPI Tel-Right Knee MRI review: Details: Patient presents for telehealth appointment in regards to right knee MRI. She reports that she continues to have right knee pain located along the medial aspect of the knee. It has improved slightly since seeing her in the office last. [facility] Medical History Non-toxic multinodular goiter Sprain of medial collateral ligament of left knee History of DVT of lower extremity Secondary hypercoagulable state Encounter for screening involving social determinants of health (SDoH) Encounter for general adult medical examination with abnormal findings Acute lower GI bleeding Lumbar back pain with radiculopathy affecting right lower extremity Mass of both wrists Osteoarthritis of carpometacarpal joint of right thumb Left knee pain Right leg DVT Obesity Vitamin D deficiency Hx of rheumatoid arthritis Hx of thyroid nodule History of vitamin D deficiency Hx of obesity Hx of carpal tunnel syndrome History of fibromyalgia Surgical History History of esophagogastroduodenoscopy (EGD) H/O colonoscopy S/P colonoscopic polypectomy Family History Mother Diabetes Fibromyalgia Osteoarthritis Maternal Grandfather Leukemia Maternal Aunt Breast cancer Unknown Cancer Stomach cancer Social History Household Members: Spouse and Children Housing: House Are you a primary assurance services manager health care to a significant other at home: No Do you presently have visiting nurse or other home services: No Alcohol intake: current Alcohol intake frequency: does not drink Patient Tobacco Use Status: Never used Tobacco e-Cigarette/Vaping Use: Never Used Second Hand Smoke Exposure: No Advance Directives Date on File: 11/21/21 service: No Current occupational status: employed 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-[employer] Cognitive needs: No Hearing needs: No Vision needs: No Review of Systems Const All systems reviewed & are unremarkable except as noted in HPI and below Physical Exam Vital Signs: BMI result Body Mass Index 28.7 Extrem Other: Deferred due to telehealth Telehealth Telehealth Telehealth Platform: Telephone Location of provider rendering services: practice address Location of patient: address on file Patient Identification confirmed using: Name, : Yes Telehealth method: voice only Patient verbally consented to treatment: Yes Patient verbally consented to billing insurance company: Yes Patient informed of any privacy concerns related to visit: Yes Minutes spent on Phone/Video with Pt.: 10 Assessment & Plan Assessment & Plan (1) Right medial knee pain: Code(s): M25.561 - Pain in right knee Category: Medical (2) Internal derangement of right knee: Code(s): M23.91 - Unspecified internal derangement of right knee Category: Medical Plan Ms. Edgar is a 53-year-old female who presents for telehealth appointment in regards to right knee MRI. She reports that she continues to have right knee pain located along the medial aspect of the knee. It has improved slightly since seeing her in the office last. I discussed the MRI findings with the patient on the phone today. I recommend continuation of physical therapy. She reports that she has her 1st appointment scheduled on 10/13/2024. She will continue to attend physical therapy sessions until the program is completed. Her follows with orthopedics will be p.r.n., sooner if needed. MR/MR knee RT wo con IMPRESSION: 1. Bone contusion along the posterior medial weightbearing portion of the medial femoral condyle. 2. Minimal arthrosis of the lateral compartment. 3. Mild joint effusion and small Loyd's cyst. Coding Level of Care Code Tele Est Pt Level 3 (93633) Diagnoses Right medial knee pain M25.561 Internal derangement of right knee M23.91
[2024-10-07 13:07] VITALS: BMI 28.7
== END 2024-10-07 13:11 | disposition home or self-care (01) ==
LOC: HO.HOS 13:03
PROVIDERS: PCP Nurse Practitioner Family; Visit Provider Physician Assistant
DX: M25.561 Pain in right knee (principal); M23.91 Unspecified internal derangement of right knee
CPT/HCPCS: 98966

== ENCOUNTER 2024-10-07 15:05 | Outpatient (AMB) | payer OTHER, SELFPAY ==
--- NOTE | 2024-10-07 15:06 | A.OFFVIS_ITS ---
Vital Signs 10/07/24 15:17 Height 5 ft 3 in Weight 181 lb 10.574 oz BMI 32.2 BP 150/100 H Blood Pressure Location Lt brachial Position Sitting Pulse 69 Pulse Source Pulse Oximeter Pulse Oximetry (%) 96 Oxygen Delivery Method Room Air Intake Visit Reasons: RA Allergies adalimumab [From Humira] Allergy (Verified 10/07/24 15:16) hairloss enoxaparin [From Lovenox] Allergy (Verified 10/07/24 15:16) Rash etanercept [Enbrel] Allergy (Verified 10/07/24 15:16) Injection site reaction sarilumab [From Kevzara] Allergy (Verified 10/07/24 15:16) injection site reaction Medication List - Last Reviewed 10/07/24 by LIS Jenkins Actemra ACTPen (tocilizumab) 162 mg (0.9 mL) subcut Q2W NS apixaban (Eliquis) 5 mg PO BID cephalexin 500 mg PO TID 7 days escitalopram oxalate (Lexapro) 10 mg PO DAILY fluticasone propionate 50 mcg/actuation (Flonase Allergy Relief) 1 spray intranasal Q12H fremanezumab-vfrm (Ajovy) 225 mg subcut .every 28 days frovatriptan 2.5 mg PO Q2-4H PRN meclizine 25 mg PO TID PRN pantoprazole 40 mg PO DAILY rimegepant (Nurtec ODT) 75 mg sublingual Q OTHER DAY PRN [thumb spica wear nightly & as much as possible throughout the day] [thumb spica wear nightly and as much as possible throughout the day] tizanidine 4 mg PO Q8H PRN 30 days topiramate 100 mg PO BID tramadol 50 mg PO Q6H PRN 25 days trazodone 100 mg PO BEDTIME PRN 30 days HPI Comments Details: This is a 53-year-old female with seropositive RA returns for follow-up. Last seen 08/2024 Last visit patient was having multiple swollen and tender joints. She was not using the Actemra as prescribed. She was doing the injection every 4 weeks. I advised patient to do it every 2 weeks. She has been doing the Actemra injection every 2 weeks consistently for the last 6 weeks. She has noticed significant improvement. The right knee cortisone injection did provide some relief but a few days after she her right knee, she had a right knee MRI which showed contusion. She continues to have pain at the radial aspect of her left wrist [facility] Medical History Non-toxic multinodular goiter Sprain of medial collateral ligament of left knee History of DVT of lower extremity Secondary hypercoagulable state Encounter for screening involving social determinants of health (SDoH) Encounter for general adult medical examination with abnormal findings Acute lower GI bleeding Lumbar back pain with radiculopathy affecting right lower extremity Mass of both wrists Osteoarthritis of carpometacarpal joint of right thumb Left knee pain Right leg DVT Obesity Vitamin D deficiency Hx of rheumatoid arthritis Hx of thyroid nodule History of vitamin D deficiency Hx of obesity Hx of carpal tunnel syndrome History of fibromyalgia Surgical History History of esophagogastroduodenoscopy (EGD) H/O colonoscopy S/P colonoscopic polypectomy Family History Mother Diabetes Fibromyalgia Osteoarthritis Maternal Grandfather Leukemia Maternal Aunt Breast cancer Unknown Cancer Stomach cancer Social History Household Members: Spouse and Children Housing: House Are you a primary home care music therapist to a significant other at home: No Do you presently have visiting nurse or other home services: No Alcohol intake: current Alcohol intake frequency: does not drink Patient Tobacco Use Status: Never used Tobacco e-Cigarette/Vaping Use: Never Used Second Hand Smoke Exposure: No Advance Directives Date on File: 11/21/21 service: No Current occupational status: employed 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[place] [place] Cognitive needs: No Hearing needs: No Vision needs: No Review of Systems Musc Reports arthralgias Physical Exam Const General: cooperative, healthy appearing and comfortable Nutritional Appearance: obese Orientation/consciousness: patient oriented x3 Limitations: no limitations HEENT Head: Yes normocephalic and Yes atraumatic Mouth: moist mucous membranes Resp Effort & Inspection: normal respiratory effort and able to speak in complete sentences Cardio Rate: regular rate Rhythm: regular rhythm Neuro General: patient oriented x3 Extrem Other: Right wrist without swelling, tenderness or pain with full flexion-extension No active synovitis right hand Negative Juan A's test on the right Positive Juan A's sign on the left wrist R left wrist without swelling but there is pain with full extension No active synovitis otherwise left hand Normal pain-free range of motion of elbows and shoulders No knee pain with full flexion-extension bilaterally No knee swelling or warmth bilaterally No ankle swelling or tenderness bilaterally Patient global: 1 Physician global: 1 Total tender joint count: 1 Total swollen joint count: 0 Total CDAI score Assessment & Plan Assessment & Plan (1) Seropositive rheumatoid arthritis: Comment: +RF -ve CCP dx around 2018 Methotrexate 05/2019 Enbrel 04/2020 with methotrexate. Patient stop both accidentally. Triple therapy 05/2020-06/2020 ineffective Xeljanz ineffective Cimzia Ineffective DC 06/2021 Methotrexate discontinued 11/2020 due to elevated liver enzymes. Rinvoq 12/2020 -02/2021 ineffective Humira 06/2021-08/2021 discontinued due to hair loss. Enbrel 09/11 stopped 09/2021 due to injection site reaction Kevzara 10/2021 discontinued due to injection site reaction Actemra 11/2021- present effective Code(s): M05.9 - Rheumatoid arthritis with rheumatoid factor, unspecified Category: Medical Plan: This is a 53-year-old female with seropositive RA who presents for follow-up. Last visit patient was a flare-up, apparently patient was doing the Actemra injection every 4 weeks rather than every 2 weeks as prescribed. I advised patient to start doing it the injection every 2 weeks. She has been doing the injection every 2 weeks for the last 6 weeks. On exam she is doing significantly better. she only has 1 tender joint that is related to de Quervain tenosynovitis which is usually a degenerative process rather than inflammatory. She has no swollen joints on exam Continue with Actemra injection 162 mg every other week Labs before next visit in 2 months (2) Fibromyalgia: Comment: Previously failed Cymbalta, gabapentin, Lyrica (headaches) Code(s): M79.7 - Fibromyalgia Category: Medical Plan: Symptoms stable on amitriptyline. (3) High risk medication use: Code(s): Z79.899 - Other extermination supervisor (current) drug therapy Category: Medical Plan: Side effects of Actemra were discussed with the patient in detail including increased risk of infection, demyelinating disease, reactivation of latent TB, possible increased risk of solid and skin tumors. Patient fully aware. Advised patient to seek medical care ASTON if patient has an infection and advised patient to stop the medication until the infection is resolved. Plan I spent 25 minutes reviewing patient's chart, evaluating patient, ordering diagnostic workup, counseling patient and documenting in the chart Coding Level of Care Code Est Pt Level 4 (58888) Diagnoses Seropositive rheumatoid arthritis M05.9 Fibromyalgia M79.7 High risk medication use Z79.899
[2024-10-07 15:17] VITALS: BP 150/100; PULSE 69; O2SAT 96; BMI 32.2
== END 2024-10-07 15:22 | disposition home or self-care (01) ==
LOC: HO.RHE 15:05
PROVIDERS: PCP Nurse Practitioner Family; Visit Provider Student in an Organized Health Care Education/Training Program
DX: M05.79 Rheumatoid arthritis with rheumatoid factor of multiple sites without organ or systems involvement (principal); M79.7 Fibromyalgia; Z79.899 Other long term (current) drug therapy
CPT/HCPCS: 99214

== ENCOUNTER 2024-10-08 08:36 | Outpatient (REF) | payer OTHER, SELFPAY ==
--- NOTE | ~2024-10-08 | XR_ITS ---
EXAMINATION: XR WRIST, LEFT CLINICAL INFORMATION: M25.532 - Pain in left wrist COMPARISON: Right wrist 03/05/2023 TECHNIQUE: PA, lateral, and oblique views of the left wrist. FINDINGS: There is an old ulnar styloid process fracture. No visible acute fracture or dislocation seen. The soft tissues are normal. XR/XR wrist LT min 3V IMPRESSION: Old ulnar styloid process fracture. No visible acute fracture or dislocation seen. Electronically signed by: Boni Cain MD 10/11/2024 10:00 AM DARRELL
== END 2024-10-08 08:37 | disposition home or self-care (01) ==
LOC: HO.HOSX 08:36
DX: M25.532 Pain in left wrist (principal); M65.4 Radial styloid tenosynovitis [de Quervain]
CPT/HCPCS: 20550; 73110; J1100; J2003

== ENCOUNTER 2024-11-12 08:33 | Outpatient (REF) | payer OTHER, SELFPAY ==
--- NOTE | ~2024-11-12 | MM_ITS ---
EXAMINATION: DXA BONE DENSITY AXIAL HISTORY: Estrogen deficiency TECHNIQUE: Loccie Dual energy absorptiometry (DEXA) of the lumbar spine, total left hip, and femoral neck was performed. COMPARISON: There are no prior studies for comparison. FINDINGS: The bone mineral density of the lumbar spine is 1.081 with a T-score of -0.8, and a Z-score of -0.6. The bone mineral density of the left total hip is 0.955 with a T-score of -0.4, and a Z-score of -0.2. The bone mineral density of the left femoral neck is 0.878 with a T-score of -1.1, and a Z-score of -0.5. FRACTURE RISK: The FRAX index suggests a risk of major osteoporotic fracture of 7.2%, and of hip fracture 0.5%. MM/XR DEXA axial skeleton IMPRESSION: Based on bone mineral density, and according to World Health Organization (WHO) criteria, the diagnosis is consistent with osteopenia. All bone density values are in grams per centimeter squared (g/cm2). Statistically, 68% of repeat scans fall within 1 SD (+/- 0.010 g/cm2 for AP spine L1-L4) and 1 SD (+/- 0.012 g/cm2 for femur total) FRAX is a trademark of the [employer]'s [employer] Metabolic Bone Disease, a World Health Organization (WHO) Collaborating Center. Electronically signed by: Jean Tolbert MD 11/15/2024 08:50 AM [facility]
--- OUTSIDE RECORDS SUMMARY | 2024-11-12 08:46 | XMS_ITS | Encounter Summary ---
Author Organization [facility] Address [address] [facility] [place] [address] Care Team Providers Care Alloy Weigher Name Role Phone Priscilla Gonsalves MD Primary Care Provider [phone] Encounter Details Date Type Department Care Team Description 09/04/2017 [facility] Medical Records [address] [place] [id number] Abstract, Provider Social History Tobacco Use Types Packs/Day Years Used Date Smoking Tobacco: Never Smokeless Tobacco: Never Alcohol Use Standard Drinks/Week Comments No 0 (1 standard drink = 0.6 oz pur e alcohol) Sex Assigned at Date Recorded Not on file documented as of this encounter Plan of Treatment Not on file documented as of this encounter Visit Diagnoses Not on filedocumented in this encounter Care Teams Alloy Weigher Relationship Specialty Start Date End Date Priscilla Gonsalves MD [address] [place] [address] PCP - General 06/22/01 documented as of this encounter
--- OUTSIDE RECORDS SUMMARY | 2024-11-12 08:46 | XMS_ITS | Encounter Summary ---
Author Organization [facility] Address [address] [facility] [place] [address] Care Team Providers Care Superintendent Stevedoring Name Role Phone Priscilla Gonsalves MD Primary Care Provider [phone] Encounter Details Date Type Department Care Team Description 12/21/2019 Morgue Technician Report Medical Records [address] [place] [address] Amairani Rodriguez MD Social History Tobacco Use Types Packs/Day Years [...] on filedocumented in this encounter Care Teams Superintendent Stevedoring Relationship Specialty Start Date End Date Priscilla Gonsalves MD [address] [place] [address] PCP - General 06/22/01 documented as of this encounter
--- OUTSIDE RECORDS SUMMARY | 2024-11-12 08:46 | XMS_ITS | Encounter Summary ---
Author Organization [facility] Address [address] [place] [address] Care Team Providers Care In Home Sales Consultant Name Role Phone Priscilla Gonsalves MD Primary Care Provider [phone] Encounter Details Date Type Department Care Team Description 01/10/2016 Biomedical Instrument Technician Report Medical Records [address] [place] [address] Luisito Banerjee MD Social History Tobacco Use Types Packs/Day [...] on filedocumented in this encounter Care Teams In Home Sales Consultant Relationship Specialty Start Date End Date Priscilla Gonaslves MD [address] [place] [address] PCP - General 06/22/01 documented as of this encounter
--- OUTSIDE RECORDS SUMMARY | 2024-11-12 08:46 | XMS_ITS | Encounter Summary ---
Author Organization [facility] Address [address] [place] [address] Care Team Providers Care Pharmacy Clinical Coordinator Name Role Phone Priscilla Gonsalves MD Primary Care Provider [phone] Reason for Visit * Reason Onset Date Comments Provider Call Back 01/18/2013 Encounter Details Date Type Department Care Team Description 01/18/2013 Telephone Adult Medicine [address] [address] Fabiana Araujo, PAKarlaC Provider Call Back Social History Tobacco Use Types Packs/Day Years Used Date Smoking Tobacco: Never Smokeless Tobacco: Never Alcohol Use Standard Drinks/Week Comments Not Asked 0 (1 standard drink = 0.6 oz pur e alcohol) Sex Assigned at Date Recorded Not on file documented as of this encounter Miscellaneous Notes * Telephone Encounter - Vilma Mulligan C.M.A. - 01/18/2013 10:19 AM EDT Fabiana is not in the office today * Telephone Encounter - Teodora Casillas - 01/18/2013 10:02 AM EDT Caller requesting call back from provider: Is the caller the patient? YES If caller is not the patient, what is the callers name? N/A Callers relationship to patient? N/A If person calling is not the patient themselves, is there a verbal release in FYI or permanent comments for this person: NO Reason for call back: PT IS CALLING TO SPEAK TO CANDIDO AFRICARANDEE. Caller offered to speak with the nurse for assistance: YES Response: Patient offered to speak with nurse for assistance and patient agreed. Message forwarded to nurse. documented in this encounter Plan of Treatment Not on file documented as of this encounter Visit Diagnoses Not on filedocumented in this encounter Care Teams Pharmacy Clinical Coordinator Relationship Specialty Start Date End Date Priscilla Gonsalves MD [address] [place] [address] PCP - General 06/22/01 documented as of this encounter
--- OUTSIDE RECORDS SUMMARY | 2024-11-12 08:46 | XMS_ITS | Encounter Summary ---
Author Organization [facility] Address [address] [place] [address] Care Team Providers Care Planning Engineer Name Role Phone Priscilla Gonsalves MD Primary Care Provider [phone] Encounter Details Date Type Department Care Team Description 03/20/2016 Business Area Manager Report Medical Records [address] [place] [address] Sneha Byrd MD [address] [facility] [address] [place] [id number] Social History Tobacco Use Types Packs/Day Years [...] on filedocumented in this encounter Care Teams Planning Engineer Relationship Specialty Start Date End Date Priscilla Gonsalves MD [address] [place] [address] PCP - General 06/22/01 documented as of this encounter
--- OUTSIDE RECORDS SUMMARY | 2024-11-12 08:47 | XMS_ITS | Encounter Summary ---
Author Organization [facility] Address [address] [facility] [place] [address] Care Team Providers Care Anesthesia Tech Name Role Phone Priscilla Gonsalves MD Primary Care Provider [phone] Encounter Details Date Type Department Care Team Description 10/27/2018 Release of Information Medical Records [address] [place] [address] Abstract, Provider Social History Tobacco Use Types [...] on filedocumented in this encounter Care Teams Anesthesia Tech Relationship Specialty Start Date End Date Priscilla Gonsalves MD [address] [place] [address] PCP - General 06/22/01 documented as of this encounter
--- OUTSIDE RECORDS SUMMARY | 2024-11-12 08:47 | XMS_ITS | Encounter Summary ---
Author Organization [facility] Address [address] [place] [address] Care Team Providers Care First Assist Name Role Phone Priscilla Gonsalves MD Primary Care Provider [phone] Encounter Details Date Type Department Care Team Description 10/08/2019 Clinical Reimbursement Specialist Report Medical Records [address] [place] [address] Lisa Longoria Social History Tobacco Use Types Packs/Day Years [...] on filedocumented in this encounter Care Teams First Assist Relationship Specialty Start Date End Date Priscilla Gonsalves MD [address] [place] [address] PCP - General 06/22/01 documented as of this encounter
--- OUTSIDE RECORDS SUMMARY | 2024-11-12 08:47 | XMS_ITS | Encounter Summary ---
Author Organization [facility] Address [address] [facility] [place] [address] Care Team Providers Care Slurry Control Operator Helper Name Role Phone Priscilla Gonsalves MD Primary Care Provider [phone] Encounter Details Date Type Department Care Team Description 06/24/2019 Orders Only Medical Records [address] [place] [address] Vilma Patton PA-C [address] [place] [address] Social History Tobacco Use Types Packs/Day Years Used Date Smoking Tobacco: Never Smokeless Tobacco: Never Alcohol Use Standard Drinks/Week Comments No 0 (1 standard drink = 0.6 oz pur e alcohol) Sex Assigned at Date Recorded Not on file documented as of this encounter Plan of Treatment Not on file documented as of this encounter Procedures Procedure Name Priority Date/Time Associated Diagnosis Comments OUTSIDE SLEEP STUDY Routine 06/17/2019 documented in this encounter Results * OUTSIDE SLEEP STUDY (06/17/2019) Vilma Patton PA-C PULMONOLOGY documented in this encounter Visit Diagnoses Not on filedocumented in this encounter Care Teams Slurry Control Operator Helper Relationship Specialty Start Date End Date Priscilla Gonsalves MD [address] [place] [address] PCP - General 06/22/01 documented as of this encounter
--- OUTSIDE RECORDS SUMMARY | 2024-11-12 08:47 | XMS_ITS | Encounter Summary ---
Author Organization [facility] Address [address] [place] [address] Care Team Providers Care Bpm Architect Name Role Phone Priscilla Gonsalves MD Primary Care Provider [phone] Encounter Details Date Type Department Care Team Description 01/09/2015 Grinder Set Up Operator Universal Report Medical Records [address] [place] [address] Luisito Banerjee MD Social History Tobacco Use [...] on filedocumented in this encounter Care Teams Bpm Architect Relationship Specialty Start Date End Date Priscilla Gonsalves MD [address] [place] [address] PCP - General 06/22/01 documented as of this encounter
--- OUTSIDE RECORDS SUMMARY | 2024-11-12 08:47 | XMS_ITS | Encounter Summary ---
Author Organization [facility] Address [address] [facility] [place] [address] Care Team Providers Care Drawbridge Operator Name Role Phone Priscilla Gonsalves MD Primary Care Provider [phone] Encounter Details Date Type Department Care Team Description 10/17/2022 Auto Servicer Report Medical Records [address] [place] [address] Anais Alex NP Social History Tobacco Use Types Packs/Day Years Used Date Smoking Tobacco: Never Smokeless Tobacco: Never Alcohol Use Standard Drinks/Week Comments No 0 (1 standard drink = 0.6 oz pur e alcohol) Education Answer Date Recorded What is the highest level of school you have completed or the highest degree you have received? 12th grade 11/17/2020 Sex Assigned at Date Recorded Not on file documented as of this encounter Plan of Treatment Not on file documented as of this encounter Visit Diagnoses Not on filedocumented in this encounter Care Teams Drawbridge Operator Relationship Specialty Start Date End Date Priscilla Gonsalves MD [address] [place] [address] PCP - General 06/22/01 documented as of this encounter
--- OUTSIDE RECORDS SUMMARY | 2024-11-12 08:47 | XMS_ITS | Encounter Summary ---
Author Organization [facility] Address [address] [place] [address] Care Team Providers Care Meat Cutter Name Role Phone Priscilla Gonsalves MD Primary Care Provider [phone] Reason for Visit * Reason Onset Date Comments Mychart Rx Refill 10/25/2019 Encounter Details Date Type Department Care Team Description 10/25/2019 Refill Adult Medicine [facility] [address] [place] [address] Priscilla Gonsalves MD [address] [place] [address] Mychart Rx Refill Social History Tobacco Use Types Packs/Day Years Used Date Smoking Tobacco: Never Smokeless Tobacco: Never Alcohol Use Standard Drinks/Week Comments No 0 (1 standard drink = 0.6 oz pur e alcohol) Sex Assigned at Date Recorded Not on file documented as of this encounter Miscellaneous Notes * Telephone Encounter - Richelle Stroud M.A. - 10/25/2019 1:04 PM EST Lab Results Component Value Date NA 144 09/12/2018 K 3.8 09/12/2018 CO2 23.8 09/12/2018 CL 109 09/12/2018 BUN 10 09/12/2018 CREAT 0.9 09/12/2018 CA 9.3 09/12/2018 GFR > 60 09/12/2018 Last ov with Vilma 12/2018 Ranitidine has been discontued from med list due to med being unavailable. I have asked pt to schedule an office visit to discuss * Telephone Encounter - Richelle Stroud M.A. - 10/25/2019 1:04 PM ESTFrom: Zeynep Edgar Sent: 10/25/2019 12:59 PM EST Subject: Medication Renewal Request Zeynep Edgar would like a refill of the following medications: Other - ranitidine prescribed by Vilma Patton Preferred pharmacy: [facility] [address] documented in this encounter Plan of Treatment Not on file documented as of this encounter Visit Diagnoses Not on filedocumented in this encounter Care Teams Meat Cutter Relationship Specialty Start Date End Date Priscilla Gonsalves MD [address] [place] [address] PCP - General 06/22/01 documented as of this encounter
--- OUTSIDE RECORDS SUMMARY | 2024-11-12 08:47 | XMS_ITS | Encounter Summary ---
Author Organization [facility] Address [address] [place] [address] Care Team Providers Care Regional Training Manager Name Role Phone Priscilla Gonsalves MD Primary Care Provider [phone] Encounter Details Date Type Department Care Team Description 04/04/2022 Production Scheduler Report Medical Records [address] [place] [address] Anais Alex NP Social History Tobacco Use [...] on filedocumented in this encounter Care Teams Regional Training Manager Relationship Specialty Start Date End Date Priscilla Gonsalves MD [address] [place] [address] PCP - General 06/22/01 documented as of this encounter
--- OUTSIDE RECORDS SUMMARY | 2024-11-12 08:47 | XMS_ITS | Encounter Summary ---
Author Organization [facility] Address [address] [place] [address] Care Team Providers Care Prepleater Name Role Phone Priscilla Gonsalves MD Primary Care Provider [phone] Encounter Details Date Type Department Care Team Description 04/10/2017 Wastewater Treatment Supervisor Report Medical Records [address] [place] [address] Odalys Lee Social History Tobacco Use Types Packs/Day Years [...] on filedocumented in this encounter Care Teams Prepleater Relationship Specialty Start Date End Date Priscilla Gonsalves MD [address] [place] [address] PCP - General 06/22/01 documented as of this encounter
--- OUTSIDE RECORDS SUMMARY | 2024-11-12 08:47 | XMS_ITS | Encounter Summary ---
Author Organization [facility] Address [address] [place] [address] Care Team Providers Care Resizer Operator Name Role Phone Priscilla Gonsalves MD Primary Care Provider [phone] Encounter Details Date Type Department Care Team Description 12/29/2016 Walk In Clinic Visit Medical Records [address] [place] [address] [employer] [address] [phone] Social History Tobacco Use Types Packs/Day Years [...] on filedocumented in this encounter Care Teams Resizer Operator Relationship Specialty Start Date End Date Priscilla Gonsalves MD [address] [place] [address] PCP - General 06/22/01 documented as of this encounter
--- OUTSIDE RECORDS SUMMARY | 2024-11-12 08:47 | XMS_ITS | Encounter Summary ---
Author Organization [facility] Address [address] [facility] [place] [address] Care Team Providers Care Powerhouse Engineer Name Role Phone Priscilla Gonsalves MD Primary Care Provider [phone] Encounter Details Date Type Department Care Team Description 06/15/2019 Copyright Expert Report Medical Records [address] [place] [address] Jameson Lam MD Social History Tobacco Use Types Packs/Day [...] on filedocumented in this encounter Care Teams Powerhouse Engineer Relationship Specialty Start Date End Date Priscilla Gonsalves MD [address] [place] [address] PCP - General 06/22/01 documented as of this encounter
--- OUTSIDE RECORDS SUMMARY | 2024-11-12 08:48 | XMS_ITS | Encounter Summary ---
Author Organization [facility] Address [address] [facility] [place] [address] Care Team Providers Care After School Driver Name Role Phone Priscilla Gonsalves MD Primary Care Provider [phone] Encounter Details Date Type Department Care Team Description 12/27/2021 Coat Presser Report Medical Records [address] [place] [address] Abstract, Provider Social History Tobacco Use Types [...] on filedocumented in this encounter Care Teams After School Driver Relationship Specialty Start Date End Date Priscilla Gonsalves MD [address] [place] [address] PCP - General 06/22/01 documented as of this encounter
--- OUTSIDE RECORDS SUMMARY | 2024-11-12 08:48 | XMS_ITS | Encounter Summary ---
Author Organization [facility] Address [address] [place] [address] Care Team Providers Care Showroom Executive Director Name Role Phone Priscilla Gonsalves MD Primary Care Provider [phone] Encounter Details Date Type Department Care Team Description 12/06/2020 Old Medical Records Medical Records [address] [place] [address] Abstract, Provider Social History Tobacco Use Types [...] Assigned at Date Recorded Not on file COVID-19 Exposure Response Date Recorded In the last month, have you been in contact with someone who was confirmed or suspected to have Coronavirus / COVID-19? No / Unsure 11/20/2020 8:18 AM EST documented as of this encounter Plan of Treatment Not on file documented as of this encounter Visit Diagnoses Not on filedocumented in this encounter Care Teams Showroom Executive Director Relationship Specialty Start Date End Date Priscilla Gonsalves MD [address] [place] [address] PCP - General 06/22/01 documented as of this encounter
--- OUTSIDE RECORDS SUMMARY | 2024-11-12 08:48 | XMS_ITS | Encounter Summary ---
Author Organization [facility] Address [address] [facility] [place] [address] Care Team Providers Care Caustic Room Attendant Name Role Phone Priscilla Gonsalves MD Primary Care Provider Encounter Details Date Type Department Care Team Description 03/07/2021 Press Setup Operator Report Medical Records [address] [place] [address] Anais Alex NP Social History Tobacco Use [...] on filedocumented in this encounter Care Teams Caustic Room Attendant Relationship Specialty Start Date End Date Priscilla Gonslaves MD [address] [place] [address] PCP - General 06/22/01 documented as of this encounter
--- OUTSIDE RECORDS SUMMARY | 2024-11-12 08:48 | XMS_ITS | Encounter Summary ---
Author Organization [facility] Address [address] [facility] [place] [address] Care Team Providers Care Feather Boner Name Role Phone Priscilla Gonsalves MD Primary Care Provider [phone] Encounter Details Date Type Department Care Team Description 02/10/2020 Home Manager Report Medical Records [address] [place] [address] Amairani Rodriguez MD Social History Tobacco Use [...] on filedocumented in this encounter Care Teams Feather Boner Relationship Specialty Start Date End Date Priscilla Gonsalves MD [address] [place] [address] PCP - General 06/22/01 documented as of this encounter
--- OUTSIDE RECORDS SUMMARY | 2024-11-12 08:48 | XMS_ITS | Encounter Summary ---
Author Organization [facility] Address [address] [place] [address] Care Team Providers Care Forestry Consultant Name Role Phone Priscilla Gonsalves MD Primary Care Provider [phone] Encounter Details Date Type Department Care Team Description 02/21/2021 [facility] [address] [place] [address] Md Gumaro Social History Tobacco Use Types Packs/Day Years [...] on filedocumented in this encounter Care Teams Forestry Consultant Relationship Specialty Start Date End Date Priscilla Gonsalves MD [address] [place] [address] PCP - General 06/22/01 documented as of this encounter
--- OUTSIDE RECORDS SUMMARY | 2024-11-12 08:48 | XMS_ITS | Encounter Summary ---
Author Organization [facility] Address [address] [place] [address] Care Team Providers Care Waterfront Director Name Role Phone Priscilla Gonsalves MD Primary Care Provider [phone] Reason for Visit * Reason Onset Date Comments TEST RESULTS 07/08/2016 Encounter Details Date Type Department Care Team Description 07/08/2016 Telephone Adult Medicine [facility] [address] [place] [address] Priscilla Gonsalves MD [address] [place] [id number] TEST RESULTS Social History Tobacco Use Types Packs/Day Years Used Date Smoking Tobacco: Never Smokeless Tobacco: Never Alcohol Use Standard Drinks/Week Comments No 0 (1 standard drink = 0.6 oz pur e alcohol) Sex Assigned at Date Recorded Not on file documented as of this encounter Miscellaneous Notes * Telephone Encounter - Dio De Los Santos PA-C - 07/09/2016 4:53 PM EDT Normal message left on patient's answering machine. We'll discuss with patient if she calls back. MANASA Burris * Telephone Encounter - Tisha Danielle M.A. - 07/08/2016 10:16 AM EDT Please review and advise * Telephone Encounter - Isaacswethaalin Avendaño - 07/08/2016 9:30 AM EDT Inform patient: ANY URGENT OR ABNORMAL RESULTS WIILL RESULT IN A CALL BACK TO THE PATIENT ASTON. Type of test: :Stress test Date test was performed: 06/25/16 Where was the test performed: [facility] Who ordered this test?: Melly Magali Is the doctor here today?: NO Can the message wait until the doctor returns?: NO IF PATIENT'S PCP IS NOT IN INSTRUCT PATIENT THAT THEY WILL RECEIVE A CALL BACK WHEN THE PCP IS IN THE OFFICE NEXT. documented in this encounter Plan of Treatment Not on file documented as of this encounter Visit Diagnoses Not on filedocumented in this encounter Care Teams Waterfront Director Relationship Specialty Start Date End Date Priscilla Gonsalves MD [address] [place] [address] PCP - General 06/22/01 documented as of this encounter
--- OUTSIDE RECORDS SUMMARY | 2024-11-12 08:48 | XMS_ITS | Encounter Summary ---
Author Organization [facility] Address [address] [facility] [place] [address] Care Team Providers Care Jewel Oliving Machine Operator Name Role Phone Priscilla Gonsalves MD Primary Care Provider [phone] Encounter Details Date Type Department Care Team Description 11/11/2018 Coin Teller Report Medical Records [address] [place] [address] Amairani Rodriguez MD Social History Tobacco Use [...] on filedocumented in this encounter Care Teams Jewel Oliving Machine Operator Relationship Specialty Start Date End Date Priscilla Gonsalves MD [address] [place] [address] PCP - General 06/22/01 documented as of this encounter
--- OUTSIDE RECORDS SUMMARY | 2024-11-12 08:48 | XMS_ITS | Encounter Summary ---
Author Organization [facility] Address [address] [facility] [place] [address] Care Team Providers Care Paper Cone Grader Name Role Phone Priscilla Gonsalves MD Primary Care Provider [phone] Encounter Details Date Type Department Care Team Description 12/06/2020 Biomedical Technician Report Medical Records [address] [place] [address] Amairani Rodriguez MD Social History Tobacco Use [...] on filedocumented in this encounter Care Teams Paper Cone Grader Relationship Specialty Start Date End Date Priscilla Gonsalves MD [address] [place] [address] PCP - General 06/22/01 documented as of this encounter
--- OUTSIDE RECORDS SUMMARY | 2024-11-12 08:48 | XMS_ITS | Encounter Summary ---
Author Organization [facility] Address [address] [place] [address] Care Team Providers Care Assurance Senior Manager Name Role Phone Priscilla Gonsalves MD Primary Care Provider [phone] Encounter Details Date Type Department Care Team Description 01/04/2021 Brass Reclaimer Report Medical Records [address] [place] [address] Clinic, [facility] Walk-In [facility] [place] [address] Social History Tobacco Use Types Packs/Day Years [...] on filedocumented in this encounter Care Teams Assurance Senior Manager Relationship Specialty Start Date End Date Priscilla Gonsalves MD [address] [place] [address] PCP - General 06/22/01 documented as of this encounter
--- OUTSIDE RECORDS SUMMARY | 2024-11-12 08:48 | XMS_ITS | Encounter Summary ---
Author Organization [facility] Address [address] [facility] [place] [address] Care Team Providers Care Director Blood Bank Name Role Phone Priscilla Gonsalves MD Primary Care Provider Encounter Details Date Type Department Care Team Description 08/09/2021 Hospital Medical Records [address] [place] [address] [facility] Social History Tobacco Use Types Packs/Day Years [...] on filedocumented in this encounter Care Teams Director Blood Bank Relationship Specialty Start Date End Date Priscilla Gonsalves MD [address] [place] [address] PCP - General 06/22/01 documented as of this encounter
--- OUTSIDE RECORDS SUMMARY | 2024-11-12 08:48 | XMS_ITS | Encounter Summary ---
Author Organization [facility] Address [address] [facility] [place] [address] Care Team Providers Care Final Assembler Boat Name Role Phone Priscilla Gonsalves MD Primary Care Provider [phone] Encounter Details Date Type Department Care Team Description 12/19/2021 Hospital Medical Records [address] [place] [address] Jean Gomez MD Social History Tobacco Use Types Packs/Day [...] on filedocumented in this encounter Care Teams Final Assembler Boat Relationship Specialty Start Date End Date Priscilla Gonsalves MD [address] [place] [address] PCP - General 06/22/01 documented as of this encounter
--- OUTSIDE RECORDS SUMMARY | 2024-11-12 08:48 | XMS_ITS | Encounter Summary ---
Author Organization [facility] Address [address] [place] [address] Care Team Providers Care Elevator Erector Helper Name Role Phone Priscilla Gonsalves MD Primary Care Provider [phone] Encounter Details Date Type Department Care Team Description 02/22/2020 Building Economist Report Medical Records [address] [place] [address] Anais Alex NP Social History Tobacco Use [...] on filedocumented in this encounter Care Teams Elevator Erector Helper Relationship Specialty Start Date End Date Priscilla Gonsalves MD [address] [place] [address] PCP - General 06/22/01 documented as of this encounter
--- OUTSIDE RECORDS SUMMARY | 2024-11-12 08:49 | XMS_ITS | Patient Health Record ---
Author Organization [facility] Address [address] [place] [id number] Care Team Providers Care Shipping & Receiving Lead Name Role Phone Priscilla Gonsalves MD Primary Care Provider Jean Whitlock [phone] REASON FOR REFERRAL No Information MEDICATIONS Medication SIG (Take, Route, Fr equency, Duration) Notes Start Date End Date Status Amitriptyline HCl 10 MG 1 tablet at bedt renetta Orally Once a day for 30 day(s) Active Rinvoq 15 MG 1 tablet Orally Once a day for 30 day(s) Active Folic Acid Active Topiramate Active OsmoPrep 1.102-0.398 GM as directed with 20 pills the day before and 12 pills on the morning of the colonoscopy Orally Once for 1 days 01/14/2021 Active Coumadin Active Aimovig Active Vitamin D Active Omeprazole 20 MG 1 capsule 30 minutes before morning meal Orally Once a day for 30 day(s) Active IMMUNIZATIONS Vaccine Route Administration Date Status Comme nts Influenza Unknown 05/23/2020 Administered SOCIAL HISTORY Tobacco Use: Social History Observation Description Date Details (start date - stop date) Never Smoker NA - NA Sex Assigned At : Social History Observation Description Sex Assigned At Unknown Tobacco Use/Smoking Question Answer Notes Patient is a nonsmoker Alcohol Screen Question Answer Notes Did you have a drink containing alcohol in the p ast year? No Points 0 Interpretation Negative PROBLEMS Problem Type ICD Code Onset Dates Problem Status W/U Status Risk SNOMED Code Notes Problem Gastroesophageal reflux disease, unspecified whether esophagitis present (K21.9) Active confirmed 434679472 Problem Encounter for screening for malignant neoplasm of colon (Z12.11) Active confirmed 739974467 Problem Abdominal bloating (R14.0) Active confirmed 045925655 Problem Diverticulosis of colon (K57.30) Active confirmed Diverticulosi s of colon (998309394) Problem Gastroesophageal reflux (K21.9) Active confirmed Esophageal reflux finding (695375232) PLAN OF TREATMENT Future Test Test Name Order Date UPPER GI ENDOSCOPY 01/12/2021 COLONOSCOPY 01/12/2021 Insurance Providers Payer Name Payer Address Payer Phone Subscriber Number Group Number Insured Name Patient Relationship to Insured Coverage Start Date Coverage End Date [employer] [address] [address] [place] [address] [id number] 2 BRIT GREGGELYN Self - patient is the insured MEDICAL (GENERAL) HISTORY Medical History History ICD Code Denies CT,DM,CVA,Lung disease,renal dise ase Fatty liver disease--normal LFT's 11/2020 Blood clot in right LE x 3 2 019 and 12/2020--seeing Dr. Larsen--has been on Coumadin Rheumatoid arthritis-Dr. Rodriguez Migraines GERD Surgical History Surgery Date(Month/Year)
== END 2024-11-12 08:34 | disposition home or self-care (01) ==
LOC: HO.MAMMO 08:33
PROVIDERS: PCP Nurse Practitioner Family; Visit Provider Internal Medicine
DX: Z13.820 Encounter for screening for osteoporosis (principal); Z78.0 Asymptomatic menopausal state
CPT/HCPCS: 77080

== ENCOUNTER → 2024-11-12 08:45 | Outpatient (BNV) | payer OTHER, SELFPAY | PROVIDERS: PCP Nurse Practitioner Family; Visit Provider Radiology Diagnostic Radiology | DX: E28.39 Other primary ovarian failure (principal) | CPT/HCPCS: 77085 ==

== ENCOUNTER 2024-11-12 10:24 | Outpatient (AMB) | payer OTHER, SELFPAY ==
--- NOTE | 2024-11-12 10:27 | A.OFFVIS_ITS ---
Vital Signs 11/12/24 10:28 Height 5 ft 3 in Weight 180 lb BMI 31.9 Intake Visit Reasons: OV-F/u LT wrist pain Intake Note: Zeynep is a 53 year old right hand dominant female who presents today for a follow up of her left De Quervain tenosynovitis. Patient received a De Quervain's injection on 10/08/24 however she feels this did not help her pain. She continues to wear comfort cool brace. Allergies adalimumab [From Humira] Allergy (Verified 11/12/24 10:31) hairloss enoxaparin [From Lovenox] Allergy (Verified 11/12/24 10:31) Rash etanercept [Enbrel] Allergy (Verified 11/12/24 10:31) Injection site reaction sarilumab [From Kevzara] Allergy (Verified 11/12/24 10:31) injection site reaction HPI HPI OV-F/u LT wrist pain: Details: Zeynep is a 53 year old right hand dominant female who presents today for a follow up of her left De Quervain tenosynovitis. Patient received a De Quervain's injection on 10/08/24 however she feels this did not help her pain. The patient states that she experienced no relief from the injection beyond the 1st day. She continues to wear comfort cool brace. Denies numbness or tingling in the left upper extremity. No other acute complaints or concerns at this time. [facility] Medical History Non-toxic multinodular goiter Sprain of medial collateral ligament of left knee History of DVT of lower extremity Secondary hypercoagulable state Encounter for screening involving social determinants of health (SDoH) Encounter for general adult medical examination with abnormal findings Acute lower GI bleeding Lumbar back pain with radiculopathy affecting right lower extremity Mass of both wrists Osteoarthritis of carpometacarpal joint of right thumb Left knee pain Right leg DVT Obesity Vitamin D deficiency Hx of rheumatoid arthritis Hx of thyroid nodule History of vitamin D deficiency Hx of obesity Hx of carpal tunnel syndrome History of fibromyalgia Surgical History History of esophagogastroduodenoscopy (EGD) H/O colonoscopy S/P colonoscopic polypectomy Family History Mother Diabetes Fibromyalgia Osteoarthritis Maternal Grandfather Leukemia Maternal Aunt Breast cancer Unknown Cancer Stomach cancer Social History Household Members: Spouse and Children Housing: House Are you a primary client care manager to a significant other at home: No Do you presently have visiting nurse or other home services: No Alcohol intake: current Alcohol intake frequency: does not drink Patient Tobacco Use Status: Never used Tobacco e-Cigarette/Vaping Use: Never Used Second Hand Smoke Exposure: No Advance Directives Date on File: 11/21/21 service: No Current occupational status: employed 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 Neuro: Normal sensation of the tips of all digits of the left hand at this time Vascular: Cap refill brisk Pain: Tenderness to palpation of the left radial styloid Positive Juan A on the left ROM: Patient is able to make a closed fist and extend all digits of the left hand fully Skin: No lacerations or abrasions. General: No ecchymosis, erythema, or evidence of infection. Psych: Appears grossly normal Affect normal Attitude cooperative Assessment & Plan Assessment & Plan (1) De Quervain's tenosynovitis, left: Code(s): M65.4 - Radial styloid tenosynovitis [de Quervain] Category: Medical Plan 1. De Quervain tenosynovitis, left Status post injection with no relief I educated the patient about the condition. I discussed both operative and nonoperative treatment options. The patient would like to proceed with surgery. The risks and benefits of operative treatment were discussed with the patient and the patient wishes to proceed with surgery. These risks include, but are not limited to, risk of damage to blood vessels, nerves, tendons, infection, recurrence, incomplete relief of preoperative symptoms, persistent pain, possible need for further surgery, and the risks associated with regional blocks and/or anesthesia. Plan is to take the patient to the operating room at some point in the next few weeks for the following procedures: 1. Left First compartment release under local All of the preoperative paperwork including the consent was discussed today. All of the patient's questions were answered in the clinic today. The patient understands that they will be in contact with our medical or surgical instrument maker to discuss scheduling their procedure. Patient denies diabetes, asthma, heart issues, lung issues, kidney issues, or current smoking. Patient is on [employer] daily Coding Level of Care Code Est Pt Level 4 (76925) Diagnoses De Quervain's tenosynovitis, left M65.4
[2024-11-12 10:28] VITALS: BMI 31.9
== END 2024-11-12 10:46 | disposition home or self-care (01) ==
PROVIDERS: PCP Nurse Practitioner Family
DX: M65.4 Radial styloid tenosynovitis [de Quervain] (principal)
CPT/HCPCS: 99214

== ENCOUNTER 2024-11-19 13:48 | Outpatient (AMB) | payer OTHER, SELFPAY ==
--- NOTE | 2024-11-19 15:47 | A.OFFPC_ITS ---
Intake Visit Reasons: telehealth for imaging review Intake Note: telehealth follow up to review imaging Cardiopulmonary Technologist Chief Required: No Allergies adalimumab [From Humira] Allergy (Verified 11/19/24 16:20) hairloss enoxaparin [From Lovenox] Allergy (Verified 11/19/24 16:20) Rash etanercept [Enbrel] Allergy (Verified 11/19/24 16:20) Injection site reaction sarilumab [From Kevzara] Allergy (Verified 11/19/24 16:20) injection site reaction Medication List - Last Reconciled 11/19/24 by Jeri Narayanan, [facility]- Actemra ACTPen (tocilizumab) 162 mg (0.9 mL) subcut Q2W NS apixaban (Eliquis) 5 mg PO BID escitalopram oxalate (Lexapro) 10 mg PO DAILY fluticasone propionate 50 mcg/actuation (Flonase Allergy Relief) 1 spray intranasal Q12H fremanezumab-vfrm (Ajovy) 225 mg subcut .every 28 days frovatriptan 2.5 mg PO Q2-4H PRN meclizine 25 mg PO TID PRN pantoprazole 40 mg PO DAILY rimegepant (Nurtec ODT) 75 mg sublingual Q OTHER DAY PRN [thumb spica wear nightly & as much as possible throughout the day] [thumb spica wear nightly and as much as possible throughout the day] tizanidine 4 mg PO Q8H PRN 30 days topiramate 100 mg PO BID tramadol 50 mg PO Q6H PRN 25 days trazodone 100 mg PO BEDTIME PRN 30 days Tobacco use date assessed: 11/19/24 Dental Screening Dental Screen Date: 11/19/24 Did you have a dental visit in the last 12 months?: Yes Did you have a dental problem in the last 6 months where you did not have access to dental care?: No Was dental information given to patient?: Patient has dentist HPI HPI Comments History of Present Illness Details 54-year-old female with obesity, GERD, m igraine, chronic joint pain, vitamin-D deficiency, nontoxic multinodular goiter, seropositive RA, fibromyalgia, DVT (multiple, first one diagnosed in her 30s), mild chronic microangiopathy (mri brain 2020 & 2022), small developmental venous anomaly in the left basal gangli (MRI 2022), hepatic steatosis, abdominal ultrasound (12/09/2022), osteopenia Health Maintenance DEXA 10/2024 + osteopenia, repeat 2026 History of Present Illness - The patient is a 54-year-old female w ith bone density concerns and a recent L wrist fracture. - Osteopenia was identified via bone den sity scan see details below - The L wrist fracture was diagnosed fol lowing persistent pain, and the patient denies any falls or trauma. - Scheduled left wrist surgery indicates the severity of the fracture. - Current medications include 10,000 IU of vitamin D daily, with normal calcium levels noted previously 08/2024 and low Vit D levels Physical Exam Limited physical exam was conducted Awake alert NAD Speaking in full sentences Engaging, appropriate Skin pink warm and dry Mood and affect appropriate Assessment and Plan 1. Osteopenia: Osteopenia was identified in the lumbar spine and left hip through a bone density scan. The current regimen includes vitamin D and recommends 600 mg calcium supplements twice a day due to previous low vitamin D levels and normal calcium levels. To improve bone density, low-impact exercises are advised post-surgery. High impact exercise, fall precautions edu. Repeat DEXA 2 years. 2. Wrist Fracture: The left wrist fract ure warrants surgery due to severity despite no reported trauma. The fracture likely correlates with present osteopenia. Pain management and risk assessment suggest maintaining current supplementation while recovering, and introducing conservative bone-building exercises. Telehealth Attestation This visit was conducted via video consultation, documentation reflective of patient-provider communication was accurately recorded. The patient has been explained that this is an interactive (audio/video) telehealth encounter and what that consists of. The patient understands and wishes to proceed. [employer] platform was used. Total time spent caring for the patient today was 15 minutes. This includes time spent before the visit reviewing the chart, time spent during the visit, and time spent after the visit on documentation, reviewing laboratory results, diagnostic imaging, medications, performing a medically necessary evaluation, counseling on diagnoses, care coordination, ordering appropriate tests, ordering appropriate medications, review of tests performed by other providers, reporting test results with the patient, communication with other healthcare providers. [facility] Medical History Non-toxic multinodular goiter Sprain of medial collateral ligament of left knee History of DVT of lower extremity Secondary hypercoagulable state Encounter for screening involving social determinants of health (SDoH) Encounter for general adult medical examination with abnormal findings Acute lower GI bleeding Lumbar back pain with radiculopathy affecting right lower extremity Mass of both wrists Osteoarthritis of carpometacarpal joint of right thumb Left knee pain Right leg DVT Obesity Vitamin D deficiency Hx of rheumatoid arthritis Hx of thyroid nodule History of vitamin D deficiency Hx of obesity Hx of carpal tunnel syndrome History of fibromyalgia Surgical History History of esophagogastroduodenoscopy (EGD) H/O colonoscopy S/P colonoscopic polypectomy Family History Mother Diabetes Fibromyalgia Osteoarthritis Maternal Grandfather Leukemia Maternal Aunt Breast cancer Unknown Cancer Stomach cancer Social History Household Members: Spouse and Children Housing: House Are you a primary critical care nurse to a significant other at home: No Do you presently have visiting nurse or other home services: No Alcohol intake: current Alcohol intake frequency: does not drink Patient Tobacco Use Status: Never used Tobacco e-Cigarette/Vaping Use: Never Used Second Hand Smoke Exposure: No Advance Directives Date on File: 11/21/21 service: No Current occupational status: employed 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 1. Little interest or pleasure in doing things: not at all 2. Feeling down, depressed, or hopeless: not at all 3. Trouble falling or staying asleep, or sleeping too much: not at all 4. Feeling tired or having little energy: not at all 5. Poor appetite or overeating: not at all 6. Feeling bad about yourself - or that you are a failure or have let yourself or your family down: not at all 7. Trouble concentrating on things, such as reading the newspaper or watching television: not at all 8. Moving or speaking so slowly that other people could have noticed. Or the opposite - being so fidgety or restless that you have been moving around a lot more than usual: not at all 9. Thoughts that you would be better off or of hurting yourself in some way: not at all Total score: 0 Depression Screening Interpretation: Negative Depression Screening Done: Yes 93884 - PHQ-9 Billing: Yes Source: Developed by Drs. Jean Figueroa, Maribell Nascimento, Mookie Armendarzi and colleagues, with an educational leigh ann from [employer]. Thrive Questionnaire Date Thrive assessed: 11/19/24 I am a: Patient What is your living situation today?: I have a steady place to live Within the past 12 months, did the food you bought not last and you didn't have the money to get more?: Never true Within the past 12 months, did you worry whether your food would run out before you got money to buy more?: Never true Do you have trouble paying for medicines?: No Do you have trouble getting transportation to medical appointments?: No Do you have trouble paying your heating and electricity bill?: No Do you have trouble taking care of your child, family member or friend?: No Do you have trouble with day-to-day activities such as bathing, preparing meals, shopping, managing finances, etc.?: No Are you currently unemployed and looking for a job?: No Are you interested in more education?: No THRIVE Score: 0 AUDIT C Alcohol Use Questionnaire (AUDIT-C) 1. How often do you have a drink containing alcohol?: Never 3. How often do you have six or more drinks on one occasion?: Never Total Score: 0 Score Reviewed/Action Taken: Yes SRUTHI-7 AMB Questionnaire SRUTHI-7 Date SRUTHI - 7 assessed: 11/19/24 Feeling nervous, anxious, or on edge: 0 = Not at all Not being able to stop or control worryin = Not at all Worrying too much about different things: 0 = Not at all Trouble relaxin = Not at all Being so restless that it is hard to sit still: 0 = Not at all Becoming easily annoyed or irritable: 0 = Not at all Feeling afraid as if something awful might happen: 0 = Not at all Total SRUTHI-7 score (0-4 normal; 5-9 mild; 10-14 moderate; 15-21 severe): 0 Source: Developed by Drs. Jean Figueroa, Maribell Nascimento, Mookie Armendariz and colleagues, with an educational leigh ann from [employer]. SRUTHI-7 Assessment Billing SRUTHI-7 Assessment Tool: SRUTHI-7 Assessment 06273 Physical exam (Primary Care) Tobacco/Smoking Status: Tobacco use Status Tobacco use date assessed 11/19/24 11/19/24 15:50 Patient Tobacco Use Status Never used Tobacco 11/19/24 15:50 e-Cigarette/Vaping Use Never Used 11/19/24 15:50 PHQ-9: PHQ-9 Score PHQ-9: Total score 0 11/19/24 15:50 Depression Screening Interpretation: Negative Thrive Assessment: Date of Thrive Assessment Date Thrive assessed 11/19/24 11/19/24 15:50 Telehealth Telehealth Telehealth Platform: Telephone Location of provider rendering services: practice address Location of patient: address on file Patient Identification confirmed using: Name, : Yes Telehealth method: video Patient verbally consented to treatment: Yes Patient verbally consented to billing insurance company: Yes Patient informed of any privacy concerns related to visit: Yes Minutes spent on Phone/Video with Pt.: 10 Coding Level of Care Code Tele Est Pt Level 3 (16899) Complex EM visit Add On G2211 Diagnoses Osteopenia, unspecified location M85.80 Osteopenia location: unspecified Post-menopausal Z78.0 Vitamin D deficiency E55.9 Additional Codes SRUTHI-7 Assessment Billing - SRUTHI-7 Assessment Tool: SRUTHI-7 Assessment 81992 ([id number]) PHQ-9 - 70448 - PHQ-9 Billing: Yes ([id number]) Assessment & Plan Assessment & Plan (1) Osteopenia: Comment: [facility] [address] [place] [address] [place] [address] Mammography Report Signed Patient: Zeynep Edgar MR#: [id number] : 1970 Acct:[id number] Age/Sex: 54 / F ADM Date: 11/12/24 Loc: HO.MAMMO Attending Dr: Andre Baltazar MD Ordering Physician: Andre Baltazar MD Results: Date of Service: 11/12/24 Follow Up: Procedure(s): XR DEXA axial skeleton Accession Number(s): [id number] cc: Jeri Narayanan [facility]; Andre Baltazar MD~ EXAMINATION: DXA BONE DENSITY AXIAL HISTORY: Estrogen deficiency TECHNIQUE: [email or web address] Dual energy absorptiometry (DEXA) of the lumbar spine, total left hip, and femoral neck was performed. COMPARISON: There are no prior studies for comparison. FINDINGS: The bone mineral density of the lumbar spine is 1.081 with a T-score of -0.8, and a Z-score of -0.6. The bone mineral density of the left total hip is 0.955 with a T-score of -0.4, and a Z-score of -0.2. The bone mineral density of the left femoral neck is 0.878 with a T-score of -1.1, and a Z-score of -0.5. FRACTURE RISK: The FRAX index suggests a risk of major osteoporotic fracture of 7.2%, and of hip fracture 0.5%. MM/XR DEXA axial skeleton IMPRESSION: Based on bone mineral density, and according to World Health Organization (WHO) criteria, the diagnosis is consistent with osteopenia. All bone density values are in grams per centimeter squared (g/cm2). Statistically, 68% of repeat scans fall within 1 SD (+/- 0.010 g/cm2 for AP spine L1-L4) and 1 SD (+/- 0.012 g/cm2 for femur total) FRAX is a trademark of the [employer] Metabolic Bone Disease, a World Health Organization (WHO) Collaborating Center. Electronically signed by: Jean Tolbert MD 11/15/2024 08:50 AM EST Dictated By: Jean Tolbert MD Signed By: <Electronically signed by Jean Tolbert MD in OV> 11/15/24 0850 DD/ 0845 TD/TT: 11/12/24 0915 Manager Rail: Code(s): M85.80 - Other specified disorders of bone density and structure, unspecified site Category: Medical Qualifiers: Osteopenia location: unspecified Qualified Code(s): M85.80 - Other specified disorders of bone density and structure, unspecified site (2) Post-menopausal: Code(s): Z78.0 - Asymptomatic menopausal state Category: Medical (3) Vitamin D deficiency: Comment: Not currently on supplementation. We will check vitamin-D level Code(s): E55.9 - Vitamin D deficiency, unspecified Category: Medical Plan . Medications: New calcium carbonate 600 mg PO BID 30 tabs 0RF cholecalciferol (vitamin D3) 125 mcg PO BID 60 caps 0RF
== END 2024-11-19 17:05 | disposition home or self-care (01) ==
LOC: HO.HMCFM 13:48
PROVIDERS: PCP Nurse Practitioner Family; Visit Provider Nurse Practitioner Family
DX: M85.80 Other specified disorders of bone density and structure, unspecified site (principal); Z78.0 Asymptomatic menopausal state; E55.9 Vitamin D deficiency, unspecified

== ENCOUNTER → 2024-11-19 13:48 | Outpatient (BNVA) | payer OTHER, SELFPAY | PROVIDERS: PCP Nurse Practitioner Family; Visit Provider Nurse Practitioner Family | DX: M85.80 Other specified disorders of bone density and structure, unspecified site (principal); E55.9 Vitamin D deficiency, unspecified; Z78.0 Asymptomatic menopausal state | CPT/HCPCS: 96127 ==

== ENCOUNTER 2024-11-24 08:24 | Outpatient (AMB) | payer OTHER, SELFPAY ==
[2024-11-24 08:25] VITALS: BMI 31.9
--- NOTE | 2024-11-24 08:25 | MHC.OFFVIS ---
Vital Signs 11/24/24 08:25 Height 5 ft 3 in Weight 180 lb BMI 31.9 Intake Visit Reasons: Pre-Lt INTERMEDIATE Release 11/30/24 Intake Note: Zeynep 54 yr old female presents today for a pre op visit for her left INTERMEDIATE release. Scheduled for 11/30/24. Consent signed and questions have been answered. Allergies adalimumab [From Humira] Allergy (Verified 11/24/24 08:35) hairloss enoxaparin [From Lovenox] Allergy (Verified 11/24/24 08:35) Rash etanercept [Enbrel] Allergy (Verified 11/24/24 08:35) Injection site reaction sarilumab [From Kevzara] Allergy (Verified 11/24/24 08:35) injection site reaction HPI HPI Pre-Lt INTERMEDIATE Release 11/30/24: Details: Zeynep is a 54 year old right hand dominant woman who presents to discuss her left De Quervains tenosynovitis. She says she found no relief from an injection on 10/08/24. She complains of radial sided wrist pain, worse with pinching or gripping activities. She would like to discuss surgery today. She has RA & Fibromyalgia. She is on methotrexate. 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 [employer] Medical History Non-toxic multinodular goiter Sprain of medial collateral ligament of left knee History of DVT of lower extremity Secondary hypercoagulable state Encounter for screening involving social determinants of health (SDoH) Encounter for general adult medical examination with abnormal findings Acute lower GI bleeding Lumbar back pain with radiculopathy affecting right lower extremity Mass of both wrists Osteoarthritis of carpometacarpal joint of right thumb Left knee pain Right leg DVT Obesity Vitamin D deficiency Hx of rheumatoid arthritis Hx of thyroid nodule History of vitamin D deficiency Hx of obesity Hx of carpal tunnel syndrome History of fibromyalgia Surgical History History of esophagogastroduodenoscopy (EGD) H/O colonoscopy S/P colonoscopic polypectomy Family History Mother Diabetes Fibromyalgia Osteoarthritis Maternal Grandfather Leukemia Maternal Aunt Breast cancer Unknown Cancer Stomach cancer Social History Household Members: Spouse and Children Housing: House Are you a primary medicare contact specialist to a significant other at home: No Do you presently have visiting nurse or other home services: No Alcohol intake: current Alcohol intake frequency: does not drink Patient Tobacco Use Status: Never used Tobacco e-Cigarette/Vaping Use: Never Used Second Hand Smoke Exposure: No Advance Directives Date on File: 11/21/21 service: No Current occupational status: employed 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[place] [place] Cognitive needs: No Hearing needs: No Vision needs: No Review of Systems Const All systems reviewed & are unremarkable except as noted in HPI and below Physical Exam Vital Signs: BMI result Body Mass Index 31.9 Const General: cooperative, healthy appearing and no acute distress Orientation/consciousness: patient oriented x3 HEENT Head: Yes normocephalic and Yes atraumatic Eyes EOM: EOMs intact bilaterally Resp Effort & Inspection: normal respiratory effort and able to speak in complete sentences Cardio Jugular venous distension: no JVD Skin General skin exam: turgor normal Rashes: no rashes Neuro General: patient oriented x3 Extrem Other: Evaluation of Left Upper Extremity: The patient is alert, oriented, and in no acute distress Neuro: Median, Ulnar, Radial nerves motor and sensory intact and sensation is normal to the tips of all digits Vascular: Cap refill brisk ROM: She can make a fist and extend all her digits No locking or catching Skin: No lacerations or abrasions. General: No Ecchymosis. No Erythema or evidence of infection. Most tender over the 1st dorsal compartment Positive Juan A test on the left Negative Juan A test on the right Psych Appearance: grossly normal Affect: normal affect Attitude: cooperative Assessment & Plan Assessment & Plan (1) De Quervain's tenosynovitis, left: Code(s): M65.4 - Radial styloid tenosynovitis [de Quervain] Category: Medical (2) Seropositive rheumatoid arthritis: Comment: +RF -ve CCP dx around 2019 Methotrexate 05/2019 Enbrel 04/2020 with methotrexate. Patient stop both accidentally. Triple therapy 05/2020-06/2020 ineffective Xeljanz ineffective Cimzia Ineffective DC 06/2021 Methotrexate discontinued 11/2020 due to elevated liver enzymes. Rinvoq 12/2020 -02/2021 ineffective Humira 06/2021-08/2021 discontinued due to hair loss. Enbrel 09/11 stopped 09/2021 due to injection site reaction Kevzara 10/2021 discontinued due to injection site reaction Actemra 11/2021- present effective Code(s): M05.9 - Rheumatoid arthritis with rheumatoid factor, unspecified Category: Medical (3) Fibromyalgia: Comment: Previously failed Cymbalta, gabapentin, Lyrica (headaches) Code(s): M79.7 - Fibromyalgia Category: Medical Plan Assessment & Plan: 1. Left De Quervain's Tenosynovitis, S/P injection Date of injection: 10/08/24 I educated her about this condition I discussed operative and non-operative treatment options The patient would like to proceed with surgery The risks and benefits of operative treatment were discussed with the patient and the patient wishes to proceed with surgery. These risks include, but are not limited to risk of damage to blood vessels, nerves, tendons, infection, recurrence, incomplete relief of preoperative symptoms, persistent pain, possible need for further surgery and the risks associated with regional blocks and anesthesia. The plan is to take the patient to the operating room sometime on 11/30/24 for the following procedures: 1. Left 1st dorsal compartment release, under local All of the preoperative paperwork including the consent was reviewed today. All the patient's questions were answered. The patient understands that they will be contacted by our surgery aid soon to schedule this procedure She denies Diabetes, asthma, heart, lung, kidney issues She has RA & Fibromyalgia. She is on Actemra, which is an immunosuppressant. This should be held 2 weeks prior to surgery. She last took her Actemra yesterday, but knows not to take her Actemra again until after her wound is healed well enough for it to take her stitches out. She is on Eliquis Scribed for Heydi Stanley MD by Immanuel Gupta medical superintendent, on 11/24/24 at 8:45 AM, EST. Coding Level of Care Code Est Pt Level 4 (17441) Diagnoses De Quervain's tenosynovitis, left M65.4 Seropositive rheumatoid arthritis M05.9 Fibromyalgia M79.7
--- OUTSIDE RECORDS SUMMARY | 2024-11-24 08:54 | XMS_ITS | Encounter Summary ---
Author Organization [facility] Address [address] [place] [address] Care Team Providers Care Staking Engineer Name Role Phone Priscilla Gonsalves MD Primary Care Provider [phone] Encounter Details Date Type Department Care Team Description 05/09/[address] 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
--- OUTSIDE RECORDS SUMMARY | 2024-11-24 08:54 | XMS_ITS | Encounter Summary ---
Author Organization [facility] Address [address] [place] [address] Care Team Providers Care Rv Body Mechanic Name Role Phone Priscilla Gonsalves MD Primary Care Provider [phone] Encounter Details Date Type Department Care Team Description 01/04/2021 Costume Shop Coordinator Report Medical Records [address] [place] [address] Clinic, [facility] [place] [address] Social History Tobacco Use Types Packs/Day Years [...] on filedocumented in this encounter Care Teams Rv Body Mechanic Relationship Specialty Start Date End Date Priscilla Gonsalves MD [address] [place] [address] PCP - General 06/22/01 documented as of this encounter
--- OUTSIDE RECORDS SUMMARY | 2024-11-24 08:54 | XMS_ITS | Patient Health Record ---
Author Organization [facility] Address [address] [place] [id number] Care Team Providers Care Firer Locomotive Name Role Phone Priscilla Gonsalves MD Primary Care Provider Jean Whitlock [phone] Reason For Referral No Information Medications Medication SIG (Take, Route, Fr equency, Duration) [...] Once a day for 30 day(s) Active Immunizations Vaccine Route Administration Date Status Comme nts Influenza Unknown 05/23/2020 Administered Social History Tobacco Use: Social History Observation Description Date Details (start date - stop date) Never Smoker NA - NA Tobacco Use/Smoking Question Answer Notes Patient is a nonsmoker Alcohol Screen Question Answer Notes Did you have a drink containing alcohol in the p ast year? No Points 0 Interpretation Negative Section Notes: Nonsmoker; no alchol Problems Problem Type SNOMED Code ICD Code Onset Dates Problem Status W/U Status Risk Notes Problem [id number] Encounter for screening for malignant neoplasm of colon (Z12.11) Active confirmed Problem 990911496 Abdominal bloati ng (R14.0) Active confirmed Problem Esophageal reflux finding (883787623) Gastroesophageal reflux (K21.9) Active confirmed Problem Diverticulosis of colon (036003266) Diverticulosis of colon (K57.30) Active confirmed Problem 012403746 Gastroesophageal reflux disease, unspecified whether esophagitis present (K21.9) Active confirmed Plan Of Treatment Future Test Test Name Order Date UPPER GI ENDOSCOPY 01/12/2021 COLONOSCOPY 01/12/2021 Insurance Providers Payer Name Payer Address Payer Phone Subscriber Number Group Number Insured Name Patient Relationship to Insured Coverage Start Date Coverage End Date [employer] [place] [address] [address] [place] [address] [id number] JAEL GREGG Self - patient is the insured Medical (General) History Medical History History ICD Code Denies NM,DM,CVA,Lung disease,renal dise ase Fatty liver disease--normal LFT's 11/2020 Blood clot in right LE x 3 2 019 and 12/2020--seeing Dr. Larsen--has been on Coumadin Rheumatoid arthritis-Dr. Rodriguez Migraines GERD Surgical History Surgery Date(Month/Year)
--- OUTSIDE RECORDS SUMMARY | 2024-11-24 08:54 | XMS_ITS | Encounter Summary ---
Author Organization [facility] Address [address] [place] [address] Care Team Providers Care Lumber Carrier Name Role Phone Priscilla Gonsalves MD Primary Care Provider [phone] Encounter Details Date Type Department Care Team Description 01/05/2014 Bushler Report Medical Records [address] [place] [address] Luisito Banerjee MD Social History Tobacco Use [...] on filedocumented in this encounter Care Teams Lumber Carrier Relationship Specialty Start Date End Date Priscilla Gonsalves MD [address] [place] [address] PCP - General 06/22/01 documented as of this encounter
--- OUTSIDE RECORDS SUMMARY | 2024-11-24 08:54 | XMS_ITS | Encounter Summary ---
Author Organization [facility] Address [address] [facility] [place] [address] Care Team Providers Care Behavioral Health Rn Name Role Phone Priscilla Gonsalves MD Primary Care Provider [phone] Encounter Details Date Type Department Care Team Description 02/10/2020 Orthotic Technician Report Medical Records [address] [place] [address] Amairani Rodriguez MD Social History Tobacco Use [...] on filedocumented in this encounter Care Teams Behavioral Health Rn Relationship Specialty Start Date End Date Priscilla Gonsalves MD [address] [place] [address] PCP - General 06/22/01 documented as of this encounter
--- OUTSIDE RECORDS SUMMARY | 2024-11-24 08:54 | XMS_ITS | Encounter Summary ---
Author Organization [facility] Address [address] [facility] [place] [address] Care Team Providers Care Pneumatic Jacketer Name Role Phone Priscilla Gonsalves MD Primary Care Provider [phone] Encounter Details Date Type Department Care Team Description 12/21/2019 Flow Floor Attendant Report Medical Records [address] [place] [address] Amairani Rodriguez MD Social History Tobacco Use [...] on filedocumented in this encounter Care Teams Pneumatic Jacketer Relationship Specialty Start Date End Date Priscilla Gonsalves MD [address] [place] [address] PCP - General 06/22/01 documented as of this encounter
--- OUTSIDE RECORDS SUMMARY | 2024-11-24 08:54 | XMS_ITS | Encounter Summary ---
Author Organization [facility] Address [address] [facility] [place] [address] Care Team Providers Care Plater Production Name Role Phone Priscilla Gonsalves MD Primary Care Provider [phone] Encounter Details Date Type Department Care Team Description 02/22/2020 Relief Driller Report Medical Records [address] [place] [address] Anais Alex NP Social History Tobacco Use [...] on filedocumented in this encounter Care Teams Plater Production Relationship Specialty Start Date End Date Priscilla Gonsalves MD [address] [place] [address] PCP - General 06/22/01 documented as of this encounter
--- OUTSIDE RECORDS SUMMARY | 2024-11-24 08:54 | XMS_ITS | Encounter Summary ---
Author Organization [facility] Address [address] [place] [address] Care Team Providers Care Rail Operator Name Role Phone Priscilla Gonsalves MD Primary Care Provider [phone] Encounter Details Date Type Department Care Team Description 09/06/2013 Pt. Non Urgent Medical Question Adult Medicine [address] [address] Priscilla Gonsalves MD [address] [place] [address] Social History Tobacco Use Types Packs/Day Years Used Date Smoking Tobacco: Never Smokeless Tobacco: Never Alcohol Use Standard Drinks/Week Comments No 0 (1 standard drink = 0.6 oz pur e alcohol) Sex Assigned at Date Recorded Not on file documented as of this encounter Progress Notes * Susan Gutiérrez L.P.N. - 09/06/2013 10:39 AM ESTFrom: JAEL EDGAR To: Priscilla Gonsalves MD Sent: FriSep 06, 2013 10:36 AM Subject: physical exam appointment Is there a copayment for a physical exam appointment documented in this encounter Plan of Treatment Not on file documented as of this encounter Visit Diagnoses Not on filedocumented in this encounter Care Teams Rail Operator Relationship Specialty Start Date End Date Priscilla Gonsalves MD [address] [place] [address] PCP - General 06/22/01 documented as of this encounter
--- OUTSIDE RECORDS SUMMARY | 2024-11-24 08:54 | XMS_ITS | Encounter Summary ---
Author Organization [facility] Address [address] [place] [address] Care Team Providers Care Manager Retail Name Role Phone Priscilla Gonsalves MD Primary Care Provider Encounter Details Date Type Department Care Team Description 11/26/2021 Theater Usher Report Medical Records [address] [place] [address] Orthopedics, [address] [place] [address] Social History Tobacco Use Types Packs/Day Years [...] on filedocumented in this encounter Care Teams Manager Retail Relationship Specialty Start Date End Date Priscilla Gonsalves MD [address] [place] [address] PCP - General 06/22/01 documented as of this encounter
--- OUTSIDE RECORDS SUMMARY | 2024-11-24 08:54 | XMS_ITS | Encounter Summary ---
Author Organization [facility] Address [address] [place] [address] Care Team Providers Care Out Patient Therapist Name Role Phone Priscilla Gonsalves MD Primary Care Provider [phone] Encounter Details Date Type Department Care Team Description 03/07/2021 Forklift Operator Report Medical Records [address] [place] [address] Anais Alex NP Social History Tobacco Use [...] on filedocumented in this encounter Care Teams Out Patient Therapist Relationship Specialty Start Date End Date Priscilla Gonsalves MD [address] [place] [address] PCP - General 06/22/01 documented as of this encounter
--- OUTSIDE RECORDS SUMMARY | 2024-11-24 08:54 | XMS_ITS | Encounter Summary ---
Author Organization [facility] Address [address] [place] [address] Care Team Providers Care Food Preparer Name Role Phone Priscilla Gonsalves MD Primary Care Provider [phone] Encounter Details Date Type Department Care Team Description 03/10/2018 Orders Only Adult Medicine [address] [address] Margot Worley PA Left breast mass Social History Tobacco Use Types Packs/Day Years Used Date Smoking Tobacco: Never Smokeless Tobacco: Never Alcohol Use Standard Drinks/Week Comments No 0 (1 standard drink = 0.6 oz pur e alcohol) Sex Assigned at Date Recorded Not on file documented as of this encounter Plan of Treatment Not on file documented as of this encounter Procedures Procedure Name Priority Date/Time Associated Diagnosis Comments DX MAMMO INCL CAD UNI Routine 03/06/2018 Left breast mass documented in this encounter Results * DX MAMMO INCL CAD UNI (03/06/2018) Margot MARTINEZ MAMMOGRAPHY documented in this encounter Visit Diagnoses Diagnosis Left breast mass Lump or mass in breast documented in this encounter Care Teams Food Preparer Relationship Specialty Start Date End Date Priscilla Gonsalves MD [address] [place] [address] PCP - General 06/22/01 documented as of this encounter
--- OUTSIDE RECORDS SUMMARY | 2024-11-24 08:54 | XMS_ITS | Encounter Summary ---
Author Organization [facility] Address [address] [place] [address] Care Team Providers Care Laminator Hand Name Role Phone Priscilla Gonsalves MD Primary Care Provider [phone] Encounter Details Date Type Department Care Team Description 01/10/2016 Academic Guidance Specialist Report Medical Records [address] [place] [address] Luisito Banerjee MD Social History Tobacco Use [...] on filedocumented in this encounter Care Teams Laminator Hand Relationship Specialty Start Date End Date Priscilla Gonsalves MD [address] [place] [address] PCP - General 06/22/01 documented as of this encounter
--- OUTSIDE RECORDS SUMMARY | 2024-11-24 08:54 | XMS_ITS | Encounter Summary ---
Author Organization [facility] Address [address] [place] [address] Care Team Providers Care Vacuum Cleaner Assembler Name Role Phone Priscilla Gonsalves MD Primary Care Provider [phone] Encounter Details Date Type Department Care Team Description 07/05/2015 Gristmiller Report Medical Records [address] [place] [address] Luisito Banerjee MD Social History Tobacco Use [...] on filedocumented in this encounter Care Teams Vacuum Cleaner Assembler Relationship Specialty Start Date End Date Priscilla Gonsalves MD [address] [place] [address] PCP - General 06/22/01 documented as of this encounter
--- OUTSIDE RECORDS SUMMARY | 2024-11-24 08:54 | XMS_ITS | Encounter Summary ---
Author Organization [facility] Address [address] [facility] [place] [address] Care Team Providers Care Purchasing Agent Name Role Phone Priscilla Gonsalves MD Primary Care Provider [phone] Encounter Details Date Type Department Care Team Description 04/04/2022 Kettle Room Helper Report Medical Records [address] [place] [address] Anais Alex NP Social History Tobacco Use [...] on filedocumented in this encounter Care Teams Purchasing Agent Relationship Specialty Start Date End Date Priscilla Gonsalves MD [address] [place] [address] PCP - General 06/22/01 documented as of this encounter
--- OUTSIDE RECORDS SUMMARY | 2024-11-24 08:54 | XMS_ITS | Encounter Summary ---
Author Organization [facility] Address [address] [facility] [place] [address] Care Team Providers Care Director Validation Name Role Phone Priscilla Gonsalves MD Primary Care Provider [phone] Encounter Details Date Type Department Care Team Description 01/06/2017 Public Records Researcher Report Medical Records [address] [place] [address] Alisia Allison MD Social History Tobacco Use Types Packs/Day [...] filedocumented in this encounter Care Teams Director Validation Relationship Specialty Start Date End Date Priscilla Gonsalves MD [address] [place] [address] PCP - General 06/22/01 documented as of this encounter
--- OUTSIDE RECORDS SUMMARY | 2024-11-24 08:54 | XMS_ITS | Encounter Summary ---
Author Organization [facility] Address [address] [place] [address] Care Team Providers Care Tobacco Sprayer Name Role Phone Priscilla Gonsalves MD Primary Care Provider [phone] Encounter Details Date Type Department Care Team Description 03/20/2016 Election Watcher Report Medical Records [address] [place] [address] Sneha Byrd MD [address] [facility] [address] [place] [id number] Social History Tobacco Use Types Packs/Day [...] on filedocumented in this encounter Care Teams Tobacco Sprayer Relationship Specialty Start Date End Date Priscilla Gonsalves MD [address] [place] [address] PCP - General 06/22/01 documented as of this encounter
--- OUTSIDE RECORDS SUMMARY | 2024-11-24 08:54 | XMS_ITS | Encounter Summary ---
Author Organization [facility] Address [address] [facility] [place] [address] Care Team Providers Care Graphic Engineer Name Role Phone Priscilla Gosnalves MD Primary Care Provider [phone] Encounter Details Date Type Department Care Team Description 12/06/2020 Animal Surgeon Report Medical Records [address] [place] [address] Amairani Rodriguez MD Social History Tobacco Use [...] on filedocumented in this encounter Care Teams Graphic Engineer Relationship Specialty Start Date End Date Priscilla Gonsalves MD [address] [place] [address] PCP - General 06/22/01 documented as of this encounter
--- OUTSIDE RECORDS SUMMARY | 2024-11-24 08:54 | XMS_ITS | Encounter Summary ---
Author Organization [facility] Address [address] [facility] [place] [address] Care Team Providers Care Craft Recruiter Name Role Phone Priscilla Gonsalves MD Primary Care Provider [phone] Encounter Details Date Type Department Care Team Description 02/24/2019 Reliability Manager Report Medical Records [address] [place] [address] Anais Alex NP Social History Tobacco Use [...] on filedocumented in this encounter Care Teams Craft Recruiter Relationship Specialty Start Date End Date Priscilla Gonsalves MD [address] [place] [address] PCP - General 06/22/01 documented as of this encounter
--- OUTSIDE RECORDS SUMMARY | 2024-11-24 08:54 | XMS_ITS | Encounter Summary ---
Author Organization [facility] Address [address] [facility] [place] [address] Care Team Providers Care Telephone Advice Nurse Name Role Phone Priscilla Gonsalves MD Primary Care Provider [phone] Encounter Details Date Type Department Care Team Description 08/09/2021 Hospital Medical Records [address] [place] [address] [facility] Social History Tobacco Use Types Packs/Day [...] on filedocumented in this encounter Care Teams Telephone Advice Nurse Relationship Specialty Start Date End Date Priscilla Gonsalves MD [address] [place] [address] PCP - General 06/22/01 documented as of this encounter
--- OUTSIDE RECORDS SUMMARY | 2024-11-24 08:54 | XMS_ITS | Encounter Summary ---
Author Organization [facility] Address [address] [place] [address] Care Team Providers Care Nuclear Medicine Chief Technologist Name Role Phone Priscilla Gonsalves MD Primary Care Provider Encounter Details Date Type Department Care Team Description 07/07/2013 Wound Care Rn Report Medical Records [address] [place] [address] Luisito Banerjee MD Social History Tobacco Use [...] on filedocumented in this encounter Care Teams Nuclear Medicine Chief Technologist Relationship Specialty Start Date End Date Priscilla Gonsalves MD [address] [place] [address] PCP - General 06/22/01 documented as of this encounter
--- OUTSIDE RECORDS SUMMARY | 2024-11-24 08:54 | XMS_ITS | Encounter Summary ---
Author Organization [facility] Address [address] [place] [address] Care Team Providers Care Seasonal Greenery Bundler Name Role Phone Priscilla Gonsalves MD Primary Care Provider [phone] Encounter Details Date Type Department Care Team Description 06/15/2019 Biometrics Head Report Medical Records [address] [place] [address] Jameson Lam MD Social History Tobacco Use [...] on filedocumented in this encounter Care Teams Seasonal Greenery Bundler Relationship Specialty Start Date End Date Priscilla Gonsalves MD [address] [place] [address] PCP - General 06/22/01 documented as of this encounter
--- OUTSIDE RECORDS SUMMARY | 2024-11-24 08:54 | XMS_ITS | Encounter Summary ---
Author Organization [facility] Address [address] [place] [address] Care Team Providers Care Rear Admiral Name Role Phone Priscilla Gonsalves MD Primary Care Provider [phone] Reason for Visit * Reason Onset Date Comments medication problems 10/15/2019 Encounter Details Date Type Department Care Team Description 10/15/2019 Telephone Adult Medicine [facility] [address] [place] [address] Priscilla Gonsalves MD [address] [place] [address] medication problems Social History Tobacco Use Types Packs/Day Years Used Date Smoking Tobacco: Never Smokeless Tobacco: Never Alcohol Use Standard Drinks/Week Comments No 0 (1 standard drink = 0.6 oz pur e alcohol) Sex Assigned at Date Recorded Not on file documented as of this encounter Miscellaneous Notes * Telephone Encounter - Vilma Patton PA-C - 10/15/2019 12:54 PM EST Please schedule appointment with PCP in November 2019. Vimla Patton PA-C * Telephone Encounter - Richelle Stroud M.A. - 10/15/2019 9:20 AM EST Ranitidine 150 mg tablets are on back order, will you order capsules? Lab Results Component Value Date NA 144 09/12/2018 K 3.8 09/12/2018 CO2 23.8 09/12/2018 CL 109 09/12/2018 BUN 10 09/12/2018 CREAT 0.9 09/12/2018 CA 9.3 09/12/2018 GFR > 60 09/12/2018 Last oc 05/2019 * Telephone Encounter - Uyen Munoz - 10/15/2019 9:09 AM EST Who is calling? A pharmacist: Pharmacy: Pharmacist Name: Pharmacy Phone # Name of the medication ranitidine (ZANTAC) 150 MG tablet What is the specific problem or interaction? This is on back order. Requesting capsules or alternative If the patient is having a problem with taking the med - how long has the problem been going on? N/A documented in this encounter Plan of Treatment Not on file documented as of this encounter Visit Diagnoses Not on filedocumented in this encounter Care Teams Rear Admiral Relationship Specialty Start Date End Date Priscilla Gonsalves MD [address] [place] [address] PCP - General 06/22/01 documented as of this encounter
--- OUTSIDE RECORDS SUMMARY | 2024-11-24 08:54 | XMS_ITS | Encounter Summary ---
Author Organization [facility] Address [address] [place] [address] Care Team Providers Care U.S. Revenue Officer Name Role Phone Priscilla Gonsalves MD Primary Care Provider [phone] Encounter Details Date Type Department Care Team Description 05/09/2020 SCAN Medical Records [address] [place] [address] Abstract, Provider Social History Tobacco Use Types [...] on filedocumented in this encounter Care Teams U.S. Revenue Officer Relationship Specialty Start Date End Date Priscilla Gonsalves MD [address] [place] [address] PCP - General 06/22/01 documented as of this encounter
--- OUTSIDE RECORDS SUMMARY | 2024-11-24 08:54 | XMS_ITS | Encounter Summary ---
Author Organization [facility] Address [address] [place] [address] Care Team Providers Care Food And Beverage Service Manager Name Role Phone Priscilla Gonsalves MD Primary Care Provider [phone] Reason for Visit * Reason Onset Date Comments medication problems 01/07/2020 Encounter Details Date Type Department Care Team Description 01/07/2020 Telephone Medicine/Pediatrics - [address] [phone] Priscilla Gonsalves MD [address] [place] [address] medication problems Social History Tobacco Use Types Packs/Day Years Used Date Smoking Tobacco: Never Smokeless Tobacco: Never Alcohol Use Standard Drinks/Week Comments No 0 (1 standard drink = 0.6 oz pur e alcohol) Sex Assigned at Date Recorded Not on file documented as of this encounter Miscellaneous Notes * Telephone Encounter - Jamal Bragg M.A. - 01/10/2020 1:25 PM EDT Patient is aware. * Telephone Encounter - Priscilla Gonsalves MD - 01/10/2020 11:58 AM EDT pepcid ordered * Telephone Encounter - Irene Silveira M.A. - 01/10/2020 11:55 AM EDT Medication is pulled from the market. Please send an alternative * Telephone Encounter - Vilma Patton PA-C - 01/07/2020 4:22 PM EDT Zantac tablets or capsules are not being sold? Please call the pharmacy. Vilma Patton PA-C * Telephone Encounter - Amelia Salomon M.A. - 01/07/2020 3:53 PM EDT Last office visit 11/08/19 Please send alternative. Zantac no longer being sold * Telephone Encounter - Alisia Allen - 01/07/2020 3:02 PM EDT Who is calling? A pharmacist: Pharmacy: [facility] Pharmacist Name: [facility] Name of the medication ranitidine (ZANTAC) 150 MG tablet What is the specific problem or interaction? This rx is no longer available. Please send alternative If the patient is having a problem with taking the med - how long has the problem been going on? N/A documented in this encounter Plan of Treatment Not on file documented as of this encounter Visit Diagnoses Not on filedocumented in this encounter Care Teams Food And Beverage Service Manager Relationship Specialty Start Date End Date Priscilla Gonsalves MD [address] [place] [address] PCP - General 06/22/01 documented as of this encounter
--- OUTSIDE RECORDS SUMMARY | 2024-11-24 08:54 | XMS_ITS | Encounter Summary ---
Author Organization [facility] Address [address] [place] [address] Care Team Providers Care Marine Technician Name Role Phone Priscilla Gonsalves MD Primary Care Provider [phone] Reason for Visit * Reason Onset Date Comments TEST RESULTS 07/08/2016 Encounter Details Date Type Department Care Team Description 07/08/2016 Telephone Adult Medicine [facility] [address] [place] [address] Priscilla Gonsalves MD [address] [place] [address] TEST RESULTS Social History Tobacco Use Types [...] on filedocumented in this encounter Care Teams Marine Technician Relationship Specialty Start Date End Date Priscilla Gonsalves MD [address] [place] [address] PCP - General 06/22/01 documented as of this encounter
--- OUTSIDE RECORDS SUMMARY | 2024-11-24 08:54 | XMS_ITS | Encounter Summary ---
Author Organization [facility] Address [address] [place] [address] Care Team Providers Care Sorority Supervisor Name Role Phone Priscilla Gonsalves MD Primary Care Provider [phone] Encounter Details Date Type Department Care Team Description 03/29/2014 Orders Only Rheumatology - [place] [address] [place] [address] Rosas Soni MD Social History Tobacco Use Types Packs/Day [...] on filedocumented in this encounter Care Teams Sorority Supervisor Relationship Specialty Start Date End Date Priscilla Gonsalves MD [address] [place] [address] PCP - General 06/22/01 documented as of this encounter
--- OUTSIDE RECORDS SUMMARY | 2024-11-24 08:54 | XMS_ITS | Encounter Summary ---
Author Organization [facility] Address [address] [facility] [place] [place] [address] Care Team Providers Care Chute Man Name Role Phone Priscilla Gonsalves MD Primary Care Provider Encounter Details Date Type Department Care Team Description 06/24/2019 Orders Only Medical Records [address] [place] [address] Vilma Patton PA-C [address] [place] [address] Social History Tobacco Use Types Packs/Day Years [...] on filedocumented in this encounter Care Teams Chute Man Relationship Specialty Start Date End Date Priscilla Gonsalves MD [address] [place] [address] PCP - General 06/22/01 documented as of this encounter
--- OUTSIDE RECORDS SUMMARY | 2024-11-24 08:54 | XMS_ITS | Encounter Summary ---
Author Organization [facility] Address [address] [place] [address] Care Team Providers Care Package Worker Name Role Phone Priscilla Gonsalves MD Primary Care Provider [phone] Encounter Details Date Type Department Care Team Description 10/08/2019 Credit Collector Report Medical Records [address] [place] [address] Lisa Longoria Social History Tobacco Use Types [...] on filedocumented in this encounter Care Teams Package Worker Relationship Specialty Start Date End Date Priscilla Gonsalves MD [address] [place] [address] PCP - General 06/22/01 documented as of this encounter
--- OUTSIDE RECORDS SUMMARY | 2024-11-24 08:54 | XMS_ITS | Encounter Summary ---
Author Organization [facility] Address [address] [place] [address] Care Team Providers Care Maltster Name Role Phone Priscilla Gonsalves MD Primary Care Provider [phone] Reason for Visit * Reason Comments E-prescribe Rx Request Encounter Details Date Type Department Care Team Description 04/23/2014 Refill Adult Medicine [facility] [address] [place] [id number] Priscilla Gonsalves MD [address] [place] [id number] E-prescribe Rx Request Social History Tobacco Use Types Packs/Day Years Used Date Smoking Tobacco: Never Smokeless Tobacco: Never Alcohol Use Standard Drinks/Week Comments No 0 (1 standard drink = 0.6 oz pur e alcohol) Sex Assigned at Date Recorded Not on file documented as of this encounter Miscellaneous Notes * Telephone Encounter - Rosemary Baez - 04/25/2014 9:53 AM EDT Patient would like script to be: E-PRESCRIBED/FAXED TO PHARMACY WHEN WAS THE PATIENT'S LAST APPOINTMENT IN ADULT MEDICINE? 11-29-13 WHEN WAS THE LAST TIME THE PATIENT SAW THEIR PCP? Same as above Does patient have an upcoming appointment? No-unable to reach left [facility] to call for appointment due to refill request. Appt due sep (THE MEDICATION REQUESTED IS ON THE MED LIST ABOVE) One or some of the medications requested were on the HISTORICAL MED list Did you check the Pharmacy information above?: YES Patient wants: 30 -day supply Is this a mail order prescription request ? NO Patients current insurance carrier is: Payor: [employer] FFS / Plan: [employer] $15 [employer] [id number] / ProductType: [employer] Oan-ifd-Nlsscne documented in this encounter Plan of Treatment Not on file documented as of this encounter Visit Diagnoses Not on filedocumented in this encounter Care Teams Maltster Relationship Specialty Start Date End Date Priscilla Gonsalves MD [address] [place] [id number] PCP - General 06/22/01 documented as of this encounter
--- OUTSIDE RECORDS SUMMARY | 2024-11-24 08:54 | XMS_ITS | Encounter Summary ---
Author Organization [facility] Address [address] [facility] [place] [address] Care Team Providers Care Paid Search Analyst Name Role Phone Priscilla Gonsalves MD Primary Care Provider [phone] Encounter Details Date Type Department Care Team Description 10/05/2021 College Administrator Report Medical Records [address] [place] [address] [facility] Social History Tobacco Use Types Packs/Day [...] on filedocumented in this encounter Care Teams Paid Search Analyst Relationship Specialty Start Date End Date Priscilla Gonsalves MD [address] [place] [address] PCP - General 06/22/01 documented as of this encounter
--- OUTSIDE RECORDS SUMMARY | 2024-11-24 08:54 | XMS_ITS | Encounter Summary ---
Author Organization [facility] Address [address] [facility] [place] [address] Care Team Providers Care Master Glazier Name Role Phone Priscilla Gonsalves MD Primary Care Provider [phone] Encounter Details Date Type Department Care Team Description 08/01/2016 Release of Information Medical Records [address] [place] [id number] Abstract, Provider Social History Tobacco Use Types [...] on filedocumented in this encounter Care Teams Master Glazier Relationship Specialty Start Date End Date Priscilla Gonsalves MD [address] [place] [address] PCP - General 06/22/01 documented as of this encounter
--- OUTSIDE RECORDS SUMMARY | 2024-11-24 08:54 | XMS_ITS | Encounter Summary ---
Author Organization [facility] Address [address] 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
--- OUTSIDE RECORDS SUMMARY | 2024-11-24 08:54 | XMS_ITS | Encounter Summary ---
Author Organization [facility] Address [address] [facility] [place] [address] Care Team Providers Care Certified Pest Control Technician Name Role Phone Priscilla Gonsalves MD Primary Care Provider [phone] Encounter Details Date Type Department Care Team Description 02/09/2019 Business Analyst Manager Report Medical Records [address] [place] [address] Amairani Rodriguez MD Social History Tobacco Use [...] on filedocumented in this encounter Care Teams Certified Pest Control Technician Relationship Specialty Start Date End Date Priscilla Gonsalves MD [address] [place] [address] PCP - General 06/22/01 documented as of this encounter
--- OUTSIDE RECORDS SUMMARY | 2024-11-24 08:54 | XMS_ITS | Encounter Summary ---
Author Organization [facility] Address [address] [place] [address] Care Team Providers Care Branch Logistics Supervisor Name Role Phone Priscilla Gonsalves MD Primary Care Provider [phone] Encounter Details Date Type Department Care Team Description 07/10/2017 E Learning Specialist Report Medical Records [address] [place] [address] Odalys Lee Social History Tobacco Use Types [...] on filedocumented in this encounter Care Teams Branch Logistics Supervisor Relationship Specialty Start Date End Date Priscilla Gonsalves MD [address] [place] [address] PCP - General 06/22/01 documented as of this encounter
== END 2024-11-24 08:57 | disposition home or self-care (01) ==
PROVIDERS: PCP Nurse Practitioner Family; Visit Provider Orthopaedic Surgery
DX: M65.4 Radial styloid tenosynovitis [de Quervain] (principal); M05.9 Rheumatoid arthritis with rheumatoid factor, unspecified; M79.7 Fibromyalgia
CPT/HCPCS: 99024

== ENCOUNTER → 2024-11-24 08:24 | Outpatient (BNVA) | payer OTHER, SELFPAY | PROVIDERS: PCP Nurse Practitioner Family; Visit Provider Orthopaedic Surgery ==

== ENCOUNTER 2024-11-30 07:40 | Day surgery (SDC) | payer OTHER, SELFPAY ==
--- OUTSIDE RECORDS SUMMARY | 2024-11-18 15:07 | XMS_ITS | Patient Health Record ---
Author Organization [facility] Address [address] [place] [id number] Care Team Providers Care Hat And Cap Sewer Name Role Phone Priscilal Gonsalves MD Primary Care Provider Jean Whitlock [phone] REASON FOR REFERRAL No Information MEDICATIONS Medication [...] W/U Status Risk SNOMED Code Notes Problem Encounter for screening for malignant neoplasm of colon (Z12.11) Active confirmed 383835316 Problem Abdominal bloating (R14.0) Active confirmed 550466062 Problem Gastroesophageal reflux (K21.9) Active confirmed Esophageal reflux finding (144743529) Problem Diverticulosis of colon (K57.30) Active confirmed Diverticulosi s of colon (745224897) Problem Gastroesophageal reflux disease, unspecified whether esophagitis present (K21.9) Active confirmed 150661943 PLAN OF TREATMENT Future Test Test Name Order Date UPPER GI ENDOSCOPY 01/12/2021 COLONOSCOPY 01/12/2021 Insurance Providers Payer Name Payer Address Payer Phone Subscriber Number Group Number Insured Name Patient Relationship to Insured Coverage Start Date Coverage End Date [employer] AD[employer] OF [place] [address] [address] [place] [address] [id number] [employer] Self - patient is the insured MEDICAL (GENERAL) HISTORY Medical History History ICD Code Denies [place],DM,CVA,Lung disease,renal dise ase Fatty liver disease--normal LFT's 11/2020 Blood clot in right LE x 3 2 019 and 12/2020--seeing Dr. Larsen--has been on Coumadin Rheumatoid arthritis-Dr. Rodriguez Migraines GERD Surgical History Surgery Date(Month/Year)
[2024-11-30 08:12] VITALS: BP 141/54; PULSE 94; RESP 15; TEMP 36.7; O2SAT 98; BMI 32.2
--- NOTE | 2024-11-30 08:22 | P.OP_ITS ---
Operative Note Operative Note Date of Service: 11/30/24 Narrative: Operative Note Preop diagnosis: 1. Left DeQuervain's tenosynovitis Postop diagnosis: 1. Left DeQuervain's tenosynovitis Procedure: 1. Left 1st dorsal compartment release Surgeon: Heydi Stanley MD Home Care Companion: Alejandro MARTINEZ Anesthesia: local block using 1% lidocaine with epinephrine Findings: Thickened 1st dorsal compartment. EPB was in a separate compartment EBL: Less than 5 mL Tourniquet time: None Specimens: None Complications: None Disposition: Brought to recovery room in stable condition Plan: Follow-up for 7-10 days for wound check and suture removal Indications: The patient is 54 years old, with left DeQuervain's tenosynovitis that has been unresponsive to nonoperative management. The risks and benefits of operative treatment including but not limited to risk of damage to blood vessels, nerves, tendons, infection, persistent pain, persistent symptoms, recurrence or possible need for additional surgery were discussed with the patient and the patient wishes to proceed with surgery. Procedure: Once consent was obtained a local block was performed in the preop area using a combination of 1% lidocaine with epinephrine. The patient was then brought back to the operating suite and placed on the operative table in supine position. The left upper extremity was prepped and draped in a standard surgical fashion. Once assured that we had a good block, a 1.5 cm longitudinal incision was made centered over the 1st dorsal compartment as it passed over the radial styloid of the left wrist. The incision was made through the skin to the subcutaneous tissues using a #15 blade. Careful dissection was made down to the level of the 1st dorsal compartment using tenotomy scissors, with care being taken to protect the nearby branches of the superficial radial nerve. Once the 1st dorsal compartment was exposed, A longitudinal incision was made in the 1st dorsal compartment 1st using a #15 blade, then using tenotomy scissors under direct visualization. The 1st dorsal compartment was noted to be thickened, and the EPB tendon was noted to be in a separate compartment. We also released the EPB tendon longitudinally and under direct visualization.. Following our release, we saw smooth gliding abductor pollicis longus and extensor pollicis brevis tendons. Once satisfied with our 1st dorsal compartment release the wound was copiously irrigated with normal saline and hemostasis was obtained with a brief period of local pressure. The subcutaneous layer was closed with some 4-0 Vicryl suture, and the skin edges were reapproximated with some 5.0 nylon suture material. A sterile dressing was applied. The patient appears to have tolerated the procedure well and with no complications. All digits were well vascularized at the conclusion of the case.
--- NOTE | 2024-11-30 08:22 | MHC.SHP ---
Pre-Procedural Eval Section A - 24 Hr Update-Section A only Date of Service: 11/30/24 The patient is an INPATIENT: No Changes since office visit: No Cold of Flu in the past 2 weeks, No New Medical Problems, No Changes in Medication and No Patient answered all questions The patient has been examined within 24 hours of the surgical procedure. The History & Physical has been completed within 30 days and I have reviewed it.: Yes Section B - Complete if H&P > 30 days Chief Complaint: Radial styloid tenosynovitis [de Quervain] Allergies: Allergies Allergy/AdvReac Type Severity Reaction Status Date / Time adalimumab [From Humira] Allergy hairloss Verified 11/30/24 08:10 enoxaparin [From Lovenox] Allergy Rash Verified 11/30/24 08:10 etanercept [Enbrel] Allergy Injection Verified 11/30/24 08:10 site reaction sarilumab [From Kevzara] Allergy injection Verified 11/30/24 08:10 site reaction Plan Diagnosis/Plan: Unchanged I have reviewed the history and physical and performed a pertinent physical examination on my patient. No changes have occurred unless specified. Time Spent With Patient Time: Total time managing care of this patient today ____ minutes.
[2024-11-30 09:29] VITALS: BP 129/77; PULSE 81; RESP 18; TEMP 36.4; O2SAT 94
== END 2024-11-30 09:34 | disposition home or self-care (01) ==
PROVIDERS: PCP Nurse Practitioner Family; Visit Provider Orthopaedic Surgery
PROC: (CPT 25000; principal; 2024-11-30 09:30)
DX: M65.4 Radial styloid tenosynovitis [de Quervain] (principal); M05.9 Rheumatoid arthritis with rheumatoid factor, unspecified; M79.7 Fibromyalgia; E55.9 Vitamin D deficiency, unspecified; D68.51 Activated protein C resistance; Z79.899 Other long term (current) drug therapy; Z79.620 Long term (current) use of immunosuppressive biologic; Z79.01 Long term (current) use of anticoagulants; Z88.8 Allergy status to other drugs, medicaments and biological substances
CPT/HCPCS: 25000; J0171; J2003

== ENCOUNTER → 2024-11-30 07:40 | Outpatient (BNV) | payer OTHER, SELFPAY | PROVIDERS: PCP Nurse Practitioner Family; Visit Provider Orthopaedic Surgery | DX: M65.4 Radial styloid tenosynovitis [de Quervain] (principal) | CPT/HCPCS: 25000 ==

== ENCOUNTER 2024-12-13 08:34 | Outpatient (AMB) | payer OTHER, SELFPAY ==
--- NOTE | 2024-12-13 08:41 | A.OFFVIS_ITS ---
Vital Signs 12/13/24 08:51 Height 5 ft 3 in Weight 181 lb BMI 32.1 Intake Visit Reasons: PO-Lt SENIOR LIVING Release 11/30/24 Intake Note: Zeynep is a 54 year old right hand dominant female who presents today for a post operative visit s/p left 1st dorsal compartment release DOS: 11/30/24 w/ Dr Heydi Stanley. Patient reports new onset of shooting pain from her left thumb to the forearm. Denies numbness, tingling, finger locking. Allergies adalimumab [From Humira] Allergy (Verified 12/13/24 08:41) hairloss enoxaparin [From Lovenox] Allergy (Verified 12/13/24 08:41) Rash etanercept [Enbrel] Allergy (Verified 12/13/24 08:41) Injection site reaction sarilumab [From Kevzara] Allergy (Verified 12/13/24 08:41) injection site reaction HPI HPI PO-Lt SENIOR LIVING Release 11/30/24: Details: Zeynep is a 54 year old right hand dominant female who presents today for a post operative visit s/p left 1st dorsal compartment release DOS: 11/30/24 w/ Dr Heydi Stanley. Patient reports that her pain has improved from prior to surgery, but she is still experiencing discomfort. Patient states that she has been compliant with all postop restrictions. Denies numbness, tingling, finger locking. [facility] Medical History Non-toxic multinodular goiter Sprain of medial collateral ligament of left knee History of DVT of lower extremity Secondary hypercoagulable state Encounter for screening involving social determinants of health (SDoH) Encounter for general adult medical examination with abnormal findings Acute lower GI bleeding Lumbar back pain with radiculopathy affecting right lower extremity Mass of both wrists Osteoarthritis of carpometacarpal joint of right thumb Left knee pain Right leg DVT Obesity Vitamin D deficiency Hx of rheumatoid arthritis Hx of thyroid nodule History of vitamin D deficiency Hx of obesity Hx of carpal tunnel syndrome History of fibromyalgia Surgical History History of esophagogastroduodenoscopy (EGD) H/O colonoscopy S/P colonoscopic polypectomy Family History Mother Diabetes Fibromyalgia Osteoarthritis Maternal Grandfather Leukemia Maternal Aunt Breast cancer Unknown Cancer Stomach cancer Social History Household Members: Spouse and Children Housing: House Are you a primary healthcare consulting manager to a significant other at home: No Do you presently have visiting nurse or other home services: No Alcohol intake: current Alcohol intake frequency: does not drink Patient Tobacco Use Status: Never used Tobacco e-Cigarette/Vaping Use: Never Used Second Hand Smoke Exposure: No Advance Directives Date on File: 11/21/21 service: No Current occupational status: employed 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 Neuro: Normal sensation of the tips of all digits of the left hand at this time Vascular: Cap refill brisk Pain: Minimal tenderness to palpation about the incision site Patient does still have positive Juan A test on the left, but this is improved from prior to surgery ROM: Patient was able to make a closed fist and extend all digits of the left hand fully Skin: Well approximated and well healing incision site noted over the 1st dorsal compartment of the left wrist No lacerations or abrasions. General: No ecchymosis, erythema, or evidence of infection. Psych: Appears grossly normal Affect normal Attitude cooperative Assessment & Plan Assessment & Plan (1) De Quervain's tenosynovitis, left: Code(s): M65.4 - Radial styloid tenosynovitis [de Quervain] Category: Medical Plan 1. Status post left 1st dorsal compartment release DOS 11/30/2024 Patient appears to be recovering well postoperatively Patient is educated about the typical recovery course At this time, patient is educated she should continue wearing the comfort cool thumb spica brace provided to her preoperatively with daytime activities Patient was also referred to occupational therapy for range of motion and gentle strengthening of the left hand and wrist in the setting of de Quervain tenosynovitis status post 1st dorsal compartment release Patient was amenable to this plan Patient will follow-up in 4-5 weeks for reassessment, sooner with any acute concerns Orders: Orders OT Evaluation and Treatment Today M65.4 - Radial styloid tenosynovitis [de Quervain] Coding Level of Care Code Global (37630) Diagnoses De Quervain's tenosynovitis, left M65.4
[2024-12-13 08:51] VITALS: BMI 32.1
== END 2024-12-13 08:54 | disposition home or self-care (01) ==
LOC: HO.HOS 08:35
PROVIDERS: PCP Nurse Practitioner Family
DX: M65.4 Radial styloid tenosynovitis [de Quervain] (principal)
CPT/HCPCS: 99024

== ENCOUNTER 2025-01-05 12:43 | Outpatient (AMB) | payer OTHER, SELFPAY ==
--- NOTE | 2025-01-05 12:51 | A.OFFPC_ITS ---
Vital Signs 01/05/25 12:59 Height 5 ft 3 in Weight 182 lb BMI 32.2 BP 122/70 Blood Pressure Location Rt brachial Position Sitting Respiration 13 Pulse 52 Pulse Source Pulse Oximeter Temp 97.8 F Temp Source Oral Pulse Oximetry (%) 97 Oxygen Delivery Method Simple Mask Intake Visit Reasons: Nausea, stomach discomfort Intake Note: Patient c/o discomfort in stomach, and nausea x 2 weeks Floriculture Teacher Required: No Allergies adalimumab [From Humira] Allergy (Verified 01/05/25 13:14) hairloss enoxaparin [From Lovenox] Allergy (Verified 01/05/25 13:14) Rash etanercept [Enbrel] Allergy (Verified 01/05/25 13:14) Injection site reaction sarilumab [From Kevzara] Allergy (Verified 01/05/25 13:14) injection site reaction Medication List - Last Reconciled 01/05/25 by Jeri Narayanan, CAN FILLER-BC Actemra ACTPen (tocilizumab) 162 mg (0.9 mL) subcut Q2W NS apixaban (Eliquis) 5 mg PO BID calcium carbonate 600 mg PO BID cholecalciferol (vitamin D3) 125 mcg PO BID fluticasone propionate 50 mcg/actuation (Flonase Allergy Relief) 1 spray intranasal Q12H fremanezumab-vfrm (Ajovy) 225 mg subcut .every 28 days frovatriptan 2.5 mg PO Q2-4H PRN meclizine 25 mg PO TID PRN pantoprazole 40 mg PO DAILY rimegepant (Nurtec ODT) 75 mg sublingual Q OTHER DAY PRN [thumb spica wear nightly & as much as possible throughout the day] [thumb spica wear nightly and as much as possible throughout the day] tizanidine 4 mg PO Q8H PRN 30 days topiramate 100 mg PO BID tramadol 50 mg PO Q6H PRN 25 days trazodone 100 mg PO BEDTIME PRN 30 days Tobacco use date assessed: 01/05/25 Dental Screening Dental Screen Date: 01/05/25 Did you have a dental visit in the last 12 months?: Yes Did you have a dental problem in the last 6 months where you did not have access to dental care?: No Was dental information given to patient?: Patient has dentist HPI HPI Comments History of Present Illness Details 54-year-old female with obesity, GERD, m igraine, chronic joint pain, vitamin-D deficiency, nontoxic multinodular goiter, seropositive RA, fibromyalgia, DVT (multiple, first one diagnosed in her 30s), mild chronic microangiopathy (mri brain 2020 & 2022), 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 - Discomfort in the epigastric area has persisted for several weeks, with associated daily morning nausea. - There are no accompanying symptoms of vomiting or fever. - Bowel habits remain normal without vis ible blood. - The discomfort is constant with specif ic aggravation upon eating, causing significant nausea. Physical Exam General: Well developed, well nourished, in no acute distress. Appears stated age.. Eyes: scleras nonicteric Abdomen: Bowel sounds present in all quadrants. The abdomen is soft, nontender, with no masses or organomegaly noted. Patient reports discomfort in the pit of the stomach, with nausea but no vomiting. Pain stays in the upper area and does not move. Discussion Notes During this visit, I discussed with the patient the likely gastroenterological origins of her symptoms, potentially involving the pancreas or liver. We considered Helicobacter pylori as a differential, for which a stool sample analysis was recommended. I informed her that lab results could help distinguish between conditions affecting the liver, pancreas, or bacterial infections such as H. pylori. I decided against initiating treatment until we receive diagnostic data to avoid mismanagement, emphasizing different treatment paths based on whether it's a pancreatic, liver, or bacterial issue needing attention. I assured her that we would communicate results and plans through the patient portal, with her agreement and understanding reached that further steps would follow pending test results. Assessment and Plan 1. Epigastric Discomfort and Nausea I considered the potential for H. pylori infection or other gastrointestinal conditions. A stool test for H. pylori was arranged, with hepatic and pancreatic function tests ordered as well. Appropriate treatment will be guided by these findings. Patient Instructions - Complete the stool sample at home and return it to the hospital as soon as possible. - Undergo the blood tests today if time allows for further evaluation of liver and pancreatic health. - Await results and further instructions through the patient portal. - Return for care if symptoms significan tly worsen or new symptoms arise. - I will communicate via portal results and tx plan Consent Patient was informed and verbally consented to the use of an ambient scribe for clinic note documentation during this visit. Total time spent caring for the patient today was 30 minutes. This includes time spent before the visit reviewing the chart, time spent during the visit, and time spent after the visit on documentation, reviewing laboratory results, diagnostic imaging, medications, performing a medically necessary evaluation, counseling on diagnoses, care coordination, ordering appropriate tests, ordering appropriate medications, review of tests performed by other providers, reporting test results with the patient, communication with other healthcare providers. [facility] Medical History Non-toxic multinodular goiter Sprain of medial collateral ligament of left knee History of DVT of lower extremity Secondary hypercoagulable state Encounter for screening involving social determinants of health (SDoH) Encounter for general adult medical examination with abnormal findings Acute lower GI bleeding Lumbar back pain with radiculopathy affecting right lower extremity Mass of both wrists Osteoarthritis of carpometacarpal joint of right thumb Left knee pain Right leg DVT Obesity Vitamin D deficiency Hx of rheumatoid arthritis Hx of thyroid nodule History of vitamin D deficiency Hx of obesity Hx of carpal tunnel syndrome History of fibromyalgia Surgical History History of esophagogastroduodenoscopy (EGD) H/O colonoscopy S/P colonoscopic polypectomy Family History Mother Diabetes Fibromyalgia Osteoarthritis Maternal Grandfather Leukemia Maternal Aunt Breast cancer Unknown Cancer Stomach cancer Social History Household Members: Spouse and Children Housing: House Are you a primary career transition specialist to a significant other at home: No Do you presently have visiting nurse or other home services: No Alcohol intake: current Alcohol intake frequency: does not drink Patient Tobacco Use Status: Never used Tobacco e-Cigarette/Vaping Use: Never Used Second Hand Smoke Exposure: No Advance Directives Date on File: 11/21/21 service: No Current occupational status: employed 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 1. Little interest or pleasure in doing things: not at all 2. Feeling down, depressed, or hopeless: not at all 3. Trouble falling or staying asleep, or sleeping too much: several days 4. Feeling tired or having little energy: several days 5. Poor appetite or overeating: several days 6. Feeling bad about yourself - or that you are a failure or have let yourself or your family down: not at all 7. Trouble concentrating on things, such as reading the newspaper or watching television: not at all 8. Moving or speaking so slowly that other people could have noticed. Or the opposite - being so fidgety or restless that you have been moving around a lot more than usual: not at all 9. Thoughts that you would be better off or of hurting yourself in some way: not at all Total score: 3 Depression Screening Interpretation: Negative Depression Screening Done: Yes 62200 - PHQ-9 Billing: Yes Source: Developed by Drs. Jean Figueroa, Maribell Nascimento, Mookie Armendariz and colleagues, with an educational leigh ann from [employer]. Thrive Questionnaire Date Thrive assessed: 01/05/25 I am a: Patient What is your living situation today?: I have a steady place to live Within the past 12 months, did the food you bought not last and you didn't have the money to get more?: Never true Within the past 12 months, did you worry whether your food would run out before you got money to buy more?: Never true Do you have trouble paying for medicines?: No Do you have trouble getting transportation to medical appointments?: No Do you have trouble paying your heating and electricity bill?: Yes Do you have trouble taking care of your child, family member or friend?: No Do you have trouble with day-to-day activities such as bathing, preparing meals, shopping, managing finances, etc.?: No Are you currently unemployed and looking for a job?: No Are you interested in more education?: No Please select the resources that you would like help with: Utilities Currently or been in a relationship where the following occur: No concerns reported THRIVE Score: 1 AUDIT C Alcohol Use Questionnaire (AUDIT-C) 1. How often do you have a drink containing alcohol?: Monthly or less 2. How many drinks containing alcohol do you have on a typical day when you are drinking?: 1 or 2 3. How often do you have six or more drinks on one occasion?: Never Total Score: 1 SRUTHI-7 AMB Questionnaire SRUTHI-7 Date SRUTHI - 7 assessed: 01/05/25 Feeling nervous, anxious, or on edge: 0 = Not at all Not being able to stop or control worryin = Not at all Worrying too much about different things: 2 = More than half the days Trouble relaxin = Several days Being so restless that it is hard to sit still: 0 = Not at all Becoming easily annoyed or irritable: 0 = Not at all Feeling afraid as if something awful might happen: 0 = Not at all Total SRUTHI-7 score (0-4 normal; 5-9 mild; 10-14 moderate; 15-21 severe): 3 Source: Developed by Drs. Jean Figueroa, Maribell Nascimento, Mookie Armendariz and colleagues, with an educational leigh ann from [employer]. SRUTHI-7 Assessment Billing SRUTHI-7 Assessment Tool: SRUTHI-7 Assessment 28187 Physical exam (Primary Care) Vital Signs: Last Vital Signs Temp 97.8 F 01/05/25 12:59 Pulse 52 01/05/25 12:59 Resp 13 01/05/25 12:59 BP 122/70 01/05/25 12:59 Pulse Ox 97 01/05/25 12:59 Oxygen Delivery Method Simple Mask 01/05/25 12:59 BMI result Body Mass Index 32.2 BMI Assessment/Plan discussion: High BMI High, discussed plan: lifestyle Tobacco/Smoking Status: Tobacco use Status Tobacco use date assessed 01/05/25 01/05/25 12:53 Patient Tobacco Use Status Never used Tobacco 01/05/25 12:53 e-Cigarette/Vaping Use Never Used 01/05/25 12:53 PHQ-9: PHQ-9 Score PHQ-9: Total score 3 01/05/25 13:14 Depression Screening Interpretation: Negative Thrive Assessment: Date of Thrive Assessment Date Thrive assessed 01/05/25 01/05/25 12:53 Currently or been in a relationship where the following occur: No concerns reported Coding Level of Care Code Est Pt Level 4 (42504) Complex EM visit Add On G2211 Diagnoses Epigastric pain R10.13 Morbid obesity E66.01 Gastroesophageal reflux disease, unspecified whether esophagitis present K21.9 Esophagitis presence: esophagitis presence not specified Additional Codes SRUTHI-7 Assessment Billing - SRUTHI-7 Assessment Tool: SRUTHI-7 Assessment 18202 ([id number]) PHQ-9 - 18831 - PHQ-9 Billing: Yes ([id number]) Assessment & Plan Assessment & Plan (1) Epigastric pain: Code(s): R10.13 - Epigastric pain Category: Medical (2) Morbid obesity: Comment: BMI greater than 32 Code(s): E66.01 - Morbid (severe) obesity due to excess calories Category: Medical (3) GERD (gastroesophageal reflux disease): Code(s): K21.9 - Gastro-esophageal reflux disease without esophagitis Category: Medical Qualifiers: Esophagitis presence: esophagitis presence not specified Qualified Code(s): K21.9 - Gastro-esophageal reflux disease without esophagitis Plan . Orders: Orders H pylori Ag Stool Today R10.13 - Epigastric pain Amylase Today R10.13 - Epigastric pain Liver Panel Today R10.13 - Epigastric pain Lipase Today R10.13 - Epigastric pain
[2025-01-05 12:59] VITALS: BP 122/70; PULSE 52; RESP 13; TEMP 36.6; O2SAT 97; BMI 32.2
== END 2025-01-05 16:44 | disposition home or self-care (01) ==
LOC: HO.HMCFM 12:43
PROVIDERS: PCP Nurse Practitioner Family; Visit Provider Nurse Practitioner Family
DX: R10.13 Epigastric pain (principal); E66.01 Morbid (severe) obesity due to excess calories; K21.9 Gastro-esophageal reflux disease without esophagitis; Z68.32 Body mass index [BMI] 32.0-32.9, adult

== ENCOUNTER → 2025-01-05 12:43 | Outpatient (BNVA) | payer OTHER, SELFPAY | PROVIDERS: PCP Nurse Practitioner Family; Visit Provider Nurse Practitioner Family ==

== ENCOUNTER 2025-01-05 13:25 | Outpatient (REF) | payer OTHER, SELFPAY ==
--- OUTSIDE RECORDS SUMMARY | 2025-01-05 15:59 | XMS_ITS | Encounter Summary ---
Author Organization [facility] Address [address] [place] [address] Care Team Providers Care Can Cutter Name Role Phone Priscilla Gonaslves MD Primary Care Provider [phone] Encounter Details Date Type Department Care Team Description 03/20/2016 Tilting Saw Operator Report Medical Records [address] [place] [address] Sneha Byrd MD [address] [facility] [address] [place] [phone] Social History Tobacco Use Types Packs/Day [...] on filedocumented in this encounter Care Teams Can Cutter Relationship Specialty Start Date End Date Priscilla Gonsalves MD [address] [place] [address] PCP - General 06/22/01 documented as of this encounter
--- OUTSIDE RECORDS SUMMARY | 2025-01-05 15:59 | XMS_ITS | Encounter Summary ---
Author Organization [facility] Address [address] [place] [address] Care Team Providers Care Cellular Phone Repairer Name Role Phone Priscilla Gonsalves MD Primary Care Provider [phone] Encounter Details Date Type Department Care Team Description 12/29/2016 Walk In Clinic Visit Medical Records [address] [place] [address] [facility] [address] [phone] Social History Tobacco Use Types Packs/Day Years [...] on filedocumented in this encounter Care Teams Cellular Phone Repairer Relationship Specialty Start Date End Date Priscilla Gonsalves MD [address] [place] [address] PCP - General 06/22/01 documented as of this encounter
--- OUTSIDE RECORDS SUMMARY | 2025-01-05 15:59 | XMS_ITS | Encounter Summary ---
Author Organization [facility] Address [address] [facility] [place] [address] Care Team Providers Care Bottle Line Worker Name Role Phone Priscilla Gonsalves MD Primary Care Provider [phone] Encounter Details Date Type Department Care Team Description 12/06/2020 Dual Rate Supervisor Report Medical Records [address] [place] [address] Amairani Rodriguez MD Social History Tobacco Use [...] on filedocumented in this encounter Care Teams Bottle Line Worker Relationship Specialty Start Date End Date Priscilla Gonsalves MD [address] [place] [address] PCP - General 06/22/01 documented as of this encounter
--- OUTSIDE RECORDS SUMMARY | 2025-01-05 15:59 | XMS_ITS | Encounter Summary ---
Author Organization [facility] Address [address] [place] [address] Care Team Providers Care Sponge Packer Name Role Phone Priscilla Gonsalves MD Primary Care Provider [phone] Encounter Details Date Type Department Care Team Description 07/07/2013 Hide Cooking Operator Report Medical Records [address] [place] [address] Luisito Banerjee MD Social History Tobacco Use [...] on filedocumented in this encounter Care Teams Sponge Packer Relationship Specialty Start Date End Date Priscilla Gonsalves MD [address] [place] [address] PCP - General 06/22/01 documented as of this encounter
--- OUTSIDE RECORDS SUMMARY | 2025-01-05 15:59 | XMS_ITS | Encounter Summary ---
Author Organization [facility] Address [address] [place] [address] Care Team Providers Care Esthetician Facialist Name Role Phone Priscilla Gonsalves MD Primary Care Provider [phone] Encounter Details Date Type Department Care Team Description 02/11/2005 Orders Only Medical [address] [place] [address] Priscilla Gonsalves MD [address] [place] [address] [id number] CORONARY ATHEROSCLEROSIS OF UNSPECIFIED VESSEL (Primary Dx) Social History Tobacco Use Types Packs/Day Years Used Date Smoking Tobacco: Never Assessed Sex Assigned at Date Recorded Not on file documented as of this encounter Plan of Treatment Scheduled Orders Name Type Priority Associated Diagnoses Orde r Schedule WBC, AUTOMATED DIFFERENTIAL Lab Routine Coronary Atherosclerosis Of Unspecified Vessel Ordered: 02/11/2005 CBC W/ DIFF Lab Routine Coronary Atherosclerosis Of Unspecified Vessel Ordered: 02/11/2005 documented as of this encounter Procedures Procedure Name Priority Date/Time Associated Diagnosis Comments CHG BASIC METABOLIC PANEL CALCIUM TOTAL Routine 02/11/2005 12:14 PM EDT Coronary Atherosclerosis Of Unspecified Vessel CHG LIPID PANEL Routine 02/11/2005 12:14 PM EDT Coronary Atherosclerosis Of Unspecified Vessel documented in this encounter Results * (ABNORMAL) LIPID PROFILE (02/11/2005 12:14 PM EDT) Cholesterol 180 0 - 200 mg/dL [facility] TRIGLYCERIDES 112 0 - 150 mg/dL [facility] HDL CHOLESTEROL 45 >40 mg/dL [facility] LDL CALCULATED 113(H) 0 - 100 mg/dL [facility] TC-HDLC RATIO 4.0 0 - 4.4 mg/dL [facility] 02/11/2005 12:1 4 PM EDT 02/11/2005 12:15 PM EDT Priscilla Gonsalves MD LAB [facility] * (ABNORMAL) BASIC METABOLIC PANEL (02/11/2005 12:14 PM EDT) GLUCOSE 84 70 - 110 mg/dL [facility] Blood Urea Nitrogen 14 5 - 25 mg/dL [facility] creatinine 0.6(L) 0.7 - 1.5 mg/dL [facility] Sodium 139 133 - 145 mEq/L [facility] Potassium 4.4 3.5 - 5.2 mEq/L [facility] Chloride 105 96 - 108 mEq/L [facility] CARBON DIOXIDE (CO2) 24.4 21.0 - 32.0 mEq/L [facility] CALCIUM 9.8 8.5 - 10.5 mg/dL [facility] 02/11/2005 12:1 4 PM EDT 02/11/2005 12:15 PM EDT Priscilla Gonsalves MD LAB [facility] documented in this encounter Visit Diagnoses Diagnosis Coronary atherosclerosis of unspecified type of vessel, [place] or graft- Primary documented in this encounter Care Teams Esthetician Facialist Relationship Specialty Start Date End Date Priscilla Gonsalves MD [address] [place] [address] PCP - General 06/22/01 documented as of this encounter
--- OUTSIDE RECORDS SUMMARY | 2025-01-05 15:59 | XMS_ITS | Encounter Summary ---
Author Organization [facility] Address [address] [facility] [place] [address] Care Team Providers Care Applied Computer Science Professor Name Role Phone Priscilla Gonsalves MD Primary Care Provider [phone] Encounter Details Date Type Department Care Team Description 08/12/2019 Old Medical Records Medical Records [address] [place] [address] Abstract, Provider Social History Tobacco Use Types [...] on filedocumented in this encounter Care Teams Applied Computer Science Professor Relationship Specialty Start Date End Date Priscilla Gonsalves MD [address] [place] [address] PCP - General 06/22/01 documented as of this encounter
--- OUTSIDE RECORDS SUMMARY | 2025-01-05 15:59 | XMS_ITS | Encounter Summary ---
Author Organization [facility] Address [address] [facility] [place] [address] Care Team Providers Care Laboratory Chief Name Role Phone Priscilla Gonsalves MD Primary Care Provider [phone] Encounter Details Date Type Department Care Team Description 10/27/2018 Release of Information Medical Records [address] [place] [id number] Abstract, Provider Social History Tobacco Use Types [...] on filedocumented in this encounter Care Teams Laboratory Chief Relationship Specialty Start Date End Date Priscilla Gonsalves MD [address] [place] [address] PCP - General 06/22/01 documented as of this encounter
--- OUTSIDE RECORDS SUMMARY | 2025-01-05 15:59 | XMS_ITS | Encounter Summary ---
Author Organization [facility] Address [address] [place] [address] Care Team Providers Care Operational Trainer Name Role Phone Priscilla Gonsalves MD Primary Care Provider [phone] Encounter Details Date Type Department Care Team Description 10/17/2022 Warehouse Puller Report Medical Records [address] [place] [address] Anais Alex NP Social History Tobacco Use [...] on filedocumented in this encounter Care Teams Operational Trainer Relationship Specialty Start Date End Date Priscilla Gonsalves MD [address] [place] [address] PCP - General 06/22/01 documented as of this encounter
--- OUTSIDE RECORDS SUMMARY | 2025-01-05 15:59 | XMS_ITS | Encounter Summary ---
Author Organization [facility] Address [address] [facility] [place] [address] Care Team Providers Care Warehouse Worker Name Role Phone Priscilla Gonsalves MD Primary Care Provider [phone] Encounter Details Date Type Department Care Team Description 01/12/2021 Slat Basket Maker Helper Machine Report Medical Records [address] [place] [address] Jean Gomez MD Social History Tobacco Use [...] have Coronavirus / COVID-19? No / Unsure 01/08/2021 8:27 AM EDT documented as of this encounter Plan of Treatment Not on file documented as of this encounter Visit Diagnoses Not on filedocumented in this encounter Care Teams Warehouse Worker Relationship Specialty Start Date End Date Priscilla Gonsalves MD [address] [place] [address] PCP - General 06/22/01 documented as of this encounter
--- OUTSIDE RECORDS SUMMARY | 2025-01-05 15:59 | XMS_ITS | Encounter Summary ---
Author Organization [facility] Address [address] [facility] [place] [address] Care Team Providers Care Middle School Sports Coach Name Role Phone Priscilla Gonsalves MD Primary Care Provider [phone] Encounter Details Date Type Department Care Team Description 02/10/2020 Abe Teacher Report Medical Records [address] [place] [address] Amairani Rodriguez MD Social History Tobacco Use [...] on filedocumented in this encounter Care Teams Middle School Sports Coach Relationship Specialty Start Date End Date Priscilla Gonsalves MD [address] [place] [address] PCP - General 06/22/01 documented as of this encounter
--- OUTSIDE RECORDS SUMMARY | 2025-01-05 15:59 | XMS_ITS | Encounter Summary ---
Author Organization [facility] Address [address] [place] [address] Care Team Providers Care Floor Waxer Name Role Phone Priscilla Gonsalves MD Primary Care Provider [phone] Reason for Visit * Reason Onset Date Comments medication problems 01/07/2020 Encounter Details Date Type Department Care Team Description 01/07/2020 Telephone Medicine/Pediatrics - [address] [phone] Priscilla Gonsalves MD [address] [place] [phone] medication problems Social History Tobacco Use Types [...] on filedocumented in this encounter Care Teams Floor Waxer Relationship Specialty Start Date End Date Priscilla Gonsalves MD [address] [place] [address] PCP - General 06/22/01 documented as of this encounter
--- OUTSIDE RECORDS SUMMARY | 2025-01-05 15:59 | XMS_ITS | Encounter Summary ---
Author Organization [facility] Address [address] [facility] [place] [address] Care Team Providers Care Copy Cutter Name Role Phone Priscilla Gonsalves MD Primary Care Provider [phone] Encounter Details Date Type Department Care Team Description 10/18/2020 Nurse Wound Report Medical Records [address] [place] [address] [facility] Social History Tobacco Use Types Packs/Day [...] on filedocumented in this encounter Care Teams Copy Cutter Relationship Specialty Start Date End Date Priscilla Gonsalves MD [address] [place] [address] PCP - General 06/22/01 documented as of this encounter
--- OUTSIDE RECORDS SUMMARY | 2025-01-05 15:59 | XMS_ITS | Encounter Summary ---
Author Organization [facility] Address [address] [facility] [place] [address] Care Team Providers Care Head Counselor Name Role Phone Priscilla Gonsalves MD Primary Care Provider [phone] Encounter Details Date Type Department Care Team Description 01/06/2017 Energy Scheduler Report Medical Records [address] [place] [address] Alisia Allison MD Social History Tobacco Use [...] on filedocumented in this encounter Care Teams Head Counselor Relationship Specialty Start Date End Date Priscilla Gonsalves MD [address] [place] [address] PCP - General 06/22/01 documented as of this encounter
--- OUTSIDE RECORDS SUMMARY | 2025-01-05 15:59 | XMS_ITS | Encounter Summary ---
Author Organization [facility] Address [address] [place] [address] Care Team Providers Care Surgical Instruments Inspector Name Role Phone Priscilla Gonsalves MD Primary Care Provider [phone] Encounter Details Date Type Department Care Team Description [facility] [address] [place] [address] Md Gumaro Social History Tobacco Use Types [...] on filedocumented in this encounter Care Teams Surgical Instruments Inspector Relationship Specialty Start Date End Date Priscilla Gonsalves MD [address] [place] [address] PCP - General 06/22/01 documented as of this encounter
--- OUTSIDE RECORDS SUMMARY | 2025-01-05 15:59 | XMS_ITS | Encounter Summary ---
Author Organization [facility] Address [address] [place] [address] Care Team Providers Care Ship Purser Name Role Phone Priscilla Gonsalves MD Primary Care Provider [phone] Reason for Visit * Reason Onset Date Comments TEST RESULTS 07/08/2016 Encounter Details Date Type Department Care Team Description 07/08/2016 Telephone Adult Medicine [facility] [address] [place] [address] Priscilla Gonsalves MD [address] [place] [phone] TEST RESULTS Social History Tobacco Use Types [...] on filedocumented in this encounter Care Teams Ship Purser Relationship Specialty Start Date End Date Priscilla Gonsalves MD [address] [place] [address] PCP - General 06/22/01 documented as of this encounter
--- OUTSIDE RECORDS SUMMARY | 2025-01-05 15:59 | XMS_ITS | Encounter Summary ---
Author Organization [facility] Address [address] [place] [address] Care Team Providers Care Machine Bender Name Role Phone Priscilla Gonsalves MD Primary Care Provider [phone] Encounter Details Date Type Department Care Team Description 04/14/2020 Crna Report Medical Records [address] [place] [address] Amairani Rodriguez MD Social History Tobacco Use [...] on filedocumented in this encounter Care Teams Machine Bender Relationship Specialty Start Date End Date Priscilla Gonsalves MD [address] [place] [address] PCP - General 06/22/01 documented as of this encounter
--- OUTSIDE RECORDS SUMMARY | 2025-01-05 15:59 | XMS_ITS | Encounter Summary ---
Author Organization [facility] Address [address] [facility] [place] [address] Care Team Providers Care Healthcare Social Worker Name Role Phone Priscilla Gonsalves MD Primary Care Provider [phone] Encounter Details Date Type Department Care Team Description 04/04/2022 Compensation Specialist Report Medical Records [address] [place] [address] Anais Alex NP Social History Tobacco Use [...] on filedocumented in this encounter Care Teams Healthcare Social Worker Relationship Specialty Start Date End Date Priscilla Gonsalves MD [address] [place] [address] PCP - General 06/22/01 documented as of this encounter
--- OUTSIDE RECORDS SUMMARY | 2025-01-05 15:59 | XMS_ITS | Encounter Summary ---
Author Organization [facility] Address [address] [place] [address] Care Team Providers Care Coal Hiker Name Role Phone Priscilla Gonsalves MD Primary Care Provider [phone] Encounter Details Date Type Department Care Team Description 10/08/2019 Court Security Officer Report Medical Records [address] [place] [address] Lisa Longoria Social History Tobacco Use Types [...] on filedocumented in this encounter Care Teams Coal Hiker Relationship Specialty Start Date End Date Priscilla Gonsalves MD [address] [place] [address] PCP - General 06/22/01 documented as of this encounter
--- OUTSIDE RECORDS SUMMARY | 2025-01-05 15:59 | XMS_ITS | Encounter Summary ---
Author Organization [facility] Address [address] [facility] [place] [address] Care Team Providers Care Technical Aid Name Role Phone Priscilla Gonsalves MD Primary Care Provider [phone] Encounter Details Date Type Department Care Team Description 08/11/2020 Fabric Designer Report Medical Records [address] [place] [address] Anais Alex NP Social History Tobacco Use [...] on filedocumented in this encounter Care Teams Technical Aid Relationship Specialty Start Date End Date Priscilla Gonsalves MD [address] [place] [address] PCP - General 06/22/01 documented as of this encounter
--- OUTSIDE RECORDS SUMMARY | 2025-01-05 15:59 | XMS_ITS | Encounter Summary ---
Author Organization [facility] Address [address] [place] [address] Care Team Providers Care Ophthalmic Surgical Assistant Name Role Phone Priscilla Gonsalves MD Primary Care Provider [phone] Encounter Details Date Type Department Care Team Description 03/29/2014 Orders Only Rheumatology - [facility] [address] [place] [address] Rosas Soni MD Social History Tobacco Use [...] on filedocumented in this encounter Care Teams Ophthalmic Surgical Assistant Relationship Specialty Start Date End Date Priscilla Gonsalves MD [address] [place] [address] PCP - General 06/22/01 documented as of this encounter
--- OUTSIDE RECORDS SUMMARY | 2025-01-05 15:59 | XMS_ITS | Encounter Summary ---
Author Organization [facility] Address [address] [facility] [place] [address] Care Team Providers Care Needle Felt Making Machine Operator Name Role Phone Priscilla Gonsalves MD Primary Care Provider [phone] Encounter Details Date Type Department Care Team Description 12/19/2021 Hospital Medical Records [address] [place] [address] Jean Gomez MD Social History Tobacco Use [...] on filedocumented in this encounter Care Teams Needle Felt Making Machine Operator Relationship Specialty Start Date End Date Priscilla Gonsalves MD [address] [place] [address] PCP - General 06/22/01 documented as of this encounter
--- OUTSIDE RECORDS SUMMARY | 2025-01-05 15:59 | XMS_ITS | Encounter Summary ---
Author Organization [facility] Address [address] [place] [address] Care Team Providers Care Cap Cutter Name Role Phone Priscilla Gonsalves MD Primary Care Provider [phone] Reason for Visit * Reason Comments REFERRAL Encounter Details Date Type Department Care Team Description 03/18/2002 Telephone Adult Medicine [facility] [address] [place] [address] Priscilla Gonsalves MD [address] [place] [address] [id number] REFERRAL Social History Tobacco Use Types Packs/Day Years Used Date Smoking Tobacco: Never Assessed Sex Assigned at Date Recorded Not on file documented as of this encounter Miscellaneous Notes * Telephone Encounter - 03/18/2002 3:58 PM EDTCALL RECEIVED. Contact: SELF [phone] Payor: KEKE/NAVYA COMM Plan: HMO BLUE $5 CAP Product Type: HMO PRE-PAID documented in this encounter Plan of Treatment Not on file documented as of this encounter Visit Diagnoses Not on filedocumented in this encounter Care Teams Cap Cutter Relationship Specialty Start Date End Date Priscilla Gonsalves MD [address] [place] [address] PCP - General 06/22/01 documented as of this encounter
--- OUTSIDE RECORDS SUMMARY | 2025-01-05 15:59 | XMS_ITS | Encounter Summary ---
Author Organization [facility] Address [address] [facility] [place] [address] Care Team Providers Care Vice President For Instruction Name Role Phone Priscilla Gonsalves MD Primary Care Provider [phone] Encounter Details Date Type Department Care Team Description 08/09/2021 Hospital Medical Records [address] [place] [address] [facility] Social History Tobacco Use Types Packs/Day Years [...] on filedocumented in this encounter Care Teams Vice President For Instruction Relationship Specialty Start Date End Date Priscilla Gonsalves MD [address] [place] [address] PCP - General 06/22/01 documented as of this encounter
--- OUTSIDE RECORDS SUMMARY | 2025-01-05 15:59 | XMS_ITS | Clinical Summary ---
Author Organization [facility] Address [address] [place] [address] Care Team Providers Care Lag Screwer Name Role Phone Priscilla Gonsalves MD Primary Care Provider [phone] Allergies Active Allergy Reactions Severity Noted Date Comments Humira 01/09/2024 Lovenox 01/09/2024 Medications Medication Sig Dispensed Refills Start Date End Date Status frovatriptan (FROVA) 2.5 MG tablet Take 2.5 mg by mouth as needed. if headache recurs, may take a second tablet if first dose provided relief and at least 2 hours have elapsed since the first dose. No more than 3 tablets in 24 hours. 0 Active amitriptyline (ELAVIL) 25 MG tablet Take 75 mg by mouth at bedtime. 0 05/10/2019 Active Cholecalciferol (VITAMIN D3) 50 MCG (1999) Cap TAKE 1 CAPSULE BY MOUTH DAILY 0 10/12/2020 Active Apixaban 5 MG Tab Take 1 Tablet by mouth 2 times daily. 0 Active pantoprazole (PROTONIX) 40 MG tablet Take 1 Tablet by mouth daily. 0 Active trazodone (DESYREL) 100 MG tablet Take 1 Tablet by mouth at bedtime. 0 Active Rimegepant Sulfate 75 MG TABLET DISPERSIBLE Take 1 Tablet by mouth every other day. as needed 0 Active topiramate (TOPAMAX) 100 MG tablet Take 1 Tablet by mouth 2 Times Daily. 0 12/26/2023 Active Actemra ACTPen 162 MG/0.9ML Solution Auto-injector 1 shot every 2 weeks 0 11/05/2023 Active Ajovy 225 MG/1.5ML Solution Auto-injector 1 shot every 28 days 0 12/22/2023 Active tizanidine (Zanaflex) 4 MG tablet Take 1 Tablet by mouth every 6 hours as needed. 0 01/09/2024 Active Active Problems Problem Noted Date Chronic back pain 01/09/2024 Overview: Follows with [facility] Pain Management (December 2023) Rheumatoid arthritis 11/08/2019 Obstructive sleep apnea mild YANI 9 with nocturnal hypoxia 06/24/2019 Overview: NOT TREATED (OCT 2020) [facility] Home Sleep Apnea Test: Date 06/17/2019; Wt 194#; BMI 34; YANI 9, AI 2; HI 6; Unclassified apneas 4; Obstructive apneas 13; Central apneas 0; Mixed apneas 0; hypopneas 47; average oxygen saturation 90% (lowest 78% with saturations <88% for 5% or more of study) - Obstructive Sleep Apnea - mild; mostly hypopneas; with sleep related hypoventilation by 2018 home sleep apnea test. Obesity (BMI 30.0-34.9) 01/19/2019 NAFLD (nonalcoholic fatty liver disease) 01/08/2017 Costochondritis 09/05/2014 Overview: Left lower rib cage/left flank 09/05/14 Fibromyalgia 07/14/2014 Overview: RFpositive Trial of Cymbalta 2013-, not that helpful Ovarian cyst, left 05/24/2014 Vitamin D deficiency 12/02/2013 Hypercholesterolemia 12/02/2013 Migraine 06/03/2013 DVT (deep venous thrombosis) 05/19/2007 Overview: dvt right leg 10/23 and then 06/22 Was on BCP, also had leg trauma Recurrent 06/06 Resolved Problems Problem Noted Date Resolved Date Leg DVT (deep venous thromboembolism), chronic, right 01/28/2019 11/17/2020 Immunizations Name Administration Dates Next Due COVID-19 (Pfizer) 10/05/2020,09/14/2020 Hepatitis B > 19yrs 10/28/2018,04/28/2018,2017 Hepb Vacc, Ill Pat 3 Dose 10/28/2018,04/28/2018, 03/26/2018 Influenza (> 6 Months) 07/05/2020,2018,07/03/2018, 017,07/17/2015 Influenza Flu (PT Reported) 06/22/2016, 4 Shingrix (Recombinant zoster vaccine) 12/26/2020,11/21/2020 TD (STATE SUPPLIED FOR ADULT S AND CHILDREN) 02/11/2005 TETANUS/DIPTHERIA (ADULT) 02/11/2005 Tdap 10/22/2012 Family History Medical History Relation Name Comments unknown cancer Aunt 1 paternal Cancer of the Breast Aunt 2 maternal CA Esophageal Aunt 3 maternal non-smoker Lupus Aunt 4 maternal dvt Brother x 2 CAD Father hypertension, s troke leukemia Maternal Grandfather Alzheimers Disease Maternal Grandmother o steoporosis Diabetes Mother fibromyalgia, o steoporosis lupus Mother's side 1st cousins x2 ; also croh n's unknown cancer Paternal Grandfather No Known Problems Paternal Grandmother Relation Name Status Comments Aunt 1 paternal Aunt 2 maternal Alive Aunt 3 maternal Alive Aunt 4 maternal Alive Brother x 2 Alive Father Alive Maternal Grandfather Maternal Grandmother Mother Alive Mother's side 1st cousins Alive Paternal Grandfather Paternal Grandmother Social History Tobacco Use Types Packs/Day Years Used Date Smoking Tobacco: Never Smokeless Tobacco: Never Tobacco Cessation:Counseling Given: Not Answered Alcohol Use Standard Drinks/Week Comments No 0 (1 standard drink = 0.6 oz pur e alcohol) Education Answer Date Recorded What is the highest level of school you have completed or the highest degree you have received? 12th grade 11/17/2020 Sex Assigned at Date Recorded Not on file Last Filed Vital Signs Vital Sign Reading Time Taken Comments Blood Pressure 130/88 01/09/2024 3:25 PM EDT Pulse 72 01/09/2024 3:25 PM EDT Temperature 36.3 ??C (97.3 ??F) 01/09/2024 3:25 PM ED T Respiratory Rate 12 01/09/2024 3:25 PM EDT Oxygen Saturation 98% 01/08/2021 8:35 AM EDT Inhaled Oxygen Concentration - - Weight 85.3 kg (188 lb) 01/09/2024 3:25 PM EDT Height 160 cm (5' 3 ) 01/09/2024 3:25 PM EDT Body Mass Index 33.3 01/09/2024 3:25 PM EDT Plan of Treatment Health Maintenance Due Date Last Done Comments COLON CANCER SCREENING 2019 CERVICAL CANCER SCREENING 02/23/20222018, 05/08/2016, 12/16/2012 (External Completion), Additional history exists MAMMOGRAM 06/02/2022 06/02/2021, 03/23, 03/16/2019, Additional history exists DTAP/TDAP/TD (2 - Td or Tdap) 10/22/2022 10/22/2012, 02/11/2005 BASELINE HEALTH EXAM 40-64 11/20/202211/20, 11/17/2020, 09/12/2018, Additional history exists Covid-19 Vaccine (2022-2 4 season) 2024 10/05/2020, 09/14/2020 BMI CHECK/ADVISE 09/22/2024 11/17/2020, , 09/09/2018, Additional history exists INFLUENZA (Season Ended) 2025 021 (External Completion of Vaccination per patient), 07/05/2020, 06/30/2019, Additional history exists CHOLESTEROL SCREENING 11/20/2025 11/20/2020 , 09/12/2018, 01/08/2017, Additional history exists PNEUMOCOCCAL VACCINE FOR HIG H RISK PATIENTS (#1) 2034 HEPATITIS C SCREENING Completed 12/22/2013 SHINGLES VACCINE Completed 12/26/2020, 11/21/2020 Care Teams Lag Screwer Relationship Specialty Start Date End Date Priscilla Gonsalves MD [address] [place] [address] PCP - General 06/22/01
--- OUTSIDE RECORDS SUMMARY | 2025-01-05 15:59 | XMS_ITS | Encounter Summary ---
Author Organization [facility] Address [address] [facility] [place] [address] Care Team Providers Care Duplex Trimmer Name Role Phone Priscilla Gonsalves MD Primary Care Provider [phone] Encounter Details Date Type Department Care Team Description 09/04/2017 [facility] Medical Records [address] [place] [address] Abstract, Provider Social History Tobacco Use Types [...] on filedocumented in this encounter Care Teams Duplex Trimmer Relationship Specialty Start Date End Date Priscilla Gonsalves MD [address] [place] [address] PCP - General 06/22/01 documented as of this encounter
--- OUTSIDE RECORDS SUMMARY | 2025-01-05 15:59 | XMS_ITS | Encounter Summary ---
Author Organization [facility] Address [address] [place] [address] Care Team Providers Care Loom Cleaner Name Role Phone Priscilla Gonsalves MD Primary Care Provider [phone] Encounter Details Date Type Department Care Team Description 07/05/2015 Driller Machine Report Medical Records [address] [place] [address] Luisito Banerjee MD Social History Tobacco Use [...] on filedocumented in this encounter Care Teams Loom Cleaner Relationship Specialty Start Date End Date Priscilla Gonsalves MD [address] [place] [address] PCP - General 06/22/01 documented as of this encounter
--- OUTSIDE RECORDS SUMMARY | 2025-01-05 15:59 | XMS_ITS | Encounter Summary ---
Author Organization [facility] Address [address] [facility] [place] [address] Care Team Providers Care Insole And Heel Stiffener Name Role Phone Priscilla Gonsalves MD Primary Care Provider [phone] Encounter Details Date Type Department Care Team Description 12/08/2021 Hospital Medical Records [address] [place] [address] Jean Gomez MD Social History Tobacco Use [...] on filedocumented in this encounter Care Teams Insole And Heel Stiffener Relationship Specialty Start Date End Date Priscilla Gonsalves MD [address] [place] [address] PCP - General 06/22/01 documented as of this encounter
--- OUTSIDE RECORDS SUMMARY | 2025-01-05 15:59 | XMS_ITS | Encounter Summary ---
Author Organization [facility] Address [address] [facility] [place] [address] Care Team Providers Care Infantry Operations Specialist Name Role Phone Priscilla Gonsalves MD Primary Care Provider Encounter Details Date Type Department Care Team Description 06/24/2019 Orders Only Medical Records [address] [place] [address] Vilma Patton PA-C [address] [place] [address] Social History Tobacco Use Types Packs/Day Years [...] on filedocumented in this encounter Care Teams Infantry Operations Specialist Relationship Specialty Start Date End Date Priscilla Gonsalves MD [address] [place] [address] PCP - General 06/22/01 documented as of this encounter
--- OUTSIDE RECORDS SUMMARY | 2025-01-05 15:59 | XMS_ITS | Encounter Summary ---
Author Organization [facility] Address [address] [facility] [place] [address] Care Team Providers Care Diploma Maker Name Role Phone Priscilla Gonsalves MD Primary Care Provider [phone] Encounter Details Date Type Department Care Team Description 06/15/2019 Head Cager Report Medical Records [address] [place] [address] Jameson Lam MD Social History Tobacco Use [...] on filedocumented in this encounter Care Teams Diploma Maker Relationship Specialty Start Date End Date Priscilal Gonsalves MD [address] [place] [address] PCP - General 06/22/01 documented as of this encounter
--- OUTSIDE RECORDS SUMMARY | 2025-01-05 15:59 | XMS_ITS | Encounter Summary ---
Author Organization [facility] Address [address] [place] [address] Care Team Providers Care Land Surveyor Name Role Phone Priscilla Gonsalves MD Primary Care Provider [phone] Reason for Visit * Reason Onset Date Comments Mychart Rx Refill 10/25/2019 Encounter Details Date Type Department Care Team Description 10/25/2019 Refill Adult Medicine [facility] [address] [place] [address] Priscilla Gonsalves MD [address] [place] [address] Mychart Rx Refill Social History Tobacco Use [...] by Vilma Patton Preferred pharmacy: [facility] [address] documented in this encounter Plan of Treatment Not on file documented as of this encounter Visit Diagnoses Not on filedocumented in this encounter Care Teams Land Surveyor Relationship Specialty Start Date End Date Priscilla Gonsalves MD [address] [place] [address] PCP - General 06/22/01 documented as of this encounter
--- OUTSIDE RECORDS SUMMARY | 2025-01-05 15:59 | XMS_ITS | Encounter Summary ---
Author Organization [facility] Address [address] [place] [address] Care Team Providers Care Video System Repairer Name Role Phone Priscilla Gonsalves MD Primary Care Provider [phone] Encounter Details Date Type Department Care Team Description 01/05/2014 Wool Merchant Report Medical Records [address] [place] [address] Luisito Banerjee MD Social History Tobacco Use [...] on filedocumented in this encounter Care Teams Video System Repairer Relationship Specialty Start Date End Date Priscilla Gonsalves MD [address] [place] [address] PCP - General 06/22/01 documented as of this encounter
--- OUTSIDE RECORDS SUMMARY | 2025-01-05 15:59 | XMS_ITS | Encounter Summary ---
Author Organization [facility] Address [address] [facility] [place] [address] Care Team Providers Care Hot Cell Technician Name Role Phone Priscilla Gonsalves MD Primary Care Provider [phone] Encounter Details Date Type Department Care Team Description 11/11/2018 Lube Man Report Medical Records [address] [place] [address] Amairani Rodriguez MD Social History Tobacco Use [...] on filedocumented in this encounter Care Teams Hot Cell Technician Relationship Specialty Start Date End Date Priscilla Gonsalvse MD [address] [place] [address] PCP - General 06/22/01 documented as of this encounter
[2025-01-05 18:06] LABS: MANUAL DIFF FLAG NO
[2025-01-05 18:10] LABS: Basophils Percent Auto 0.9 % (0-2); Eosinophils Absolute Auto 0.1 X10*3/uL (0.0-0.4); Eosinophils Percent Auto 3.1 % (0-4); Hematocrit 42.9 % (37.0-47.0); Hemoglobin 13.6 g/dl (12.0-16.0); Imm Gran Abs Auto 0.01 X10*3/uL (0.00-0.03); Imm Gran Pct Auto 0.2 % (0.0-0.4); Lymphocytes Absolute Auto 1.6 X10*3/uL (1.2-4.9); Lymphocytes Percent Auto 36.7 % (20-40); Mean Corpuscular HGB Conc 31.7 g/dl (31.0-35.0); Mean Corpuscular Hemoglobin 27.8 pg (27.0-33.0); Mean Corpuscular Volume 87.6 fL (80.0-98.0); Mean Platelet Volume 12.1 fL (9.4-12.3); Monocytes Absolute Auto 0.3 X10*3/uL (0.1-1.2); Monocytes Percent Auto 7.5 % (2-11); Neutrophils Absolute Auto 2.2 x10*3/uL (2.0-8.3); Neutrophils Percent Auto 51.6 % (45-73); Platelet Count 249 X10*3/uL (160-400); Red Cell Distribution Width 13.8 % (11.0-16.0); White Blood Count 4.3 X10*3/uL (4.8-10.8)
[2025-01-05 18:24] LABS: Alanine Aminotransferase 23 U/L (0-31); Albumin Level 4.1 g/dL (3.5-5.0); Alkaline Phosphatase 59 U/L (39-117); Amylase 73 U/L (28-100); Aspartate Amino Transferase 32 U/L (5-31); Bilirubin Direct 0.2 mg/dL (0.0-0.5); Bilirubin Total 0.4 mg/dL (0.0-1.0)
[2025-01-05 18:25] LABS: Alanine Aminotransferase 25 U/L (0-31); Alkaline Phosphatase 59 U/L (39-117); Anion Gap 10 (12-20); Aspartate Amino Transferase 30 U/L (5-31); Bilirubin Total 0.4 mg/dL (0.0-1.0); Blood Urea Nitrogen 14 mg/dL (9-16); C Reactive Protein < 0.10 mg/dL (< or = 0.50); Calcium 9.1 mg/dL (8.4-10.2); Carbon Dioxide 24 mmol/L (22-29); Chloride 114 mmol/L (96-108); Estimated Glomerular Filt Rate > 60; Glucose Random 72 mg/dL (60-115); Lipase 36 U/L (8-78); Potassium 3.5 mmol/L (3.3-5.1); Sodium 144 mmol/L (135-145); Total Protein 7.1 g/dL (6.5-8.0)
[2025-01-05 18:46] LABS: Erythrocyte Sedimentation Rate 2 MM/HR (0-20)
== END 2025-01-05 13:26 | disposition home or self-care (01) ==
LOC: HO.WFDLDS 13:25
PROVIDERS: Referring Provider Student in an Organized Health Care Education/Training Program; Visit Provider Nurse Practitioner Family
DX: R10.13 Epigastric pain (principal); E66.01 Morbid (severe) obesity due to excess calories; Z68.32 Body mass index [BMI] 32.0-32.9, adult; K21.9 Gastro-esophageal reflux disease without esophagitis; M05.9 Rheumatoid arthritis with rheumatoid factor, unspecified
CPT/HCPCS: 36415; 80053; 80076; 82150; 82248; 83690; 85025; 85652; 86140; 96127

== ENCOUNTER 2025-01-07 08:54 | Outpatient (AMB) | payer OTHER, SELFPAY ==
--- OUTSIDE RECORDS SUMMARY | 2025-01-07 09:18 | XMS_ITS | Encounter Summary ---
Author Organization [facility] Address [address] [facility] [place] [address] Care Team Providers Care Carton Stenciler Name Role Phone Priscilla Gonsalves MD Primary Care Provider [phone] Encounter Details Date Type Department Care Team Description 12/08/2021 Hospital Medical Records [address] [place] [address] Jean Gomez MD Social History Tobacco Use [...] on filedocumented in this encounter Care Teams Carton Stenciler Relationship Specialty Start Date End Date Priscilla Gonsalves MD [address] [place] [address] PCP - General 06/22/01 documented as of this encounter
--- OUTSIDE RECORDS SUMMARY | 2025-01-07 09:18 | XMS_ITS | Encounter Summary ---
Author Organization [facility] Address [address] [facility] [place] [address] Care Team Providers Care Shore Man Name Role Phone Priscilla Gonsalves MD Primary Care Provider [phone] Encounter Details Date Type Department Care Team Description 08/12/2019 Geodetic Computator Report Medical Records [address] [place] [address] Dmitri Castillo Social History Tobacco Use Types Packs/Day Years [...] on filedocumented in this encounter Care Teams Shore Man Relationship Specialty Start Date End Date Priscilla Gonsalves MD [address] [place] [address] PCP - General 06/22/01 documented as of this encounter
--- OUTSIDE RECORDS SUMMARY | 2025-01-07 09:18 | XMS_ITS | Encounter Summary ---
Author Organization [facility] Address [address] [facility] [place] [address] Care Team Providers Care Video Library Assistant Name Role Phone Priscilla Gonsalves MD Primary Care Provider [phone] Encounter Details Date Type Department Care Team Description 06/24/2019 Orders Only Medical Records [address] [place] [address] Vilma Patton PA-C [address] [place] [address] Social History Tobacco Use Types Packs/Day Years [...] filedocumented in this encounter Care Teams Video Library Assistant Relationship Specialty Start Date End Date Priscilla Gonsalves MD [address] [place] [address] PCP - General 06/22/01 documented as of this encounter
--- OUTSIDE RECORDS SUMMARY | 2025-01-07 09:18 | XMS_ITS | Encounter Summary ---
Author Organization [facility] Address [address] [facility] [place] [address] Care Team Providers Care Treater Helper Name Role Phone Priscilla Gonsalves MD Primary Care Provider [phone] Encounter Details Date Type Department Care Team Description 08/09/2021 Hospital Medical Records [address] [place] [address] [facility] Social History Tobacco Use Types Packs/Day [...] on filedocumented in this encounter Care Teams Treater Helper Relationship Specialty Start Date End Date Priscilla Gonsalves MD [address] [place] [address] PCP - General 06/22/01 documented as of this encounter
--- OUTSIDE RECORDS SUMMARY | 2025-01-07 09:18 | XMS_ITS | Encounter Summary ---
Author Organization [facility] Address [address] [facility] [place] [address] Care Team Providers Care Assessment Nurse Name Role Phone Priscilla Gonsalves MD Primary Care Provider Encounter Details Date Type Department Care Team Description 09/04/2017 [facility] Medical Records [address] [place] [address] Abstract, Provider Social History Tobacco Use Types [...] on filedocumented in this encounter Care Teams Assessment Nurse Relationship Specialty Start Date End Date Priscilla Gonsalves MD [address] [place] [address] PCP - General 06/22/01 documented as of this encounter
--- OUTSIDE RECORDS SUMMARY | 2025-01-07 09:18 | XMS_ITS | Encounter Summary ---
Author Organization [facility] Address [address] [facility] [place] [address] Care Team Providers Care General Handling Supervisor Name Role Phone Priscilla Gonsalves MD Primary Care Provider [phone] Encounter Details Date Type Department Care Team Description 10/27/2018 Release of Information Medical Records [address] [place] [address] Abstract, Provider Social History Tobacco Use Types [...] on filedocumented in this encounter Care Teams General Handling Supervisor Relationship Specialty Start Date End Date Priscilla Gonsalves MD [address] [place] [address] PCP - General 06/22/01 documented as of this encounter
--- OUTSIDE RECORDS SUMMARY | 2025-01-07 09:18 | XMS_ITS | Encounter Summary ---
Author Organization [facility] Address [address] [facility] [place] [address] Care Team Providers Care Hand Rug Cleaner Name Role Phone Priscilla Gonsalves MD Primary Care Provider [phone] Encounter Details Date Type Department Care Team Description 03/15/2015 County Engineer Report Medical Records [address] [place] [address] Alisia Allison MD Social History Tobacco Use [...] on filedocumented in this encounter Care Teams Hand Rug Cleaner Relationship Specialty Start Date End Date Priscilla Gonsalves MD [address] [place] [address] PCP - General 06/22/01 documented as of this encounter
--- OUTSIDE RECORDS SUMMARY | 2025-01-07 09:18 | XMS_ITS | Encounter Summary ---
Author Organization [facility] Address [address] [place] [address] Care Team Providers Care Machine Tester Name Role Phone Priscilla Gonsalves MD Primary Care Provider [phone] Reason for Visit * Reason Onset Date Comments Provider Call Back 01/18/2013 Encounter Details Date Type Department Care Team Description 01/18/2013 Telephone Adult Medicine [address] [address] Fabiana Araujo, PAKarlaC Provider Call Back Social [...] filedocumented in this encounter Care Teams Machine Tester Relationship Specialty Start Date End Date Priscilla Gonsalves MD [address] [place] [address] PCP - General 06/22/01 documented as of this encounter
--- OUTSIDE RECORDS SUMMARY | 2025-01-07 09:18 | XMS_ITS | Encounter Summary ---
Author Organization [facility] Address [address] [place] [address] Care Team Providers Care Credit Reporting Clerk Name Role Phone Priscilla Gonsalves MD Primary Care Provider [phone] Encounter Details Date Type Department Care Team Description 12/27/2021 Hat And Cap Drying Room Attendant Report Medical Records [address] [place] [address] Abstract, Provider Social History Tobacco Use Types [...] on filedocumented in this encounter Care Teams Credit Reporting Clerk Relationship Specialty Start Date End Date Priscilla Gonsalves MD [address] [place] [address] PCP - General 06/22/01 documented as of this encounter
--- OUTSIDE RECORDS SUMMARY | 2025-01-07 09:18 | XMS_ITS | Encounter Summary ---
Author Organization [facility] Address [address] [facility] [place] [address] Care Team Providers Care Bunch Trimmer Mold Name Role Phone Priscilla Gonsalves MD Primary Care Provider [phone] Encounter Details Date Type Department Care Team Description 07/04/2021 Guest Relations Executive Report Medical Records [address] [place] [address] [facility] Social History Tobacco Use Types Packs/Day [...] on filedocumented in this encounter Care Teams Bunch Trimmer Mold Relationship Specialty Start Date End Date Priscilla Gonsalves MD [address] [place] [address] PCP - General 06/22/01 documented as of this encounter
--- OUTSIDE RECORDS SUMMARY | 2025-01-07 09:18 | XMS_ITS | Encounter Summary ---
Author Organization [facility] Address [address] [place] [address] Care Team Providers Care Coach Cleaner Name Role Phone Priscilla Gonsalves MD Primary Care Provider [phone] Encounter Details Date Type Department Care Team Description 01/05/2014 Health Analytics Consultant Report Medical Records [address] [place] [address] Luisito Banerjee MD Social History Tobacco Use [...] on filedocumented in this encounter Care Teams Coach Cleaner Relationship Specialty Start Date End Date Priscilla Gonsalves MD [address] [place] [address] PCP - General 06/22/01 documented as of this encounter
--- OUTSIDE RECORDS SUMMARY | 2025-01-07 09:18 | XMS_ITS | Encounter Summary ---
Author Organization [facility] Address [address] [place] [address] Care Team Providers Care Union Laborer Name Role Phone Priscilla Gonsalves MD Primary Care Provider [phone] Encounter Details Date Type Department Care Team Description 02/11/2005 Orders Only Medical [address] [place] [address] Priscilla Gonsalves MD [address] [place] [address] [phone] CORONARY ATHEROSCLEROSIS OF UNSPECIFIED VESSEL (Primary Dx) [...] PM EDT Priscilla Gonsalves MD [facility] [employer] * (ABNORMAL) BASIC METABOLIC PANEL (02/11/2005 12:14 [...] PM EDT Priscilla Gonsalves MD [facility] [employer] documented in this encounter Visit Diagnoses Diagnosis Coronary atherosclerosis of unspecified type of vessel, takotna or graft- Primary documented in this encounter Care Teams Union Laborer Relationship Specialty Start Date End Date Priscilla Gonsalves MD [address] [place] [address] PCP - General 06/22/01 documented as of this encounter
--- OUTSIDE RECORDS SUMMARY | 2025-01-07 09:18 | XMS_ITS | Encounter Summary ---
Author Organization [facility] Address [address] [place] [address] Care Team Providers Care Student Development Specialist Name Role Phone Priscilla Gonsalves MD Primary Care Provider [phone] Encounter Details Date Type Department Care Team Description 10/17/2022 Button Cutter Report Medical Records [address] [place] [address] Anais Alex NP Social History Tobacco Use [...] on filedocumented in this encounter Care Teams Student Development Specialist Relationship Specialty Start Date End Date Priscilla Gonsalves MD [address] [place] [address] PCP - General 06/22/01 documented as of this encounter
--- OUTSIDE RECORDS SUMMARY | 2025-01-07 09:18 | XMS_ITS | Encounter Summary ---
Author Organization [facility] Address [address] [place] [address] Care Team Providers Care Aquatic Scientist Name Role Phone Priscilla Gonsalves MD Primary Care Provider [phone] Encounter Details Date Type Department Care Team Description 03/20/2016 Integrity Consultant Report Medical Records [address] [place] [address] Sneha Byrd MD [address] [facility] [address] [place] [phone] Social History Tobacco Use Types Packs/Day [...] on filedocumented in this encounter Care Teams Aquatic Scientist Relationship Specialty Start Date End Date Priscilla Gonsalves MD [address] [place] [address] PCP - General 06/22/01 documented as of this encounter
--- OUTSIDE RECORDS SUMMARY | 2025-01-07 09:18 | XMS_ITS | Encounter Summary ---
Author Organization [facility] Address [address] [place] [address] Care Team Providers Care Coal Feeder Operator Name Role Phone Priscilla Gonsalves MD Primary Care Provider [phone] Encounter Details Date Type Department Care Team Description 07/05/2015 Wharf Hand Report Medical Records [address] [place] [address] Luisito Banerjee MD Social History Tobacco Use [...] filedocumented in this encounter Care Teams Coal Feeder Operator Relationship Specialty Start Date End Date Priscilla Gonsalves MD [address] [place] [address] PCP - General 06/22/01 documented as of this encounter
--- OUTSIDE RECORDS SUMMARY | 2025-01-07 09:18 | XMS_ITS | Encounter Summary ---
Author Organization [facility] Address [address] [place] [address] Care Team Providers Care Can Tender Name Role Phone Priscilla Gonsalves MD Primary Care Provider [phone] Reason for Visit * Reason Comments E-prescribe Rx Request Encounter Details Date Type Department Care Team Description 04/23/2014 Refill Adult Medicine [facility] [address] [place] [address] Priscilla Gonsalves MD [address] [place] [address] E-prescribe Rx Request Social History Tobacco Use [...] an upcoming appointment? No-unable [facility] due to refill request. Appt due sep (THE MEDICATION REQUESTED IS ON THE MED LIST ABOVE) One or some of the medications requested were on the HISTORICAL MED list Did you check the Pharmacy information above?: YES Patient wants: 30 -day supply Is this a mail order prescription request ? NO Patients current insurance carrier is: Payor: KE[employer]/Twiigg FFS / Plan: Twiigg $15 Sharalike [id number] / ProductType: Twiigg Jlu-aup-Eufhagn documented in this encounter Plan of Treatment Not on file documented as of this encounter Visit Diagnoses Not on filedocumented in this encounter Care Teams Can Tender Relationship Specialty Start Date End Date Priscilla Gonsalves MD [address] [place] [address] PCP - General 06/22/01 documented as of this encounter
--- OUTSIDE RECORDS SUMMARY | 2025-01-07 09:18 | XMS_ITS | Encounter Summary ---
Author Organization [facility] Address [address] [facility] [place] [address] Care Team Providers Care Art Gallery Director Name Role Phone Priscilla Gonsalves MD Primary Care Provider Encounter Details Date Type Department Care Team Description 02/24/2019 Frame Stylist Report Medical Records [address] [place] [address] Anais Alex NP Social History Tobacco Use [...] on filedocumented in this encounter Care Teams Art Gallery Director Relationship Specialty Start Date End Date Priscilla Gonsalves MD [address] [place] [address] PCP - General 06/22/01 documented as of this encounter
--- OUTSIDE RECORDS SUMMARY | 2025-01-07 09:18 | XMS_ITS | Encounter Summary ---
Author Organization [facility] Address [address] [facility] [place] [address] Care Team Providers Care Ground Crew Supervisor Name Role Phone Priscilla Gonsalves MD Primary Care Provider [phone] Encounter Details Date Type Department Care Team Description 12/21/2019 Cinder Pit Worker Report Medical Records [address] [place] [address] Amairani Rodriguez MD Social History Tobacco Use [...] on filedocumented in this encounter Care Teams Ground Crew Supervisor Relationship Specialty Start Date End Date Priscilla Gonsalves MD [address] [place] [address] PCP - General 06/22/01 documented as of this encounter
--- OUTSIDE RECORDS SUMMARY | 2025-01-07 09:18 | XMS_ITS | Encounter Summary ---
Author Organization [facility] Address [address] [facility] [place] [address] Care Team Providers Care College Of Education Dean Name Role Phone Priscilla Gonsalves MD Primary Care Provider [phone] Encounter Details Date Type Department Care Team Description 11/11/2018 Envelope Maker Report Medical Records [address] [place] [address] Amairani Rodriguez MD Social History Tobacco Use [...] on filedocumented in this encounter Care Teams College Of Education Dean Relationship Specialty Start Date End Date Priscilla Gonsalves MD [address] [place] [address] PCP - General 06/22/01 documented as of this encounter
--- OUTSIDE RECORDS SUMMARY | 2025-01-07 09:18 | XMS_ITS | Encounter Summary ---
Author Organization [facility] Address [address] [place] [address] Care Team Providers Care Senior Health Physics Technician Name Role Phone Priscilla Gonsalves MD Primary Care Provider [phone] Reason for Visit * Reason Onset Date Comments medication problems 10/15/2019 Encounter Details Date Type Department Care Team Description 10/15/2019 Telephone Adult Medicine [facility] [address] [place] [address] Priscilla Gonsalves MD [address] [place] [address] medication problems Social History Tobacco Use Types [...] schedule appointment with PCP in November 2019. Vilma Patton PA-C * Telephone Encounter - Richelle [...] on filedocumented in this encounter Care Teams Senior Health Physics Technician Relationship Specialty Start Date End Date Priscilla Gonsalves MD [address] [place] [address] PCP - General 06/22/01 documented as of this encounter
--- OUTSIDE RECORDS SUMMARY | 2025-01-07 09:19 | XMS_ITS | Encounter Summary ---
Author Organization [facility] Address [address] [place] [address] Care Team Providers Care Auto Parts Delivery Driver Name Role Phone Priscilla Gonsalves MD Primary Care Provider [phone] Encounter Details Date Type Department Care Team Description 02/21/2021 [facility] [address] [place] [address] Md Gumaro Social History Tobacco Use Types [...] on filedocumented in this encounter Care Teams Auto Parts Delivery Driver Relationship Specialty Start Date End Date Priscilla Gonsalves MD [address] [place] [address] PCP - General 06/22/01 documented as of this encounter
--- OUTSIDE RECORDS SUMMARY | 2025-01-07 09:19 | XMS_ITS | Encounter Summary ---
Author Organization [facility] Address [address] [facility] [place] [address] Care Team Providers Care Supervisor Airplane Flight Attendant Name Role Phone Priscilla Gonsalves MD Primary Care Provider [phone] Encounter Details Date Type Department Care Team Description 02/10/2020 Farmworker Dairy Report Medical Records [address] [place] [address] Amairani Rodriguez MD Social History Tobacco Use [...] on filedocumented in this encounter Care Teams Supervisor Airplane Flight Attendant Relationship Specialty Start Date End Date Priscilla Gonsalves MD [address] [place] [address] PCP - General 06/22/01 documented as of this encounter
--- OUTSIDE RECORDS SUMMARY | 2025-01-07 09:19 | XMS_ITS | Encounter Summary ---
Author Organization [facility] Address [address] [facility] [place] [address] Care Team Providers Care Weed Controller Name Role Phone Priscilla Gonsalves MD Primary Care Provider [phone] Encounter Details Date Type Department Care Team Description 03/07/2021 Group Director Experience Report Medical Records [address] [place] [address] Anais Alex NP Social History Tobacco Use [...] on filedocumented in this encounter Care Teams Weed Controller Relationship Specialty Start Date End Date Priscilla Gonsalves MD [address] [place] [address] PCP - General 06/22/01 documented as of this encounter
--- OUTSIDE RECORDS SUMMARY | 2025-01-07 09:19 | XMS_ITS | Encounter Summary ---
Author Organization [facility] Address [address] [place] [address] Care Team Providers Care Collection Development Librarian Name Role Phone Priscilla Gonsalves MD Primary Care Provider [phone] Encounter Details Date Type Department Care Team Description 03/10/2018 Orders Only Adult Medicine [address] [address] Margot Worley PA Left breast mass Social [...] breast documented in this encounter Care Teams Collection Development Librarian Relationship Specialty Start Date End Date Priscilla Gonsalves MD [address] [place] [address] PCP - General 06/22/01 documented as of this encounter
--- OUTSIDE RECORDS SUMMARY | 2025-01-07 09:19 | XMS_ITS | Encounter Summary ---
Author Organization [facility] Address [address] [place] [address] Care Team Providers Care Body Mechanic Name Role Phone Priscilla Gonsalves MD Primary Care Provider [phone] Reason for Visit * Reason Onset Date Comments TEST RESULTS 07/08/2016 Encounter Details Date Type Department Care Team Description 07/08/2016 Telephone Adult Medicine [facility] [address] [place] [address] Priscilla Gonsalves MD [address] [place] [address] TEST RESULTS Social History Tobacco Use Types [...] on filedocumented in this encounter Care Teams Body Mechanic Relationship Specialty Start Date End Date Priscilla Gonsalves MD [address] [place] [address] PCP - General 06/22/01 documented as of this encounter
--- OUTSIDE RECORDS SUMMARY | 2025-01-07 09:19 | XMS_ITS | Encounter Summary ---
Author Organization [facility] Address [address] [facility] [place] [address] Care Team Providers Care Slurry Control Tender Name Role Phone Priscilla Gonsalves MD Primary Care Provider [phone] Encounter Details Date Type Department Care Team Description 12/06/2020 Residential Coordinator Report Medical Records [address] [place] [address] Amairani Rodriguez MD Social History Tobacco Use [...] in this encounter Care Teams Slurry Control Tender Relationship Specialty Start Date End Date rPiscilla Gonsalves MD [address] [place] [address] PCP - General 06/22/01 documented as of this encounter
--- OUTSIDE RECORDS SUMMARY | 2025-01-07 09:19 | XMS_ITS | Encounter Summary ---
Author Organization [facility] Address [address] [place] [address] Care Team Providers Care Alumni Relations Manager Name Role Phone Priscilla Gonsalves MD Primary Care Provider [phone] Encounter Details Date Type Department Care Team Description 01/04/2021 Shed Hand Report Medical Records [address] [place] [address] Clinic, [facility] [place] [address] Social History Tobacco Use Types Packs/Day Years [...] on filedocumented in this encounter Care Teams Alumni Relations Manager Relationship Specialty Start Date End Date Priscilla Gonsalves MD [address] [place] [address] PCP - General 06/22/01 documented as of this encounter
--- OUTSIDE RECORDS SUMMARY | 2025-01-07 09:19 | XMS_ITS | Encounter Summary ---
Author Organization [facility] Address [address] [place] [address] Care Team Providers Care Plant Pathologist Name Role Phone Priscilla Gonsalves MD Primary Care Provider [phone] Reason for Visit * Reason Onset Date Comments medication problems 01/07/2020 Encounter Details Date Type Department Care Team Description 01/07/2020 Telephone Medicine/Pediatrics - [address] [phone] Priscilla Gonsalves MD [address] [place] [address] medication problems Social History Tobacco Use Types [...] on filedocumented in this encounter Care Teams Plant Pathologist Relationship Specialty Start Date End Date Priscilla Gonsalves MD [address] [place] [address] PCP - General 06/22/01 documented as of this encounter
--- OUTSIDE RECORDS SUMMARY | 2025-01-07 09:19 | XMS_ITS | Encounter Summary ---
Author Organization [facility] Address [address] [facility] [place] [address] Care Team Providers Care Electrician Substation Supervisor Name Role Phone Priscilla Gonsalves MD Primary Care Provider [phone] Encounter Details Date Type Department Care Team Description 10/18/2020 Court Monitor Report Medical Records [address] [place] [address] [facility] Social History Tobacco Use Types Packs/Day [...] on filedocumented in this encounter Care Teams Electrician Substation Supervisor Relationship Specialty Start Date End Date Priscilla Gonsalves MD [address] [place] [address] PCP - General 06/22/01 documented as of this encounter
--- NOTE | 2025-01-07 09:27 | A.OFFVIS_ITS ---
Vital Signs 01/07/25 09:29 Height 5 ft 3 in Weight 182 lb BMI 32.2 BP 123/68 Blood Pressure Location Lt brachial Position Sitting Respiration 16 Pulse 70 Pulse Source Pulse Oximeter Pulse Oximetry (%) 95 Oxygen Delivery Method Room Air Intake Visit Reasons: TRIGGER POINT INJECTION Sofa Back Upholsterer Required: No Glass Technologist: Glass Technologist Present Accompanied by: Car Smyth Allergies adalimumab [From Humira] Allergy (Verified 01/07/25 09:31) hairloss enoxaparin [From Lovenox] Allergy (Verified 01/07/25 09:31) Rash etanercept [Enbrel] Allergy (Verified 01/07/25 09:31) Injection site reaction sarilumab [From Kevzara] Allergy (Verified 01/07/25 09:31) injection site reaction Medication List - Last Reconciled 01/07/25 by Mindy Comer LPN Actemra ACTPen (tocilizumab) 162 mg (0.9 mL) subcut Q2W NS apixaban (Eliquis) 5 mg PO BID calcium carbonate 600 mg PO BID cholecalciferol (vitamin D3) 125 mcg PO BID fluticasone propionate 50 mcg/actuation (Flonase Allergy Relief) 1 spray intranasal Q12H fremanezumab-vfrm (Ajovy) 225 mg subcut .every 28 days frovatriptan 2.5 mg PO Q2-4H PRN meclizine 25 mg PO TID PRN pantoprazole 40 mg PO DAILY rimegepant (Nurtec ODT) 75 mg sublingual Q OTHER DAY PRN [thumb spica wear nightly & as much as possible throughout the day] [thumb spica wear nightly and as much as possible throughout the day] tizanidine 4 mg PO Q8H PRN 30 days topiramate 100 mg PO BID tramadol 50 mg PO Q6H PRN 25 days trazodone 100 mg PO BEDTIME PRN 30 days HPI HPI TRIGGER POINT INJECTION: Details: Trigger Point Injections Pre-procedure diagnosis: Myofascial pain Post-procedure diagnosis: Myofascial pain Site and number of trigger points: Right Trapezius, Rhomboid, Deltoid Solution: Total volume administered 5 ml (ropivacaine 0.25%) The procedure, its benefits, and its risks were explained to the patient and all questions were answered. Prior to the start of the procedure, a ?time out? was performed to confirm correct patient, procedure, and laterality. Trigger points were identified by manual palpation and marked. The skin was cleaned with Chloraprep. A 1.5 inch 25 G needle was used. Each of the trigger points were approximated and elevated in the direction away from the body. Dry needling then took place for five seconds. Approximately 0.5 ml to 1 ml of injectate was delivered to the trigger point followed by dry needling for five seconds. This process was repeated at each trigger point site. The patient tolerated the procedure well. Post-procedure, breath sounds were equal at both sides of the chest. The patient tolerated the procedure well, without complication. The patient denied any numbness, paresthesias, or weakness. Post-procedure vitals were recorded as part of the nursing discharge note in electronic medical record. Following a period of observation, the patient was discharged in stable condition with written discharge instructions. [facility] Medical History Non-toxic multinodular goiter Sprain of medial collateral ligament of left knee History of DVT of lower extremity Secondary hypercoagulable state Encounter for screening involving social determinants of health (SDoH) Encounter for general adult medical examination with abnormal findings Acute lower GI bleeding Lumbar back pain with radiculopathy affecting right lower extremity Mass of both wrists Osteoarthritis of carpometacarpal joint of right thumb Left knee pain Right leg DVT Obesity Vitamin D deficiency Hx of rheumatoid arthritis Hx of thyroid nodule History of vitamin D deficiency Hx of obesity Hx of carpal tunnel syndrome History of fibromyalgia Surgical History History of esophagogastroduodenoscopy (EGD) H/O colonoscopy S/P colonoscopic polypectomy Family History Mother Diabetes Fibromyalgia Osteoarthritis Maternal Grandfather Leukemia Maternal Aunt Breast cancer Unknown Cancer Stomach cancer Social History Household Members: Spouse and Children Housing: House Are you a primary home health care case manager to a significant other at home: No Do you presently have visiting nurse or other home services: No Alcohol intake: current Alcohol intake frequency: does not drink Patient Tobacco Use Status: Never used Tobacco e-Cigarette/Vaping Use: Never Used Second Hand Smoke Exposure: No Advance Directives Date on File: 11/21/21 service: No Current occupational status: employed 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 Patient tolerated procedure well and was discharged home in stable condition with discharge instructions. All questions were answered. We will follow-up via telephone or in clinic to assess response to therapy. A follow-up appointment was made during today's visit. Coding Level of Care Code Procedure Only Diagnoses Myofascial pain M79.18
[2025-01-07 09:29] VITALS: BP 123/68; PULSE 70; RESP 16; O2SAT 95; BMI 32.2
== END 2025-01-07 09:38 | disposition home or self-care (01) ==
PROVIDERS: PCP Nurse Practitioner Family; Visit Provider Internal Medicine
DX: M79.18 Myalgia, other site (principal)
CPT/HCPCS: 20553

== ENCOUNTER → 2025-01-07 08:54 | Outpatient (BNVA) | payer OTHER, SELFPAY | PROVIDERS: PCP Nurse Practitioner Family; Visit Provider Internal Medicine | DX: M79.18 Myalgia, other site (principal) | CPT/HCPCS: 20553 ==

== ENCOUNTER 2025-01-17 08:23 | Outpatient (AMB) | payer OTHER, SELFPAY ==
--- NOTE | 2025-01-17 08:25 | A.OFFVIS_ITS ---
Vital Signs 01/17/25 08:26 Height 5 ft 3 in Weight 186 lb BMI 32.9 Intake Visit Reasons: PO-Lt NURSING HOME Release 11/30/24 Intake Note: Zeynep is a 54 year old right hand dominant female who presents today for a post operative visit s/p left 1st dorsal compartment release DOS: 11/30/24 w/ Dr Heydi Stanley. At her last visit patient was referred to occupational therapy and states she continues to have sensitivity on her scar. Allergies adalimumab [From Humira] Allergy (Verified 01/17/25 08:29) hairloss enoxaparin [From Lovenox] Allergy (Verified 01/17/25 08:29) Rash etanercept [Enbrel] Allergy (Verified 01/17/25 08:29) Injection site reaction sarilumab [From Kevzara] Allergy (Verified 01/17/25 08:29) injection site reaction HPI HPI PO-Lt NURSING HOME Release 11/30/24: Details: Zeynep is a 54 year old right hand dominant female who presents today for a post operative visit s/p left 1st dorsal compartment release DOS: 11/30/24 w/ Dr Heydi Stanley. At her last visit patient was referred to occupational therapy and states she continues to have sensitivity on her scar. [facility] Medical History Non-toxic multinodular goiter Sprain of medial collateral ligament of left knee History of DVT of lower extremity Secondary hypercoagulable state Encounter for screening involving social determinants of health (SDoH) Encounter for general adult medical examination with abnormal findings Acute lower GI bleeding Lumbar back pain with radiculopathy affecting right lower extremity Mass of both wrists Osteoarthritis of carpometacarpal joint of right thumb Left knee pain Right leg DVT Obesity Vitamin D deficiency Hx of rheumatoid arthritis Hx of thyroid nodule History of vitamin D deficiency Hx of obesity Hx of carpal tunnel syndrome History of fibromyalgia Surgical History History of esophagogastroduodenoscopy (EGD) H/O colonoscopy S/P colonoscopic polypectomy Family History Mother Diabetes Fibromyalgia Osteoarthritis Maternal Grandfather Leukemia Maternal Aunt Breast cancer Unknown Cancer Stomach cancer Social History Household Members: Spouse and Children Housing: House Are you a primary district manager primary care sales to a significant other at home: No Do you presently have visiting nurse or other home services: No Alcohol intake: current Alcohol intake frequency: does not drink Patient Tobacco Use Status: Never used Tobacco e-Cigarette/Vaping Use: Never Used Second Hand Smoke Exposure: No Advance Directives Date on File: 11/21/21 service: No Current occupational status: employed 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 Neuro: Normal sensation of the tips of all digits of the left hand at this time Vascular: Cap refill brisk Pain: tenderness to very gentle palpation about the incision site Negative Juan A on the left ROM: Patient was able to make a closed fist and extend all digits of the left hand fully Skin: Well approximated and well healed incision site noted over the 1st dorsal compartment of the left wrist No lacerations or abrasions. General: No ecchymosis, erythema, or evidence of infection. Psych: Appears grossly normal Affect normal Attitude cooperative Assessment & Plan Assessment & Plan (1) De Quervain's tenosynovitis, left: Code(s): M65.4 - Radial styloid tenosynovitis [de Quervain] Category: Medical Plan 1. Status post left 1st dorsal compartment release DOS 11/30/2024 Patient appears to be recovering well postoperatively Patient is educated about the typical recovery course At this time, patient is educated she should continue wearing the comfort cool thumb spica brace provided to her preoperatively with daytime activities Patient was also referred to occupational therapy for range of motion and gentle strengthening of the left hand and wrist in the setting of de Quervain tenosynovitis status post 1st dorsal compartment release Patient is educated that she should be primarily working with OT for desensitization of the surgical site Patient was amenable to this plan Patient will follow-up as needed with any acute concerns Coding Level of Care Code Global (31021) Diagnoses De Quervain's tenosynovitis, left M65.4
[2025-01-17 08:26] VITALS: BMI 32.9
== END 2025-01-17 08:39 | disposition home or self-care (01) ==
LOC: HO.HOS 08:24
PROVIDERS: PCP Nurse Practitioner Family
DX: M65.4 Radial styloid tenosynovitis [de Quervain] (principal)
CPT/HCPCS: 99024

== ENCOUNTER 2025-01-19 07:52 | Outpatient (RCR) | payer OTHER, SELFPAY ==
--- NOTE | 2024-12-29 09:19 | MHC.OT.EP ---
[address] [phone] Occupational Therapy Plan of Care Patient Name: Zeynep Edgar Date of Evaluation: 12/29/24 Diagnosis: Left De Quervains Tenosynovitis w/ 1st Dorsal Compartment Release Pain Location: Pain free at rest Discomfort w/ rubbing or touching the scar Pain Score: 3 Pain Scale Used: Numeric (0 - 10) Aggravating Factors: Touching/textures to the scar Alleviating Factors: Tylenol only, ice Assessment: 54 yo female w/ hx of left DeQuervains Tenosynovitis, underwent 1st dorsal compartment release 11/30/24 w/ Dr Stanley. She now presents about 6 weeks post-op w/ some discomfort/hypersensitivity over incision site and low pain w/ movement - still with radial wrist pain with deviation. She has fairly good range but strength is low B/L'ly (right 20lb and left 5 lb). She has been doing well with light activities and work, still avoiding heavy lifting. We will continue OT services to progress strengthening per protocol, scar management and desensitization with goal of normalizing use of left hand. Frequency and Duration: The patient will be seen 2x/wk for 4 weeks Short Term Goals: Ind w/ HEP Ind w/ scar management techniques Gross grasp 10lb Wrist flex/ext >[address] Security Goals: Gross grasp 20lb Ind w/ progression of strengthening Pt to demo good use of left hand w/ bimanual lifting >20lb Wrist flex/ext >60 degrees Treatment Plan: Therapeutic Exercise Therapeutic Activity Home Exercise Program Neuro Re-ed Patient Education Desensitization/Sensory Re-ed Edema Control ADL Training Paraffin Fluidotherapy MHP Cold Packs Soft Tissue Mobilization Kinesiotaping Electronically Signed By: Leyda Grijalva OTR/L CHT Please Sign and return to therapist. Thank you once again for your referral.
--- NOTE | 2025-01-19 09:26 | MHC.OT.DC ---
[address] [phone] F: [phone] Occupational Therapy Discharge Note Patient Name: Zeynep Edgar Provider: Alejandro Husain PA-C Diagnosis: Left De Quervains Tenosynovitis w/ 1st Dorsal Compartment Release Date of Surgery: 11/30/24 Date of Evaluation: 12/29/24 Date of Discharge: 01/19/25 Treatments to Date: 4 Discharge Status: Achieved Goals Improved Function Independent with HEP Discharge Summary: Zeynep is about 6 weeks post-op left De Quervain's release and doing well. She has met all goals w/ improved pain, range and strength, She cont's to have some hypersensitivity over scar, but has been educated on healing process and scar desensitization and management techniques. No further hand therapy needed at this time. Electronically Signed By: PATY Rivas/Carla CHT Reviewed/agree with student documentation: Therapist: Please Sign and return to therapist, thank you for your referral.
== END 2025-01-19 09:27 | disposition home or self-care (01) ==
LOC: HO.OT 07:52
PROVIDERS: PCP Nurse Practitioner Family
DX: M65.4 Radial styloid tenosynovitis [de Quervain] (principal)
CPT/HCPCS: 97110; 97140; 97165

== ENCOUNTER 2025-02-20 12:53 | Emergency (ER) | payer OTHER, SELFPAY ==
--- NOTE | ~2025-02-20 | CT_ITS ---
CLINICAL HISTORY: lower abdominal pain, bloating CT abdomen and pelvis with contrast Comparison: None Findings: No consolidation or effusion. The liver, gallbladder, spleen, adrenal glands and pancreas are unremarkable. Kidneys, ureters and bladder are within normal limits. Normal appendix. Diverticulosis present. Questionable mild thickening of the sigmoid. Small volume free fluid in the pelvis. Mild engorgement of the vasa recta. Mild fecal retention. Scattered gas and fluid throughout small bowel. No acute osseous finding. Impression: Findings suggest mild sigmoid diverticulitis. Small volume free fluid in the pelvis. No abscess. Additional incidental findings. This document has been electronically signed by: Chirag Castanon MD on 02/20/2025 15:44:33
[2025-02-20 12:58] VITALS: BP 139/69; PULSE 60; RESP 16; TEMP 36.2; O2SAT 95; BMI 30.4
--- NOTE | 2025-02-20 12:58 | ED.GENADULT ---
HPI - General Adult General Chief complaint: Abdominal Pain Stated complaint: abdominal pain Time Seen by Provider: 02/20/25 13:14 Source: patient Mode of arrival: ambulatory Limitations: no limitations History of Present Illness ED Provider: ASHLEY VILLELA PA-C HPI narrative: 54-year-old female with pmhx significant for GERD, MDD, factor 5 Leiden mutation, DVT on Eliquis, GERD, fibromyalgia, rheumatoid arthritis, tubular adenoma of the colon, presents to the ED today for evaluation of lower abdominal pain x2 days. Pain is localized to the entire lower abdomen, intermittent since onset. No radiation. Reports feeling bloated. Patient states that she can not even sit when pain is at its most severe. Admits to increased urinary frequency and voiding small amounts. She reports hx of renal stones x1 year ago which passed on their own without intervention. States this feels similar. Denies dysuria or hematuria. Reports last BM was two days ago which is normal for her. Denies loose, hard, bloody or dark stools. Denies fever, chills. Denies nausea or vomiting. Denies flank pain. Related Data Home Medications ?Medication ?Instructions ?Recorded ?Confirmed frovatriptan 2.5 mg tablet 2.5 mg PO Q2-4H PRN Headache 01/15/22 01/07/25 topiramate 100 mg tablet 100 mg PO BID 03/15/24 01/07/25 fremanezumab-vfrm 225 mg/1.5 mL 225 mg subcut .every 28 days 07/02/24 01/07/25 subcutaneous auto-injector (Ajovy) Previous Rx's ?Medication ?Instructions ?Recorded tizanidine 4 mg tablet 4 mg PO Q8H PRN muscle spasticity 06/28/22 30 days #90 tabs trazodone 100 mg tablet 100 mg PO BEDTIME PRN insomnia 30 11/19/23 days #30 tabs thumb spica #1 ea 01/19/24 fluticasone propionate 50 1 spray intranasal Q12H #16 grams 03/15/24 mcg/actuation nasal spray,suspension (Flonase Allergy Relief) pantoprazole 40 mg tablet,delayed 40 mg PO DAILY #90 tabs 07/02/24 release meclizine 25 mg tablet 25 mg PO TID PRN dizziness #14 tabs 07/23/24 tramadol 50 mg tablet 50 mg PO Q6H PRN pain 25 days #100 08/25/24 tabs thumb spica #1 ea 09/01/24 calcium carbonate 600 mg PO BID #30 tabs 11/19/24 cholecalciferol (vitamin D3) 125 125 mcg PO BID #60 caps 11/19/24 mcg (5,000 unit) capsule rimegepant 75 mg disintegrating 75 mg sublingual Q OTHER DAY PRN 11/26/24 tablet (Nurtec ODT) for migraine #16 tabs Actemra ACTPen 162 mg/0.9 mL 162 mg (0.9 mL) subcut Q2W #1.8 ea 01/21/25 subcutaneous pen injector (tocilizumab) apixaban 5 mg tablet (Eliquis) 5 mg PO BID #120 tabs 01/31/25 amoxicillin 875 mg-potassium 1 tab PO BID 7 days #14 tabs 02/20/25 clavulanate 125 mg tablet ondansetron 4 mg disintegrating 4 mg PO DAILY PRN nausea and 02/20/25 tablet vomiting #10 tabs Allergies Allergy/AdvReac Type Severity Reaction Status Date / Time adalimumab [From Humira] Allergy hairloss Verified 02/20/25 13:00 enoxaparin [From Lovenox] Allergy Rash Verified 02/20/25 13:00 etanercept [Enbrel] Allergy Injection Verified 02/20/25 13:00 site reaction sarilumab [From Kevzara] Allergy injection Verified 02/20/25 13:00 site reaction Review of Systems Review of Systems: Constitutional: No fever, chills, fatigue, night sweats, weight changes ENT/Mouth: No ear pain, hearing loss, nasal congestion, sinus pain, rhinorrhea, sore throat Eyes: No eye pain, swelling, redness, vision changes, discharge Cardio: No chest pain, palpitations, MOREJON, orthopnea, peripheral edema Pulm: No SOB, cough, sputum, wheezing, dyspnea, hemoptysis GI: No nausea, vomiting, hematemesis, diarrhea, constipation, hematochezia, melena, +abdominal pain : No irregular bleeding, dysuria, frequency, urgency, hesitancy, hematuria, flank pain, urinary flow changes, urinary incontinence or retention MSK: No back pain, neck pain, joint pain, myalgias Skin: No lesions, rashes Neuro: No weakness, numbness, paresthesias, LOC, dizziness, headache Psych: No anxiety/panic, depression, SI/HI, AH/VH All other systems reviewed and are negative. [facility] Past Medical History Attestation statement: The following information was validated with the patient. Source: old records reviewed and nursing notes reviewed Medical History Non-toxic multinodular goiter Sprain of medial collateral ligament of left knee History of DVT of lower extremity Secondary hypercoagulable state Encounter for screening involving social determinants of health (SDoH) Encounter for general adult medical examination with abnormal findings Acute lower GI bleeding Lumbar back pain with radiculopathy affecting right lower extremity Mass of both wrists Osteoarthritis of carpometacarpal joint of right thumb Left knee pain Right leg DVT Obesity Vitamin D deficiency Hx of rheumatoid arthritis Hx of thyroid nodule History of vitamin D deficiency Hx of obesity Hx of carpal tunnel syndrome History of fibromyalgia Surgical History History of esophagogastroduodenoscopy (EGD) H/O colonoscopy S/P colonoscopic polypectomy Family History Family History Mother Diabetes Fibromyalgia Osteoarthritis Maternal Grandfather Leukemia Maternal Aunt Breast cancer Unknown Cancer Stomach cancer Social History Social History Household Members: Spouse and Children Housing: House Are you a primary customer care team coach to a significant other at home: No Do you presently have visiting nurse or other home services: No Alcohol intake: current Alcohol intake frequency: does not drink Patient Tobacco Use Status: Never used Tobacco Smoked in Last 30 Days: No e-Cigarette/Vaping Use: Never Used Second Hand Smoke Exposure: No Use of substances other than those prescribed or required for medical reasons: No Advance Directives: Yes Advance Directives on File: Yes Advance Directives Date on File: 11/21/21 Do you have a plan to hurt others: No Plan service: No Current occupational status: employed 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 Skin: Warm, dry, intact. No rashes or lesions. Head: Normocephalic, atraumatic. EENT: Hearing is intact b/l. Conjunctiva clear. Sclera is anicteric. PERRLA. EOM intact. Moist mucous membranes.? Neck: Supple without LAD Cardiac: Chest wall symmetric. RRR Lungs: Normal respiratory effort without accessory muscle use. CTA bilaterally Abdomen: soft, nondistended, tender to palpation of entire lower abdomen with guarding, no rebound tenderness. No CVAT bilaterally. Active bowel sounds x4. Back: No midline spinous or paraspinal tenderness. No step off deformity. Ext: Upper and lower extremities atraumatic, without tenderness, deformity, swelling or erythema Neuro: AOx3. Normal speech. Ambulating with steady gait Course Course Course Narrative: RME performed by Mindy Menezes PA-C. Patient is a 54 year old assigned female at presenting to the emergency department with abdominal pain. Patient states she has had 2 days worth of abdominal pain that comes and goes and when it flares it is to the point where she cannot sit. Patient states that she also has nasuea. Detailed physical exam and review of systems are deferred to the band saw operator cake cutting. Labs ordered. Patient placed back in the waiting room pending room availability and results. Reevaluation(s) Reevaluation #1: 1515 -- cbc without leukocytosis or left shift. no anemia, h&h stable. chemistry wtihout acute electrolyte abnormality requiring intervention. no fatoumata. liver function wnl. crp wnl. > UA pending > CT pending > medicated with Tylenol + IVF 1607 -- CT a/p showing mild diverticulitis of the sigmoid colon. UA without infection. > will start patient on augmentin. Patient has remained stable throughout ED visit today. Discussed worrisome signs and symptoms and when to return to the ED. All questions answered at this time. Patient is agreeable with disposition and stable for discharge. Medications Administered Discontinued Medications Generic Name Dose Route Start Last Admin Trade Name Kari PRN Reason Stop Dose Admin Acetaminophen 1,000 mg in 100 mls @ 400 mls/hr 02/20/25 13:31 02/20/25 14:59 Ofirmev IV 02/20/25 13:45 Infused ONCE ONE Infusion Sodium Chloride 1,000 mls @ 999 mls/hr 02/20/25 13:45 02/20/25 15:31 Ns IV 02/20/25 14:45 Infused .Q1H1M CORAL Infusion Iohexol 100 ml 02/20/25 15:00 02/20/25 15:00 Iohexol 350 Mg/Ml 100 Ml Infus..Btl IV 02/20/25 15:01 85 ml ONCE ONE Administration Medical Decision Making Medical Decision Making MDM Narrative: 54-year-old female with past medical history significant for GERD, MDD, factor 5 Leiden mutation, DVT on Eliquis, GERD, fibromyalgia, rheumatoid arthritis presents to the ED today for evaluation of lower abdominal pain x2 days. vital signs stable. she is well appearing, in NAD. on exam, soft, nondistended, tender to palpation of entire lower abdomen with guarding, no rebound tenderness. No CVAT bilaterally. Active bowel sounds x4. Differential diagnoses: appendicitis, diverticulitis, diverticulosis, UTI, constipation, renal colic, nephrolithiasis, hydronephrosis Abdominal exam without peritoneal signs. No evidence of acute abdomen at this time. Well appearing. Low suspicion for acute hepatobiliary disease (including acute cholecystitis), acute infectious processes (pneumonia, hepatitis, pyelonephritis, PID, TOA), vascular catastrophe, bowel obstruction or viscus perforation, ovarian cyst/ rupture/ torsion, ectopic. Presentation not consistent with other acute, emergent causes of abdominal pain at this time. Plan: labs, UA, CT AP, pain control, fluids, serial reassessment Differential Diagnosis Differential Diagnoses: The differential diagnosis associated with the presentation includes as above. Admission/Observation Not indicated Lab Data [facility] Lab Attestation statement: I reviewed the patient's lab results. as above. 02/20/25 13:47 02/20/25 13:47 Labs: Lab Results 02/20/25 02/20/25 Range/Units 13:47 15:45 WBC 4.6 L (4.8-10.8) X10*3/uL RBC 4.77 (4.20-5.50) X10*6/uL Hgb 13.7 (12.0-16.0) g/dl Hct 41.0 (37.0-47.0) % MCV 86.0 (80.0-98.0) fL MCH 28.7 (27.0-33.0) pg MCHC 33.4 (31.0-35.0) g/dl RDW 13.6 (11.0-16.0) % Plt Count 214 (160-400) X10*3/uL MPV 11.6 (9.4-12.3) fL Immature Gran % (Auto) 0.2 (0.0-0.4) % Neut % (Auto) 65.7 (45-73) % Lymph % (Auto) 24.3 (20-40) % [place] % (Auto) 7.6 (2-11) % Eos % (Auto) 1.5 (0-4) % Baso % (Auto) 0.7 (0-2) % Lymph # (Auto) 1.1 L (1.2-4.9) X10*3/uL [place] # (Auto) 0.4 (0.1-1.2) X10*3/uL Eos # (Auto) 0.1 (0.0-0.4) X10*3/uL Baso # (Auto) 0.0 (0.0-0.2) X10*3/uL Abs Immat Gran (auto) 0.01 (0.00-0.03) X10*3/uL Absolute Neuts (auto) 3.0 (2.0-8.3) x10*3/uL Absolute Nucleated RBC 0.000 (0.0-0.012) X10*3/uL Nucleated RBC % (auto) 0.0 (0.0-0.2) /100WBC Sodium 145 (135-145) mmol/L Potassium 3.5 (3.3-5.1) mmol/L Chloride 118 H (96-108) mmol/L Carbon Dioxide 22 (22-29) mmol/L Anion Gap 9 L (12-20) BUN 14 (9-16) mg/dL Creatinine 0.90 (0.5-1.4) mg/dL Estim Creat Clear Calc 69.8 Estimated GFR > 60 Random Glucose 93 (60-115) mg/dL Calcium 9.0 (8.4-10.2) mg/dL Total Bilirubin 0.4 (0.0-1.0) mg/dL AST 23 (5-31) U/L ALT 18 (0-31) U/L Alkaline Phosphatase 46 (39-117) U/L C-Reactive Protein < 0.04 (< or = 0.50) mg/dL Total Protein 6.7 (6.5-8.0) g/dL Albumin 4.0 (3.5-5.0) g/dL Urine Color Yellow Urine Appearance Clear Urine pH 8.0 (5.0-9.0) Ur Specific [place] >= 1.030 H (1.005-1.025) Urine Protein Negative (Neg-Trace) mg/dL Urine Glucose (UA) Negative (Negative) mg/dL Urine Ketones Negative (Negative) mg/dL Urine Blood Negative (Negative) Urine Nitrite Negative (Negative) Ur Leukocyte Esterase Negative (Negative) Independent Interpretation I performed an independent interpretation of an: CT Scan Interpretation: CT AP without bowel obstruction Radiology Impression Discussion of test interpretation with radiology: I have reviewed the radiologist's reading. Radiologist Impression: Date of Service: 02/20/25 Procedure(s): CT abdomen pelvis w IV con Accession Number(s): [id number] cc: Jeri Narayanan [employer]; Ashley Villela~ Report Number: [id number]: Total DLP = 632.00 mGy-cm CLINICAL HISTORY: lower abdominal pain, bloating CT abdomen and pelvis with contrast Comparison: None Findings: No consolidation or effusion. The liver, gallbladder, spleen, adrenal glands and pancreas are unremarkable. Kidneys, ureters and bladder are within normal limits. Normal appendix. Diverticulosis present. Questionable mild thickening of the sigmoid. Small volume free fluid in the pelvis. Mild engorgement of the vasa recta. Mild fecal retention. Scattered gas and fluid throughout small bowel. No acute osseous finding. Impression: Findings suggest mild sigmoid diverticulitis. Small volume free fluid in the pelvis. No abscess. Additional incidental findings. This document has been electronically signed by: Chirag Castanon MD on 02/20/2025 15:44:33 External Record Review External record reviewed: Inpatient record Prescription Management I considered prescription management with: Antibiotic (Augmentin) Social Determinants Patient?s care significantly limited by Social Determinants of Health including: Other Social Determinant of Health Critical Care Time Critical Care Time Critical Care Time: No Discharge Plan Discharge Clinical Impression: Diverticulitis Patient Disposition: Home, Self-Care Instructions: Amoxicillin/Clavulanate Potassium (By mouth), Diverticulitis (ED), Diverticulitis Diet (ED) Additional Instructions: You were evaluated in the ED today for lower abdominal pain. Your blood work is reassuring. Your urine does not demonstrate infection. The CT scan of your abdomen shows mild diverticulitis of your sigmoid colon. I am starting you on Augmentin. Take this as prescribed for 7 days. You received your 1st dose in the ED today. You may take your next dose in 12 hours. On Augmentin, softer bowel movements are to be expected. Call your provider if you move your bowels more than 4 times a day, your bowel movements are almost all liquid, or you get a rash.? Tutu has been sent to the pharmacy for you to take as needed for nausea/ vomiting. Return with any new or worsening symptoms. In the case of an emergency call 911. Prescriptions: New amoxicillin-pot clavulanate 875-125 mg tablet 1 tab PO BID 7 Days Qty: 14 0RF ondansetron 4 mg tablet,disintegrating 4 mg PO DAILY PRN (Reason: nausea and vomiting) Qty: 10 0RF No Action trazodone 100 mg tablet 100 mg PO BEDTIME PRN (Reason: insomnia) 30 Days Qty: 30 8RF Nurtec ODT 75 mg tablet,disintegrating 75 mg sublingual Q OTHER DAY PRN (Reason: for migraine) Qty: 16 3RF Actemra ACTPen 162 mg/0.9 mL pen injector 162 mg subcut Q2W Qty: 1.8 5RF Eliquis 5 mg Tablet 5 mg PO BID Qty: 120 4RF meclizine 25 mg tablet 25 mg PO TID PRN (Reason: dizziness) Qty: 14 0RF topiramate 100 mg tablet 100 mg PO BID fluticasone propionate [Flonase Allergy Relief] 50 mcg/actuation spray,suspension 1 spray intranasal Q12H Qty: 16 0RF Rx Instructions: administer into each nostril frovatriptan 2.5 mg tablet 2.5 mg PO Q2-4H PRN (Reason: Headache) Rx Instructions: do not exceed 3 doses per 24 hrs tizanidine 4 mg tablet 4 mg PO Q8H PRN (Reason: muscle spasticity) 30 Days Qty: 90 0RF (DME) thumb spica See Rx Instructions .Route .MEDSUPPLY Qty: 1 0RF Rx Instructions: wear nightly and as much as possible throughout the day tramadol 50 mg tablet 50 mg PO Q6H PRN (Reason: pain) 25 Days Qty: 100 1RF calcium carbonate 600 mg calcium (1,500 mg) tablet 600 mg PO BID Qty: 30 0RF cholecalciferol (vitamin D3) 125 mcg (5,000 unit) capsule 125 mcg PO BID Qty: 60 0RF (DME) thumb spica See Rx Instructions .Route .MEDSUPPLY Qty: 1 0RF Rx Instructions: wear nightly & as much as possible throughout the day Ajovy Autoinjector 225 mg/1.5 mL auto-injector 225 mg subcut .every 28 days pantoprazole 40 mg tablet,delayed release (DR/EC) 40 mg PO DAILY Qty: 90 3RF Referrals: Jeri Narayanan FNP-BC [Primary Care Provider] - Print Language: Czech
[2025-02-20 13:52] LABS: MANUAL DIFF FLAG NO
[2025-02-20 13:53] LABS: Basophils Percent Auto 0.7 % (0-2); Eosinophils Absolute Auto 0.1 X10*3/uL (0.0-0.4); Eosinophils Percent Auto 1.5 % (0-4); Hemoglobin 13.7 g/dl (12.0-16.0); Imm Gran Abs Auto 0.01 X10*3/uL (0.00-0.03); Imm Gran Pct Auto 0.2 % (0.0-0.4); Lymphocytes Absolute Auto 1.1 X10*3/uL (1.2-4.9); Lymphocytes Percent Auto 24.3 % (20-40); Mean Corpuscular HGB Conc 33.4 g/dl (31.0-35.0); Mean Corpuscular Hemoglobin 28.7 pg (27.0-33.0); Mean Platelet Volume 11.6 fL (9.4-12.3); Monocytes Absolute Auto 0.4 X10*3/uL (0.1-1.2); Monocytes Percent Auto 7.6 % (2-11); Neutrophils Percent Auto 65.7 % (45-73); Platelet Count 214 X10*3/uL (160-400); Red Blood Count 4.77 X10*6/uL (4.20-5.50); Red Cell Distribution Width 13.6 % (11.0-16.0); White Blood Count 4.6 X10*3/uL (4.8-10.8)
[2025-02-20 14:01] VITALS: BP 126/73; PULSE 48; RESP 16; TEMP 36.8; O2SAT 98
[2025-02-20] MEDS: 0.9 % Sodium Chloride 1,000 ML 999 ML IV (14:11)
[2025-02-20] MEDS: Acetaminophen 1,000 MG/100 ML PIGGYBACK 400 MG IV (14:11)
[2025-02-20 14:14] LABS: Alanine Aminotransferase 18 U/L (0-31); Alkaline Phosphatase 46 U/L (39-117); Anion Gap 9 (12-20); Aspartate Amino Transferase 23 U/L (5-31); Bilirubin Total 0.4 mg/dL (0.0-1.0); Blood Urea Nitrogen 14 mg/dL (9-16); Carbon Dioxide 22 mmol/L (22-29); Chloride 118 mmol/L (96-108); Creatinine Clr Calc Pharmacy 69.8; Estimated Glomerular Filt Rate > 60; Glucose Random 93 mg/dL (60-115); Potassium 3.5 mmol/L (3.3-5.1); Sodium 145 mmol/L (135-145); Total Protein 6.7 g/dL (6.5-8.0)
[2025-02-20 14:17] LABS: C Reactive Protein < 0.04 mg/dL (< or = 0.50)
[2025-02-20] MEDS: iohexoL 350 MG/ML 100 ML INFUS..BTL IV (15:00)
[2025-02-20 15:47] VITALS: BP 124/62; PULSE 52; RESP 16; TEMP 36.6; O2SAT 96
--- NOTE | 2025-02-20 15:48 | MHC.EDTECH ---
This pct just assumed care of Patient ,vitals taken ,urine sample collected and sent to lab ,Bladder scan done after Pt void it registered 0 ml ,RN aware .
[2025-02-20 15:51] LABS: Appearance Urine Clear; Color Urine Yellow; Glucose Urine UA Negative (Negative); Leukocyte Esterase Urine Negative (Negative); Nitrite Urine Negative (Negative); Specific Gravity - Urine >= 1.030 (1.005-1.025); Urine Blood Negative (Negative); Urine Ketones Negative (Negative); Urine Protein Negative (Neg-Trace)
[2025-02-20] MEDS: Amoxicillin/Potassium Clav 875 MG TABLET PO (16:07)
[2025-02-20 16:10] VITALS: BP 124/62; PULSE 52; RESP 16; TEMP 36.6; O2SAT 96
== END 2025-02-20 16:13 | disposition home or self-care (01) ==
PROVIDERS: Physician Assistant Medical; Emergency Provider Emergency Medicine; PCP Nurse Practitioner Family
DX: K57.92 Diverticulitis of intestine, part unspecified, without perforation or abscess without bleeding (principal); R10.30 Lower abdominal pain, unspecified; R35.0 Frequency of micturition; I82.409 Acute embolism and thrombosis of unspecified deep veins of unspecified lower extremity; Z79.01 Long term (current) use of anticoagulants; Z79.899 Other long term (current) drug therapy; Z87.442 Personal history of urinary calculi
CPT/HCPCS: 36415; 74177; 80053; 81003; 85025; 86140; 96361; 96374; 99284; 99285; J0131; Q9967

== ENCOUNTER → 2025-02-20 14:44 | Outpatient (BNV) | payer OTHER, SELFPAY | PROVIDERS: Emergency Provider Emergency Medicine; PCP Nurse Practitioner Family; Visit Provider Radiology Vascular & Interventional Radiology | DX: K57.32 Diverticulitis of large intestine without perforation or abscess without bleeding (principal) | CPT/HCPCS: 74177 ==

== ENCOUNTER 2025-02-22 06:55 | Inpatient (IN) | payer OTHER, SELFPAY ==
[2025-02-22] VITALS (8 sets, daily range): BP systolic 97–131; BP diastolic 33–64; PULSE 52–71; RESP 14–18; TEMP 36.6–37; O2SAT 93–98; BMI 30.1; BMI 30.5
[2025-02-22 07:19] LABS: MANUAL DIFF FLAG NO
[2025-02-22 07:26] LABS: Basophils Percent Auto 0.3 % (0-2); Eosinophils Absolute Auto 0.1 X10*3/uL (0.0-0.4); Eosinophils Percent Auto 0.6 % (0-4); Hematocrit 43.9 % (37.0-47.0); Hemoglobin 14.5 g/dl (12.0-16.0); Imm Gran Abs Auto 0.05 X10*3/uL (0.00-0.03); Imm Gran Pct Auto 0.4 % (0.0-0.4); Lymphocytes Absolute Auto 1.2 X10*3/uL (1.2-4.9); Lymphocytes Percent Auto 10.5 % (20-40); Mean Corpuscular Hemoglobin 28.5 pg (27.0-33.0); Mean Corpuscular Volume 86.2 fL (80.0-98.0); Mean Platelet Volume 11.3 fL (9.4-12.3); Monocytes Absolute Auto 0.8 X10*3/uL (0.1-1.2); Monocytes Percent Auto 6.7 % (2-11); Neutrophils Absolute Auto 9.7 x10*3/uL (2.0-8.3); Neutrophils Percent Auto 81.5 % (45-73); Platelet Count 217 X10*3/uL (160-400); Red Blood Count 5.09 X10*6/uL (4.20-5.50); Red Cell Distribution Width 13.2 % (11.0-16.0); White Blood Count 11.8 X10*3/uL (4.8-10.8)
[2025-02-22 07:42] LABS: Alanine Aminotransferase 25 U/L (0-31); Albumin Level 4.2 g/dL (3.5-5.0); Alkaline Phosphatase 55 U/L (39-117); Anion Gap 9 (12-20); Aspartate Amino Transferase 23 U/L (5-31); Bilirubin Direct 0.2 mg/dL (0.0-0.5); Bilirubin Total 0.6 mg/dL (0.0-1.0); Blood Urea Nitrogen 11 mg/dL (9-16); Calcium 9.1 mg/dL (8.4-10.2); Carbon Dioxide 23 mmol/L (22-29); Chloride 112 mmol/L (96-108); Creatinine Clr Calc Pharmacy 63.1; Estimated Glomerular Filt Rate 58; Glucose Random 119 mg/dL (60-115); Lipase 15 U/L (8-78); Potassium 3.4 mmol/L (3.3-5.1); Sodium 141 mmol/L (135-145); Total Protein 7.2 g/dL (6.5-8.0)
--- NOTE | 2025-02-22 08:05 | ED.GENADULT ---
HPI - General Adult General Chief complaint: Abdominal Pain Stated complaint: abd pain Time Seen by Provider: 02/22/25 07:58 Source: patient Mode of arrival: ambulatory Limitations: no limitations History of Present Illness ED Provider: Mindy Menezes PA-C HPI narrative: Patient is a 54 year old assigned female at with a history of diverticulitis diagnosis on 02/20/2025 on Augmentin, GERD, MDD, factor 5 leiden mutation, DVT on Eliquis, GERD, Fibromyalgia, RA, and tubular adenoma of the colon presenting to the emergency department today with continued / worsening abdominal pain. Patient states that she has been taking her medication as prescribed at home and she continues to have pain that is not improving. Patient denies any dizziness, lightheadedness, nausea, vomiting, fever, chills, blurry vision, double vision, loss of vision, chest pain, difficulty breathing, shortness of breath, back pain, night sweats, pain with urination, increased urinary frequency, increased urinary urgency, blood in her urine or stool, syncope or a near syncopal episode, recent trauma or falls, bowel incontinence, bladder incontinence, or any other complaints at this time. Relieving factors: none Exacerbating factors: none Associated symptoms: denies other symptoms Treatments prior to arrival: other (Augmentin) Related Data Home Medications ?Medication ?Instructions ?Recorded ?Confirmed frovatriptan 2.5 mg tablet 2.5 mg PO Q2-4H PRN Headache 01/15/22 02/22/25 topiramate 100 mg tablet 100 mg PO BID 03/15/24 02/22/25 escitalopram oxalate 10 mg tablet 10 mg PO DAILY 02/22/25 02/22/25 fremanezumab-vfrm 225 mg/1.5 mL 225 mg subcut Q28W 02/22/25 02/22/25 subcutaneous auto-injector (Ajovy) pantoprazole 40 mg tablet,delayed 40 mg PO DAILY@0630 02/22/25 02/22/25 release Previous Rx's ?Medication ?Instructions ?Recorded thumb spica #1 ea 01/19/24 thumb spica #1 ea 09/01/24 cholecalciferol (vitamin D3) 125 125 mcg PO BID #60 caps 11/19/24 mcg (5,000 unit) capsule rimegepant 75 mg disintegrating 75 mg sublingual Q OTHER DAY PRN 11/26/24 tablet (Nurtec ODT) for migraine #16 tabs Actemra ACTPen 162 mg/0.9 mL 162 mg (0.9 mL) subcut Q2W #1.8 ea 01/21/25 subcutaneous pen injector (tocilizumab) apixaban 5 mg tablet (Eliquis) 5 mg PO BID #120 tabs 01/31/25 amoxicillin 875 mg-potassium 1 tab PO BID 7 days #14 tabs 02/20/25 clavulanate 125 mg tablet ondansetron 4 mg disintegrating 4 mg PO DAILY PRN nausea and 02/20/25 tablet vomiting #10 tabs Allergies Allergy/AdvReac Type Severity Reaction Status Date / Time adalimumab [From Humira] Allergy hairloss Verified 02/22/25 07:00 enoxaparin [From Lovenox] Allergy Rash Verified 02/22/25 07:00 etanercept [Enbrel] Allergy Injection Verified 02/22/25 07:00 site reaction sarilumab [From Kevzara] Allergy injection Verified 02/22/25 07:00 site reaction Review of Systems Constitutional: Constitutional: Reports no additional constitutional complaints, Denies chills, Denies fever(s) and Denies night sweats Eyes: Eyes: Reports no additional eye complaints, Denies blurry vision, Denies change in vision, Denies diplopia, Denies eye discharge, Denies loss of vision and Denies eye pain ENT: Denies dizziness Cardiovascular: Cardiovascular: Reports no additional cardiovascular complaints, Denies chest pain, Denies lightheadedness, Denies Loss of Consciousness and Denies dyspnea Respiratory: Respiratory: Reports no additional respiratory complaints and Denies dyspnea Gastrointestinal: Gastrointestinal: Reports no additional gastrointestinal complaints, Reports abdominal pain, Denies melena, Denies hematochezia, Denies change in bowel habits and Denies change in stool character Genitourinary: Genitourinary: Denies hematuria, Denies urinary frequency, Denies dysuria, Denies urinary incontinence, Denies urinary hesitancy and Denies urinary urgency Musculoskeletal: Musculoskeletal: Reports no additional musculoskeletal complaints, Denies numbness and Denies tingling Neurologic: Denies dizziness, Denies loss of vision, Denies numbness and Denies tingling Psychiatric: Psychiatric: Reports no additional psychiatric complaints Endocrine: Endocrine: Reports no additional endocrine complaints Hematologic/Lymphatic: Hematologic/Lymphatic: Reports no additional hematologic/lymphatic complaints Allergic/Immunologic: Allergic/Immunologic: Reports no additional allergic/immunologic complaints [facility] Past Medical History Attestation statement: The following information was validated with the patient. Source: old records reviewed and nursing notes reviewed Medical History Non-toxic multinodular goiter Sprain of medial collateral ligament of left knee History of DVT of lower extremity Secondary hypercoagulable state Encounter for screening involving social determinants of health (SDoH) Encounter for general adult medical examination with abnormal findings Acute lower GI bleeding Lumbar back pain with radiculopathy affecting right lower extremity Mass of both wrists Osteoarthritis of carpometacarpal joint of right thumb Left knee pain Right leg DVT Obesity Vitamin D deficiency Hx of rheumatoid arthritis Hx of thyroid nodule History of vitamin D deficiency Hx of obesity Hx of carpal tunnel syndrome History of fibromyalgia Surgical History History of esophagogastroduodenoscopy (EGD) H/O colonoscopy S/P colonoscopic polypectomy Family History Family History Mother Diabetes Fibromyalgia Osteoarthritis Maternal Grandfather Leukemia Maternal Aunt Breast cancer Unknown Cancer Stomach cancer Social History Social History Household Members: Spouse and Children Housing: House Are you a primary ocular care technician to a significant other at home: No Do you presently have visiting nurse or other home services: No Alcohol intake: current Alcohol intake frequency: does not drink Patient Tobacco Use Status: Never used Tobacco Smoked in Last 30 Days: No e-Cigarette/Vaping Use: Never Used Second Hand Smoke Exposure: No Use of substances other than those prescribed or required for medical reasons: No Advance Directives: Yes Advance Directives on File: Yes Advance Directives Date on File: 11/21/21 Do you have a plan to hurt others: No Plan service: No Current occupational status: employed 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 Cognitive needs: No Hearing needs: No Vision needs: No Physical Exam ED Vital Signs: Vital Signs - 24 hr 02/22/25 06:59 02/22/25 08:09 Temperature 98.5 F 98.3 F Pulse Rate 53 60 Respiratory Rate 18 16 Blood Pressure 117/44 L 112/64 Pulse Oximetry 97 98 Oxygen Delivery Method Room Air Room Air BMI result Body Mass Index 30.1 Const General: cooperative, no acute distress, alert and awake Nutritional Appearance: well nourished Orientation/consciousness: patient oriented x3 HENMT Head: Yes normal to inspection and Yes atraumatic Ears: hearing grossly normal bilaterally and external ears normal General nose exam: Normal external nose present, no nasal discharge noted and no epistaxis Face and sinus: Yes normal facial exam, No abrasion and No laceration Mouth: Normal oral and palatal mucosa present, no drooling and no muffled voice Eyes General: appearance normal, both eyes and all related structures Periorbital: periorbital findings normal Eyelids: Yes eyelids normal Conjunctivae: conjunctivae normal Pupils: Equal, round and reactive pupils present EOM: EOMs intact bilaterally Neck Neck: Yes normal visual inspection, Yes full ROM and Yes no lymphadenopathy Resp Effort & Inspection: normal respiratory effort and able to speak in complete sentences GI Palpation (GI): Soft to palpation, not firm, Tenderness to palpation present (GI) (diffusely), no guarding and not rigid Neuro General: patient oriented x3, moves all extremities and CN's II-XI intact bilaterally Cranial nerves: Yes Equal, round and reactive pupils present Cognition (Neuro): normal cognition Extrem General: Yes normal to inspection, Yes full ROM and Yes capillary refill normal Psych Appearance: grossly normal Mental Status: mental status grossly normal Affect: normal affect Attitude: cooperative Thought process: Normal thought process present Thought content: Normal thought content present Insight: Good insight present (Psych) Medications Administered Generic Name Dose Route Start Last Admin Trade Name Freq PRN Reason Stop Dose Admin Lactated Ringer's 1,000 mls @ 100 mls/hr 02/22/25 10:00 02/22/25 11:34 Lr IVCONT 02/23/25 05:59 100 mls/hr .Q10H CORAL Administration Discontinued Medications Generic Name Dose Route Start Last Admin Trade Name Freq PRN Reason Stop Dose Admin Metronidazole 500 mg in 100 mls @ 100 mls/hr 02/22/25 09:08 02/22/25 11:01 Flagyl IV 02/22/25 10:07 Infused ONCE ONE Infusion Levofloxacin 750 mg in 150 mls @ 100 mls/hr 02/22/25 09:08 02/22/25 11:01 Levaquin IV 02/22/25 10:37 100 mls/hr ONCE ONE Administration Sodium Chloride 1,000 mls @ 999 mls/hr 02/22/25 09:45 02/22/25 11:02 Ns IV 02/22/25 10:45 Infused .Q1H1M CORAL Infusion Morphine Sulfate 4 mg 02/22/25 09:08 02/22/25 09:50 Morphine Sulfate 4 Mg/Ml Cartridge IVPUSH 02/22/25 09:09 4 mg ONCE ONE Administration Protocol Ondansetron HCl 4 mg 02/22/25 09:08 02/22/25 09:50 Ondansetron Hcl 4 Mg/2 Ml Vial IVPUSH 02/22/25 09:09 4 mg ONCE ONE Administration Medical Decision Making Medical Decision Making MDM Narrative: Patient is a 54 year old assigned female at with a history of diverticulitis diagnosis on 02/20/2025 on Augmentin, GERD, MDD, factor 5 leiden mutation, DVT on Eliquis, GERD, Fibromyalgia, RA, and tubular adenoma of the colon presenting to the emergency department today with continued / worsening abdominal pain. Patient's physical exam was as noted in the physical exam portion of this note. Patient's blood work showed a worsening WBC count of 11.8 with a left shift of 81.5. Patient's clinical presentation is most consistent with worsening diverticulitis with failure of outpatient treatment. Patient was given IV Flagyl and Levofloxacin, morphine, fluids, and zofran. I explained my physical exam findings as well as all test results to the patient. I answered all questions asked by the patient.. Patient verbalized agreement and understanding with this treatment plan and admission. Differential Diagnosis Differential Diagnoses: The differential diagnosis associated with the presentation includes Nausea Abd pain Diverticulitis Admission/Observation Consideration of admission/observation: Escalation of care including admission/observation considered Patient admitted as noted in the MDM Rationale portion of this note. Consult Healthcare Provider Management of the patient was discussed with: Hospitalist (Agreed to admission as noted in the MDM Rationale portion of this note. ) Lab Data [facility] Lab Attestation statement: I reviewed the patient's lab results. My interpretation of these results are in the MDM Rationale portion of this note. 02/22/25 07:15 02/22/25 07:15 Labs: Lab Results 02/22/25 Range/Units 07:15 WBC 11.8 H (4.8-10.8) X10*3/uL RBC 5.09 (4.20-5.50) X10*6/uL Hgb 14.5 (12.0-16.0) g/dl Hct 43.9 (37.0-47.0) % MCV 86.2 (80.0-98.0) fL MCH 28.5 (27.0-33.0) pg MCHC 33.0 (31.0-35.0) g/dl RDW 13.2 (11.0-16.0) % Plt Count 217 (160-400) X10*3/uL MPV 11.3 (9.4-12.3) fL Immature Gran % (Auto) 0.4 (0.0-0.4) % Neut % (Auto) 81.5 H (45-73) % Lymph % (Auto) 10.5 L (20-40) % [place] % (Auto) 6.7 (2-11) % Eos % (Auto) 0.6 (0-4) % Baso % (Auto) 0.3 (0-2) % Lymph # (Auto) 1.2 (1.2-4.9) X10*3/uL [place] # (Auto) 0.8 (0.1-1.2) X10*3/uL Eos # (Auto) 0.1 (0.0-0.4) X10*3/uL Baso # (Auto) 0.0 (0.0-0.2) X10*3/uL Abs Immat Gran (auto) 0.05 H (0.00-0.03) X10*3/uL Absolute Neuts (auto) 9.7 H (2.0-8.3) x10*3/uL Absolute Nucleated RBC 0.000 (0.0-0.012) X10*3/uL Nucleated RBC % (auto) 0.0 (0.0-0.2) /100WBC Sodium 141 (135-145) mmol/L Potassium 3.4 (3.3-5.1) mmol/L Chloride 112 H (96-108) mmol/L Carbon Dioxide 23 (22-29) mmol/L Anion Gap 9 L (12-20) BUN 11 (9-16) mg/dL Creatinine 0.99 (0.5-1.4) mg/dL Estim Creat Clear Calc 63.1 Estimated GFR 58 Random Glucose 119 H (60-115) mg/dL Calcium 9.1 (8.4-10.2) mg/dL Total Bilirubin 0.6 (0.0-1.0) mg/dL Direct Bilirubin 0.2 (0.0-0.5) mg/dL AST 23 (5-31) U/L ALT 25 (0-31) U/L Alkaline Phosphatase 55 (39-117) U/L Total Protein 7.2 (6.5-8.0) g/dL Albumin 4.2 (3.5-5.0) g/dL Lipase 15 (8-78) U/L Critical Care Time Critical Care Time Critical Care Time: Yes Total Critical Care Time: 36 Attestation: I spent 36 minutes of Critical Care Time with this patient. This does not include time spent on separately reported billable procedures. Discharge Plan Discharge Clinical Impression: Diverticulitis Patient Disposition: Admitted As Inpatient
[2025-02-22] MEDS: 0.9 % Sodium Chloride 1,000 ML 999 ML IV (09:43)
[2025-02-22] MEDS: metroNIDAZOLE/NS 500 MG/100 ML PIGGYBACK 100 MG IV ×2 (09:50→17:47)
[2025-02-22] MEDS: ondansetron HCL 4 MG/2 ML VIAL IVPUSH (09:50)
[2025-02-22] MEDS: Morphine Sulfate 4 MG/ML CARTRIDGE IVPUSH ×2 (09:50→15:49)
--- NOTE | 2025-02-22 09:59 | PM.IMHP ---
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 The patient was seen in our emergency room 2 days prior to this hospitalization where she was diagnosed with mild sigmoid diverticulitis. That time she was discharged home on oral antibiotics. The patient now returns with ongoing lower abdominal pain. She reports intolerance to oral intake. She reports taking her antibiotics. In the emergency room the patient was found to have increasing leukocytosis rising from [id number] to [id number]. Given her failure to oral treatment and outpatient therapy, the patient will now be admitted for further treatment of her known diverticulitis. Review of Systems Review of Systems: Negative except HPI/interval history. [facility] Medical History Non-toxic multinodular goiter Sprain of medial collateral ligament of left knee History of DVT of lower extremity Secondary hypercoagulable state Encounter for screening involving social determinants of health (SDoH) Encounter for general adult medical examination with abnormal findings Acute lower GI bleeding Lumbar back pain with radiculopathy affecting right lower extremity Mass of both wrists Osteoarthritis of carpometacarpal joint of right thumb Left knee pain Right leg DVT Obesity Vitamin D deficiency Hx of rheumatoid arthritis Hx of thyroid nodule History of vitamin D deficiency Hx of obesity Hx of carpal tunnel syndrome History of fibromyalgia Family History Mother Diabetes Fibromyalgia Osteoarthritis Maternal Grandfather Leukemia Maternal Aunt Breast cancer Unknown Cancer Stomach cancer Surgical History History of esophagogastroduodenoscopy (EGD) H/O colonoscopy S/P colonoscopic polypectomy Social History Household Members: Children Housing: House Are you a primary school childcare attendant to a significant other at home: No Do you presently have visiting nurse or other home services: No Alcohol intake: current Alcohol intake frequency: does not drink Patient Tobacco Use Status: Never used Tobacco Smoked in Last 30 Days: No e-Cigarette/Vaping Use: Never Used Second Hand Smoke Exposure: No Use of substances other than those prescribed or required for medical reasons: No Currently Displaying Signs/Symptoms of Drug Intoxication Withdrawal: No Have you been hit, kicked, punched, or otherwise hurt by someone within the past year? If so, by whom?: No Do you feel safe in your current relationship?: No Is there a partner from a previous relationship who is making you feel unsafe now?: No Are you made to feel afraid or neglected: No Advance Directives: Yes Advance Directives on File: Yes Advance Directives Date on File: 11/21/21 Do you have a plan to hurt others: No Plan Recently lost weight without trying: Yes How much weight loss: 14-23 pounds Eating poorly because of decreased appetite: Yes Nutrition screen score: 5 Nutrition Risks: Poor intake 0-25% >4 days Patient : No : No Poor oral hygiene: No service: No Current occupational status: employed 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[place] [place] Cognitive needs: No Hearing needs: No Vision needs: No Meds Allergies Allergy/AdvReac Type Severity Reaction Status Date / Time adalimumab [From Humira] Allergy hairloss Verified 02/22/25 07:00 enoxaparin [From Lovenox] Allergy Rash Verified 02/22/25 07:00 etanercept [Enbrel] Allergy Injection Verified 02/22/25 07:00 site reaction sarilumab [From Kevzara] Allergy injection Verified 02/22/25 07:00 site reaction Active Medications: Current Medications Metronidazole (Flagyl) 500 mg in 100 mls @ 100 mls/hr IV ONCE ONE Stop: 02/22/25 10:07 Last Admin: 02/22/25 09:50 Dose: 100 mls/hr Levofloxacin (Levaquin) 750 mg in 150 mls @ 100 mls/hr IV ONCE ONE Stop: 02/22/25 10:37 Sodium Chloride (Ns) 1,000 mls @ 999 mls/hr IV .Q1H1M CORAL Stop: 02/22/25 10:45 Last Admin: 02/22/25 09:43 Dose: 999 mls/hr Home Medications ?Medication ?Instructions ?Recorded ?Confirmed ?Last Taken ?Type frovatriptan 2.5 mg tablet 2.5 mg PO Q2-4H PRN Headache 01/15/22 02/22/25 Unknown History topiramate 100 mg tablet 100 mg PO BID 03/15/24 02/22/25 02/22/25 History escitalopram oxalate 10 mg tablet 10 mg PO DAILY 02/22/25 02/22/25 02/22/25 History fremanezumab-vfrm 225 mg/1.5 mL 225 mg subcut Q28W 02/22/25 02/22/25 01/29/25 History subcutaneous auto-injector (Ajovy) pantoprazole 40 mg tablet,delayed 40 mg PO DAILY@0630 02/22/25 02/22/25 02/22/25 History release Physical Exam Vital Signs and Narrative: Vital Signs: Last Vital Signs Temp 98.3 F 02/22/25 08:09 Pulse 60 02/22/25 08:09 Resp 16 02/22/25 08:09 BP 112/64 02/22/25 08:09 Pulse Ox 98 02/22/25 08:09 O2 Del Method Room Air 02/22/25 08:09 BMI result Body Mass Index 30.1 Const: Other: Constitutional - Awake and Alert, No apparent distress Eyes - PERRLA, EOMI Cardiovascular - S1S2, RRR, No edema Respiratory - Normal lung expansion, Normal respiratory effort, No respiratory distress, CTA bilaterally Gastrointestinal - TTP lower abd L > R; no rebound; soft; +bs - No CVA tenderness Extremities - no calf tenderness bilaterally, no swelling Musculoskeletal - Normal inspection, normal ROM Skin - Warm/Dry Neurological - Alert & oriented x3, No focal deficit Psychological - Appropriate affect Results Labs 02/22/25 07:15 02/22/25 07:15 Labs: Laboratory Results - last 24 hr 02/22/25 07:15 MCV 86.2 MCH 28.5 MCHC 33.0 RDW 13.2 Plt Count 217 MPV 11.3 Immature Gran % (Auto) 0.4 Neut % (Auto) 81.5 H Lymph % (Auto) 10.5 L [place] % (Auto) 6.7 Eos % (Auto) 0.6 Baso % (Auto) 0.3 Lymph # (Auto) 1.2 [place] # (Auto) 0.8 Eos # (Auto) 0.1 Baso # (Auto) 0.0 Abs Immat Gran (auto) 0.05 H Absolute Neuts (auto) 9.7 H Absolute Nucleated RBC 0.000 Nucleated RBC % (auto) 0.0 Anion Gap 9 L Estim Creat Clear Calc 63.1 Estimated GFR 58 Random Glucose 119 H Calcium 9.1 Total Bilirubin 0.6 Direct Bilirubin 0.2 AST 23 ALT 25 Alkaline Phosphatase 55 Total Protein 7.2 Albumin 4.2 Lipase 15 Assessment and Plan (1) Diverticulitis: Status: Acute Plan 54 yo F presenting with ongoing abdominal pain secondary to sigmoid diverticulitis. She has failed to respond to outpatient therapy and will now be admitted for further treatment. 1. Acute sigmoid diverticulitis failed OP therapy will treat with IV rocephin/flagyl IV morphine IVF start clears and advance as tolerated 2. History of multiple VTE Eliquis 3. Mood continue baseline meds Full Code DVT pptx, Eliquis Pt with sigmoid diverticulitis with signs of worsening/unresolved infection and failure of outpatient treatment, therefore expected to require 48-72 hours of IV treatment including fluids, antibiotics and analgesics. Therefore, will be admitted as inpatient. Quality Stroke Does the patient have a stroke diagnosis?: No VTE Prior VTE?: No VTE Risk Level:: Medical - moderate - high VTE Device Contraindication: N/A - Device Ordered VTE Drug Contraindication: N/A - Med Ordered
--- NOTE | 2025-02-22 10:40 | PHA.MEDREC ---
Addendum entered by Zion Rausch RPh 02/22/25 11:18: med rec checked by [facility] Original Note: Pharmacy Consult ? Medication Reconciliation Pharmacy has completed the medication reconciliation. Spoke to patient to confirm med list. Patient states she is no longer taking Calcium Carb 600 mg, Flonase, Meclizine 25 mg, Tizanidine 4 mg, Tramadol 50 mg and Trazadone 100 mg. Patient confirmed Actemra ACtPen 162 mg q 2weeks next dose was 02/21/25, however she can't take while on antibiotics. *Patient is on Augmentin*, Ajovy 225 mg q 28 days, patient next does is 02/26/25. Patient states she is still taking Escitalopram 10 mg , however last fill date was 05/19/24 for 90 days
[2025-02-22] MEDS: levoFLOXacin/D5W 750 MG/150 ML PIGGYBACK 100 MG IV (11:01)
[2025-02-22] MEDS: Lactated Ringers 1,000 ML 100 ML IVCONT ×2 (11:34→20:45)
[2025-02-22] MEDS: Topiramate 100 MG TABLET PO (19:32)
[2025-02-22] MEDS: Apixaban 5 MG TABLET PO (19:33)
--- NOTE | 2025-02-22 19:34 | PC.NURSE ---
Informed pt. that she is going to room, pt. requested her 2100 medication to be given at this time.
[2025-02-23] MEDS: metroNIDAZOLE/NS 500 MG/100 ML PIGGYBACK 100 MG IV ×4 (00:21→23:58)
[2025-02-23 03:31] VITALS: BP 128/62; PULSE 74; RESP 18; TEMP 36.9; O2SAT 94
[2025-02-23] MEDS: Pantoprazole Sodium 20 MG TABLET.DR 40 MG PO (05:53)
[2025-02-23] MEDS: Acetaminophen 325 MG TABLET 650 MG PO (05:56)
[2025-02-23 07:15] VITALS: BP 117/57; PULSE 62; RESP 14; TEMP 36.8; O2SAT 94
[2025-02-23] MEDS: Escitalopram Oxalate 10 MG TABLET PO (07:25)
[2025-02-23] MEDS: Topiramate 100 MG TABLET PO ×2 (07:25→21:27)
[2025-02-23] MEDS: oxyCODONE HCl Immed Release 5 MG TABLET PO (07:25)
[2025-02-23] MEDS: Apixaban 5 MG TABLET PO ×2 (07:25→21:27)
[2025-02-23] MEDS: cefTRIAXone sodium 1 GM VIAL IVPUSH (07:26)
--- NOTE | 2025-02-23 10:06 | MHC.CLN ---
CONSULT-ROUTINE DIET ADVANCED TODAY TO REGULAR. POOR PO NOTED PRIOR TO ADM. WEIGHT LOSS -5% X 3 MONTHS. WEIGHT LOSS NOT SIGNIFICANT. NO NEW NUTRITION INTERVENTIONS AT THIS TIME.
--- NOTE | 2025-02-23 10:25 | P.PNIM_ITS ---
Subjective Subjective Date of Service: 02/23/25 Interval History: seen and evaluated feels little better still reporting lower abdominal pain tolerating clears no other events Review of Systems Review of Systems: Yes all other systems are reviewed and are negative Physical Exam 2 Vital Signs: Vital Signs: Last Vital Signs Temp 98.3 F 02/23/25 07:15 Pulse 62 02/23/25 07:15 Resp 14 02/23/25 07:15 BP 117/57 L 02/23/25 07:15 Pulse Ox 94 02/23/25 07:15 O2 Del Method Room Air 02/23/25 07:15 BMI result Body Mass Index 30.5 Const: Other: Constitutional : Awake, interactive, not in distress Neck : Normal inspection, Supple Cardiovascular : RRR, no JVP, no lower extremity edema Respiratory : good bilateral air entry, no crackles, wheezes or rhonchi Gastrointestinal: soft, lax, Normal bowel sounds, mild LLQ tenderness Skin : Warm, Dry Neurological : Alert & oriented x3, No focal deficit Objective Data Active Medications Acetaminophen (Acetaminophen 325 Mg Tablet) 650 mg PO Q6H PRN PRN Reason: Pain, Mild 1-3,fever,headache Last Admin: 02/23/25 05:56 Dose: 650 mg Documented By: SKYLAR Apixaban (Apixaban 5 Mg Tablet) 5 mg PO BID [facility] Last Admin: 02/23/25 07:25 Dose: 5 mg Documented By: DAWIT Calcium Carbonate (Calcium Carbonate 750 Mg Tab.Chew) 750 mg PO Q4H PRN PRN Reason: Heartburn Ceftriaxone Sodium (Ceftriaxone Sodium 1 Gm Vial) 1 gm IVPUSH Q24H [facility] Last Admin: 02/23/25 07:26 Dose: 1 gm Documented By: DAWIT Escitalopram Oxalate (Escitalopram Oxalate 10 Mg Tablet) 10 mg PO DAILY [facility] Last Admin: 02/23/25 07:25 Dose: 10 mg Documented By: DAWIT Metronidazole (Flagyl) 500 mg in 100 mls @ 100 mls/hr IV Q8H [facility] Last Infusion: 02/23/25 09:06 Dose: Infused Documented By: DAWIT Magnesium Hydroxide (Milk Of Magnesia 30 Ml Oral.Susp) 30 ml PO DAILY PRN PRN Reason: Constipation Melatonin (Melatonin 3 Mg Tablet) 6 mg PO BEDTIME PRN PRN Reason: Insomnia Morphine Sulfate (Morphine Sulfate 4 Mg/Ml Cartridge) 4 mg IVPUSH Q6H PRN; Protocol PRN Reason: Pain, Severe (Pain Scale 7-10) Last Admin: 02/22/25 15:49 Dose: 4 mg Documented By: PAULA Oxycodone HCl (Oxycodone Hcl Immed Release 5 Mg Tablet) 5 mg PO Q6H PRN PRN Reason: Pain, Moderate(Pain Scale 4-6) Last Admin: 02/23/25 07:25 Dose: 5 mg Documented By: DAWIT Pantoprazole Sodium (Pantoprazole Sodium 20 Mg Tablet.) 40 mg PO DAILY@0630 [facility] Last Admin: 02/23/25 05:53 Dose: 40 mg Documented By: SKYLAR Sodium Chloride (0.9 % Sodium Chloride Flush 3 Ml Syringe) 3 ml IVFLUSH QSHIFT [facility] Last Admin: 02/23/25 07:27 Dose: Not Given Documented By: DAWIT Non-Admin Reason: IV Running Topiramate (Topiramate 100 Mg Tablet) 100 mg PO BID [facility] Last Admin: 02/23/25 07:25 Dose: 100 mg Documented By: DAWIT Labs 02/22/25 07:15 02/22/25 07:15 Assessment and Plan (1) Diverticulitis: Status: Acute (2) Epigastric pain: Status: Acute Plan 54 yo F presenting with ongoing abdominal pain secondary to sigmoid diverticulitis. She has failed to respond to outpatient therapy and will now be admitted for further treatment. Acute sigmoid diverticulitis failed OP therapy improving slowly Continue IV rocephin/flagyl IV morphine PRN Hold IVF advance to regular diet History of multiple VTE Eliquis Mood continue baseline meds Full Code DVT pptx, Eliquis Pt with sigmoid diverticulitis with signs of worsening/unresolved infection and failure of outpatient treatment, therefore expected to require overnight stay for IV treatment including fluids, antibiotics and analgesics. Therefore, will be admitted as inpatient. Quality Stroke Does the patient have a stroke diagnosis?: No VTE Prior VTE?: No VTE Risk Level:: Medical - moderate - high VTE Device Contraindication: N/A - Device Ordered VTE Drug Contraindication: N/A - Med Ordered
[2025-02-23 12:00] VITALS: BP 108/57; PULSE 69; RESP 14; TEMP 36.7; O2SAT 96
--- NOTE | 2025-02-23 13:19 | MHC.CM.PN ---
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
[2025-02-23 15:52] VITALS: BP 116/57; PULSE 67; RESP 18; TEMP 36.6; O2SAT 95
[2025-02-23] MEDS: 0.9 % Sodium Chloride Flush 3 ML SYRINGE IVFLUSH ×2 (17:03→21:27)
[2025-02-23 19:51] VITALS: BP 122/58; PULSE 67; RESP 18; TEMP 36.9; O2SAT 99
[2025-02-23 23:12] VITALS: BP 118/58; PULSE 60; RESP 18; TEMP 36.9; O2SAT 94
[2025-02-24 03:15] VITALS: BP 112/59; PULSE 59; RESP 16; TEMP 36.7; O2SAT 96
[2025-02-24] MEDS: Pantoprazole Sodium 20 MG TABLET.DR 40 MG PO (05:57)
[2025-02-24 06:09] LABS: MANUAL DIFF FLAG NO
[2025-02-24 06:21] LABS: Basophils Percent Auto 0.7 % (0-2); Eosinophils Absolute Auto 0.1 X10*3/uL (0.0-0.4); Eosinophils Percent Auto 1.9 % (0-4); Hematocrit 40.2 % (37.0-47.0); Hemoglobin 12.9 g/dl (12.0-16.0); Imm Gran Abs Auto 0.02 X10*3/uL (0.00-0.03); Imm Gran Pct Auto 0.3 % (0.0-0.4); Lymphocytes Absolute Auto 1.6 X10*3/uL (1.2-4.9); Lymphocytes Percent Auto 26.6 % (20-40); Mean Corpuscular HGB Conc 32.1 g/dl (31.0-35.0); Mean Corpuscular Hemoglobin 28.2 pg (27.0-33.0); Mean Corpuscular Volume 87.8 fL (80.0-98.0); Mean Platelet Volume 11.5 fL (9.4-12.3); Monocytes Absolute Auto 0.5 X10*3/uL (0.1-1.2); Monocytes Percent Auto 8.9 % (2-11); Neutrophils Absolute Auto 3.6 x10*3/uL (2.0-8.3); Neutrophils Percent Auto 61.6 % (45-73); Platelet Count 216 X10*3/uL (160-400); Red Blood Count 4.58 X10*6/uL (4.20-5.50); Red Cell Distribution Width 13.3 % (11.0-16.0); White Blood Count 5.8 X10*3/uL (4.8-10.8)
[2025-02-24 06:28] LABS: Anion Gap 10 (12-20); Blood Urea Nitrogen 15 mg/dL (9-16); Calcium 9.2 mg/dL (8.4-10.2); Carbon Dioxide 22 mmol/L (22-29); Chloride 115 mmol/L (96-108); Creatinine Clr Calc Pharmacy 70.6; Estimated Glomerular Filt Rate > 60; Glucose Random 86 mg/dL (60-115); Potassium 3.6 mmol/L (3.3-5.1); Sodium 143 mmol/L (135-145)
[2025-02-24 08:00] VITALS: BP 121/68; PULSE 57; RESP 16; TEMP 36
[2025-02-24 08:02] VITALS: O2SAT 93
[2025-02-24] MEDS: Topiramate 100 MG TABLET PO (09:55)
[2025-02-24] MEDS: Apixaban 5 MG TABLET PO (09:55)
[2025-02-24] MEDS: Escitalopram Oxalate 10 MG TABLET PO (09:55)
[2025-02-24] MEDS: 0.9 % Sodium Chloride Flush 3 ML SYRINGE IVFLUSH (09:56)
[2025-02-24] MEDS: metroNIDAZOLE/NS 500 MG/100 ML PIGGYBACK 100 MG IV (09:56)
[2025-02-24] MEDS: cefTRIAXone sodium 1 GM VIAL IVPUSH (09:56)
--- NOTE | 2025-02-24 10:44 | P.DS_ITS ---
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 The patient was seen in our emergency room 2 days prior to this hospitalization where she was diagnosed with mild sigmoid diverticulitis. That time she was discharged home on oral antibiotics. The patient now returns with ongoing lower abdominal pain. She reports intolera nce to oral intake. She reports taking her antibiotics. In the emergency room the patient was found to have increasing leukocytosis rising from 4000 to [id number]. Given her failure to oral treatment and outpatient therapy, the patient will now be admitted for further treatment of her known diverticulitis. Acute sigmoid diverticulitis failed OP therapy. Was treated IV ceftriaxone and Flagyl, abdominal pain slowly improved. Patient is now able to tolerate diet and is eager to return home. She will be discharged home to complete course of oral antibiotics. Time Attestation Discharge Coordination Time (in mins): 32 Quality: Safe Use of Opioids Does Pt have an Active Cancer Diagnosis on the Problem List?: No Quality: Stroke Does the patient have a stroke diagnosis?: No Physical Exam Vital Signs: Vital Signs: Last Vital Signs Temp 96.8 F 02/24/25 08:00 Pulse 57 02/24/25 08:00 Resp 16 02/24/25 08:00 BP 121/68 02/24/25 08:00 Pulse Ox 93 02/24/25 08:02 O2 Del Method Room Air 02/24/25 08:02 BMI result Body Mass Index 30.5 Const: General: cooperative, comfortable, no acute distress, alert and awake Nutritional Appearance: overweight Orientation/consciousness: patient oriented x3 Resp: Effort & Inspection: normal respiratory effort, able to speak in complete sentences, no respiratory distress and no use of accessory muscles Cardio: Rate: regular rate GI: Inspection: No distended Palpation (GI): Soft to palpation Neuro: General: patient oriented x3, moves all extremities and CN's II-XI intact bilaterally Extrem: General: Yes no pedal edema DS: Data Data Completed and Pending Labs on day of discharge: Laboratory Results - last 24 hr 02/24/25 05:51 WBC 5.8 RBC 4.58 Hgb 12.9 Hct 40.2 MCV 87.8 MCH 28.2 MCHC 32.1 RDW 13.3 Plt Count 216 MPV 11.5 Immature Gran % (Auto) 0.3 Neut % (Auto) 61.6 Lymph % (Auto) 26.6 [place] % (Auto) 8.9 Eos % (Auto) 1.9 Baso % (Auto) 0.7 Lymph # (Auto) 1.6 [place] # (Auto) 0.5 Eos # (Auto) 0.1 Baso # (Auto) 0.0 Abs Immat Gran (auto) 0.02 Absolute Neuts (auto) 3.6 Absolute Nucleated RBC 0.000 Nucleated RBC % (auto) 0.0 Sodium 143 Potassium 3.6 Chloride 115 H Carbon Dioxide 22 Anion Gap 10 L BUN 15 Creatinine 0.89 Estim Creat Clear Calc 70.6 Estimated GFR > 60 Random Glucose 86 Calcium 9.2 Discharge Plan Discharge Anticipated Discharge Date/Time: 02/24/25 10:54 Patient Disposition: Home, Self-Care Discharge Diagnosis: diverticulitis Referrals: Jeri Narayanan, ENVIRONMENTAL COMPLIANCE SPECIALIST-BC [Primary Care Provider] - 1 Week Discharge Medications: New metronidazole 500 mg tablet 500 mg PO Q8H 4 Days Qty: 12 0RF cefuroxime axetil 500 mg tablet 500 mg PO Q12H 4 Days Qty: 8 0RF Continued Nurtec ODT 75 mg tablet,disintegrating 75 mg sublingual Q OTHER DAY PRN (Reason: for migraine) Qty: 16 3RF Actemra ACTPen 162 mg/0.9 mL pen injector 162 mg subcut Q2W Qty: 1.8 5RF Eliquis 5 mg Tablet 5 mg PO BID Qty: 120 4RF Ajovy Autoinjector 225 mg/1.5 mL auto-injector 225 mg SUBCUT Q28W Rx Instructions: Next done 02/26/25 pantoprazole 40 mg tablet,delayed release (DR/EC) 40 mg PO DAILY@0630 escitalopram oxalate 10 mg tablet 10 mg PO DAILY ondansetron 4 mg tablet,disintegrating 4 mg PO DAILY PRN (Reason: nausea and vomiting) Qty: 10 0RF topiramate 100 mg tablet 100 mg PO BID frovatriptan 2.5 mg tablet 2.5 mg PO Q2-4H PRN (Reason: Headache) Rx Instructions: do not exceed 3 doses per 24 hrs (DME) thumb spica See Rx Instructions .Route .MEDSUPPLY Qty: 1 0RF Rx Instructions: wear nightly and as much as possible throughout the day cholecalciferol (vitamin D3) 125 mcg (5,000 unit) capsule 125 mcg PO BID Qty: 60 0RF (DME) thumb spica See Rx Instructions .Route .MEDSUPPLY Qty: 1 0RF Rx Instructions: wear nightly & as much as possible throughout the day Discontinued amoxicillin-pot clavulanate 875-125 mg tablet 1 tab PO BID 7 Days Qty: 14 0RF Discharge Orders: Discharge Order (Routine); Ordered 02/24/25 Ordered By: Gillian Grant Activity on Discharge: As tolerated Stand Alone Forms: Patient Portal Discharge page, Work/School Release Print Language: Korean Care Plan Goals: see below Health Concerns: diverticulitis Plan of Treatment: complete course of antibiotics as prescribed continue bland diet until complete antibiotics, then recommend high fiber diet Assessment: see discharge summary
--- NOTE | 2025-02-24 11:14 | MHC.CM.PN ---
PT WILL DC HOME TODAY WITH NO SERVICES VIA PRIVATE TRANSPORT
[2025-02-24 12:00] VITALS: BP 129/66; PULSE 66; RESP 18; TEMP 36.8; O2SAT 95
== END 2025-02-24 12:16 | disposition home or self-care (01) | DRG 244 ==
LOC: HO.ED 09:23 → HO.EDOVER 10:15 → HO.S3 19:14
PROVIDERS: Student in an Organized Health Care Education/Training Program; Admitting Provider Family Medicine; Emergency Provider Emergency Medicine Emergency Medical Services; PCP Nurse Practitioner Family; Visit Provider Physician Assistant Medical
DX: K57.32 Diverticulitis of large intestine without perforation or abscess without bleeding (principal); D68.51 Activated protein C resistance; F39 Unspecified mood [affective] disorder; Z86.718 Personal history of other venous thrombosis and embolism; Z79.01 Long term (current) use of anticoagulants; Z79.899 Other long term (current) drug therapy
CPT/HCPCS: 36415; 80048; 80053; 82248; 83690; 85025; 99285; J0696; J1836; J1956; J2270; J2405; J7120

== ENCOUNTER → 2025-02-22 09:54 | Outpatient (BNV) | payer OTHER, SELFPAY | PROVIDERS: Admitting Provider Family Medicine; Emergency Provider Emergency Medicine Emergency Medical Services; PCP Nurse Practitioner Family; Visit Provider Family Medicine | DX: K57.92 Diverticulitis of intestine, part unspecified, without perforation or abscess without bleeding (principal); R10.13 Epigastric pain | CPT/HCPCS: 99222; 99232; 99239 ==

== ENCOUNTER 2025-02-28 08:52 | Outpatient (AMB) | payer OTHER, SELFPAY ==
--- NOTE | 2025-02-28 08:50 | A.OFFPC_ITS ---
Intake Visit Reasons: Discharge Follow-Up Intake Note: Telehealth for Discharge follow up from [facility]. Individual Pension Consultant Required: No Allergies adalimumab [From Humira] Allergy (Verified 02/28/25 08:57) hairloss enoxaparin [From Lovenox] Allergy (Verified 02/28/25 08:57) Rash etanercept [Enbrel] Allergy (Verified 02/28/25 08:57) Injection site reaction sarilumab [From Kevzara] Allergy (Verified 02/28/25 08:57) injection site reaction Medication List - Last Reconciled 02/28/25 by Jeri Narayanan, [facility] Actemra ACTPen (tocilizumab) 162 mg (0.9 mL) subcut Q2W NS apixaban (Eliquis) 5 mg PO BID cefuroxime axetil 500 mg PO Q12H 4 days cholecalciferol (vitamin D3) 125 mcg PO BID escitalopram oxalate 10 mg PO DAILY fremanezumab-vfrm (Ajovy) 225 mg subcut Q28W frovatriptan 2.5 mg PO Q2-4H PRN metronidazole 500 mg PO Q8H 4 days ondansetron 4 mg PO DAILY PRN pantoprazole 40 mg PO DAILY@0630 rimegepant (Nurtec ODT) 75 mg sublingual Q OTHER DAY PRN [thumb spica wear nightly & as much as possible throughout the day] [thumb spica wear nightly and as much as possible throughout the day] topiramate 100 mg PO BID Tobacco use date assessed: 02/28/25 Dental Screening Dental Screen Date: 02/28/25 Did you have a dental visit in the last 12 months?: Yes Did you have a dental problem in the last 6 months where you did not have access to dental care?: No Was dental information given to patient?: Patient has dentist HPI HPI Comments History of Present Illness Details HERE TODAY FOR A TRANSITIONAL CARE MANAGEMENT VISIT DISCHARGE SUMMARY REVIEWED. 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 Was treated IV ceftriaxone and Flagyl, abdominal pain slowly improved. Patient is now able to tolerate diet and is eager to return home. She will be discharged home to complete course of oral antibiotics. ADMISSION DATE: 02/22/25 DISCHARGE DATE: 02/24/25 HOSPITAL: [facility] DATE OF INTERACTIVE CONTACT WITH NURSE NAVIGATOR: DOCUMENTED IN CHART PENDING DIAGNOSTIC TESTS/TREATMENTS: no PENDING CONSULTS: none DME: no PT/OT/SINGE MACHINE OPERATOR: no HOME HEALTH AIDE/[place] HOLD: no REFERRALS: none MEDICATIONS RECONCILED & UPDATED. New metronidazole 500 mg tablet 500 mg PO Q8H 4 Days Qty: 12 0RF cefuroxime axetil 500 mg tablet 500 mg PO Q12H 4 Days Qty: 8 0RF DURING TODAYS TCM VISIT, THE D/C SUMMARY WAS REVIEWED, ALONG WITH THE NEED FOR OR FOLLOW-UP ON PENDING DIAGNOSTIC TESTS AND TREATMENTS, NECESSARY INTERACTION WITH OTHER HEALTH DIPLOMA DENTAL ASSISTANT WHO WILL ASSUME OR REASSUME CARE OF THE BENEFICIARY?S SYSTEM-SPECIFIC PROBLEMS WAS DONE OR IS BEING WORKED ON, EDUCATION WAS PROVIDED TO THE BENEFICIARY, FAMILY, GUARDIAN, AND/OR CAREGIVER, REFERRALS TO ESTABLISH OR RE-ESTABLISH AND ARRANGE NEEDED COMMUNITY RESOURCES WE COMPLETED, ASSISTANCE IN SCHEDULING REQUIRED FOLLOW-UP WITH COMMUNITY PROVIDERS AND SERVICES & FINALLY UPDATED MEDICATION LIST GIVEN TO PATIENT/CAREGIVER, History of Present Illness - The patient is a 54-year-old female pr esenting with a follow-up for diverticulitis - Presented initially with abdominal princess n; diverticulitis diagnosed, and initial treatment with po ABT was ineffective. - Hospitalized with worsening labs; bill jennifer with IV antibiotics and discharged on an oral regimen. - Experiencing medication-induced diarrh ea, non-bloody; abdominal pain resolved. Will complete AB today. - Denies prior diverticulitis but acknow ledges family medical history. - Eating cautiously but able to maintain hydration; urinates normally. - Afebrile, no recent falls, or other sy stemi symptoms pertinent; planning to reschedule a GI consult as she had an appt scheduled while she was inpatient. - Has missed work since February 21 returned today February 28. Needs FMLA completed. Review of Systems - Gastrointestinal: Reports diarrhea. De nies nausea, vomiting, or blood in stools. - General: Denies fever, chills, or rece nt falls. - Genitourinary: Denies issues with mict urition; reports normal urination. - Social: Reports returning to work; jared nning to reschedule a GI consultation. Assessment and Plan 1. Acute Diverticulitis - Abdominal pain resolved with antibioti cs. - Follow-up with gastroenterology schedu led. - Reviewed dietary and habitual changes for prevention. - Refer to [facility] nutrition to help w/ diet going forward 2. Medication-induced Diarrhea - Continue antibiotics; reassess post-co mpletion. - Maintain hydration; monitor electrolyt es. - Adjust treatment if symptoms persist. 3. FMLA: Cont leave 02/21-02/27, Intermitten t leave 02/28-08/30/2025 1 episode lasting 2 days Form completed and faxed to her at [phone] Telehealth Attestation This encounter was conducted via telehealth, and documentation accurately reflects the visit. The patient has been explained that this is an interactive (audio/video) telehe alth encounter and what that consists of. The patient understands and wishes to proceed. [employer] platform was used. Total time spent caring for the patient today was 21 minutes. This includes time spent before the visit reviewing the chart, time spent during the visit, and time spent after the visit on documentation, reviewing laboratory results, diagnostic imaging, medications, performing a medically necessary evaluation, counseling on diagnoses, care coordination, ordering appropriate tests, ordering appropriate medications, review of tests performed by other providers, reporting test results with the patient, communication with other healthcare providers. [facility] Medical History Non-toxic multinodular goiter Sprain of medial collateral ligament of left knee History of DVT of lower extremity Secondary hypercoagulable state Encounter for screening involving social determinants of health (SDoH) Encounter for general adult medical examination with abnormal findings Acute lower GI bleeding Lumbar back pain with radiculopathy affecting right lower extremity Mass of both wrists Osteoarthritis of carpometacarpal joint of right thumb Left knee pain Right leg DVT Obesity Vitamin D deficiency Hx of rheumatoid arthritis Hx of thyroid nodule History of vitamin D deficiency Hx of obesity Hx of carpal tunnel syndrome History of fibromyalgia Surgical History History of esophagogastroduodenoscopy (EGD) H/O colonoscopy S/P colonoscopic polypectomy Family History Mother Diabetes Fibromyalgia Osteoarthritis Maternal Grandfather Leukemia Maternal Aunt Breast cancer Unknown Cancer Stomach cancer Social History Household Members: Children Housing: House Are you a primary family day care provider to a significant other at home: No Do you presently have visiting nurse or other home services: No Alcohol intake: current Alcohol intake frequency: does not drink Patient Tobacco Use Status: Never used Tobacco e-Cigarette/Vaping Use: Never Used Second Hand Smoke Exposure: No Advance Directives Date on File: 11/21/21 service: No Current occupational status: employed 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 Jean Figueroa, Maribell Nascimento, Mookie Armendariz and colleagues, with an educational leigh ann from [employer]. Physical exam (Primary Care) Tobacco/Smoking Status: Tobacco use Status Tobacco use date assessed 02/28/25 02/28/25 08:52 Patient Tobacco Use Status Never used Tobacco 02/28/25 08:52 e-Cigarette/Vaping Use Never Used 02/28/25 08:52 Thrive Assessment: Date of Thrive Assessment Date Thrive assessed 02/23/25 02/28/25 08:52 Telehealth Telehealth Telehealth Platform: [facility] Location of provider rendering services: practice address Location of patient: address on file Patient Identification confirmed using: Name, : Yes Telehealth method: video Patient verbally consented to treatment: Yes Patient verbally consented to billing insurance company: Yes Patient informed of any privacy concerns related to visit: Yes Minutes spent on Phone/Video with Pt.: 9 Coding Level of Care Code Tele Est Pt Level 3 (46515) Complex EM visit Add On G2211 Diagnoses Hospital discharge follow-up Z09 Diverticulitis K57.92 Encounters for administrative purpose Z02.9 Assessment & Plan Assessment & Plan (1) Hospital discharge follow-up: Code(s): Z09 - Encounter for follow-up examination after completed treatment for conditions other than malignant neoplasm (2) Diverticulitis: Code(s): K57.92 - Diverticulitis of intestine, part unspecified, without perforation or abscess without bleeding Category: Medical (3) Encounters for administrative purpose: Code(s): Z02.9 - Encounter for administrative examinations, unspecified Plan . Orders: Referrals Nutrition/Dietitian Referral K57.92 - Diverticulitis of intestine, part unspecified, without perforation or abscess without bleeding
== END 2025-02-28 09:15 | disposition home or self-care (01) ==
LOC: HO.HMCFM 08:52
PROVIDERS: PCP Nurse Practitioner Family; Visit Provider Nurse Practitioner Family
DX: K57.92 Diverticulitis of intestine, part unspecified, without perforation or abscess without bleeding (principal)

== ENCOUNTER → 2025-02-28 08:52 | Outpatient (BNVA) | payer OTHER, SELFPAY | PROVIDERS: PCP Nurse Practitioner Family; Visit Provider Nurse Practitioner Family | DX: Z09 Encounter for follow-up examination after completed treatment for conditions other than malignant neoplasm (principal); K57.92 Diverticulitis of intestine, part unspecified, without perforation or abscess without bleeding; Z02.9 Encounter for administrative examinations, unspecified | CPT/HCPCS: 98966 ==

== ENCOUNTER 2025-03-30 15:04 | Outpatient (REF) | payer OTHER, SELFPAY ==
[2025-03-30 16:08] LABS: Appearance Urine Cloudy; Glucose Urine UA Negative (Negative); PH 5.5 (5.0-9.0); Specific Gravity - Urine 1.025 (1.005-1.025); UMIC TRIGGER UACC YES
[2025-03-30 16:39] LABS: UACC Culture Trigger YES
== END 2025-03-30 15:05 | disposition home or self-care (01) ==
LOC: HO.LAB 15:04
PROVIDERS: PCP Nurse Practitioner Family; Visit Provider Nurse Practitioner Family
DX: R30.0 Dysuria (principal)
CPT/HCPCS: 81001; 87086; 87088; 87186

== ENCOUNTER 2025-04-04 10:53 | Outpatient (AMB) | payer OTHER, SELFPAY ==
--- NOTE | 2025-04-04 11:40 | A.OFFVIS_ITS ---
Intake Visit Reasons: TRIGGER POINT INJECTION Lead Clinical Research Coordinator Required: No Mandarin Chinese Teacher: Mandarin Chinese Teacher Present Accompanied by: Car Smyth Allergies adalimumab (From Humira) Allergy (Verified 04/04/25 11:40) hairloss enoxaparin (From Lovenox) Allergy (Verified 04/04/25 11:40) Rash etanercept (Enbrel) Allergy (Verified 04/04/25 11:40) Injection site reaction sarilumab (From Kevzara) Allergy (Verified 04/04/25 11:40) injection site reaction HPI HPI TRIGGER POINT INJECTION: Details: History of Present Illness The patient is a 54-year-old female presenting with pain in the right shoulder blade and neck region. The pain in the right shoulder blade is associated with a visible lump, identified as a trigger point, which is tender upon palpation. The patient reports that the pain is referred from the cervical region, suggesting an underlying cervical disc degeneration and spondylosis. The patient has not previously undergone EPT for the neck but is willing to try it as part of the management plan. Pain Description - Location: Right shoulder blade, referred from cervical region - Quality: Tenderness and presence of a trigger point - Exacerbating factors: Not explicitly discussed - Relieving factors: Not explicitly discussed Physical Exam - Musculoskeletal: Visible lump in the right shoulder blade region, identified as a trigger point - Musculoskeletal: Tenderness in the right periscapular region Procedure - Erector spinae block at the T5 level for thoracic back pain and chest wall pain - Informed consent was obtained, and the patient was placed in the prone position. - The right T5 transverse process was visualized with ultrasound, and a 21-gauge needle was advanced to contact the process. - Ropivacaine 0.5% 10mL was injected without pain or complications, and the patient tolerated the procedure well. - An image of the ultrasound-guided injection was saved to the permanent record. [facility] Medical History Non-toxic multinodular goiter Sprain of medial collateral ligament of left knee History of DVT of lower extremity Secondary hypercoagulable state Encounter for screening involving social determinants of health (SDoH) Encounter for general adult medical examination with abnormal findings Acute lower GI bleeding Lumbar back pain with radiculopathy affecting right lower extremity Mass of both wrists Osteoarthritis of carpometacarpal joint of right thumb Left knee pain Right leg DVT Obesity Vitamin D deficiency Hx of rheumatoid arthritis Hx of thyroid nodule History of vitamin D deficiency Hx of obesity Hx of carpal tunnel syndrome History of fibromyalgia Surgical History History of esophagogastroduodenoscopy (EGD) H/O colonoscopy S/P colonoscopic polypectomy Family History Mother Diabetes Fibromyalgia Osteoarthritis Maternal Grandfather Leukemia Maternal Aunt Breast cancer Unknown Cancer Stomach cancer Social History Household Members: Children Housing: House Are you a primary animal caregiver to a significant other at home: No Do you presently have visiting nurse or other home services: No Alcohol intake: current Alcohol intake frequency: does not drink Patient Tobacco Use Status: Never used Tobacco e-Cigarette/Vaping Use: Never Used Second Hand Smoke Exposure: No Advance Directives Date on File: 11/21/21 service: No Current occupational status: employed 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 - Encourage regular stretching and physical therapy exercises, including chin tuck and extensor exercises, to manage referred pain. - Follow-up as needed for cervical disc degeneration and spondylosis. Patient was informed and verbally consented to the use of an ambient scribe for clinic note documentation during this visit. Discussion Notes I discussed with the patient the presence of a trigger point in the right shoulder blade and its referral from the cervical region. We talked about the option of EPT for cervical disc degeneration and spondylosis, and the patient agreed to proceed. I emphasized the importance of regular stretching and physical therapy exercises to manage the pain effectively. Patient Instructions - Perform regular stretching and physical therapy exercises as instructed. - Follow up as needed for cervical disc degeneration and spondylosis. Coding Level of Care Code Est Pt Level 3 (02232) Diagnoses Cervical spondylosis M47.812 Chest wall pain R07.89
== END 2025-04-04 12:01 | disposition home or self-care (01) ==
PROVIDERS: PCP Nurse Practitioner Family; Visit Provider Internal Medicine
DX: M47.812 Spondylosis without myelopathy or radiculopathy, cervical region (principal); R07.89 Other chest pain
CPT/HCPCS: 64999; 76942; 99213

== ENCOUNTER → 2025-04-04 10:53 | Outpatient (BNVA) | payer OTHER, SELFPAY | PROVIDERS: PCP Nurse Practitioner Family; Visit Provider Internal Medicine | DX: M47.812 Spondylosis without myelopathy or radiculopathy, cervical region (principal) | CPT/HCPCS: 64999 ==

== ENCOUNTER 2025-04-06 08:47 | Outpatient (AMB) | payer OTHER, SELFPAY ==
--- NOTE | 2025-04-06 08:59 | A.OFFVIS_ITS ---
VS Expanded 04/06/25 09:00 04/06/25 09:23 Height 5 ft 3 in 5 ft 3 in Weight 165 lb 9.074 oz 165 lb BMI 29.3 29.2 Intake Visit Reasons: Diverticulitis of intestine, part unspecified, Allergies adalimumab (From Humira) Allergy (Verified 04/04/25 11:40) hairloss enoxaparin (From Lovenox) Allergy (Verified 04/04/25 11:40) Rash etanercept (Enbrel) Allergy (Verified 04/04/25 11:40) Injection site reaction sarilumab (From Kevzara) Allergy (Verified 04/04/25 11:40) injection site reaction Nutrition Presentation Details: Pt presents for MNT for recent diverticulitis B: Bagel/egg/goldsmith, coffee/milk sugar L:skips or peanut butter skips meals and may snack on crackers or eat out /fast meals food frequency fruits: 0-1/d ve-2/wk fish -0/wk dairy 1-2 /day physical activity: walking 30 minutes +/day at work eoth/smoking=== BS Monitoring Most Recent Diabetes Results: Creatinine, (0.5-1.4) 0.89 mg/dL 02/24/25 BUN, (9-16) 15 mg/dL 02/24/25 Sodium, (135-145) 143 mmol/L 02/24/25 Potassium, (3.3-5.1) 3.6 mmol/L 02/24/25 Chloride, (96-108) 115 mmol/L H 02/24/25 Carbon Dioxide, (22-29) 22 mmol/L 02/24/25 Calcium, (8.4-10.2) 9.2 mg/dL 02/24/25 AST, (5-31) 23 U/L 02/22/25 ALT, (0-31) 25 U/L 02/22/25 Total Protein, (6.5-8.0) 7.2 g/dL 02/22/25 Albumin, (3.5-5.0) 4.2 g/dL 02/22/25 OKW-Aksmdpa-Od.Jeor Equation Height: 5 ft 3 in Weight: 165 lb Resting Metabolic Rate: 1316.20 Calculated Activity Level: Sedentary Calories Needed to Maintain Weight: 1579.44 Diagnosis Nutrition problem #1: food nutri know defi As related to (etiology) #1: diagnosis As evidenced by (sign/symptom) #1: knowledge deficit of diet (limited intake of fiber in diet ) [facility] Medical History Non-toxic multinodular goiter Sprain of medial collateral ligament of left knee History of DVT of lower extremity Secondary hypercoagulable state Encounter for screening involving social determinants of health (SDoH) Encounter for general adult medical examination with abnormal findings Acute lower GI bleeding Lumbar back pain with radiculopathy affecting right lower extremity Mass of both wrists Osteoarthritis of carpometacarpal joint of right thumb Left knee pain Right leg DVT Obesity Vitamin D deficiency Hx of rheumatoid arthritis Hx of thyroid nodule History of vitamin D deficiency Hx of obesity Hx of carpal tunnel syndrome History of fibromyalgia Surgical History History of esophagogastroduodenoscopy (EGD) H/O colonoscopy S/P colonoscopic polypectomy Family History Mother Diabetes Fibromyalgia Osteoarthritis Maternal Grandfather Leukemia Maternal Aunt Breast cancer Unknown Cancer Stomach cancer Social History Household Members: Children Housing: House Are you a primary urgent care nurse practitioner to a significant other at home: No Do you presently have visiting nurse or other home services: No Alcohol intake: current Alcohol intake frequency: does not drink Patient Tobacco Use Status: Never used Tobacco e-Cigarette/Vaping Use: Never Used Second Hand Smoke Exposure: No Advance Directives Date on File: 11/21/21 service: No Current occupational status: employed 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[employer] Cognitive needs: No Hearing needs: No Vision needs: No Assessment & Plan Assessment & Plan (1) Diverticulitis: Code(s): K57.92 - Diverticulitis of intestine, part unspecified, without perforation or abscess without bleeding Category: Medical Plan: Wt: 75 Kg ( 04/15 ) Est kcal needs as per MSJ: 1600 (40% carb, 30% protein/fat) Est fluid needs as per 25-30 ml/d: 2300 Est prot per day as per 1 g/kg bw: 75 Recommend fiber intake : 8-10 g per day and gradually increase to 25-28 g per day for women and 35-38 g for men or as tolerated Recommend sodium intake per day : less than 2300 mg Educated patient on: ( R = reviewed V = verbalizes understanding N/R = needs review N/A = not applicable * Food sources of carbohydrate, adequate serving sizes and its role in various health conditions: R V N/R * Differences between complex carbohydrates a simple carbohydrates, role of fibe r in diet: R * Lean protein sources of foods: R * Differences between types of fats and role in diet (mono on saturated fat fatty acids, saturated fatty acids, trans fats): R V N/R * Food sources of sodium in salt and healthy modifications for heart health in kidney health: R V R/V * Vitamins and minerals: R V N/R * Healthy plate method concept: R V N/R * Physical activity: Benefits a precaution: R V N/R Patient Instructions: Gradually incorporate fiber sources of foods in the diet have 1 fruit daily (canned in its own juice ok) or in a smoothie -see recipe Have tuna sandwhich on whole wheat bread with olive oil and vinegar and a fruit at lunch at least twice a week Coding Level of Care Code Nutr Indiv Intake (73216) Diagnoses Diverticulitis K57.92 Time Spent (min) 30
[2025-04-06 09:00] VITALS: BMI 29.3
[2025-04-12 21:03] VITALS: BMI 29.2
== END 2025-04-06 09:39 | disposition home or self-care (01) ==
LOC: HO.ENCR 08:48
PROVIDERS: PCP Nurse Practitioner Family; Visit Provider Dietitian, Registered
DX: K57.92 Diverticulitis of intestine, part unspecified, without perforation or abscess without bleeding (principal)

== ENCOUNTER → 2025-04-06 08:47 | Outpatient (BNVA) | payer OTHER, SELFPAY | PROVIDERS: PCP Nurse Practitioner Family; Visit Provider Dietitian, Registered | DX: K57.92 Diverticulitis of intestine, part unspecified, without perforation or abscess without bleeding (principal) | CPT/HCPCS: 97802 ==

== ENCOUNTER 2025-04-27 07:55 | Outpatient (AMB) | payer OTHER, SELFPAY ==
--- NOTE | 2025-04-27 08:02 | A.OFFVIS_ITS ---
Vital Signs 04/27/25 08:06 Height 5 ft 3 in Weight 165 lb BMI 29.2 BP 112/70 Blood Pressure Location Lt brachial Position Sitting Pulse 68 Pulse Source Pulse Oximeter Pulse Oximetry (%) 95 Oxygen Delivery Method Room Air Intake Visit Reasons: RA Intake Note: Patient presents for RA follow up. Allergies adalimumab (From Humira) Allergy (Verified 04/27/25 08:06) hairloss enoxaparin (From Lovenox) Allergy (Verified 04/27/25 08:06) Rash etanercept (Enbrel) Allergy (Verified 04/27/25 08:06) Injection site reaction sarilumab (From Kevzara) Allergy (Verified 04/27/25 08:06) injection site reaction HPI Comments Details: Patient is a 54-year-old female with history of diverticulitis, hyperlipidemia, anxiety/depression, factor 5 Leiden mutation complicated by chronic DVTs, GERD, seropositive rheumatoid arthritis, degenerative spine disease and fibromyalgia here today for follow up Interval History: Patient last seen 10/07/[address] Sung - on Actemra 162 mg every 2 weeks - improvement in her rheumatoid arthritis after the previous visit where she was not consistently taking her Actemra - right knee cortisone injection 08/2024 provided only a few days of relief - complain of pain to the radial aspect of her left wrist consistent with de Quervain's tenosynovitis - flare from 08/2024 visit resolved Today - on Actemra 162 mg every 2 weeks - Doing well without any joint pain - Lost 18lbs since the last visit: walks at lunch every day and portion control Rheumatologic History: +RF -ve CCP dx around 2018 Methotrexate 05/2019 Enbrel 04/2020 with methotrexate. Patient stopped both accidentally. Triple therapy 05/2020-06/2020 ineffective Xeljanz ineffective Cimzia Ineffective DC 06/2021 Methotrexate discontinued 11/2020 due to elevated liver enzymes. Rinvoq 12/2020 -02/2021 ineffective Humira 06/2021-08/2021 discontinued due to hair loss. Enbrel 09/11 stopped 09/2021 due to injection site reaction Kevzara 10/2021 discontinued due to injection site reaction Actemra 11/2021- present effective Current Rheumatology Medication(s): Actemra 162mg SC every 2 weeks [facility] Medical History Non-toxic multinodular goiter Sprain of medial collateral ligament of left knee History of DVT of lower extremity Secondary hypercoagulable state Encounter for screening involving social determinants of health (SDoH) Encounter for general adult medical examination with abnormal findings Acute lower GI bleeding Lumbar back pain with radiculopathy affecting right lower extremity Mass of both wrists Osteoarthritis of carpometacarpal joint of right thumb Left knee pain Right leg DVT Obesity Vitamin D deficiency Hx of rheumatoid arthritis Hx of thyroid nodule History of vitamin D deficiency Hx of obesity Hx of carpal tunnel syndrome History of fibromyalgia Surgical History History of esophagogastroduodenoscopy (EGD) H/O colonoscopy S/P colonoscopic polypectomy Family History Mother Diabetes Fibromyalgia Osteoarthritis Maternal Grandfather Leukemia Maternal Aunt Breast cancer Unknown Cancer Stomach cancer Social History Household Members: Children Housing: House Are you a primary home care music therapist to a significant other at home: No Do you presently have visiting nurse or other home services: No Alcohol intake: current Alcohol intake frequency: does not drink Patient Tobacco Use Status: Never used Tobacco e-Cigarette/Vaping Use: Never Used Second Hand Smoke Exposure: No Advance Directives Date on File: 11/21/21 service: No Current occupational status: employed 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[employer] Cognitive needs: No Hearing needs: No Vision needs: No Review of Systems Const Details: Review of Systems Constitutional: Denies fever, chills, weight loss ENT: Denies vision changes, eye pain or eye redness, dental caries, dry mouth GI: Denies nausea, vomiting, diarrhea, abdominal pain, change in BM Pulm: Denies SOB, MOREJON, hemoptysis, wheezing Cards: Denies chest pain, palpitations Skin: Denies Raynaud's, rash, nail changes, photosensitivity, WAITER/[employer]ESS [employer]: Denies headaches, weakness, paresthesias, recurrent falls MSK: as per HPI All other systems reviewed and are unremarkable except noted above Physical Exam Exam Exam: Vital signs reviewed Physical Examination CONSTITUITIONAL Patient alert and cooperative. Well appearing and in no apparent painful distress HEENT Conjunctiva and sclera clear. No lymphadenopathy. MSK Hands * Right Hand: Able to make a fist. No swelling or tenderness to palpation of these joints. No deformities noted. * Left Hand: Able to make a fist. No swelling or tenderness to palpation of these joints. No deformities noted. Wrists * Right Wrist: Full ROM. 70 degrees of wrist flexion, 80 degrees of wrist extension. No swelling or TTP * Left Wrist: Full ROM. 70 degrees of wrist flexion, 80 degrees of wrist extension. No swelling or TTP Elbows * Right Elbow: Full ROM. No swelling or TTP. No TTP of the medial and lateral epicondyles * Left Elbow: Full ROM. No swelling or TTP. No TTP of the medial and lateral epicondyles Shoulders * Right shoulder: Full ROM. No swelling noted. No TTP of the AC joint, subacromial bursa or posterior shoulder * Left shoulder: Full ROM. No swelling noted. No TTP of the AC joint, subacromial bursa or posterior shoulder Knees * Right knee: Full ROM. No swelling noted. No TTP of the knee joint lie or pes anserine bursa * Left knee: Full ROM. No swelling noted. No TTP of the knee joint lie or pes anserine bursa. Ankles * Right ankle: Good ankle dorsiflexion and plantar flexion. No swelling. No TTP of the ankle joint * Left ankle: Good ankle dorsiflexion and plantar flexion. No swelling. No TTP of the ankle joint Feet * Right foot: Negative squeeze test * Left foot: Negative squeeze test Tender points? * No tenderness to palpation of the bilateral trapezius, supraspinatus, anterior costochondral junctions, bilateral suboccipital muscle insertions SKIN No rashes Vital Signs: Last Vital Signs Pulse 68 04/27/25 08:06 BP 112/70 04/27/25 08:06 Pulse Ox 95 04/27/25 08:06 Oxygen Delivery Method Room Air 04/27/25 08:06 BMI result Body Mass Index 29.2 Results Reviewed Results Reviewed: Laboratory Tests 01/05/25 02/20/25 02/22/25 13:27 13:47 07:15 WBC RBC Hgb Hct Plt Count ESR 2 Sodium Potassium Chloride Carbon Dioxide BUN Creatinine AST 23 ALT 25 Alkaline Phosphatase 55 C-Reactive Protein < 0.04 02/24/25 05:51 WBC 5.8 RBC 4.58 Hgb 12.9 Hct 40.2 Plt Count 216 ESR Sodium 143 Potassium 3.6 Chloride 115 H Carbon Dioxide 22 BUN 15 Creatinine 0.89 AST ALT Alkaline Phosphatase C-Reactive Protein Infectious serologies 06/09/24 08:10 Hepatitis A IgM Ab Nonreactive Hep Bs Antigen Negative Hep Bs Antibody REACTIVE Hep B Core Total Ab Nonreactive Hepatitis C Ab (EIA) Nonreactive TB Test (T-Spot) Com Negative DEXA 10/2024 FINDINGS: The bone mineral density of the lumbar spine is 1.081 with a T-score of -0.8, and a Z-score of -0.6. The bone mineral density of the left total hip is 0.955 with a T-score of -0.4, and a Z-score of -0.2. The bone mineral density of the left femoral neck is 0.878 with a T-score of -1.1, and a Z-score of -0.5. FRACTURE RISK: The FRAX index suggests a risk of major osteoporotic fracture of 7.2%, and of hip fracture 0.5%. Assessment & Plan Assessment & Plan (1) Seropositive rheumatoid arthritis: Comment: +RF -ve CCP dx around 2018 Methotrexate 05/2019 Enbrel 04/2020 with methotrexate. Patient stop both accidentally. Triple therapy 05/2020-06/2020 ineffective Xeljanz ineffective Cimzia Ineffective DC 06/2021 Methotrexate discontinued 11/2020 due to elevated liver enzymes. Rinvoq 12/2020 -02/2021 ineffective Humira 06/2021-08/2021 discontinued due to hair loss. Enbrel 09/11 stopped 09/2021 due to injection site reaction Kevzara 10/2021 discontinued due to injection site reaction Actemra 11/2021- present effective Code(s): M05.9 - Rheumatoid arthritis with rheumatoid factor, unspecified Category: Medical Plan: #Seropositive RA Patient is a 54 y.o. female with seropositive RA here today for follow up. Doing well and currently in remission Plan - Actemra 162 mg every 2 weeks SC - RTC 6 months - Labs before visit: CBC, CMP, ESR, CRP, Hepatitis panel and T spot, lipid panel (2) Osteopenia: Comment: DEXA 10/2024: AP Spine -0.8, Left femur neck -1.1, Left femur total -0.4. FRAX 7.2/0.5 Code(s): M85.80 - Other specified disorders of bone density and structure, unspecified site Category: Medical Qualifiers: Osteopenia location: unspecified Qualified Code(s): M85.80 - Other specified disorders of bone density and structure, unspecified site Plan: #Osteopenia Osteopenia of the left femur neck FRAX does not meet threshold to start treatment Encouraged weight bearing exercises (3) Encounter for monitoring tocilizumab therapy: Code(s): Z51.81 - Encounter for therapeutic drug level monitoring; Z79.620 - nursing home (current) use of immunosuppressive biologic Plan: #Long-term Use of IL 6 Inhibitors: Tocilizumab/Sarilumab Discussed the risks and benefits of IL6 inhibitors with the management of this patient's rheumatic condition. Benefits include decreased pain, improved mortality, improved quality of life Risks include LFT abnormalities, elevated triglycerides, GI perforations Contraindicated in a patient with history of diverticulitis Monitoring: CBC, CMP, triglycerides Plan I spent 30 minutes reviewing the record and labs, taking a history, examining the patient, discussing the treatment plan, ordering diagnostic work up and documenting in the medical record Coding Level of Care Code Est Pt Level 4 (29293) Complex EM visit Add On G2211 Diagnoses Seropositive rheumatoid arthritis M05.9 Osteopenia, unspecified location M85.80 Osteopenia location: unspecified Encounter for monitoring tocilizumab therapy Z51.81; Z79.620
[2025-04-27 08:06] VITALS: BP 112/70; PULSE 68; O2SAT 95; BMI 29.2
== END 2025-04-27 08:28 | disposition home or self-care (01) ==
LOC: HO.RHES 07:55
PROVIDERS: PCP Nurse Practitioner Family; Visit Provider Student in an Organized Health Care Education/Training Program
DX: M05.9 Rheumatoid arthritis with rheumatoid factor, unspecified (principal); M85.80 Other specified disorders of bone density and structure, unspecified site; Z51.81 Encounter for therapeutic drug level monitoring; Z79.620 Long term (current) use of immunosuppressive biologic
CPT/HCPCS: 99214

== ENCOUNTER 2025-05-30 08:20 | Outpatient (AMB) | payer OTHER, SELFPAY ==
--- NOTE | 2025-05-30 08:37 | A.OFFVIS_ITS ---
VS Expanded 05/30/25 08:38 Height 5 ft 3 in Weight 162 lb 7.691 oz BMI 28.8 Intake Visit Reasons: Diet review to prevent Diverticulitis Allergies adalimumab (From Humira) Allergy (Verified 04/27/25 08:06) hairloss enoxaparin (From Lovenox) Allergy (Verified 04/27/25 08:06) Rash etanercept (Enbrel) Allergy (Verified 04/27/25 08:06) Injection site reaction sarilumab (From Kevzara) Allergy (Verified 04/27/25 08:06) injection site reaction Nutrition Presentation Details: Pt presents for MNT f/u for diet instructions for prevention of diverticulitis Pt reports working on gradually including probiotics rich foods and fiber rich foods in the diet. feeling comfortable working on reducing amount of empty calorie foods. food frequency fruits: 2/day fish: 1/wk milk: 2-3 x/day whole grains: legumes fiber supplement: (3-4 g fiber) every other day physical activity: walking 5 d a week (15-20 min) reports having good bm every other day Reports feeling comfortable PFSH Medical History Non-toxic multinodular goiter Sprain of medial collateral ligament of left knee History of DVT of lower extremity Secondary hypercoagulable state Encounter for screening involving social determinants of health (SDoH) Encounter for general adult medical examination with abnormal findings Acute lower GI bleeding Lumbar back pain with radiculopathy affecting right lower extremity Mass of both wrists Osteoarthritis of carpometacarpal joint of right thumb Left knee pain Right leg DVT Obesity Vitamin D deficiency Hx of rheumatoid arthritis Hx of thyroid nodule History of vitamin D deficiency Hx of obesity Hx of carpal tunnel syndrome History of fibromyalgia Surgical History History of esophagogastroduodenoscopy (EGD) H/O colonoscopy S/P colonoscopic polypectomy Family History Mother Diabetes Fibromyalgia Osteoarthritis Maternal Grandfather Leukemia Maternal Aunt Breast cancer Unknown Cancer Stomach cancer Social History Household Members: Children Housing: House Are you a primary home health care worker to a significant other at home: No Do you presently have visiting nurse or other home services: No Alcohol intake: current Alcohol intake frequency: does not drink Patient Tobacco Use Status: Never used Tobacco e-Cigarette/Vaping Use: Never Used Second Hand Smoke Exposure: No Advance Directives Date on File: 11/21/21 service: No Current occupational status: employed 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[employer] [place] Cognitive needs: No Hearing needs: No Vision needs: No Assessment & Plan Assessment & Plan (1) Diverticulitis: Code(s): K57.92 - Diverticulitis of intestine, part unspecified, without perforation or abscess without bleeding Category: Medical Plan: Wt: 75 Kg ( 04/15 ), 73.6kg(06/16) Est kcal needs as per MSJ: 1600 (40% carb, 30% protein/fat) Est fluid needs as per 25-30 ml/d: 2300 Est prot per day as per 1 g/kg bw: 75 Recommend fiber intake : 8-10 g per day and gradually increase to 25-28 g per day for women and 35-38 g for men or as tolerated Recommend sodium intake per day : less than 2300 mg Educated patient on: ( R = reviewed V = verbalizes understanding N/R = needs review N/A = not applicable * Food sources of carbohydrate, adequate serving sizes and its role in various health conditions: R,v * Differences between complex carbohydrates a simple carbohydrates, role of fibe r in diet: R,v * fluid: R * Lean protein sources of foods: R ,v * Healthy plate method concept: R V * Physical activity: Benefits a precaution: R V Patient Instructions: Increase fluids as you increase fiber to prevent constipation Choose fruits as snack -reducing on empty calorie foods include omega 3 fatty acid food sources of foods (fish at least twice/week, ground flaxseed as example) caution if developing flares- must reduce on fiber if developing flares and contact your doctor Coding Level of Care Code Nutr Indiv Subseq (55761) Diagnoses Diverticulitis K57.92 Time Spent (min) 30
[2025-05-30 08:38] VITALS: BMI 28.8
== END 2025-05-30 09:35 | disposition home or self-care (01) ==
LOC: HO.ENCR 08:20
PROVIDERS: PCP Nurse Practitioner Family; Visit Provider Dietitian, Registered
DX: K57.92 Diverticulitis of intestine, part unspecified, without perforation or abscess without bleeding (principal)

== ENCOUNTER → 2025-05-30 08:20 | Outpatient (BNVA) | payer OTHER, SELFPAY | PROVIDERS: PCP Nurse Practitioner Family; Visit Provider Dietitian, Registered | DX: Z71.3 Dietary counseling and surveillance (principal); Z02.9 Encounter for administrative examinations, unspecified; G43.109 Migraine with aura, not intractable, without status migrainosus | CPT/HCPCS: 97803 ==

== ENCOUNTER 2025-05-30 15:25 | Outpatient (AMB) | payer OTHER, SELFPAY ==
--- NOTE | 2025-05-30 15:24 | MHC.PC.OV ---
Intake Visit Reasons: RMV forms - [facility] [phone] Intake Note: Telehealth for rmv form to be filled out. Data Services Developer Required: No Allergies adalimumab (From Humira) Allergy (Verified 05/30/25 17:10) hairloss enoxaparin (From Lovenox) Allergy (Verified 05/30/25 17:10) Rash etanercept (Enbrel) Allergy (Verified 05/30/25 17:10) Injection site reaction sarilumab (From Kevzara) Allergy (Verified 05/30/25 17:10) injection site reaction Medication List - Last Reconciled 05/30/25 by Jeri Narayanan, [facility]- Actemra ACTPen (tocilizumab) 162 mg (0.9 mL) subcut Q2W NS apixaban (Eliquis) 5 mg PO BID cholecalciferol (vitamin D3) 125 mcg PO BID escitalopram oxalate 10 mg PO DAILY fremanezumab-vfrm (Ajovy) 225 mg subcut Q28W frovatriptan 2.5 mg PO Q2-4H PRN ondansetron 4 mg PO DAILY PRN pantoprazole 40 mg PO DAILY rimegepant (Nurtec ODT) 75 mg sublingual Q OTHER DAY PRN [thumb spica wear nightly & as much as possible throughout the day] [thumb spica wear nightly and as much as possible throughout the day] topiramate 100 mg PO BID Tobacco use date assessed: 02/28/25 Dental Screening Dental Screen Date: 02/28/25 HPI HPI Comments History of Present Illness Details 54-year-old female with obesity, GERD, migraine, chronic joint pain, vitamin-D deficiency, nontoxic multinodular goiter, seropositive RA, fibromyalgia, DVT ((multiple, first one diagnosed in her 30s), mild chronic microangiopathy (mri brain 2020 & 2022), small developmental venous anomaly in the left basal gangli (MRI 2022), hepatic steatosis, History of Present Illness - The patient is a 54-year-old female presenting with chronic migraines. - Long-standing use of tinted windows due to light sensitivity as part of migraine management. - Recent compliance issue with vehicle inspection due to tinted windows. - Modifications to workplace lighting to manage light sensitivity. - Ineffectiveness of sunglasses for light sensitivity relief. Cannot wear them as they put pressure on her temples - Light and heat sensitivity impacting daily activities, necessitating additional protective measures. - on multiple medications for migraine management. Review of Systems - Neurological: Reports chronic migraines with associated light sensitivity. - Musculoskeletal: Denies any issues. - Ophthalmologic: Reports severe light sensitivity. Physical Exam Limited physical exam was conducted Awake alert NAD Speaking in full sentences Engaging, appropriate Mood and affect appropriate Assessment and Plan 1. Chronic Migraines - Medical certification for tinted windows to manage photosensitivity. Form completed, requested to be faxed to FAX [phone] - Continue current medications. - Advisement on avoidance of triggers, such as bright lights and heat. Patient was given time to ask questions. All questions were answered to their satisfaction. Telehealth Attestation The clinical information obtained during this visit was conducted via telehealth and is documented accurately to the best of my ability. The patient has been explained that this is an interactive (audio/video) telehealth encounter and what that consists of. The patient understands and wishes to proceed. Sportlyzer platform was used. Total time spent caring for the patient today was 12 minutes. This includes time spent before the visit reviewing the chart, time spent during the visit, and time spent after the visit on documentation, reviewing laboratory results, diagnostic imaging, medications, performing a medically necessary evaluation, counseling on diagnoses, care coordination, ordering appropriate tests, ordering appropriate medications, review of tests performed by other providers, reporting test results with the patient, communication with other healthcare providers. [facility] Medical History Non-toxic multinodular goiter Sprain of medial collateral ligament of left knee History of DVT of lower extremity Secondary hypercoagulable state Encounter for screening involving social determinants of health (SDoH) Encounter for general adult medical examination with abnormal findings Acute lower GI bleeding Lumbar back pain with radiculopathy affecting right lower extremity Mass of both wrists Osteoarthritis of carpometacarpal joint of right thumb Left knee pain Right leg DVT Obesity Vitamin D deficiency Hx of rheumatoid arthritis Hx of thyroid nodule History of vitamin D deficiency Hx of obesity Hx of carpal tunnel syndrome History of fibromyalgia Surgical History History of esophagogastroduodenoscopy (EGD) H/O colonoscopy S/P colonoscopic polypectomy Family History Mother Diabetes Fibromyalgia Osteoarthritis Maternal Grandfather Leukemia Maternal Aunt Breast cancer Unknown Cancer Stomach cancer Social History Household Members: Children Housing: House Are you a primary child care associate to a significant other at home: No Do you presently have visiting nurse or other home services: No Alcohol intake: current Alcohol intake frequency: does not drink Patient Tobacco Use Status: Never used Tobacco e-Cigarette/Vaping Use: Never Used Second Hand Smoke Exposure: No Advance Directives Date on File: 11/21/21 service: No Current occupational status: employed 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 Jean Figueroa, Maribell Nascimento, Mookie Armendariz and colleagues, with an educational leigh ann from [employer]. Physical exam (Primary Care) Tobacco/Smoking Status: Tobacco use Status Tobacco use date assessed 02/28/25 05/30/25 15:25 Patient Tobacco Use Status Never used Tobacco 05/30/25 15:25 e-Cigarette/Vaping Use Never Used 05/30/25 15:25 Thrive Assessment: Date of Thrive Assessment Date Thrive assessed 01/02/25 05/30/25 15:25 Telehealth Telehealth Telehealth Platform: [facility] Location of provider rendering services: practice address Location of patient: address on file Patient Identification confirmed using: Name, : Yes Telehealth method: voice only Patient verbally consented to treatment: Yes Patient verbally consented to billing insurance company: Yes Patient informed of any privacy concerns related to visit: Yes Minutes spent on Phone/Video with Pt.: 6 Coding Level of Care Code Tele Est Pt Level 2 (01894) Complex EM visit Add On G2211 Diagnoses Encounters for administrative purpose Z02.9 Migraine with aura and without status migrainosus, not intractable G43.109 Status migrainosus presence: without status migrainosus Intractability: not intractable Assessment & Plan Assessment & Plan (1) Encounters for administrative purpose: Code(s): Z02.9 - Encounter for administrative examinations, unspecified (2) Migraine headache with aura: Comment: Managed by Neurology Code(s): G43.109 - Migraine with aura, not intractable, without status migrainosus Category: Medical Qualifiers: Status migrainosus presence: without status migrainosus Intractability: not intractable Qualified Code(s): G43.109 - Migraine with aura, not intractable, without status migrainosus Plan ,
== END 2025-05-30 17:19 | disposition home or self-care (01) ==
LOC: HO.HMCFM 15:25
PROVIDERS: PCP Nurse Practitioner Family; Visit Provider Nurse Practitioner Family
DX: G43.109 Migraine with aura, not intractable, without status migrainosus (principal)

== ENCOUNTER 2025-07-18 12:20 | Outpatient (AMB) | payer OTHER, SELFPAY ==
--- NOTE | 2025-07-18 12:23 | A.OFFVIS_ITS ---
Vital Signs 07/18/25 12:24 Height 5 ft 3 in Weight 160 lb BMI 28.3 BP 102/62 Blood Pressure Location Lt brachial Position Sitting Respiration 16 Pulse 80 Pulse Source Pulse Oximeter Intake Visit Reasons: TPI Hydrostatic Tubing Tester Required: No Loan Processor: Loan Processor Present Accompanied by: Car Smyth Allergies adalimumab (From Humira) Allergy (Verified 07/18/25 12:24) hairloss enoxaparin (From Lovenox) Allergy (Verified 07/18/25 12:24) Rash etanercept (Enbrel) Allergy (Verified 07/18/25 12:24) Injection site reaction sarilumab (From Kevzara) Allergy (Verified 07/18/25 12:24) injection site reaction Medication List - Last Reconciled 07/18/25 by Mindy Comer LPN Actemra ACTPen (tocilizumab) 162 mg (0.9 mL) subcut Q2W NS apixaban (Eliquis) 5 mg PO BID cholecalciferol (vitamin D3) 125 mcg PO BID escitalopram oxalate 10 mg PO DAILY fremanezumab-vfrm (Ajovy) 225 mg subcut Q28W frovatriptan 2.5 mg PO Q2-4H PRN ondansetron 4 mg PO DAILY PRN pantoprazole 40 mg PO DAILY rimegepant (Nurtec ODT) 75 mg sublingual Q OTHER DAY PRN [thumb spica wear nightly & as much as possible throughout the day] [thumb spica wear nightly and as much as possible throughout the day] topiramate 100 mg PO BID HPI HPI TPI: Details: History of Present Illness The patient is a 54-year-old female presenting with trigger point injections for left neck and shoulder pain. She reports swelling in the left neck and shoulder area, with increased puffiness noted. Pain is elicited upon palpation, and she has a limited range of motion in her neck, possibly due to sleeping incorrectly. Pain Description - Onset: Recent exacerbation - Quality: Swelling and pain in the left neck and shoulder area - Location: Left neck and shoulder - Exacerbating factors: Possibly sleeping incorrectly - Interference: Limited range of motion in the neck Physical Exam - Musculoskeletal: Swelling observed in the left neck and shoulder area - Musculoskeletal: Pain elicited upon palpation of the left neck and shoulder area - Musculoskeletal: Limited range of motion in the neck Procedure - Trigger point injections performed in the left trapezius, occipitalis, and rhomboid muscles - 10 mL of 0.25% ropivacaine was divided among the trigger points - Patient tolerated the procedure well with no blood loss PFSH Medical History Non-toxic multinodular goiter Sprain of medial collateral ligament of left knee History of DVT of lower extremity Secondary hypercoagulable state Encounter for screening involving social determinants of health (SDoH) Encounter for general adult medical examination with abnormal findings Acute lower GI bleeding Lumbar back pain with radiculopathy affecting right lower extremity Mass of both wrists Osteoarthritis of carpometacarpal joint of right thumb Left knee pain Right leg DVT Obesity Vitamin D deficiency Hx of rheumatoid arthritis Hx of thyroid nodule History of vitamin D deficiency Hx of obesity Hx of carpal tunnel syndrome History of fibromyalgia Surgical History History of esophagogastroduodenoscopy (EGD) H/O colonoscopy S/P colonoscopic polypectomy Family History Mother Diabetes Fibromyalgia Osteoarthritis Maternal Grandfather Leukemia Maternal Aunt Breast cancer Unknown Cancer Stomach cancer Social History Household Members: Children Housing: House Are you a primary adult day care worker to a significant other at home: No Do you presently have visiting nurse or other home services: No Alcohol intake: current Alcohol intake frequency: does not drink Patient Tobacco Use Status: Never used Tobacco e-Cigarette/Vaping Use: Never Used Second Hand Smoke Exposure: No Advance Directives Date on File: 11/21/21 service: No Current occupational status: employed 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 1. Myofascial pain - Trigger point injections administered to alleviate left neck and shoulder myofascial pain - Recommend physical therapy exercises for neck mobility Discussion Notes I discussed with the patient the procedure of trigger point injections, including the expected benefits and the lack of significant risks involved. We also talked about the importance of physical therapy exercises to improve neck mobility and prevent future exacerbations. Patient Instructions - Follow up with physical therapy for neck exercises - Monitor for any changes in swelling or pain and report if symptoms worsen Coding Level of Care Code Procedure Only Diagnoses Myofascial pain M79.18
[2025-07-18 12:24] VITALS: BP 102/62; PULSE 80; RESP 16; BMI 28.3
== END 2025-07-18 12:40 | disposition home or self-care (01) ==
LOC: HO.PMC 12:20
PROVIDERS: PCP Nurse Practitioner Family; Visit Provider Internal Medicine
DX: M79.18 Myalgia, other site (principal)
CPT/HCPCS: 20553

== ENCOUNTER → 2025-07-18 12:20 | Outpatient (BNVA) | payer OTHER, SELFPAY | PROVIDERS: PCP Nurse Practitioner Family; Visit Provider Internal Medicine | DX: M79.18 Myalgia, other site (principal) | CPT/HCPCS: 20553; J2795 ==

== ENCOUNTER 2025-08-12 13:18 | Outpatient (AMB) | payer OTHER, SELFPAY ==
[2025-08-12 13:21] VITALS: BP 125/59; PULSE 60; BMI 28.9
--- NOTE | 2025-08-12 13:21 | MHC.OFFVIS ---
Vital Signs 08/12/25 13:21 Height 5 ft 3 in Weight 163 lb 2.273 oz BMI 28.9 BP 125/59 L Blood Pressure Location Lt brachial Position Sitting Pulse 60 Intake Visit Reasons: yr f/u GERD Intake Note: Zeynep returns to in office follow up of GERD. CC: Patient reports doing well and denies having any GI symptom or concerns today. She reports that back in February this year she went to the ER d/t diverticulitis. Allergies adalimumab (From Humira) Allergy (Verified 08/12/25 13:24) hairloss enoxaparin (From Lovenox) Allergy (Verified 08/12/25 13:24) Rash etanercept (Enbrel) Allergy (Verified 08/12/25 13:24) Injection site reaction sarilumab (From Kevzara) Allergy (Verified 08/12/25 13:24) injection site reaction HPI HPI yr f/u GERD: Details: Assessment & Plan (1) GERD (gastroesophageal reflux disease): Code(s): K21.9 - Gastro-esophageal reflux disease without esophagitis Category: Medical Plan She continues to do very well with her pantoprazole 40mg qd. Her last colonoscopy was with Dr. Gomez, but for her next she would prefer to do it with our service. She would be due in 2026 ROV 1 year. Medications: Refilled pantoprazole 40 mg PO DAILY 90 tabs 3RF TODAY'S VISIT [facility] Medical History Non-toxic multinodular goiter Sprain of medial collateral ligament of left knee History of DVT of lower extremity Secondary hypercoagulable state Encounter for screening involving social determinants of health (SDoH) Encounter for general adult medical examination with abnormal findings Acute lower GI bleeding Lumbar back pain with radiculopathy affecting right lower extremity Mass of both wrists Osteoarthritis of carpometacarpal joint of right thumb Left knee pain Right leg DVT Obesity Vitamin D deficiency Hx of rheumatoid arthritis Hx of thyroid nodule History of vitamin D deficiency Hx of obesity Hx of carpal tunnel syndrome History of fibromyalgia Surgical History History of esophagogastroduodenoscopy (EGD) H/O colonoscopy S/P colonoscopic polypectomy Family History Mother Diabetes Fibromyalgia Osteoarthritis Maternal Grandfather Leukemia Maternal Aunt Breast cancer Unknown Cancer Stomach cancer Social History Household Members: Children Housing: House Are you a primary certified social workers in health care to a significant other at home: No Do you presently have visiting nurse or other home services: No Alcohol intake: current Alcohol intake frequency: does not drink Patient Tobacco Use Status: Never used Tobacco e-Cigarette/Vaping Use: Never Used Second Hand Smoke Exposure: No Advance Directives Date on File: 11/21/21 service: No Current occupational status: employed 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[employer] [place] Cognitive needs: No Hearing needs: No Vision needs: No Review of Systems Const Denies fatigue, Denies fever(s), Denies night sweats, Denies poor appetite and Denies weight loss ENT Reports Normal hearing present, Denies dental pain, Denies dysphagia, Denies hearing loss, Denies mouth pain, Denies odynophagia, Denies throat swelling, Denies tongue swelling and Reports other (Dentition adequate) Card Reports no additional complaints Resp Reports no additional complaints GI Details: Denies abdominal pain, Denies melena, Denies bloating, Denies hematochezia, Denies constipation, Denies GI cramping, Denies dysphagia, Denies excessive flatus, Denies early satiety, Reports heartburn, Denies diarrhea, Denies nausea, Denies odynophagia, Denies vomiting and Denies hematemesis Skin/Breast Denies pruritus, Denies lesions, Denies rash and Denies jaundice Neuro Reports Normal hearing present and Denies Abnormal speech present Endo Denies fatigue Aller/Immun Denies throat swelling and Denies tongue swelling Physical Exam Vital Signs: Last Vital Signs Pulse 60 08/12/25 13:21 BP 125/59 L 08/12/25 13:21 BMI result Body Mass Index 28.9 Const General: cooperative, no acute distress, well developed and well groomed Nutritional Appearance: well nourished and overweight Orientation/consciousness: oriented to person, oriented to place and oriented to time Limitations: No language barrier HEENT Head: Yes normocephalic and Yes atraumatic Eyes General: appearance normal, both eyes and all related structures Pupils: Equal, round and reactive pupils present Neck Neck: Yes normal visual inspection and Yes no lymphadenopathy Thyroid: Thyroid normal Resp Effort & Inspection: normal respiratory effort and able to speak in complete sentences Auscultation: clear to auscultation bilaterally Cardio Rate: regular rate Rhythm: regular rhythm Heart sounds: Normal, physiologic split S2 sound present Peripheral pulses: radial pulses present and posterior tibial pulses present GI Inspection: No distended and No Abdominal panniculus present Palpation (GI): Soft to palpation, nontender, no guarding, not rigid and No hepatosplenomegaly present Percussion: Yes normal to percussion Auscultation: normal bowel sounds Rectal Exam - Female: deferred Skin General skin exam: no rashes or lesions noted, turgor normal, skin not dry, no jaundice, No spider nevi and no striae Rashes: no rashes Nails: normal Neuro General: oriented to person, oriented to place and oriented to time Cranial nerves: Yes Equal, round and reactive pupils present and Yes Normal hearing present Speech: No Abnormal speech present Extrem General: Yes normal to inspection, No clubbing, No cyanosis and No edema Psych Appearance: grossly normal and well kempt Mental Status: mental status grossly normal Speech and movement: Normal speech and movement present Affect: normal affect Attitude: cooperative Thought process: Normal thought process present and not confabulating Thought content: Normal thought content present Insight: Good insight present (Psych) Judgement: Good judgement present (Psych) Assessment & Plan Assessment & Plan (1) GERD (gastroesophageal reflux disease): Code(s): K21.9 - Gastro-esophageal reflux disease without esophagitis Category: Medical Qualifiers: Esophagitis presence: esophagitis presence not specified Qualified Code(s): K21.9 - Gastro-esophageal reflux disease without esophagitis (2) Diverticulitis: Code(s): K57.92 - Diverticulitis of intestine, part unspecified, without perforation or abscess without bleeding Category: Medical Plan Subjective Patient presents for routine follow-up. Pantoprazole continues to control symptoms well. Reports a recent hospitalization for a first episode of diverticulitis; symptoms resolved after treatment. She typically eats foods such as popcorn, corn, seeds, and nuts but cannot recall if she had them preceding the episode. She met with Tasha afterward for counseling. No additional concerns today. Colonoscopy remains due in 2026. Objective Assessment & Plan Diverticulitis (recent, first episode): Recent hospitalization for first episode with good response to treatment. Reviewed common potential dietary triggers (popcorn, corn, seeds, nuts) and individualized approach to avoidance. - Educated to monitor for recurrent, same-pattern symptoms and to call me promptly; if presentation is the same, I will prescribe antibiotics to avoid ER visit when appropriate. - Advised that different or atypical symptoms warrant in-person evaluation. - Aim to avoid unnecessary imaging exposure when presentation is clearly recurrent and typical. - Follow up in 6 months, sooner as needed for recurrence or concerns. Gastroesophageal reflux disease: Stable, well-controlled on current therapy. - Continue pantoprazole as currently taking. Colorectal cancer screening: Up to date. - Colonoscopy due in 2026. Medications: Refilled pantoprazole 40 mg PO DAILY 90 tabs 3RF Coding Level of Care Code Est Pt Level 3 (01767) Diagnoses Gastroesophageal reflux disease, unspecified whether esophagitis present K21.9 Esophagitis presence: esophagitis presence not specified Diverticulitis K57.92
== END 2025-08-12 13:35 | disposition home or self-care (01) ==
LOC: HO.HGI 13:19
PROVIDERS: PCP Nurse Practitioner Family; Visit Provider Nurse Practitioner
DX: K21.9 Gastro-esophageal reflux disease without esophagitis (principal); K57.92 Diverticulitis of intestine, part unspecified, without perforation or abscess without bleeding
CPT/HCPCS: 99213